=== PATIENT | male | born 1990 | race Caucasian/White ===

== ENCOUNTER 2016-09-02 16:14 | Inpatient (IN) | payer SELFPAY ==
--- NOTE | 2016-09-02 16:48 | C.PDOC ---
Chief Complaint (Nursing): Abdominal Pain
--- NOTE | 2016-09-02 17:11 | C.PDOC ---
History Of Present Illness 26 year old patient with generalized abdominal pain for the past 2 days. Patient also complains of multiple episodes of non-bloody vomiting. He drinks alcohol daily and his last drink was at 0300. The pain initially started as epigastric, but now is to bilateral left quadrants. Patient also feels bloated. Patient denies a history of PUD, prior epigastric pain, or fever. He had a bowel movement this morning. Patient does not have a past surgical history. GEN ABD PAIN X 2 DAYS. +VOMITING, NONBLOODY. PS DRINKS DAILY, LAST DRINK @ 0300. INITIAL EPIG PAIN, NOW B/L LQ. +BLOATING. DENIES HO PUD, PRIOR EPIG PAIN. +BM THIS MORNING. PSH NEG. NO FEVER EXAM MOD DIST MILD TOX HEENT ANICTERIC, MMM ABD +DISTENDED B/L LQ TEND MILD CV RRR SINUS TACH SKIN NO JAUNDICE WARM DRY NEURO INTACT NO FOCAL DEF PSYCH CALM, NO S/S ACUTE INTOX NO S/S WITHDRAWAL Time Seen by Provider: 09/02/16 17:09 Chief Complaint (Nursing): Abdominal Pain History Per: Patient History/Exam Limitations: no limitations Onset/Duration Of Symptoms: Days (2) Current Symptoms Are (Timing): Still Present Context: Other Severity: Moderate Pain Scale Rating Of: 4 Location Of Pain/Discomfort: Epigastric, LUQ, LLQ Radiation Of Pain To:: None Quality Of Discomfort: "Pain" Associated Symptoms: Vomiting Exacerbating Factors: None Alleviating Factors: None Last Bowel Movement: Today Recent travel outside of the [place]: No Past Medical History Reviewed: Historical Data, Nursing Documentation, Vital Signs Vital Signs: Last Vital Signs Temp 96.8 F L 09/02/16 17:26 Pulse 107 H 09/02/16 17:30 Resp 23 09/02/16 17:30 BP 124/61 09/02/16 17:30 Pulse Ox 100 09/02/16 18:04 Family History: States: Unknown Family Hx - Social History Hx Alcohol Use: No Hx Substance Use: No - Immunization History Hx Tetanus Toxoid Vaccination: No Hx Influenza Vaccination: No Hx Pneumococcal Vaccination: No Review Of Systems Except As Marked, All Systems Reviewed And Found Negative. Constitutional: Negative for: Fever Gastrointestinal: Positive for: Vomiting, Abdominal Pain. Negative for: Other Physical Exam - Physical Exam Appears: Toxic (moderate), Other (moderate distress) Skin: Warm, Dry, No Jaundice Head: Atraumatic, Normacephalic Eye(s): bilateral: Other ((+)anicteric) Ear(s): Bilateral: Normal Nose: Normal Oral Mucosa: Moist Throat: Normal Neck: Normal ROM, Supple Chest: Symmetrical Cardiovascular: Rhythm Regular (sinus tachycardic) Respiratory: Normal Breath Sounds, No Rales, No Rhonchi, No Wheezing Gastrointestinal/Abdominal: Tenderness (bilateral LQ; mild), Distention Back: Normal Inspection Extremity: Normal ROM Neurological/Psych: Other (Neuro: intact, no focal deficits; Psych: calm, no signs or symptoms of acute intoxication, no signs or symptoms of withdrawal) ED Course And Treatment - Laboratory Results Result Diagrams: 09/02/16 17:09 09/02/16 17:09 ECG: Interpreted By Mn ECG Rhythm: Sinus Tachycardia ECG Interpretation: Abnormal Rate From EC O2 Sat by Pulse Oximetry: 100 (room air) Pulse Ox Interpretation: Normal - CT Scan/US ABD/PELVIS Other Rad Studies (CT/US): Radiology Report Reviewed (D/W DR BOWSER NEG FREE AIR. +PANCREATITIS) Progress - Re-Evaluation Re-evaluation Note: 09/02/16 17:33 125/70 SINUS TACH 124 CODE SEPSIS ACTIVATED 09/02/16 17:54 D/W SURG RESIDENT AWARE OF ER FINDINGS WILL EVAL IN ER D/W DR FINNEY ICU AWARE OF ER FINDINGS. REQUESTS CALLBACK W CT REPORT BEFORE DISPO CT PENDING 09/02/16 18:24 D/W MAGUE. D/W DR FINNEY AWARE OF CT FINDINGS, ACCEPTS FOR ICU. - Data Reviewed Data Reviewed: Lab, Diagnostic imaging, EKG, Old records - Critical Care Citical Care: Excluding Proc Time Critical Care Time: 90 minutes - Continuity of Care Discussed patient case with:: Patient, On-call PMD-pt unassigned Discussed pt. case with homemaking rehabilitation consultant/specialty: General Surgery Disposition Counseled Patient/Family Regarding: Studies Performed, Diagnosis - Disposition Disposition: HOSPITALIZED Disposition Time: 18:28 Condition: CRITICAL - POA Present On Arrival: None - Clinical Impression Clinical Impression: Pancreatitis, acute, Alcohol withdrawal - Scribe Statement The provider has reviewed the documentation as recorded by the Scribe Jacquie Higuera Provider Attestation: All medical record entries made by the Scribe were at my direction and personally dictated by me. I have reviewed the chart and agree that the record accurately reflects my personal performance of the history, physical exam, medical decision making, and the department course for this patient. I have also personally directed, reviewed, and agree with the discharge instructions and disposition. Decision To Admit - Pt Status Changed To: Hospital Disposition Of: Inpatient - Admit Certification Admit to Inpatient:: After my assessment, the patient will require hospitalization for at least two midnights. This is because of the severity of symptoms shown, intensity of services needed, and/or the medical risk in this patient being treated as an outpatient. - InPatient: Physician Admission Certification:: SEE NOTE - . Bed Request Type: ICU Admitting Physician: Dylan Hawkins Patient Diagnosis: Pancreatitis, acute, Alcohol withdrawal
[2016-09-02 17:12] LABS: BASO # 0.1 K/uL (0.0-0.2); BASO % 0.4 % (0.0-2.0); EOS % 0.2 % (0.0-4.0); LYMPH # 1.6 K/uL (1.0-4.3); LYMPH % 9.4 % (20.0-40.0); MEAN CELL VOLUME 100.1 fL (80.0-94.0); MEAN CORPUSCULAR HEMOGLOBIN 32.5 pg (27.0-31.0); MEAN CORPUSCULAR HGB CONC 32.5 g/dL (33.0-37.0); MEAN PLATELET VOLUME 7.6 fL (7.2-11.7); MONO # 0.6 K/uL (0.0-0.8); MONO % 3.4 % (0.0-10.0); NRBC % 0.1 % (0.0-2.0); PLATELET COUNT 251 K/uL (130-400); RED CELL DISTRIBUTION WIDTH 16.1 % (11.5-14.5); WHITE BLOOD COUNT 16.6 K/uL (4.8-10.8)
[2016-09-02] MEDS ORDERED: Sodium Chloride 0.9% 1,000 ML ONE (17:23)
[2016-09-02 17:24] LABS: BILIRUBIN,TOTAL 4.5 mg/dL (0.2-1.3)
[2016-09-02 17:25] LABS: CALCIUM 6.5 mg/dl (8.6-10.4); TOTAL PROTEIN 8.6 g/dL (6.3-8.3)
[2016-09-02 17:28] LABS: VENOUS BLOOD GAS BASE EXCESS -14.7 mmol/L (0.0-2.0); VENOUS BLOOD GAS PCO2 42 mmHg (40-60); VENOUS BLOOD PH 7.13 (7.32-7.43)
[2016-09-02 17:32] LABS: NEUTROPHIL 84 % (50-75); TOTAL CELLS COUNTED 100
[2016-09-02] MEDS ORDERED: Piperacillin/Tazobact 3.375 gm 100 ML IV STA (17:40)
--- NOTE | 2016-09-02 17:42 | RAD ---
PROCEDURE: CHEST RADIOGRAPH, 1 VIEW. Portable study 17:25. HISTORY: ABD PAIN, TACHYCARDIA R/O FREE AIR COMPARISON: September 02, 2016. Single-view abdomen FINDINGS: LUNGS: Clear. PLEURA: No pneumothorax or pleural fluid seen. CARDIOVASCULAR: Normal. OSSEOUS STRUCTURES: Suspect air under the left hemidiaphragm. Alternatively this could represent distended stomach. VISUALIZED UPPER ABDOMEN: Normal. OTHER FINDINGS: None. IMPRESSION: Free air suspected left hemidiaphragm. Findings discussed with attending physician with recommendation for follow-up CT.
--- NOTE | 2016-09-02 17:43 | RAD ---
HISTORY: ABD PAIN, TACHYCARDIA R/O FREE AIR COMPARISON: September 02, 2016. Single-view chest FINDINGS: BOWEL: Although it is likely the stomach accounting for left upper quadrant air comment a clinical context of this presentation free-air should be considered. BONES: Normal. OTHER FINDINGS: None. IMPRESSION: Possible free-air left hemidiaphragm. Alternatively this represents a normal stomach/gastric bubble. However, there is a clinical suspicion of free air on the CT scan of the abdomen advised
[2016-09-02] MEDS ORDERED: Piperacillin/Tazobact 3.375 gm 100 ML IVPB ONE (17:45)
[2016-09-02 17:46] LABS: ALB/GLOB RATIO 1.5 (1.0-2.1); POTASSIUM 6.3 mmol/L (3.6-5.2)
[2016-09-02 17:49] LABS: ALCOHOL SERUM < 10 mg/dl (0-10)
[2016-09-02 18:02] LABS: INR 1.2
[2016-09-02 18:11] LABS: BILIRUBIN,DIRECT 2.5 mg/dL (0.0-0.4); MAGNESIUM 1.1 mg/dL (1.6-2.3); PHOSPHOROUS 7.3 mg/dL (2.5-4.5)
[2016-09-02] MEDS ORDERED: Calcium Gluconate 4.65 MEQ in Dextrose 5% In Water 100 ML IV STA (18:31)
--- NOTE | 2016-09-02 18:36 | CP.PCM.CON ---
History of Present Illness - History of Present Illness History of Present Illness: 26-year-old male with past medical history of EtOH abuse (drinks 2 packs of beer a day). Present presents with 2 days of generalized abdominal pain. Found to be in severe acute pancreatitis. Review of Systems - Review of Systems All systems: reviewed and no additional remarkable complaints except - Gastrointestinal Gastrointestinal: Abdominal Pain Past Patient History - Infectious Disease Hx of Infectious Diseases: None - Past Social History Smoking Status: Never Smoked - PSYCHIATRIC Hx Substance Use: No Meds Allergies/Adverse Reactions: Allergies Allergy/AdvReac Type Severity Reaction Status Date / Time No Known Allergies Allergy Verified 09/02/16 16:32 - Medications Medications: Current Medications Sodium Chloride (Sodium Chloride 0.9%) 2,100 mls @ 1,000 mls/hr IV .Q2H6M ONE Stop: 09/02/16 19:16 Last Admin: 09/02/16 17:25 Dose: 1,000 mls/hr Sodium Chloride (Sodium Chloride 0.9%) 2,100 mls @ 1,000 mls/hr IV .Q2H6M ONE Stop: 09/02/16 20:35 Physical Exam - Head Exam Head Exam: ATRAUMATIC, NORMAL INSPECTION, NORMOCEPHALIC - Eye Exam Eye Exam: EOMI, Normal appearance, PERRL - ENT Exam ENT Exam: Mucous Membranes Dry - Respiratory Exam Respiratory Exam: Clear to Auscultation Bilateral, NORMAL BREATHING PATTERN - GI/Abdominal Exam GI & Abdominal Exam: Hypoactive Bowel Sounds, Tenderness - Neurological Exam Neurological exam: Alert, CN II-XII Intact, Normal Gait, Oriented x3, Reflexes Normal - Psychiatric Exam Psychiatric exam: Normal Affect Results - Vital Signs Recent Vital Signs: Last Vital Signs Temp 96.8 F L 09/02/16 17:26 Pulse 107 H 09/02/16 17:30 Resp 23 09/02/16 17:30 BP 124/61 09/02/16 17:30 Pulse Ox 100 09/02/16 18:31 - Labs Result Diagrams: 09/02/16 17:09 09/02/16 17:09 Labs: Laboratory Results - last 24 hr 09/02/16 09/02/16 09/02/16 17:09 17:09 17:22 WBC 16.6 H RBC 5.90 Hgb 19.2 H Hct 59.0 H MCV 100.1 H MCH 32.5 H MCHC 32.5 L RDW 16.1 H Plt Count 251 MPV 7.6 Neut % (Auto) 86.6 H Lymph % (Auto) 9.4 L [place] % (Auto) 3.4 Eos % (Auto) 0.2 Baso % (Auto) 0.4 Neut # 14.4 H Lymph # 1.6 [place] # 0.6 Eos # 0.0 Baso # 0.1 Neutrophils % (Manual) 84 H Lymphocytes % (Manual) 14 L Monocytes % (Manual) 2 Platelet Estimate Normal PT INR APTT pO2 VBG pH VBG pCO2 VBG HCO3 VBG Total CO2 VBG O2 Sat (Calc) VBG Base Excess VBG Potassium Glucose Lactate Crit Value Called To Crit Value Called By Crit Value Read Back Blood Gas Notified Time Sodium 126 L Potassium 6.3 H* Chloride 79 L Carbon Dioxide 13 L Anion Gap 40 H BUN 23 H Creatinine 3.1 H Est GFR ( Amer) 29 Est GFR (Non-Af Amer) 24 Random Glucose 191 H Calcium 6.5 L Phosphorus 7.3 H Magnesium 1.1 L Total Bilirubin 4.5 H Direct Bilirubin 2.5 H AST 220 H ALT 58 Alkaline Phosphatase 58 Troponin I 0.2200 H* Total Protein 8.6 H Albumin 5.1 H Globulin 3.5 Albumin/Globulin Ratio 1.5 Lipase 64347 H Venous Blood Potassium Stool Occult Blood Alcohol, Quantitative < 10 09/02/16 09/02/16 09/02/16 17:25 17:39 18:25 WBC RBC Hgb Hct MCV MCH MCHC RDW Plt Count MPV Neut % (Auto) Lymph % (Auto) [place] % (Auto) Eos % (Auto) Baso % (Auto) Neut # Lymph # [place] # Eos # Baso # Neutrophils % (Manual) Lymphocytes % (Manual) Monocytes % (Manual) Platelet Estimate PT 13.6 H INR 1.2 APTT 38 H pO2 27 L VBG pH 7.13 L* VBG pCO2 42 VBG HCO3 11.6 VBG Total CO2 15.3 L VBG O2 Sat (Calc) 45.8 VBG Base Excess -14.7 L VBG Potassium 5.8 H Glucose 174 H Lactate 10.1 H* Crit Value Called To Dr. tipton Crit Value Called By Luciano gomez Crit Value Read Back Y Blood Gas Notified Time 1728 Sodium 130.0 L Potassium Chloride 85.0 L Carbon Dioxide Anion Gap BUN Creatinine Est GFR ( Amer) Est GFR (Non-Af Amer) Random Glucose Calcium Phosphorus Magnesium Total Bilirubin Direct Bilirubin AST ALT Alkaline Phosphatase Troponin I Total Protein Albumin Globulin Albumin/Globulin Ratio Lipase Venous Blood Potassium 5.8 H Stool Occult Blood Negative Alcohol, Quantitative Assessment & Plan (1) Acute pancreatitis Assessment and Plan: 26-year-old male with past medical history of EtOH abuse (drinks 2 packs of beer a day). Present presents with 2 days of generalized abdominal pain. Found to be in severe acute pancreatitis. Neuro: Alert and oriented 3 Pulm: No acute issues, breathing spontaneously on 2 L nasal cannula oxygen. CV: Was mildly hypotensive, but responded to fluid boluses. Hem: Hemoconcentration, indicative of hypovolemic state. Renal: Acute renal failure secondary to prerenal state., Aggressive fluid hydration. Will monitor urine output. Endo: No acute issues GI: Acute pancreatitis, nothing by mouth for now. Depending on severity early feeding may be indicated. Monitor bilirubin. ID: Antibiotics not currently indicated. DVT proph - heparin subcutaneous GI proph - Protonix IV francis for strict I/O's during acute illness Code status - full code Crtical Care Time spent 35 minutes The documented time is cumulative and includes review of patient data/exams/labs /chart review and examination of the patient on rounds and throughout the day; time is exclusive of any procedures or teaching time. Status: Acute
[2016-09-02] MEDS ORDERED: Calcium Gluconate 4.65 mEq/10 ml Inj ONE (18:37)
[2016-09-02] MEDS ORDERED: Sodium Chloride 0.9% 1,000 ML IV SCH (18:45)
[2016-09-02] MEDS ORDERED: Folic Acid 1 MG, Thiamine 100 MG, Multivitamin (MVI) 10 ML in Dextrose 5% In Water 1,00... IV SCH (18:45)
[2016-09-02 18:58] LABS: RBC URINE 40 /hpf (0-3); URINE BACTERIA FEW (<OCC); URINE BILIRUBIN NEGATIVE (NEGATIVE); URINE BLOOD 3+ (NEGATIVE); URINE COLOR Yellow (YELLOW); URINE GLUCOSE (UA) 2+ mg/dL (Normal); URINE KETONE TRACE mg/dL (NEGATIVE); URINE LEUKOCYTE ESTERASE NEG Leu/uL (Negative); URINE PROTEIN 2+ mg/dL (NEGATIVE); URINE UROBILINOGEN NORMAL mg/dL (0.2-1.0); WBC URINE 76 /hpf (0-5)
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
[2016-09-02] MEDS ORDERED: Piperacill/Tazo 2.25gm in Dex 2.25 GM/50 ML BAG IVPB SCH (20:30)
[2016-09-02 20:32] LABS: VENOUS BLOOD GAS BASE EXCESS -12.5 mmol/L (0.0-2.0); VENOUS BLOOD GAS PCO2 41 mmHg (40-60); VENOUS BLOOD PH 7.18 (7.32-7.43)
[2016-09-02] MEDS: Magnesium Sulfate 1 gm in D5W 1 GM/100 ML BAG IVPB SCH ×2 (20:44→20:57)
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
[2016-09-02 20:48] LABS: BASO % 0.3 % (0.0-2.0); EOS % 0.1 % (0.0-4.0); HEMATOCRIT 44.7 % (35.0-51.0); LYMPH # 1.1 K/uL (1.0-4.3); LYMPH % 11.5 % (20.0-40.0); MEAN CELL VOLUME 99.9 fL (80.0-94.0); MEAN CORPUSCULAR HEMOGLOBIN 32.9 pg (27.0-31.0); MEAN CORPUSCULAR HGB CONC 32.9 g/dL (33.0-37.0); MEAN PLATELET VOLUME 7.7 fL (7.2-11.7); MONO # 0.4 K/uL (0.0-0.8); MONO % 4.2 % (0.0-10.0); RED CELL DISTRIBUTION WIDTH 15.3 % (11.5-14.5); WHITE BLOOD COUNT 9.2 K/uL (4.8-10.8)
[2016-09-02 20:53] LABS: CHLORIDE 96 mmol/L (98-107)
[2016-09-02 20:54] LABS: POTASSIUM 5.7 mmol/L (3.6-5.2); SODIUM 127 mmol/L (132-148)
[2016-09-02 20:55] LABS: CHOLESTEROL 100 mg/dL (0-199)
[2016-09-02 20:56] LABS: ALB/GLOB RATIO 1.3 (1.0-2.1); ALKALINE PHOSPHATASE 25 U/L (38-126); ALT/SGPT 40 U/L (21-72); AST/SGOT 131 U/L (17-59); BLOOD UREA NITROGEN 21 mg/dL (9-20); CARBON DIOXIDE 14 mmol/L (22-30); GFR AFRICAN-AMERICAN 55; GLUCOSE,RANDOM 128 mg/dL (75-110)
[2016-09-02 20:57] LABS: PHOSPHOROUS 2.7 mg/dL (2.5-4.5)
[2016-09-02 21:00] LABS: CALCIUM 4.7 mg/dl (8.6-10.4); MAGNESIUM 0.7 mg/dL (1.6-2.3)
--- NOTE | 2016-09-02 21:58 | PCM.SEPTIC ---
Sepsis Progress Note - Reassessment Type Date of Evaluation: 09/02/16 Time of Evaluation: 21:30 Reassessment Type: Non-invasive reassessment - Non Invasive Reassessment Were the most recent vital sign reviewed: Yes Vital Sign (Latest): Temp Pulse Resp BP Pulse Ox 97 F L 110 H 25 H 122/73 98 09/02/16 20:10 09/02/16 21:40 09/02/16 21:40 09/02/16 21:10 09/02/16 21:40 Temp -97 Pulse 109/min RR-22/min BP 122/73mmHg SaO2-98% Cardiovascular: Yes: Tachycardia. No: Chest Non Tender, Edema, Friction Rub Respiratory: Yes: Normal Breath Sounds. No: Accessory Muscle Use, Respiratory Distress Capillary Refill: Normal (Less than 2 sec) Pulses: Normal Radial, Normal Dorsalis Pedis, Normal Posterior Tibialis Skin: Normal Color, Warm
[2016-09-02] MEDS ORDERED: (Novolin R) Insulin Human Regular 100 units/ml vial SC SCH (22:00)
[2016-09-02] MEDS: [UNRECOGNIZED DRUG - OTHER] IV SCH (22:18)
[2016-09-02] MEDS: SODIUM BICARBONATE IV SCH (22:18)
[2016-09-02] MEDS: DEXTROSE IV SCH (22:18)
[2016-09-02] MEDS: Piperacill/Tazo 2.25gm in Dex 2.25 GM/50 ML BAG IVPB SCH (23:58)
[2016-09-03] MEDS: (Novolin R) Insulin Human Regular 100 units/ml vial SC SCH ×4 (00:02→18:38)
[2016-09-03 00:37] LABS: RBC URINE 3 /hpf (0-3); URINE BACTERIA RARE (<OCC); URINE BILIRUBIN NEGATIVE (NEGATIVE); URINE BLOOD 2+ (NEGATIVE); URINE COLOR Yellow (YELLOW); URINE GLUCOSE (UA) 3+ mg/dL (Normal); URINE KETONE NEGATIVE (NEGATIVE); URINE LEUKOCYTE ESTERASE NEG Leu/uL (Negative); URINE PROTEIN NEGATIVE (NEGATIVE); URINE UROBILINOGEN NORMAL mg/dL (0.2-1.0); WBC URINE 4 /hpf (0-5)
[2016-09-03] MEDS: SODIUM BICARBONATE IV SCH (03:36)
[2016-09-03] MEDS: [UNRECOGNIZED DRUG - OTHER] IV SCH (03:36)
[2016-09-03] MEDS: DEXTROSE IV SCH (03:36)
[2016-09-03 04:19] LABS: VENOUS BLOOD GAS BASE EXCESS -4.5 mmol/L (0.0-2.0); VENOUS BLOOD GAS PCO2 36 mmHg (40-60); VENOUS BLOOD PH 7.36 (7.32-7.43)
[2016-09-03 04:22] LABS: BASO % 0.6 % (0.0-2.0); EOS % 0.1 % (0.0-4.0); HEMATOCRIT 43.5 % (35.0-51.0); LYMPH % 13.2 % (20.0-40.0); MEAN CELL VOLUME 98.1 fL (80.0-94.0); MEAN CORPUSCULAR HEMOGLOBIN 33.5 pg (27.0-31.0); MEAN CORPUSCULAR HGB CONC 34.1 g/dL (33.0-37.0); MEAN PLATELET VOLUME 7.7 fL (7.2-11.7); MONO # 0.2 K/uL (0.0-0.8); MONO % 2.2 % (0.0-10.0); RED CELL DISTRIBUTION WIDTH 14.7 % (11.5-14.5); WHITE BLOOD COUNT 7.9 K/uL (4.8-10.8)
[2016-09-03 04:23] LABS: INR 1.2
[2016-09-03 04:30] LABS: CHLORIDE 92 mmol/L (98-107); POTASSIUM 4.1 mmol/L (3.6-5.2); SODIUM 123 mmol/L (132-148)
[2016-09-03 04:32] LABS: ALKALINE PHOSPHATASE 28 U/L (38-126); AST/SGOT 111 U/L (17-59); BILIRUBIN,TOTAL 3.3 mg/dL (0.2-1.3); CARBON DIOXIDE 21 mmol/L (22-30); GFR AFRICAN-AMERICAN > 60; TOTAL PROTEIN 5.4 g/dL (6.3-8.3)
[2016-09-03 04:33] LABS: ALT/SGPT 41 U/L (21-72); BLOOD UREA NITROGEN 18 mg/dL (9-20); GLUCOSE,RANDOM 164 mg/dL (75-110); PHOSPHOROUS 2.2 mg/dL (2.5-4.5)
[2016-09-03 04:34] LABS: MAGNESIUM 1.5 mg/dL (1.6-2.3)
[2016-09-03 05:10] LABS: CALCIUM 5.6 mg/dl (8.6-10.4)
[2016-09-03] MEDS: Piperacill/Tazo 2.25gm in Dex 2.25 GM/50 ML BAG IVPB SCH (06:00)
[2016-09-03] MEDS ORDERED: Sodium Chloride 0.9% 1,000 ML IV ONE ×2 (06:42→06:45)
--- NOTE | 2016-09-03 07:07 | CP.PCM.PN ---
Subjective - Date & Time of Evaluation Date of Evaluation: 09/03/16 Time of Evaluation: 06:52 - Subjective Subjective: Patient was initially given 3 lit fluid bolus in ER the later blood work showed improvement in the hemoconcentration, increased output of diluted urine, reduction in the soudium, some hypercholeremic non ag acidosis, hypomagnesimia, hypocalcemia, hyperkalemia. Fluids at this point changed to Isotonic D50.45NS with 75meq of sodiumbicarb, replaced mag and calcium, repeat urine spgr lower, over night about 3000ml of urination probably diuretic phase of ATN. With above fluids bicarb, potassium, mag, ph improved, ivf, patient currently voiding about 60ml/hr, Urine sodium, potassium, creatinine, osm, analysis, ordered with replacement of mag, ivf changed to NS at 200mls/hr. Objective - Vital Signs/Intake and Output Vital Signs (last 24 hours): Temp Pulse Resp BP Pulse Ox 99.2 F 111 H 16 114/66 97 09/03/16 00:00 09/03/16 02:30 09/03/16 02:30 09/03/16 03:10 09/03/16 02:30 Intake and Output: 09/02/16 09/03/16 18:59 06:59 Intake Total 3000 Output Total 3100 Balance -100 - Medications Medications: Current Medications Sodium Chloride (Sodium Chloride 0.9%) 1,000 mls @ 200 mls/hr IV .Q5H ONE Stop: 09/03/16 11:41 Magnesium Sulfate/Dextrose (Magnesium Sulfate 1 Gm/100 Ml D5w) 1 gm in 100 mls @ 300 mls/hr IVPB Q30M BONNIE Stop: 09/03/16 07:49 Piperacillin Sod/Tazobactam (Sod 3.375 gm/ Sodium Chloride) 100 mls @ 200 mls/ hr IVPB Q6H BONNIE Insulin Human Regular (Novolin R) 0 unit SC Q6 BONNIE PRN Reason: Protocol Last Admin: 09/03/16 06:05 Dose: 2 unit Lorazepam (Ativan) 1 mg IVP Q3H PRN PRN Reason: withdrawal symptoms Ondansetron HCl (Zofran Inj) 4 mg IVP Q6H PRN PRN Reason: Nausea/Vomiting Pantoprazole Sodium (Protonix Inj) 40 mg IVP DAILY BONNIE Pneumococcal Polyvalent Vaccine (Pneumovax 23 Vaccine) 0.5 ml IM .ONCE ONE Stop: 09/05/16 10:01 Thiamine HCl (Vitamin B1 Inj) 100 mg IV DAILY [facility] - Labs Labs: 09/03/16 04:12 09/03/16 04:12 PT 13.8 SECONDS (9.7-12.2) H 09/03/16 04:12 INR 1.2 09/03/16 04:12 APTT 31 SECONDS (21-34) D 09/03/16 04:12
[2016-09-03] MEDS: Magnesium Sulfate 1 gm in D5W 1 GM/100 ML BAG IVPB SCH ×4 (07:25→12:50)
--- NOTE | 2016-09-03 08:09 | CT ---
PROCEDURE: CT Abdomen and Pelvis without intravenous contrast HISTORY: ABD DISTENTION R/O FREE AIR COMPARISON: None. TECHNIQUE: Technique. Contrast Dose: Radiation dose: Total exam DLP = 259 mGy-cm. This CT exam was performed using one or more of the following dose reduction techniques: Automated exposure control, adjustment of the mA and/or kV according to patient size, and/or use of iterative reconstruction technique. FINDINGS: LOWER THORAX: Unremarkable. LIVER: Diffuse fatty infiltration of the liver. GALLBLADDER AND BILE DUCTS: Unremarkable. PANCREAS: Marked diffuse peripancreatic inflammation and fluid stranding consistent with severe acute pancreatitis. No pseudocyst or abscess. SPLEEN: Unremarkable. ADRENALS: Unremarkable. No mass. KIDNEYS AND URETERS: Unremarkable. No hydronephrosis. No solid mass. VASCULATURE: Unremarkable. No aortic aneurysm. BOWEL: Unremarkable. No obstruction. No gross mural thickening. APPENDIX: Unremarkable. Normal appendix. PERITONEUM: Unremarkable. No free fluid. No free air. LYMPH NODES: Unremarkable. No enlarged lymph nodes. BLADDER: Unremarkable. REPRODUCTIVE: Unremarkable. BONES: No acute fracture. OTHER FINDINGS: None. IMPRESSION: Severe acute pancreatitis.
[2016-09-03 08:27] LABS: RBC URINE 1 /hpf (0-3); URINE BILIRUBIN NEGATIVE (NEGATIVE); URINE BLOOD 2+ (NEGATIVE); URINE COLOR Yellow (YELLOW); URINE GLUCOSE (UA) 3+ mg/dL (Normal); URINE KETONE TRACE mg/dL (NEGATIVE); URINE LEUKOCYTE ESTERASE NEG Leu/uL (Negative); URINE PROTEIN 2+ mg/dL (NEGATIVE); URINE UROBILINOGEN NORMAL mg/dL (0.2-1.0); WBC URINE 4 /hpf (0-5)
[2016-09-03 08:29] LABS: URINE BACTERIA RARE (<OCC)
--- NOTE | 2016-09-03 08:48 | RAD ---
HISTORY: evaluate for pleural effusion COMPARISON: No prior. FINDINGS: LUNGS: No active pulmonary disease. PLEURA: No significant pleural effusion identified, no pneumothorax apparent. CARDIOVASCULAR: Normal. OSSEOUS STRUCTURES: No significant abnormalities. VISUALIZED UPPER ABDOMEN: Normal. OTHER FINDINGS: None. IMPRESSION: No active disease.
[2016-09-03 08:57] LABS: CREATININE, RANDOM URINE 93.6 mg/dL
[2016-09-03] MEDS: Thiamine 100 mg/ml Inj IV SCH (10:56)
[2016-09-03] MEDS ORDERED: Piperacillin/Tazobact 3.375 GM in Sodium Chloride 100 ML IVPB SCH (12:00)
[2016-09-03] MEDS: Lactated Ringer's 1,000 ML IV SCH ×4 (12:52→22:49)
--- NOTE | 2016-09-03 13:37 | CP.PCM.PN ---
Subjective - Date & Time of Evaluation Date of Evaluation: 09/03/16 Time of Evaluation: 12:00 - Subjective Subjective: Patient was seen and examined in ICU. Complains of abdominal pain radiating to the back. Objective - Vital Signs/Intake and Output Vital Signs (last 24 hours): Temp Pulse Resp BP Pulse Ox 98.2 F 112 H 35 H 105/66 98 09/03/16 08:00 09/03/16 10:10 09/03/16 10:10 09/03/16 10:10 09/03/16 10:10 Intake and Output: 09/03/16 09/03/16 06:59 18:59 Intake Total 3000 1200 Output Total 3100 280 Balance -100 920 - Medications Medications: Current Medications Hydromorphone HCl (Dilaudid) 1 mg IVP Q4H PRN PRN Reason: Pain, severe (8-10) Lactated Ringer's (Lactated Ringer's) 1,000 mls @ 250 mls/hr IV .Q4H [facility] Last Admin: 09/03/16 12:52 Dose: 250 mls/hr Insulin Human Regular (Novolin R) 0 unit SC Q6 BONNIE PRN Reason: Protocol Last Admin: 09/03/16 12:52 Dose: 2 unit Lorazepam (Ativan) 1 mg IVP Q3H PRN PRN Reason: withdrawal symptoms Ondansetron HCl (Zofran Inj) 4 mg IVP Q6H PRN PRN Reason: Nausea/Vomiting Pantoprazole Sodium (Protonix Inj) 40 mg IVP DAILY [facility] Last Admin: 09/03/16 10:57 Dose: 40 mg Pneumococcal Polyvalent Vaccine (Pneumovax 23 Vaccine) 0.5 ml IM .ONCE ONE Stop: 09/05/16 10:01 Thiamine HCl (Vitamin B1 Inj) 100 mg IV DAILY [facility] Last Admin: 09/03/16 10:56 Dose: 100 mg - Labs Labs: 09/03/16 04:12 09/03/16 04:12 PT 13.8 SECONDS (9.7-12.2) H 09/03/16 04:12 INR 1.2 09/03/16 04:12 APTT 31 SECONDS (21-34) D 09/03/16 04:12 - Head Exam Head Exam: ATRAUMATIC, NORMOCEPHALIC - Eye Exam Eye Exam: Normal appearance - ENT Exam ENT Exam: Mucous Membranes Moist - Neck Exam Neck Exam: Normal Inspection - Respiratory Exam Respiratory Exam: Clear to Ausculation Bilateral. absent: Chest Wall Tenderness - Cardiovascular Exam Cardiovascular Exam: REGULAR RHYTHM, +S1, +S2 - GI/Abdominal Exam GI & Abdominal Exam: Firm, Tenderness - Extremities Exam Extremities Exam: absent: Pedal Edema - Neurological Exam Neurological Exam: Alert, Awake, Oriented x3 Assessment and Plan (1) Acute pancreatitis Assessment & Plan: Patient is nothing by mouth. On IV fluids at 250 mL/h. Patient is also on pain medication as needed. Monitor lites closely and replace as needed. Discussed with outcomes specialist and GI. Status: Acute (2) Hyperkalemia Assessment & Plan: Resolved now. Status: Acute (3) Metabolic acidosis Assessment & Plan: Secondary to alkaline abuse and pancreatitis. Improving now. Status: Acute (4) Hyponatremia Assessment & Plan: Secondary to acute pancreatitis. Continue to monitor. Status: Acute (5) DVT prophylaxis Assessment & Plan: SCDs. Status: Acute
[2016-09-03] MEDS: HYDROmorphone 1 mg/ml ISec IVP PRN (13:39)
--- NOTE | 2016-09-03 13:50 | CP.CCUPN ---
CCU Subjective - Physician Review Subjective (Free Text): 09/03/16 13:48 PGY-1 progress note Pt seen and examined at bedside. Pt reports some abdominal pain still, that is worse with any movement. He also reports some abdominal distention but admits to flatus. Has some nauseousness but denies vomiting. Denies fevers, chills, chest pain, sob. Critical Care Time Spent (in minutes): 35 CCU Objective - Vital Signs / Intake & Output Vital Signs (Last 4 hours): Vital Signs Pulse Resp BP Pulse Ox 09/03/16 10:10 112 H 35 H 105/66 98 Intake and Output (Last 8hrs): Intake & Output 09/02/16 09/03/16 09/03/16 22:59 06:59 14:59 Intake Total 1200 1800 1200 Output Total 2000 1100 280 Balance -800 700 920 Intake: Intake, IV Amount 1200 1800 1200 L antecubital 450 0 Left AC 450 1600 1000 left antecubital 200 right antecubital 300 200 Oral 0 0 0 Output: Urine 1999 1100 280 Urethral (Francis) 1999 1100 280 Other: # Bowel Movements 0 0 0 - Physical Exam Head: Positive for: Atraumatic, Normocephalic Pupils: Positive for: PERRL Mouth: Positive for: Moist Mucous Membranes Respiratory/Chest: Positive for: Clear to Auscultation, Good Air Exchange. Negative for: Respiratory Distress Cardiovascular: Positive for: Normal S1, S2 Abdomen: Positive for: Tenderness, Distention. Negative for: Normal Bowel Sounds Upper Extremity: Positive for: NORMAL PULSES, Neurovascularly Intact Lower Extremity: Positive for: NORMAL PULSES, Neurovascularly Intact Neurological: Positive for: CN II-XII Intact, Speech Normal Skin: Positive for: Warm, Dry Psychiatric: Positive for: Alert, Oriented x 3 - Medications Active Medications: Active Medications Generic Name Dose Route Start Last Admin Trade Name Freq PRN Reason Stop Dose Admin Hydromorphone HCl 1 mg 09/03/16 13:02 09/03/16 13:39 Dilaudid IVP 1 mg Q4H PRN Administration Pain, severe (8-10) Lactated Ringer's 1,000 mls @ 250 mls/hr 09/03/16 12:30 09/03/16 12:52 Lactated Ringer's IV 250 mls/hr .Q4H BONNIE Administration Insulin Human Regular 0 unit 09/03/16 00:00 09/03/16 12:52 Novolin R SC 2 unit Q6 BONNIE Administration Protocol Lorazepam 1 mg 09/02/16 21:39 Ativan IVP Q3H PRN withdrawal symptoms Ondansetron HCl 4 mg 09/02/16 20:01 09/03/16 13:40 Zofran Inj IVP 4 mg Q6H PRN Administration Nausea/Vomiting Pantoprazole Sodium 40 mg 09/03/16 10:00 09/03/16 10:57 Protonix Inj IVP 40 mg DAILY BONNIE Administration Pneumococcal Polyvalent Vaccine 0.5 ml 09/05/16 10:00 Pneumovax 23 Vaccine IM 09/05/16 10:01 .ONCE ONE Thiamine HCl 100 mg 09/03/16 10:00 09/03/16 10:56 Vitamin B1 Inj IV 100 mg DAILY BONNIE Administration - Patient Studies Lab Studies: Lab Studies 09/03/16 09/03/16 09/03/16 Range/Units 11:39 08:15 08:15 WBC (4.8-10.8) K/uL RBC (4.40-5.90) Mil/uL Hgb (12.0-18.0) g/dL Hct (35.0-51.0) % MCV (80.0-94.0) fL MCH (27.0-31.0) pg MCHC (33.0-37.0) g/dL RDW (11.5-14.5) % Plt Count (130-400) K/uL MPV (7.2-11.7) fL Neut % (Auto) (50.0-75.0) % Lymph % (Auto) (20.0-40.0) % [place] % (Auto) (0.0-10.0) % Eos % (Auto) (0.0-4.0) % Baso % (Auto) (0.0-2.0) % Neut # (1.8-7.0) K/uL Lymph # (1.0-4.3) K/uL [place] # (0.0-0.8) K/uL Eos # (0.0-0.7) K/uL Baso # (0.0-0.2) K/uL PT (9.7-12.2) SECONDS INR APTT (21-34) SECONDS pO2 (30-55) mm/Hg VBG pH (7.32-7.43) VBG pCO2 (40-60) mmHg VBG HCO3 mmol/L VBG Total CO2 (22-28) mmol/L VBG O2 Sat (Calc) (40-65) % VBG Base Excess (0.0-2.0) mmol/L VBG Potassium (3.6-5.2) mmol/L Sodium (132-148) mmol/l Chloride (98-107) mmol/L Glucose (75-110) mg/dl Lactate (0.7-2.1) mmol/L Crit Value Called To Crit Value Called By Crit Value Read Back Blood Gas Notified Time Potassium (3.6-5.2) mmol/L Carbon Dioxide (22-30) mmol/L Anion Gap (10-20) BUN (9-20) mg/dL Creatinine (0.8-1.5) MG/DL Est GFR ( Amer) Est GFR (Non-Af Amer) POC Glucose (mg/dL) 169 H (65-110) mg/dL Random Glucose (75-110) mg/dL Calcium (8.6-10.4) mg/dl Phosphorus (2.5-4.5) mg/dL Magnesium (1.6-2.3) mg/dL Total Bilirubin (0.2-1.3) mg/dL AST (17-59) U/L ALT (21-72) U/L Alkaline Phosphatase (38-126) U/L Total Creatine Kinase (55-170) U/L CK-MB (Mass) (0.0-3.38) ng/mL Troponin I, Quant (0.00-0.120) ng/mL Total Protein (6.3-8.3) g/dL Albumin (3.5-5.0) g/dL Globulin (2.2-3.9) gm/dL Albumin/Globulin Ratio (1.0-2.1) Triglycerides (0-149) mg/dL Cholesterol (0-199) mg/dL LDL Cholesterol Direct (0-129) mg/dL HDL Cholesterol (30-70) mg/dL Lipase (23-300) U/L Venous Blood Potassium (3.6-5.2) mmol/L Urine Color Yellow (YELLOW) Urine Clarity Hazy (Clear) Urine pH 5.0 (5.0-8.0) Ur Specific [place] 1.030 (1.003-1.030) Urine Protein 2+ H (NEGATIVE) mg/dL Urine Glucose (UA) 3+ H (Normal) mg/dL Urine Ketones Trace (NEGATIVE) mg/dL Urine Blood 2+ H (NEGATIVE) Urine Nitrate Negative (NEGATIVE) Urine Bilirubin Negative (NEGATIVE) Urine Urobilinogen Normal (0.2-1.0) mg/dL Ur Leukocyte Esterase Neg (Negative) Sharon/uL Urine WBC (Auto) 4 (0-5) /hpf Urine RBC (Auto) 1 (0-3) /hpf Ur Squamous Epith Cells 3 (0-5) /hpf Urine Bacteria Rare (<OCC) Urine Osmolality 734 (300-1000) mosm/kg Ur Random Creatinine 93.6 mg/dL Ur Random Sodium 54 mmol/L Ur Random Potassium 82.5 mmol/L Urine Opiates Screen (NEGATIVE) Urine Methadone Screen (NEGATIVE) Ur Barbiturates Screen (NEGATIVE) Ur Phencyclidine Scrn (NEGATIVE) Ur Amphetamines Screen (NEGATIVE) U Benzodiazepines Scrn (NEGATIVE) U Oth Cocaine Metabols (NEGATIVE) U Cannabinoids Screen (NEGATIVE) 09/03/16 09/03/16 09/03/16 Range/Units 05:58 04:12 04:12 WBC 7.9 (4.8-10.8) K/uL RBC 4.43 (4.40-5.90) Mil/uL Hgb 14.8 (12.0-18.0) g/dL Hct 43.5 (35.0-51.0) % MCV 98.1 H (80.0-94.0) fL MCH 33.5 H (27.0-31.0) pg MCHC 34.1 (33.0-37.0) g/dL RDW 14.7 H (11.5-14.5) % Plt Count 144 (130-400) K/uL MPV 7.7 (7.2-11.7) fL Neut % (Auto) 83.9 H (50.0-75.0) % Lymph % (Auto) 13.2 L (20.0-40.0) % [place] % (Auto) 2.2 (0.0-10.0) % Eos % (Auto) 0.1 (0.0-4.0) % Baso % (Auto) 0.6 (0.0-2.0) % Neut # 6.6 (1.8-7.0) K/uL Lymph # 1.0 (1.0-4.3) K/uL [place] # 0.2 (0.0-0.8) K/uL Eos # 0.0 (0.0-0.7) K/uL Baso # 0.0 (0.0-0.2) K/uL PT (9.7-12.2) SECONDS INR APTT (21-34) SECONDS pO2 (30-55) mm/Hg VBG pH (7.32-7.43) VBG pCO2 (40-60) mmHg VBG HCO3 mmol/L VBG Total CO2 (22-28) mmol/L VBG O2 Sat (Calc) (40-65) % VBG Base Excess (0.0-2.0) mmol/L VBG Potassium (3.6-5.2) mmol/L Sodium 123 L (132-148) mmol/l Chloride 92 L (98-107) mmol/L Glucose (75-110) mg/dl Lactate (0.7-2.1) mmol/L Crit Value Called To Crit Value Called By Crit Value Read Back Blood Gas Notified Time Potassium 4.1 (3.6-5.2) mmol/L Carbon Dioxide 21 L (22-30) mmol/L Anion Gap 14 (10-20) BUN 18 (9-20) mg/dL Creatinine 1.3 (0.8-1.5) MG/DL Est GFR ( Amer) > 60 Est GFR (Non-Af Amer) > 60 POC Glucose (mg/dL) 168 H (65-110) mg/dL Random Glucose 164 H (75-110) mg/dL Calcium 5.6 L* (8.6-10.4) mg/dl Phosphorus 2.2 L (2.5-4.5) mg/dL Magnesium 1.5 L (1.6-2.3) mg/dL Total Bilirubin 3.3 H (0.2-1.3) mg/dL AST 111 H (17-59) U/L ALT 41 (21-72) U/L Alkaline Phosphatase 28 L (38-126) U/L Total Creatine Kinase 1492 H (55-170) U/L CK-MB (Mass) 6.43 H (0.0-3.38) ng/mL Troponin I, Quant 0.0960 (0.00-0.120) ng/mL Total Protein 5.4 L (6.3-8.3) g/dL Albumin 2.7 L (3.5-5.0) g/dL Globulin 2.7 (2.2-3.9) gm/dL Albumin/Globulin Ratio 1.0 (1.0-2.1) Triglycerides (0-149) mg/dL Cholesterol (0-199) mg/dL LDL Cholesterol Direct (0-129) mg/dL HDL Cholesterol (30-70) mg/dL Lipase 2452 H (23-300) U/L Venous Blood Potassium (3.6-5.2) mmol/L Urine Color (YELLOW) Urine Clarity (Clear) Urine pH (5.0-8.0) Ur Specific [place] (1.003-1.030) Urine Protein (NEGATIVE) mg/dL Urine Glucose (UA) (Normal) mg/dL Urine Ketones (NEGATIVE) mg/dL Urine Blood (NEGATIVE) Urine Nitrate (NEGATIVE) Urine Bilirubin (NEGATIVE) Urine Urobilinogen (0.2-1.0) mg/dL Ur Leukocyte Esterase (Negative) [place]/uL Urine WBC (Auto) (0-5) /hpf Urine RBC (Auto) (0-3) /hpf Ur Squamous Epith Cells (0-5) /hpf Urine Bacteria (<OCC) Urine Osmolality (300-1000) mosm/kg Ur Random Creatinine mg/dL Ur Random Sodium mmol/L Ur Random Potassium mmol/L Urine Opiates Screen (NEGATIVE) Urine Methadone Screen (NEGATIVE) Ur Barbiturates Screen (NEGATIVE) Ur Phencyclidine Scrn (NEGATIVE) Ur Amphetamines Screen (NEGATIVE) U Benzodiazepines Scrn (NEGATIVE) U Oth Cocaine Metabols (NEGATIVE) U Cannabinoids Screen (NEGATIVE) 09/03/16 09/03/16 09/03/16 Range/Units 04:12 04:10 00:28 WBC (4.8-10.8) K/uL RBC (4.40-5.90) Mil/uL Hgb (12.0-18.0) g/dL Hct (35.0-51.0) % MCV (80.0-94.0) fL MCH (27.0-31.0) pg MCHC (33.0-37.0) g/dL RDW (11.5-14.5) % Plt Count (130-400) K/uL MPV (7.2-11.7) fL Neut % (Auto) (50.0-75.0) % Lymph % (Auto) (20.0-40.0) % [place] % (Auto) (0.0-10.0) % Eos % (Auto) (0.0-4.0) % Baso % (Auto) (0.0-2.0) % Neut # (1.8-7.0) K/uL Lymph # (1.0-4.3) K/uL [place] # (0.0-0.8) K/uL Eos # (0.0-0.7) K/uL Baso # (0.0-0.2) K/uL PT 13.8 H (9.7-12.2) SECONDS INR 1.2 APTT 31 D (21-34) SECONDS pO2 29 L (30-55) mm/Hg VBG pH 7.36 (7.32-7.43) VBG pCO2 36 L (40-60) mmHg VBG HCO3 20.2 mmol/L VBG Total CO2 21.4 L (22-28) mmol/L VBG O2 Sat (Calc) 56.6 (40-65) % VBG Base Excess -4.5 L (0.0-2.0) mmol/L VBG Potassium 4.4 (3.6-5.2) mmol/L Sodium 127.0 L (132-148) mmol/l Chloride 95.0 L (98-107) mmol/L Glucose 181 H (75-110) mg/dl Lactate 4.3 H* (0.7-2.1) mmol/L Crit Value Called To 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 Crit Value Called By Jair [email or web address] Crit Value Read Back Y Blood Gas Notified Time 420 Potassium (3.6-5.2) mmol/L Carbon Dioxide (22-30) mmol/L Anion Gap (10-20) BUN (9-20) mg/dL Creatinine (0.8-1.5) MG/DL Est GFR ( Amer) Est GFR (Non-Af Amer) POC Glucose (mg/dL) (65-110) mg/dL Random Glucose (75-110) mg/dL Calcium (8.6-10.4) mg/dl Phosphorus (2.5-4.5) mg/dL Magnesium (1.6-2.3) mg/dL Total Bilirubin (0.2-1.3) mg/dL AST (17-59) U/L ALT (21-72) U/L Alkaline Phosphatase (38-126) U/L Total Creatine Kinase (55-170) U/L CK-MB (Mass) (0.0-3.38) ng/mL Troponin I, Quant (0.00-0.120) ng/mL Total Protein (6.3-8.3) g/dL Albumin (3.5-5.0) g/dL Globulin (2.2-3.9) gm/dL Albumin/Globulin Ratio (1.0-2.1) Triglycerides (0-149) mg/dL Cholesterol (0-199) mg/dL LDL Cholesterol Direct (0-129) mg/dL HDL Cholesterol (30-70) mg/dL Lipase (23-300) U/L Venous Blood Potassium 4.4 (3.6-5.2) mmol/L Urine Color Yellow (YELLOW) Urine Clarity Clear (Clear) Urine pH 5.0 (5.0-8.0) Ur Specific [place] 1.008 (1.003-1.030) Urine Protein Negative (NEGATIVE) mg/dL Urine Glucose (UA) 3+ H (Normal) mg/dL Urine Ketones Negative (NEGATIVE) mg/dL Urine Blood 2+ H (NEGATIVE) Urine Nitrate Negative (NEGATIVE) Urine Bilirubin Negative (NEGATIVE) Urine Urobilinogen Normal (0.2-1.0) mg/dL Ur Leukocyte Esterase Neg (Negative) [place]/uL Urine WBC (Auto) 4 (0-5) /hpf Urine RBC (Auto) 3 (0-3) /hpf Ur Squamous Epith Cells 5 (0-5) /hpf Urine Bacteria Rare (<OCC) Urine Osmolality (300-1000) mosm/kg Ur Random Creatinine mg/dL Ur Random Sodium mmol/L Ur Random Potassium mmol/L Urine Opiates Screen (NEGATIVE) Urine Methadone Screen (NEGATIVE) Ur Barbiturates Screen (NEGATIVE) Ur Phencyclidine Scrn (NEGATIVE) Ur Amphetamines Screen (NEGATIVE) U Benzodiazepines Scrn (NEGATIVE) U Oth Cocaine Metabols (NEGATIVE) U Cannabinoids Screen (NEGATIVE) 09/02/16 09/02/16 09/02/16 Range/Units 23:38 20:35 20:35 WBC 9.2 (4.8-10.8) K/uL RBC 4.47 (4.40-5.90) Mil/uL Hgb 14.7 D (12.0-18.0) g/dL Hct 44.7 (35.0-51.0) % MCV 99.9 H (80.0-94.0) fL MCH 32.9 H (27.0-31.0) pg MCHC 32.9 L (33.0-37.0) g/dL RDW 15.3 H (11.5-14.5) % Plt Count 136 D (130-400) K/uL MPV 7.7 (7.2-11.7) fL Neut % (Auto) 83.9 H (50.0-75.0) % Lymph % (Auto) 11.5 L (20.0-40.0) % [place] % (Auto) 4.2 (0.0-10.0) % Eos % (Auto) 0.1 (0.0-4.0) % Baso % (Auto) 0.3 (0.0-2.0) % Neut # 7.7 H (1.8-7.0) K/uL Lymph # 1.1 (1.0-4.3) K/uL [place] # 0.4 (0.0-0.8) K/uL Eos # 0.0 (0.0-0.7) K/uL Baso # 0.0 (0.0-0.2) K/uL PT (9.7-12.2) SECONDS INR APTT (21-34) SECONDS pO2 (30-55) mm/Hg VBG pH (7.32-7.43) VBG pCO2 (40-60) mmHg VBG HCO3 mmol/L VBG Total CO2 (22-28) mmol/L VBG O2 Sat (Calc) (40-65) % VBG Base Excess (0.0-2.0) mmol/L VBG Potassium (3.6-5.2) mmol/L Sodium 127 L (132-148) mmol/l Chloride 96 L D (98-107) mmol/L Glucose (75-110) mg/dl Lactate (0.7-2.1) mmol/L Crit Value Called To Crit Value Called By Crit Value Read Back Blood Gas Notified Time Potassium 5.7 H (3.6-5.2) mmol/L Carbon Dioxide 14 L (22-30) mmol/L Anion Gap 23 H (10-20) BUN 21 H (9-20) mg/dL Creatinine 1.8 H (0.8-1.5) MG/DL Est GFR ( Amer) 55 Est GFR (Non-Af Amer) 45 POC Glucose (mg/dL) 191 H (65-110) mg/dL Random Glucose 128 H (75-110) mg/dL Calcium 4.7 L* D (8.6-10.4) mg/dl Phosphorus 2.7 (2.5-4.5) mg/dL Magnesium 0.7 L* D (1.6-2.3) mg/dL Total Bilirubin 3.0 H (0.2-1.3) mg/dL AST 131 H D (17-59) U/L ALT 40 (21-72) U/L Alkaline Phosphatase 25 L D (38-126) U/L Total Creatine Kinase (55-170) U/L CK-MB (Mass) (0.0-3.38) ng/mL Troponin I, Quant (0.00-0.120) ng/mL Total Protein 5.0 L (6.3-8.3) g/dL Albumin 2.8 L D (3.5-5.0) g/dL Globulin 2.2 (2.2-3.9) gm/dL Albumin/Globulin Ratio 1.3 (1.0-2.1) Triglycerides 438 H (0-149) mg/dL Cholesterol 100 (0-199) mg/dL LDL Cholesterol Direct < 30 (0-129) mg/dL HDL Cholesterol 37 (30-70) mg/dL Lipase (23-300) U/L Venous Blood Potassium (3.6-5.2) mmol/L Urine Color (YELLOW) Urine Clarity (Clear) Urine pH (5.0-8.0) Ur Specific [place] (1.003-1.030) Urine Protein (NEGATIVE) mg/dL Urine Glucose (UA) (Normal) mg/dL Urine Ketones (NEGATIVE) mg/dL Urine Blood (NEGATIVE) Urine Nitrate (NEGATIVE) Urine Bilirubin (NEGATIVE) Urine Urobilinogen (0.2-1.0) mg/dL Ur Leukocyte Esterase (Negative) Sharon/uL Urine WBC (Auto) (0-5) /hpf Urine RBC (Auto) (0-3) /hpf Ur Squamous Epith Cells (0-5) /hpf Urine Bacteria (<OCC) Urine Osmolality (300-1000) mosm/kg Ur Random Creatinine mg/dL Ur Random Sodium mmol/L Ur Random Potassium mmol/L Urine Opiates Screen (NEGATIVE) Urine Methadone Screen (NEGATIVE) Ur Barbiturates Screen (NEGATIVE) Ur Phencyclidine Scrn (NEGATIVE) Ur Amphetamines Screen (NEGATIVE) U Benzodiazepines Scrn (NEGATIVE) U Oth Cocaine Metabols (NEGATIVE) U Cannabinoids Screen (NEGATIVE) 09/02/16 09/02/16 09/02/16 Range/Units 20:20 18:50 18:50 WBC (4.8-10.8) K/uL RBC (4.40-5.90) Mil/uL Hgb (12.0-18.0) g/dL Hct (35.0-51.0) % MCV (80.0-94.0) fL MCH (27.0-31.0) pg MCHC (33.0-37.0) g/dL RDW (11.5-14.5) % Plt Count (130-400) K/uL MPV (7.2-11.7) fL Neut % (Auto) (50.0-75.0) % Lymph % (Auto) (20.0-40.0) % [place] % (Auto) (0.0-10.0) % Eos % (Auto) (0.0-4.0) % Baso % (Auto) (0.0-2.0) % Neut # (1.8-7.0) K/uL Lymph # (1.0-4.3) K/uL [place] # (0.0-0.8) K/uL Eos # (0.0-0.7) K/uL Baso # (0.0-0.2) K/uL PT (9.7-12.2) SECONDS INR APTT (21-34) SECONDS pO2 12 L (30-55) mm/Hg VBG pH 7.18 L* (7.32-7.43) VBG pCO2 41 (40-60) mmHg VBG HCO3 12.7 mmol/L VBG Total CO2 16.6 L (22-28) mmol/L VBG O2 Sat (Calc) 23.2 L (40-65) % VBG Base Excess -12.5 L (0.0-2.0) mmol/L VBG Potassium 5.9 H (3.6-5.2) mmol/L Sodium 132.0 (132-148) mmol/l Chloride 98.0 (98-107) mmol/L Glucose 133 H (75-110) mg/dl Lactate 5.4 H* (0.7-2.1) mmol/L Crit Value Called To Dr chadwick Crit Value Called By Garcia maher Crit Value Read Back Y Blood Gas Notified Time 2034 Potassium (3.6-5.2) mmol/L Carbon Dioxide (22-30) mmol/L Anion Gap (10-20) BUN (9-20) mg/dL Creatinine (0.8-1.5) MG/DL Est GFR ( Amer) Est GFR (Non-Af Amer) POC Glucose (mg/dL) (65-110) mg/dL Random Glucose (75-110) mg/dL Calcium (8.6-10.4) mg/dl Phosphorus (2.5-4.5) mg/dL Magnesium (1.6-2.3) mg/dL Total Bilirubin (0.2-1.3) mg/dL AST (17-59) U/L ALT (21-72) U/L Alkaline Phosphatase (38-126) U/L Total Creatine Kinase (55-170) U/L CK-MB (Mass) (0.0-3.38) ng/mL Troponin I, Quant (0.00-0.120) ng/mL Total Protein (6.3-8.3) g/dL Albumin (3.5-5.0) g/dL Globulin (2.2-3.9) gm/dL Albumin/Globulin Ratio (1.0-2.1) Triglycerides (0-149) mg/dL Cholesterol (0-199) mg/dL LDL Cholesterol Direct (0-129) mg/dL HDL Cholesterol (30-70) mg/dL Lipase (23-300) U/L Venous Blood Potassium 5.9 H (3.6-5.2) mmol/L Urine Color Yellow (YELLOW) Urine Clarity Hazy (Clear) Urine pH 5.0 (5.0-8.0) Ur Specific [place] 1.013 (1.003-1.030) Urine Protein 2+ H (NEGATIVE) mg/dL Urine Glucose (UA) 2+ H (Normal) mg/dL Urine Ketones Trace (NEGATIVE) mg/dL Urine Blood 3+ H (NEGATIVE) Urine Nitrate Negative (NEGATIVE) Urine Bilirubin Negative (NEGATIVE) Urine Urobilinogen Normal (0.2-1.0) mg/dL Ur Leukocyte Esterase Neg (Negative) Sharon/uL Urine WBC (Auto) 76 H (0-5) /hpf Urine RBC (Auto) 40 H (0-3) /hpf Ur Squamous Epith Cells 1 (0-5) /hpf Urine Bacteria Few H (<OCC) Urine Osmolality (300-1000) mosm/kg Ur Random Creatinine mg/dL Ur Random Sodium mmol/L Ur Random Potassium mmol/L Urine Opiates Screen Negative (NEGATIVE) Urine Methadone Screen Negative (NEGATIVE) Ur Barbiturates Screen Negative (NEGATIVE) Ur Phencyclidine Scrn Negative (NEGATIVE) Ur Amphetamines Screen Negative (NEGATIVE) U Benzodiazepines Scrn Negative (NEGATIVE) U Oth Cocaine Metabols Negative (NEGATIVE) U Cannabinoids Screen Negative (NEGATIVE) Laboratory Results - last 24 hr 09/02/16 09/02/16 09/02/16 18:50 18:50 20:20 WBC RBC Hgb Hct MCV MCH MCHC RDW Plt Count MPV Neut % (Auto) Lymph % (Auto) [place] % (Auto) Eos % (Auto) Baso % (Auto) Neut # Lymph # [place] # Eos # Baso # PT INR APTT pO2 12 L VBG pH 7.18 L* VBG pCO2 41 VBG HCO3 12.7 VBG Total CO2 16.6 L VBG O2 Sat (Calc) 23.2 L VBG Base Excess -12.5 L VBG Potassium 5.9 H Sodium 132.0 Chloride 98.0 Glucose 133 H Lactate 5.4 H* Crit Value Called To Dr chadwick Crit Value Called By Garcia maher Crit Value Read Back Y Blood Gas Notified Time 2034 Potassium Carbon Dioxide Anion Gap BUN Creatinine Est GFR ( Amer) Est GFR (Non-Af Amer) POC Glucose (mg/dL) Random Glucose Calcium Phosphorus Magnesium Total Bilirubin AST ALT Alkaline Phosphatase Total Creatine Kinase CK-MB (Mass) Troponin I, Quant Total Protein Albumin Globulin Albumin/Globulin Ratio Triglycerides Cholesterol LDL Cholesterol Direct HDL Cholesterol Lipase Venous Blood Potassium 5.9 H Urine Color Yellow Urine Clarity Hazy Urine pH 5.0 Ur Specific [place] 1.013 Urine Protein 2+ H Urine Glucose (UA) 2+ H Urine Ketones Trace Urine Blood 3+ H Urine Nitrate Negative Urine Bilirubin Negative Urine Urobilinogen Normal Ur Leukocyte Esterase Neg Urine WBC (Auto) 76 H Urine RBC (Auto) 40 H Ur Squamous Epith Cells 1 Urine Bacteria Few H Urine Osmolality Ur Random Creatinine Ur Random Sodium Ur Random Potassium Urine Opiates Screen Negative Urine Methadone Screen Negative Ur Barbiturates Screen Negative Ur Phencyclidine Scrn Negative Ur Amphetamines Screen Negative U Benzodiazepines Scrn Negative U Oth Cocaine Metabols Negative U Cannabinoids Screen Negative 09/02/16 09/02/16 09/02/16 20:35 20:35 23:38 WBC 9.2 RBC 4.47 Hgb 14.7 D Hct 44.7 MCV 99.9 H MCH 32.9 H MCHC 32.9 L RDW 15.3 H Plt Count 136 D MPV 7.7 Neut % (Auto) 83.9 H Lymph % (Auto) 11.5 L [place] % (Auto) 4.2 Eos % (Auto) 0.1 Baso % (Auto) 0.3 Neut # 7.7 H Lymph # 1.1 [place] # 0.4 Eos # 0.0 Baso # 0.0 PT INR APTT pO2 VBG pH VBG pCO2 VBG HCO3 VBG Total CO2 VBG O2 Sat (Calc) VBG Base Excess VBG Potassium Sodium 127 L Chloride 96 L D Glucose Lactate Crit Value Called To Crit Value Called By Crit Value Read Back Blood Gas Notified Time Potassium 5.7 H Carbon Dioxide 14 L Anion Gap 23 H BUN 21 H Creatinine 1.8 H Est GFR ( Amer) 55 Est GFR (Non-Af Amer) 45 POC Glucose (mg/dL) 191 H Random Glucose 128 H Calcium 4.7 L* D Phosphorus 2.7 Magnesium 0.7 L* D Total Bilirubin 3.0 H AST 131 H D ALT 40 Alkaline Phosphatase 25 L D Total Creatine Kinase CK-MB (Mass) Troponin I, Quant Total Protein 5.0 L Albumin 2.8 L D Globulin 2.2 Albumin/Globulin Ratio 1.3 Triglycerides 438 H Cholesterol 100 LDL Cholesterol Direct < 30 HDL Cholesterol 37 Lipase Venous Blood Potassium Urine Color Urine Clarity Urine pH Ur Specific [place] Urine Protein Urine Glucose (UA) Urine Ketones Urine Blood Urine Nitrate Urine Bilirubin Urine Urobilinogen Ur Leukocyte Esterase Urine WBC (Auto) Urine RBC (Auto) Ur Squamous Epith Cells Urine Bacteria Urine Osmolality Ur Random Creatinine Ur Random Sodium Ur Random Potassium Urine Opiates Screen Urine Methadone Screen Ur Barbiturates Screen Ur Phencyclidine Scrn Ur Amphetamines Screen U Benzodiazepines Scrn U Oth Cocaine Metabols U Cannabinoids Screen 09/03/16 09/03/16 09/03/16 00:28 04:10 04:12 WBC RBC Hgb Hct MCV MCH MCHC RDW Plt Count MPV Neut % (Auto) Lymph % (Auto) [place] % (Auto) Eos % (Auto) Baso % (Auto) Neut # Lymph # [place] # Eos # Baso # PT 13.8 H INR 1.2 APTT 31 D pO2 29 L VBG pH 7.36 VBG pCO2 36 L VBG HCO3 20.2 VBG Total CO2 21.4 L VBG O2 Sat (Calc) 56.6 VBG Base Excess -4.5 L VBG Potassium 4.4 Sodium 127.0 L Chloride 95.0 L Glucose 181 H Lactate 4.3 H* Crit Value Called To 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 Crit Value Called By Jair [email or web address] Crit Value Read Back Y Blood Gas Notified Time 420 Potassium Carbon Dioxide Anion Gap BUN Creatinine Est GFR ( Amer) Est GFR (Non-Af Amer) POC Glucose (mg/dL) Random Glucose Calcium Phosphorus Magnesium Total Bilirubin AST ALT Alkaline Phosphatase Total Creatine Kinase CK-MB (Mass) Troponin I, Quant Total Protein Albumin Globulin Albumin/Globulin Ratio Triglycerides Cholesterol LDL Cholesterol Direct HDL Cholesterol Lipase Venous Blood Potassium 4.4 Urine Color Yellow Urine Clarity Clear Urine pH 5.0 Ur Specific [place] 1.008 Urine Protein Negative Urine Glucose (UA) 3+ H Urine Ketones Negative Urine Blood 2+ H Urine Nitrate Negative Urine Bilirubin Negative Urine Urobilinogen Normal Ur Leukocyte Esterase Neg Urine WBC (Auto) 4 Urine RBC (Auto) 3 Ur Squamous Epith Cells 5 Urine Bacteria Rare Urine Osmolality Ur Random Creatinine Ur Random Sodium Ur Random Potassium Urine Opiates Screen Urine Methadone Screen Ur Barbiturates Screen Ur Phencyclidine Scrn Ur Amphetamines Screen U Benzodiazepines Scrn U Oth Cocaine Metabols U Cannabinoids Screen 09/03/16 09/03/16 09/03/16 04:12 04:12 05:58 WBC 7.9 RBC 4.43 Hgb 14.8 Hct 43.5 MCV 98.1 H MCH 33.5 H MCHC 34.1 RDW 14.7 H Plt Count 144 MPV 7.7 Neut % (Auto) 83.9 H Lymph % (Auto) 13.2 L [place] % (Auto) 2.2 Eos % (Auto) 0.1 Baso % (Auto) 0.6 Neut # 6.6 Lymph # 1.0 [place] # 0.2 Eos # 0.0 Baso # 0.0 PT INR APTT pO2 VBG pH VBG pCO2 VBG HCO3 VBG Total CO2 VBG O2 Sat (Calc) VBG Base Excess VBG Potassium Sodium 123 L Chloride 92 L Glucose Lactate Crit Value Called To Crit Value Called By Crit Value Read Back Blood Gas Notified Time Potassium 4.1 Carbon Dioxide 21 L Anion Gap 14 BUN 18 Creatinine 1.3 Est GFR ( Amer) > 60 Est GFR (Non-Af Amer) > 60 POC Glucose (mg/dL) 168 H Random Glucose 164 H Calcium 5.6 L* Phosphorus 2.2 L Magnesium 1.5 L Total Bilirubin 3.3 H AST 111 H ALT 41 Alkaline Phosphatase 28 L Total Creatine Kinase 1492 H CK-MB (Mass) 6.43 H Troponin I, Quant 0.0960 Total Protein 5.4 L Albumin 2.7 L Globulin 2.7 Albumin/Globulin Ratio 1.0 Triglycerides Cholesterol LDL Cholesterol Direct HDL Cholesterol Lipase 2452 H Venous Blood Potassium Urine Color Urine Clarity Urine pH Ur Specific [place] Urine Protein Urine Glucose (UA) Urine Ketones Urine Blood Urine Nitrate Urine Bilirubin Urine Urobilinogen Ur Leukocyte Esterase Urine WBC (Auto) Urine RBC (Auto) Ur Squamous Epith Cells Urine Bacteria Urine Osmolality Ur Random Creatinine Ur Random Sodium Ur Random Potassium Urine Opiates Screen Urine Methadone Screen Ur Barbiturates Screen Ur Phencyclidine Scrn Ur Amphetamines Screen U Benzodiazepines Scrn U Oth Cocaine Metabols U Cannabinoids Screen 09/03/16 09/03/16 09/03/16 08:15 08:15 11:39 WBC RBC Hgb Hct MCV MCH MCHC RDW Plt Count MPV Neut % (Auto) Lymph % (Auto) [place] % (Auto) Eos % (Auto) Baso % (Auto) Neut # Lymph # [place] # Eos # Baso # PT INR APTT pO2 VBG pH VBG pCO2 VBG HCO3 VBG Total CO2 VBG O2 Sat (Calc) VBG Base Excess VBG Potassium Sodium Chloride Glucose Lactate Crit Value Called To Crit Value Called By Crit Value Read Back Blood Gas Notified Time Potassium Carbon Dioxide Anion Gap BUN Creatinine Est GFR ( Amer) Est GFR (Non-Af Amer) POC Glucose (mg/dL) 169 H Random Glucose Calcium Phosphorus Magnesium Total Bilirubin AST ALT Alkaline Phosphatase Total Creatine Kinase CK-MB (Mass) Troponin I, Quant Total Protein Albumin Globulin Albumin/Globulin Ratio Triglycerides Cholesterol LDL Cholesterol Direct HDL Cholesterol Lipase Venous Blood Potassium Urine Color Yellow Urine Clarity Hazy Urine pH 5.0 Ur Specific [place] 1.030 Urine Protein 2+ H Urine Glucose (UA) 3+ H Urine Ketones Trace Urine Blood 2+ H Urine Nitrate Negative Urine Bilirubin Negative Urine Urobilinogen Normal Ur Leukocyte Esterase Neg Urine WBC (Auto) 4 Urine RBC (Auto) 1 Ur Squamous Epith Cells 3 Urine Bacteria Rare Urine Osmolality 734 Ur Random Creatinine 93.6 Ur Random Sodium 54 Ur Random Potassium 82.5 Urine Opiates Screen Urine Methadone Screen Ur Barbiturates Screen Ur Phencyclidine Scrn Ur Amphetamines Screen U Benzodiazepines Scrn U Oth Cocaine Metabols U Cannabinoids Screen Fingerstick Blood Sugar Results: 169 Review of Systems - Review of Systems All systems: reviewed and no additional remarkable complaints except Critical Care Progress Note - Nutrition Nutrition: Nutrition Category Date Time Status NPO Diet [DIET] Diets 09/02/16 Dinner Active Assessment/Plan - Assessment and Plan (Free Text) Assessment: This is a 26 [facility], complicated by prerenal acute renal failure. Plan: Neuro: Alert and oriented 3 Pulm: No acute issues CV: Was mildly hypotensive, but responded to fluid boluses. Hem: Hemoconcentration, indicative of hypovolemic state. Corrected with IVF hydration Renal: Acute renal failure secondary to prerenal state. Aggressive fluid hydration. Will monitor urine output. Endo: No acute issues GI: Acute pancreatitis, nothing by mouth for now. Monitor bilirubin. Pt distended - abd x-ray showed dilated loops of small bowel consistent with ileus. NG tube inserted and set to LIS GI consulted - IVF changed to LR at 250 per GI, who also recommends a repeat CT with IV contrast. Surgery following - no indication for surgery at this time. ID: Antibiotics not currently indicated. DVT proph - heparin subcutaneous GI proph - Protonix IV francis for strict I/O's during acute illness Code status - full code
--- NOTE | 2016-09-03 15:40 | RAD ---
Abdomen single frontal view History: Ileus. Comparison: None available. Findings: Diffuse gaseous distension of small bowel loops throughout the abdomen suggestive for ileus and/or partial small bowel obstruction. Air and stool seen within the right hemicolon. Impression: Diffuse gaseous distension of small bowel loops throughout the abdomen suggestive for ileus and/or partial small bowel obstruction.
[2016-09-03] MEDS ORDERED: Iodixanol 320 MG/ML 100 ML BOTTLE IV ONE (16:07)
--- NOTE | 2016-09-03 17:31 | CP.PCM.CON ---
<Rosetta Fong - Last Filed: 09/03/16 17:28> History of Present Illness - History of Present Illness History of Present Illness: Gastroenterology Fellow/PGY4 Consult Note 26 year old male with no prior medical history presenting with epigastric pain. Patient describes trip to [place] to visit friends leading to intake of 750cc of whiskey. Shortly after, developed severe epigastric pain with radiation to back, pain scale 10/10. Associated nausea. last bowel movement Saturday with normal daily bowel habits prior to hospitalization. Denies vomiting, fever, chills, sweats, bloating, indigestion, heartburn, melena, hematochezia, confusion, leg swelling. No prior similar episodes. At present, pain is worse than on presentation. No prior EGD or colonoscopy. Family- denies colon cancer Social- daily 1-3 pints of whiskey, denies tobacco or illicit drug use Surgery- none Review of Systems - Review of Systems Review of Systems: A 12-point review of systems negative except for as above Past Patient History - Infectious Disease Hx of Infectious Diseases: None - Past Medical History & Family History Past Medical History?: Yes - Past Social History Smoking Status: Never Smoked - CARDIAC Hx Cardiac Disorders: No - PULMONARY Hx Respiratory Disorders: No - NEUROLOGICAL Hx Neurological Disorder: No - HEENT Hx HEENT Problems: No - RENAL Hx Chronic Kidney Disease: No - ENDOCRINE/METABOLIC Hx Endocrine Disorders: No - HEMATOLOGICAL/ONCOLOGICAL Hx Blood Disorders: No - INTEGUMENTARY Hx Dermatological Problems: No - MUSCULOSKELETAL/RHEUMATOLOGICAL Hx Falls: Yes (as a child-while playing) - GASTROINTESTINAL Hx Gastrointestinal Disorders: No - GENITOURINARY/GYNECOLOGICAL Hx Genitourinary Disorders: No - PSYCHIATRIC Hx Substance Use: No - SURGICAL HISTORY Hx Surgeries: No - ANESTHESIA Hx Anesthesia: No Hx Anesthesia Reactions: No Hx Malignant Hyperthermia: No Has any member of the family had a problem w/ anesthesia?: No Meds Allergies/Adverse Reactions: Allergies Allergy/AdvReac Type Severity Reaction Status Date / Time No Known Allergies Allergy Verified 09/02/16 16:32 - Medications Medications: Current Medications Hydromorphone HCl (Dilaudid) 1 mg IVP Q4H PRN PRN Reason: Pain, severe (8-10) Last Admin: 09/03/16 13:39 Dose: 1 mg Lactated Ringer's (Lactated Ringer's) 1,000 mls @ 250 mls/hr IV .Q4H [facility] Last Admin: 09/03/16 12:52 Dose: 250 mls/hr Insulin Human Regular (Novolin R) 0 unit SC Q6 [facility] PRN Reason: Protocol Last Admin: 09/03/16 12:52 Dose: 2 unit Lorazepam (Ativan) 1 mg IVP Q3H PRN PRN Reason: withdrawal symptoms Ondansetron HCl (Zofran Inj) 4 mg IVP Q6H PRN PRN Reason: Nausea/Vomiting Last Admin: 09/03/16 13:40 Dose: 4 mg Pantoprazole Sodium (Protonix Inj) 40 mg IVP DAILY [facility] Last Admin: 09/03/16 10:57 Dose: 40 mg Pneumococcal Polyvalent Vaccine (Pneumovax 23 Vaccine) 0.5 ml IM .ONCE ONE Stop: 09/05/16 10:01 Thiamine HCl (Vitamin B1 Inj) 100 mg IV DAILY [facility] Last Admin: 09/03/16 10:56 Dose: 100 mg Physical Exam - Constitutional Appears: Non-toxic, No Acute Distress - Head Exam Head Exam: ATRAUMATIC, NORMOCEPHALIC - Eye Exam Eye Exam: EOMI, PERRL Pupil Exam: PERRL. absent: Miosis, Mydriatic - ENT Exam ENT Exam: Mucous Membranes Moist, Normal Oropharynx - Neck Exam Neck exam: Positive for: Full Rom, Normal Inspection - Respiratory Exam Respiratory Exam: Clear to Auscultation Bilateral. absent: Rales, Rhonchi, Wheezes - Cardiovascular Exam Cardiovascular Exam: RRR, +S1, +S2. absent: Gallop, Rubs - GI/Abdominal Exam GI & Abdominal Exam: Distended, Firm, Guarding, Hypoactive Bowel Sounds, Tenderness. absent: Normal Bowel Sounds, Organomegaly, Rebound, Rigid, Soft Additional comments: hypertympanic to percussion, diffuse tenderness - Extremities Exam Extremities exam: Positive for: full ROM. Negative for: pedal edema - Neurological Exam Neurological exam: Alert - Psychiatric Exam Psychiatric exam: Normal Affect, Normal Mood - Skin Skin Exam: Dry, Intact, Normal Color, Warm Results - Vital Signs Recent Vital Signs: Last Vital Signs Temp 98.2 F 09/03/16 08:00 Pulse 121 H 09/03/16 17:10 Resp 23 05/08/17 17:10 BP 106/69 09/03/16 17:10 Pulse Ox 95 09/03/16 17:10 - Labs Result Diagrams: 09/03/16 04:12 09/03/16 04:12 Labs: Laboratory Results - last 24 hr 09/02/16 09/02/16 09/02/16 18:50 18:50 20:20 WBC RBC Hgb Hct MCV MCH MCHC RDW Plt Count MPV Neut % (Auto) Lymph % (Auto) [place] % (Auto) Eos % (Auto) Baso % (Auto) Neut # Lymph # [place] # Eos # Baso # PT INR APTT pO2 12 L VBG pH 7.18 L* VBG pCO2 41 VBG HCO3 12.7 VBG Total CO2 16.6 L VBG O2 Sat (Calc) 23.2 L VBG Base Excess -12.5 L VBG Potassium 5.9 H Sodium 132.0 Chloride 98.0 Glucose 133 H Lactate 5.4 H* Crit Value Called To Dr chadwick Crit Value Called By Garcia maher Crit Value Read Back Y Blood Gas Notified Time 2034 Potassium Carbon Dioxide Anion Gap BUN Creatinine Est GFR ( Amer) Est GFR (Non-Af Amer) POC Glucose (mg/dL) Random Glucose Calcium Phosphorus Magnesium Total Bilirubin AST ALT Alkaline Phosphatase Total Creatine Kinase CK-MB (Mass) Troponin I, Quant Total Protein Albumin Globulin Albumin/Globulin Ratio Triglycerides Cholesterol LDL Cholesterol Direct HDL Cholesterol Lipase Venous Blood Potassium 5.9 H Urine Color Yellow Urine Clarity Hazy Urine pH 5.0 Ur Specific [place] 1.013 Urine Protein 2+ H Urine Glucose (UA) 2+ H Urine Ketones Trace Urine Blood 3+ H Urine Nitrate Negative Urine Bilirubin Negative Urine Urobilinogen Normal Ur Leukocyte Esterase Neg Urine WBC (Auto) 76 H Urine RBC (Auto) 40 H Ur Squamous Epith Cells 1 Urine Bacteria Few H Urine Osmolality Ur Random Creatinine Ur Random Sodium Ur Random Potassium Urine Opiates Screen Negative Urine Methadone Screen Negative Ur Barbiturates Screen Negative Ur Phencyclidine Scrn Negative Ur Amphetamines Screen Negative U Benzodiazepines Scrn Negative U Oth Cocaine Metabols Negative U Cannabinoids Screen Negative 09/02/16 09/02/16 09/02/16 20:35 20:35 23:38 WBC 9.2 RBC 4.47 Hgb 14.7 D Hct 44.7 MCV 99.9 H MCH 32.9 H MCHC 32.9 L RDW 15.3 H Plt Count 136 D MPV 7.7 Neut % (Auto) 83.9 H Lymph % (Auto) 11.5 L [place] % (Auto) 4.2 Eos % (Auto) 0.1 Baso % (Auto) 0.3 Neut # 7.7 H Lymph # 1.1 [place] # 0.4 Eos # 0.0 Baso # 0.0 PT INR APTT pO2 VBG pH VBG pCO2 VBG HCO3 VBG Total CO2 VBG O2 Sat (Calc) VBG Base Excess VBG Potassium Sodium 127 L Chloride 96 L D Glucose Lactate Crit Value Called To Crit Value Called By Crit Value Read Back Blood Gas Notified Time Potassium 5.7 H Carbon Dioxide 14 L Anion Gap 23 H BUN 21 H Creatinine 1.8 H Est GFR ( Amer) 55 Est GFR (Non-Af Amer) 45 POC Glucose (mg/dL) 191 H Random Glucose 128 H Calcium 4.7 L* D Phosphorus 2.7 Magnesium 0.7 L* D Total Bilirubin 3.0 H AST 131 H D ALT 40 Alkaline Phosphatase 25 L D Total Creatine Kinase CK-MB (Mass) Troponin I, Quant Total Protein 5.0 L Albumin 2.8 L D Globulin 2.2 Albumin/Globulin Ratio 1.3 Triglycerides 438 H Cholesterol 100 LDL Cholesterol Direct < 30 HDL Cholesterol 37 Lipase Venous Blood Potassium Urine Color Urine Clarity Urine pH Ur Specific [place] Urine Protein Urine Glucose (UA) Urine Ketones Urine Blood Urine Nitrate Urine Bilirubin Urine Urobilinogen Ur Leukocyte Esterase Urine WBC (Auto) Urine RBC (Auto) Ur Squamous Epith Cells Urine Bacteria Urine Osmolality Ur Random Creatinine Ur Random Sodium Ur Random Potassium Urine Opiates Screen Urine Methadone Screen Ur Barbiturates Screen Ur Phencyclidine Scrn Ur Amphetamines Screen U Benzodiazepines Scrn U Oth Cocaine Metabols U Cannabinoids Screen 09/03/16 09/03/16 09/03/16 00:28 04:10 04:12 WBC RBC Hgb Hct MCV MCH MCHC RDW Plt Count MPV Neut % (Auto) Lymph % (Auto) [place] % (Auto) Eos % (Auto) Baso % (Auto) Neut # Lymph # [place] # Eos # Baso # PT 13.8 H INR 1.2 APTT 31 D pO2 29 L VBG pH 7.36 VBG pCO2 36 L VBG HCO3 20.2 VBG Total CO2 21.4 L VBG O2 Sat (Calc) 56.6 VBG Base Excess -4.5 L VBG Potassium 4.4 Sodium 127.0 L Chloride 95.0 L Glucose 181 H Lactate 4.3 H* Crit Value Called To Neetu lee/patternmaker Crit Value Called By Jair [email or web address]/rt Crit Value Read Back Y Blood Gas Notified Time 420 Potassium Carbon Dioxide Anion Gap BUN Creatinine Est GFR ( Amer) Est GFR (Non-Af Amer) POC Glucose (mg/dL) Random Glucose Calcium Phosphorus Magnesium Total Bilirubin AST ALT Alkaline Phosphatase Total Creatine Kinase CK-MB (Mass) Troponin I, Quant Total Protein Albumin Globulin Albumin/Globulin Ratio Triglycerides Cholesterol LDL Cholesterol Direct HDL Cholesterol Lipase Venous Blood Potassium 4.4 Urine Color Yellow Urine Clarity Clear Urine pH 5.0 Ur Specific [place] 1.008 Urine Protein Negative Urine Glucose (UA) 3+ H Urine Ketones Negative Urine Blood 2+ H Urine Nitrate Negative Urine Bilirubin Negative Urine Urobilinogen Normal Ur Leukocyte Esterase Neg Urine WBC (Auto) 4 Urine RBC (Auto) 3 Ur Squamous Epith Cells 5 Urine Bacteria Rare Urine Osmolality Ur Random Creatinine Ur Random Sodium Ur Random Potassium Urine Opiates Screen Urine Methadone Screen Ur Barbiturates Screen Ur Phencyclidine Scrn Ur Amphetamines Screen U Benzodiazepines Scrn U Oth Cocaine Metabols U Cannabinoids Screen 09/03/16 09/03/16 09/03/16 04:12 04:12 05:58 WBC 7.9 RBC 4.43 Hgb 14.8 Hct 43.5 MCV 98.1 H MCH 33.5 H MCHC 34.1 RDW 14.7 H Plt Count 144 MPV 7.7 Neut % (Auto) 83.9 H Lymph % (Auto) 13.2 L [place] % (Auto) 2.2 Eos % (Auto) 0.1 Baso % (Auto) 0.6 Neut # 6.6 Lymph # 1.0 [place] # 0.2 Eos # 0.0 Baso # 0.0 PT INR APTT pO2 VBG pH VBG pCO2 VBG HCO3 VBG Total CO2 VBG O2 Sat (Calc) VBG Base Excess VBG Potassium Sodium 123 L Chloride 92 L Glucose Lactate Crit Value Called To Crit Value Called By Crit Value Read Back Blood Gas Notified Time Potassium 4.1 Carbon Dioxide 21 L Anion Gap 14 BUN 18 Creatinine 1.3 Est GFR ( Amer) > 60 Est GFR (Non-Af Amer) > 60 POC Glucose (mg/dL) 168 H Random Glucose 164 H Calcium 5.6 L* Phosphorus 2.2 L Magnesium 1.5 L Total Bilirubin 3.3 H AST 111 H ALT 41 Alkaline Phosphatase 28 L Total Creatine Kinase 1492 H CK-MB (Mass) 6.43 H Troponin I, Quant 0.0960 Total Protein 5.4 L Albumin 2.7 L Globulin 2.7 Albumin/Globulin Ratio 1.0 Triglycerides Cholesterol LDL Cholesterol Direct HDL Cholesterol Lipase 2452 H Venous Blood Potassium Urine Color Urine Clarity Urine pH Ur Specific [place] Urine Protein Urine Glucose (UA) Urine Ketones Urine Blood Urine Nitrate Urine Bilirubin Urine Urobilinogen Ur Leukocyte Esterase Urine WBC (Auto) Urine RBC (Auto) Ur Squamous Epith Cells Urine Bacteria Urine Osmolality Ur Random Creatinine Ur Random Sodium Ur Random Potassium Urine Opiates Screen Urine Methadone Screen Ur Barbiturates Screen Ur Phencyclidine Scrn Ur Amphetamines Screen U Benzodiazepines Scrn U Oth Cocaine Metabols U Cannabinoids Screen 09/03/16 09/03/16 09/03/16 08:15 08:15 11:39 WBC RBC Hgb Hct MCV MCH MCHC RDW Plt Count MPV Neut % (Auto) Lymph % (Auto) [place] % (Auto) Eos % (Auto) Baso % (Auto) Neut # Lymph # [place] # Eos # Baso # PT INR APTT pO2 VBG pH VBG pCO2 VBG HCO3 VBG Total CO2 VBG O2 Sat (Calc) VBG Base Excess VBG Potassium Sodium Chloride Glucose Lactate Crit Value Called To Crit Value Called By Crit Value Read Back Blood Gas Notified Time Potassium Carbon Dioxide Anion Gap BUN Creatinine Est GFR ( Amer) Est GFR (Non-Af Amer) POC Glucose (mg/dL) 169 H Random Glucose Calcium Phosphorus Magnesium Total Bilirubin AST ALT Alkaline Phosphatase Total Creatine Kinase CK-MB (Mass) Troponin I, Quant Total Protein Albumin Globulin Albumin/Globulin Ratio Triglycerides Cholesterol LDL Cholesterol Direct HDL Cholesterol Lipase Venous Blood Potassium Urine Color Yellow Urine Clarity Hazy Urine pH 5.0 Ur Specific [place] 1.030 Urine Protein 2+ H Urine Glucose (UA) 3+ H Urine Ketones Trace Urine Blood 2+ H Urine Nitrate Negative Urine Bilirubin Negative Urine Urobilinogen Normal Ur Leukocyte Esterase Neg Urine WBC (Auto) 4 Urine RBC (Auto) 1 Ur Squamous Epith Cells 3 Urine Bacteria Rare Urine Osmolality 734 Ur Random Creatinine 93.6 Ur Random Sodium 54 Ur Random Potassium 82.5 Urine Opiates Screen Urine Methadone Screen Ur Barbiturates Screen Ur Phencyclidine Scrn Ur Amphetamines Screen U Benzodiazepines Scrn U Oth Cocaine Metabols U Cannabinoids Screen Assessment & Plan - Assessment and Plan (Free Text) Assessment: 26 year old male with no prior medical history presenting with epigastric pain. CT A/P without contrast showed diffuse inflammation of pancreas. Acute treatment of severe acute pancreatitis, ileus, acute renal failure, and multiple electrolyte derangements. No prior EGD or colonoscopy. Plan: >aggressive medical management >LR 250cc/hr >repeat labs at 1830 >creatinine improving >obtain CT A/P IV contrast to re-evaluate for pancreatic necrosis >provide Dilaudid for pain control >ileus-place NGT to decompress >continue Zosyn >NPO >supportive care: antiemetics, PPI >alcohol cessation counselling provided >critical status, close monitoring >high risk of progression to sepsis and ARDS <Bela Ruiz MD - Last Filed: 09/03/16 21:05> Meds - Medications Medications: Current Medications Hydromorphone HCl (Dilaudid) 1 mg IVP Q4H PRN PRN Reason: Pain, severe (8-10) Last Admin: 09/03/16 13:39 Dose: 1 mg Lactated Ringer's (Lactated Ringer's) 1,000 mls @ 250 mls/hr IV .Q4H [facility] Last Admin: 09/03/16 20:02 Dose: Not Given Insulin Human Regular (Novolin R) 0 unit SC Q6 [facility] PRN Reason: Protocol Last Admin: 09/03/16 18:38 Dose: Not Given Lorazepam (Ativan) 1 mg IVP Q3H PRN PRN Reason: withdrawal symptoms Ondansetron HCl (Zofran Inj) 4 mg IVP Q6H PRN PRN Reason: Nausea/Vomiting Last Admin: 09/03/16 13:40 Dose: 4 mg Pantoprazole Sodium (Protonix Inj) 40 mg IVP DAILY [facility] Last Admin: 09/03/16 10:57 Dose: 40 mg Pneumococcal Polyvalent Vaccine (Pneumovax 23 Vaccine) 0.5 ml IM .ONCE ONE Stop: 09/05/16 10:01 Thiamine HCl (Vitamin B1 Inj) 100 mg IV DAILY [facility] Last Admin: 09/03/16 10:56 Dose: 100 mg Results - Vital Signs Recent Vital Signs: Last Vital Signs Temp 98.3 F 09/03/16 20:00 Pulse 117 H 09/03/16 20:00 Resp 27 H 09/03/16 20:00 BP 115/66 09/03/16 20:10 Pulse Ox 96 09/03/16 20:00 - Labs Result Diagrams: 09/03/16 18:33 09/03/16 18:33 Labs: Laboratory Results - last 24 hr 09/02/16 09/02/16 09/03/16 20:35 23:38 00:28 WBC RBC Hgb Hct MCV MCH MCHC RDW Plt Count MPV Neut % (Auto) Lymph % (Auto) [place] % (Auto) Eos % (Auto) Baso % (Auto) Neut # Lymph # [place] # Eos # Baso # PT INR APTT pO2 VBG pH VBG pCO2 VBG HCO3 VBG Total CO2 VBG O2 Sat (Calc) VBG Base Excess VBG Potassium Sodium Chloride Glucose Lactate Crit Value Called To Crit Value Called By Crit Value Read Back Blood Gas Notified Time Potassium Carbon Dioxide Anion Gap BUN Creatinine Est GFR ( Amer) Est GFR (Non-Af Amer) POC Glucose (mg/dL) 191 H Random Glucose Calcium Phosphorus Magnesium Total Bilirubin AST ALT Alkaline Phosphatase Total Creatine Kinase CK-MB (Mass) Troponin I, Quant Total Protein Albumin Globulin Albumin/Globulin Ratio LDL Cholesterol Direct < 30 Lipase Venous Blood Potassium Urine Color Yellow Urine Clarity Clear Urine pH 5.0 Ur Specific [place] 1.008 Urine Protein Negative Urine Glucose (UA) 3+ H Urine Ketones Negative Urine Blood 2+ H Urine Nitrate Negative Urine Bilirubin Negative Urine Urobilinogen Normal Ur Leukocyte Esterase Neg Urine WBC (Auto) 4 Urine RBC (Auto) 3 Ur Squamous Epith Cells 5 Urine Bacteria Rare Urine Osmolality Ur Random Creatinine Ur Random Sodium Ur Random Potassium 09/03/16 09/03/16 09/03/16 04:10 04:12 04:12 WBC 7.9 RBC 4.43 Hgb 14.8 Hct 43.5 MCV 98.1 H MCH 33.5 H MCHC 34.1 RDW 14.7 H Plt Count 144 MPV 7.7 Neut % (Auto) 83.9 H Lymph % (Auto) 13.2 L [place] % (Auto) 2.2 Eos % (Auto) 0.1 Baso % (Auto) 0.6 Neut # 6.6 Lymph # 1.0 [place] # 0.2 Eos # 0.0 Baso # 0.0 PT 13.8 H INR 1.2 APTT 31 D pO2 29 L VBG pH 7.36 VBG pCO2 36 L VBG HCO3 20.2 VBG Total CO2 21.4 L VBG O2 Sat (Calc) 56.6 VBG Base Excess -4.5 L VBG Potassium 4.4 Sodium 127.0 L Chloride 95.0 L Glucose 181 H Lactate 4.3 H* Crit Value Called To Neetu lee/patternmaker Crit Value Called By Jair mcdaniel/rt Crit Value Read Back Y Blood Gas Notified Time 420 Potassium Carbon Dioxide Anion Gap BUN Creatinine Est GFR ( Amer) Est GFR (Non-Af Amer) POC Glucose (mg/dL) Random Glucose Calcium Phosphorus Magnesium Total Bilirubin AST ALT Alkaline Phosphatase Total Creatine Kinase CK-MB (Mass) Troponin I, Quant Total Protein Albumin Globulin Albumin/Globulin Ratio LDL Cholesterol Direct Lipase Venous Blood Potassium 4.4 Urine Color Urine Clarity Urine pH Ur Specific [place] Urine Protein Urine Glucose (UA) Urine Ketones Urine Blood Urine Nitrate Urine Bilirubin Urine Urobilinogen Ur Leukocyte Esterase Urine WBC (Auto) Urine RBC (Auto) Ur Squamous Epith Cells Urine Bacteria Urine Osmolality Ur Random Creatinine Ur Random Sodium Ur Random Potassium 09/03/16 09/03/16 09/03/16 04:12 05:58 08:15 WBC RBC Hgb Hct MCV MCH MCHC RDW Plt Count MPV Neut % (Auto) Lymph % (Auto) [place] % (Auto) Eos % (Auto) Baso % (Auto) Neut # Lymph # [place] # Eos # Baso # PT INR APTT pO2 VBG pH VBG pCO2 VBG HCO3 VBG Total CO2 VBG O2 Sat (Calc) VBG Base Excess VBG Potassium Sodium 123 L Chloride 92 L Glucose Lactate Crit Value Called To Crit Value Called By Crit Value Read Back Blood Gas Notified Time Potassium 4.1 Carbon Dioxide 21 L Anion Gap 14 BUN 18 Creatinine 1.3 Est GFR ( Amer) > 60 Est GFR (Non-Af Amer) > 60 POC Glucose (mg/dL) 168 H Random Glucose 164 H Calcium 5.6 L* Phosphorus 2.2 L Magnesium 1.5 L Total Bilirubin 3.3 H AST 111 H ALT 41 Alkaline Phosphatase 28 L Total Creatine Kinase 1492 H CK-MB (Mass) 6.43 H Troponin I, Quant 0.0960 Total Protein 5.4 L Albumin 2.7 L Globulin 2.7 Albumin/Globulin Ratio 1.0 LDL Cholesterol Direct Lipase 2452 H Venous Blood Potassium Urine Color Yellow Urine Clarity Hazy Urine pH 5.0 Ur Specific [place] 1.030 Urine Protein 2+ H Urine Glucose (UA) 3+ H Urine Ketones Trace Urine Blood 2+ H Urine Nitrate Negative Urine Bilirubin Negative Urine Urobilinogen Normal Ur Leukocyte Esterase Neg Urine WBC (Auto) 4 Urine RBC (Auto) 1 Ur Squamous Epith Cells 3 Urine Bacteria Rare Urine Osmolality Ur Random Creatinine Ur Random Sodium Ur Random Potassium 09/03/16 09/03/16 09/03/16 08:15 11:39 18:19 WBC RBC Hgb Hct MCV MCH MCHC RDW Plt Count MPV Neut % (Auto) Lymph % (Auto) [place] % (Auto) Eos % (Auto) Baso % (Auto) Neut # Lymph # [place] # Eos # Baso # PT INR APTT pO2 VBG pH VBG pCO2 VBG HCO3 VBG Total CO2 VBG O2 Sat (Calc) VBG Base Excess VBG Potassium Sodium Chloride Glucose Lactate Crit Value Called To Crit Value Called By Crit Value Read Back Blood Gas Notified Time Potassium Carbon Dioxide Anion Gap BUN Creatinine Est GFR ( Amer) Est GFR (Non-Af Amer) POC Glucose (mg/dL) 169 H 143 H Random Glucose Calcium Phosphorus Magnesium Total Bilirubin AST ALT Alkaline Phosphatase Total Creatine Kinase CK-MB (Mass) Troponin I, Quant Total Protein Albumin Globulin Albumin/Globulin Ratio LDL Cholesterol Direct Lipase Venous Blood Potassium Urine Color Urine Clarity Urine pH Ur Specific [place] Urine Protein Urine Glucose (UA) Urine Ketones Urine Blood Urine Nitrate Urine Bilirubin Urine Urobilinogen Ur Leukocyte Esterase Urine WBC (Auto) Urine RBC (Auto) Ur Squamous Epith Cells Urine Bacteria Urine Osmolality 734 Ur Random Creatinine 93.6 Ur Random Sodium 54 Ur Random Potassium 82.5 09/03/16 09/03/16 18:33 18:33 WBC 6.3 RBC 4.31 L Hgb 14.4 Hct 42.0 MCV 97.4 H MCH 33.5 H MCHC 34.4 RDW 15.4 H Plt Count 160 MPV 7.9 Neut % (Auto) 89.6 H Lymph % (Auto) 8.0 L [place] % (Auto) 1.8 Eos % (Auto) 0.2 Baso % (Auto) 0.4 Neut # 5.7 Lymph # 0.5 L [place] # 0.1 Eos # 0.0 Baso # 0.0 PT INR APTT pO2 VBG pH VBG pCO2 VBG HCO3 VBG Total CO2 VBG O2 Sat (Calc) VBG Base Excess VBG Potassium Sodium 123 L Chloride 89 L Glucose Lactate Crit Value Called To Crit Value Called By Crit Value Read Back Blood Gas Notified Time Potassium 4.1 Carbon Dioxide 23 Anion Gap 15 BUN 14 Creatinine 0.9 Est GFR ( Amer) > 60 Est GFR (Non-Af Amer) > 60 POC Glucose (mg/dL) Random Glucose 133 H Calcium 4.7 L* Phosphorus Magnesium Total Bilirubin AST ALT Alkaline Phosphatase Total Creatine Kinase CK-MB (Mass) Troponin I, Quant Total Protein Albumin Globulin Albumin/Globulin Ratio LDL Cholesterol Direct Lipase Venous Blood Potassium Urine Color Urine Clarity Urine pH Ur Specific [place] Urine Protein Urine Glucose (UA) Urine Ketones Urine Blood Urine Nitrate Urine Bilirubin Urine Urobilinogen Ur Leukocyte Esterase Urine WBC (Auto) Urine RBC (Auto) Ur Squamous Epith Cells Urine Bacteria Urine Osmolality Ur Random Creatinine Ur Random Sodium Ur Random Potassium Attending/Attestation - Attestation I have personally seen and examined this patient.: Yes I have fully participated in the care of the patient.: Yes I have reviewed all pertinent clinical information: Yes Notes (Text): 09/03/16 21:02 Patient seen earlier in MICU. This is a 26 year old male with history of alcohol abuse and dependance and daily alcohol intake of half bottle of whiskey for past 7 years admitted with abdominal pain in setting of acute pancreatitis after drinking large amounts on Saturday. His symptoms were associated with nausea. with epigastric pain. CT A/P without contrast showed diffuse inflammation of pancreas. Acute treatment of severe acute pancreatitis, ileus, acute renal failure, and multiple electrolyte derangements. RL at 250 cc/hr with urine output measurement. CTAP with C+ to be done. Place NGT if ileus does not resolve. NPO. Dilaudid for pain control. Alcohol cessation counselling. Close monitoring for dehydration and ARDS
--- NOTE | 2016-09-03 17:34 | CARD ---
APPROVED REPORT EKG Measurement Heart [id number] <Conclusion> Sinus tachycardia Otherwise normal ECG
--- NOTE | 2016-09-03 18:03 | CT ---
PROCEDURE: CT Abdomen and Pelvis with contrast HISTORY: acute pancreatitis COMPARISON: None. TECHNIQUE: Contrast dose: 100 cc of Optiray. Radiation dose: Total exam DLP = 724 mGy-cm. This CT exam was performed using one or more of the following dose reduction techniques: Automated exposure control, adjustment of the mA and/or kV according to patient size, and/or use of iterative reconstruction technique. FINDINGS: LOWER THORAX: Moderate bilateral pleural effusions with compressive atelectasis. NG tube in the stomach. LIVER: Fatty infiltration of the liver. GALLBLADDER AND BILE DUCTS: Unremarkable. PANCREAS: Extensive peripancreatic fluid and infiltration consistent with acute pancreatitis. No evidence of pancreatic necrosis. SPLEEN: Unremarkable. ADRENALS: Unremarkable. No mass. KIDNEYS AND URETERS: Unremarkable. No hydronephrosis. No solid mass. VASCULATURE: Unremarkable. No aortic aneurysm. BOWEL: Unremarkable. No obstruction. No gross mural thickening. APPENDIX: Normal appendix. PERITONEUM: Abundant fluid throughout the abdominal cavity and pelvic cavity. This has worsened since the prior examination. LYMPH NODES: Unremarkable. No enlarged lymph nodes. BLADDER: Wallace catheter in the bladder. REPRODUCTIVE: Unremarkable. BONES: No acute fracture. OTHER FINDINGS: None. IMPRESSION: Re-demonstration of extensive pancreatitis without evidence of pancreatic necrosis or pseudocyst. Increase in abdominal pelvic fluid. Bilateral pleural effusions and compressive atelectasis at the lung bases.
[2016-09-03 18:42] LABS: BASO % 0.4 % (0.0-2.0); EOS % 0.2 % (0.0-4.0); LYMPH # 0.5 K/uL (1.0-4.3); MEAN CORPUSCULAR HEMOGLOBIN 33.5 pg (27.0-31.0); MONO # 0.1 K/uL (0.0-0.8); RED CELL DISTRIBUTION WIDTH 15.4 % (11.5-14.5); WHITE BLOOD COUNT 6.3 K/uL (4.8-10.8)
[2016-09-03 18:44] LABS: CHLORIDE 89 mmol/L (98-107); POTASSIUM 4.1 mmol/L (3.6-5.2); SODIUM 123 mmol/L (132-148)
[2016-09-03 18:47] LABS: BLOOD UREA NITROGEN 14 mg/dL (9-20); CARBON DIOXIDE 23 mmol/L (22-30); GFR AFRICAN-AMERICAN > 60
[2016-09-03 18:48] LABS: GLUCOSE,RANDOM 133 mg/dL (75-110)
[2016-09-03 18:49] LABS: CALCIUM 4.7 mg/dl (8.6-10.4)
[2016-09-03 18:57] LABS: MEAN CELL VOLUME 97.4 fL (80.0-94.0); MEAN CORPUSCULAR HGB CONC 34.4 g/dL (33.0-37.0); MEAN PLATELET VOLUME 7.9 fL (7.2-11.7); MONO % 1.8 % (0.0-10.0); PLATELET COUNT 160 K/uL (130-400)
[2016-09-03 23:09] LABS: CHLORIDE 94 mmol/L (98-107)
[2016-09-03 23:10] LABS: SODIUM 123 mmol/L (132-148)
[2016-09-03 23:12] LABS: ALKALINE PHOSPHATASE 28 U/L (38-126); ALT/SGPT 32 U/L (21-72); AST/SGOT 87 U/L (17-59); BILIRUBIN,TOTAL 2.8 mg/dL (0.2-1.3); BLOOD UREA NITROGEN 12 mg/dL (9-20); CARBON DIOXIDE 19 mmol/L (22-30); GFR AFRICAN-AMERICAN > 60; GLUCOSE,RANDOM 130 mg/dL (75-110); TOTAL PROTEIN 5.4 g/dL (6.3-8.3)
[2016-09-03 23:13] LABS: MAGNESIUM 2.6 mg/dL (1.6-2.3)
[2016-09-03 23:44] LABS: NEUTROPHIL 83 % (50-75); TOTAL CELLS COUNTED 100
[2016-09-03 23:45] LABS: LARGE PLATELETS PRESENT; SMUDGE CELLS PRESENT
[2016-09-04] MEDS: (Novolin R) Insulin Human Regular 100 units/ml vial SC SCH ×4 (00:40→18:12)
[2016-09-04] MEDS: Lactated Ringer's 1,000 ML IV SCH ×8 (00:41→21:30)
--- NOTE | 2016-09-04 01:19 | CP.PCM.CON ---
History of Present Illness - History of Present Illness History of Present Illness: Surgery: Dr. Liu CC: abd pain HPI: 26M w. hx of ETOH abuse presents with diffuse abd pain. Pt states that he recently returned from [facility] to [place] with friends where he drank heavily. On way back, he developed diffuse 10/10 abd pain radiating to the back. Pt states pain is constant w. no alleviating factors. He reports nausea but no vomiting. He has never had this pain before. He denies F/C, no [place]/Blurred vision, no CP/ palpitations, no SOB/cough, no hematuria/dysuria PMH: none PSH: none Meds: MAR reviewed NKDA Social: + ETOH, no tobacco/drugs Fhx: non-contributory Review of Systems - Review of Systems All systems: reviewed and no additional remarkable complaints except (HPI) Past Patient History - Infectious Disease Hx of Infectious Diseases: None - Past Medical History & Family History Past Medical History?: Yes - Past Social History Smoking Status: Never Smoked - CARDIAC Hx Cardiac Disorders: No - PULMONARY Hx Respiratory Disorders: No - NEUROLOGICAL Hx Neurological Disorder: No - HEENT Hx HEENT Problems: No - RENAL Hx Chronic Kidney Disease: No - ENDOCRINE/METABOLIC Hx Endocrine Disorders: No - HEMATOLOGICAL/ONCOLOGICAL Hx Blood Disorders: No - INTEGUMENTARY Hx Dermatological Problems: No - MUSCULOSKELETAL/RHEUMATOLOGICAL Hx Falls: Yes (as a child-while playing) - GASTROINTESTINAL Hx Gastrointestinal Disorders: No - GENITOURINARY/GYNECOLOGICAL Hx Genitourinary Disorders: No - PSYCHIATRIC Hx Substance Use: No - SURGICAL HISTORY Hx Surgeries: No - ANESTHESIA Hx Anesthesia: No Hx Anesthesia Reactions: No Hx Malignant Hyperthermia: No Has any member of the family had a problem w/ anesthesia?: No Meds Allergies/Adverse Reactions: Allergies Allergy/AdvReac Type Severity Reaction Status Date / Time No Known Allergies Allergy Verified 09/02/16 16:32 - Medications Medications: Current Medications Hydromorphone HCl (Dilaudid) 1 mg IVP Q4H PRN PRN Reason: Pain, severe (8-10) Last Admin: 09/03/16 13:39 Dose: 1 mg Lactated Ringer's (Lactated Ringer's) 1,000 mls @ 250 mls/hr IV .Q4H BONNIE Last Admin: 09/04/16 00:41 Dose: Not Given Insulin Human Regular (Novolin R) 0 unit SC Q6 BONNIE PRN Reason: Protocol Last Admin: 09/04/16 00:40 Dose: Not Given Lorazepam (Ativan) 1 mg IVP Q3H PRN PRN Reason: withdrawal symptoms Ondansetron HCl (Zofran Inj) 4 mg IVP Q6H PRN PRN Reason: Nausea/Vomiting Last Admin: 09/03/16 13:40 Dose: 4 mg Pantoprazole Sodium (Protonix Inj) 40 mg IVP DAILY [facility] Last Admin: 09/03/16 10:57 Dose: 40 mg Pneumococcal Polyvalent Vaccine (Pneumovax 23 Vaccine) 0.5 ml IM .ONCE ONE Stop: 09/05/16 10:01 Thiamine HCl (Vitamin B1 Inj) 100 mg IV DAILY [facility] Last Admin: 09/03/16 10:56 Dose: 100 mg Physical Exam - Constitutional Appears: Non-toxic, No Acute Distress - Head Exam Head Exam: ATRAUMATIC, NORMOCEPHALIC - Eye Exam Eye Exam: EOMI. absent: Scleral icterus - ENT Exam ENT Exam: Mucous Membranes Moist, Normal External Ear Exam - Neck Exam Neck exam: Positive for: Full Rom - Respiratory Exam Respiratory Exam: NORMAL BREATHING PATTERN. absent: Accessory Muscle Use, Respiratory Distress - Cardiovascular Exam Cardiovascular Exam: Tachycardia - GI/Abdominal Exam GI & Abdominal Exam: Distended, Firm, Tenderness. absent: Guarding, Rebound, Rigid - Extremities Exam Extremities exam: Negative for: calf tenderness, pedal edema - Neurological Exam Neurological exam: Alert, Oriented x3 - Psychiatric Exam Psychiatric exam: Normal Affect, Normal Mood Results - Vital Signs Recent Vital Signs: Last Vital Signs Temp 98.3 F 09/03/16 20:00 Pulse 117 H 09/03/16 20:00 Resp 27 H 09/03/16 20:00 BP 115/66 09/03/16 20:10 Pulse Ox 96 09/03/16 20:00 - Labs Result Diagrams: 09/03/16 18:33 09/03/16 22:57 Labs: Laboratory Results - last 24 hr 09/03/16 09/03/16 09/03/16 04:10 04:12 04:12 WBC 7.9 RBC 4.43 Hgb 14.8 Hct 43.5 MCV 98.1 H MCH 33.5 H MCHC 34.1 RDW 14.7 H Plt Count 144 MPV 7.7 Neut % (Auto) 83.9 H Lymph % (Auto) 13.2 L [place] % (Auto) 2.2 Eos % (Auto) 0.1 Baso % (Auto) 0.6 Neut # 6.6 Lymph # 1.0 [place] # 0.2 Eos # 0.0 Baso # 0.0 Neutrophils % (Manual) Band Neutrophils % Lymphocytes % (Manual) Monocytes % (Manual) Hypersegmented Polys Smudge Cells Platelet Estimate Large Platelets Polychromasia Poikilocytosis (manual Anisocytosis (manual) Macrocytosis (manual) PT 13.8 H INR 1.2 APTT 31 D pO2 29 L VBG pH 7.36 VBG pCO2 36 L VBG HCO3 20.2 VBG Total CO2 21.4 L VBG O2 Sat (Calc) 56.6 VBG Base Excess -4.5 L VBG Potassium 4.4 Sodium 127.0 L Chloride 95.0 L Glucose 181 H Lactate 4.3 H* Crit Value Called To Neetu lee/project management intern Crit Value Called By Jair [email or web address] Crit Value Read Back Y Blood Gas Notified Time 420 Potassium Carbon Dioxide Anion Gap BUN Creatinine Est GFR ( Amer) Est GFR (Non-Af Amer) POC Glucose (mg/dL) Random Glucose Calcium Phosphorus Magnesium Total Bilirubin AST ALT Alkaline Phosphatase Total Creatine Kinase CK-MB (Mass) Troponin I, Quant Total Protein Albumin Globulin Albumin/Globulin Ratio Lipase Venous Blood Potassium 4.4 Urine Color Urine Clarity Urine pH Ur Specific [place] Urine Protein Urine Glucose (UA) Urine Ketones Urine Blood Urine Nitrate Urine Bilirubin Urine Urobilinogen Ur Leukocyte Esterase Urine WBC (Auto) Urine RBC (Auto) Ur Squamous Epith Cells Urine Bacteria Urine Osmolality Ur Random Creatinine Ur Random Sodium Ur Random Potassium 09/03/16 09/03/16 09/03/16 04:12 05:58 08:15 WBC RBC Hgb Hct MCV MCH MCHC RDW Plt Count MPV Neut % (Auto) Lymph % (Auto) [place] % (Auto) Eos % (Auto) Baso % (Auto) Neut # Lymph # [place] # Eos # Baso # Neutrophils % (Manual) Band Neutrophils % Lymphocytes % (Manual) Monocytes % (Manual) Hypersegmented Polys Smudge Cells Platelet Estimate Large Platelets Polychromasia Poikilocytosis (manual Anisocytosis (manual) Macrocytosis (manual) PT INR APTT pO2 VBG pH VBG pCO2 VBG HCO3 VBG Total CO2 VBG O2 Sat (Calc) VBG Base Excess VBG Potassium Sodium 123 L Chloride 92 L Glucose Lactate Crit Value Called To Crit Value Called By Crit Value Read Back Blood Gas Notified Time Potassium 4.1 Carbon Dioxide 21 L Anion Gap 14 BUN 18 Creatinine 1.3 Est GFR ( Amer) > 60 Est GFR (Non-Af Amer) > 60 POC Glucose (mg/dL) 168 H Random Glucose 164 H Calcium 5.6 L* Phosphorus 2.2 L Magnesium 1.5 L Total Bilirubin 3.3 H AST 111 H ALT 41 Alkaline Phosphatase 28 L Total Creatine Kinase 1492 H CK-MB (Mass) 6.43 H Troponin I, Quant 0.0960 Total Protein 5.4 L Albumin 2.7 L Globulin 2.7 Albumin/Globulin Ratio 1.0 Lipase 2452 H Venous Blood Potassium Urine Color Yellow Urine Clarity Hazy Urine pH 5.0 Ur Specific [place] 1.030 Urine Protein 2+ H Urine Glucose (UA) 3+ H Urine Ketones Trace Urine Blood 2+ H Urine Nitrate Negative Urine Bilirubin Negative Urine Urobilinogen Normal Ur Leukocyte Esterase Neg Urine WBC (Auto) 4 Urine RBC (Auto) 1 Ur Squamous Epith Cells 3 Urine Bacteria Rare Urine Osmolality Ur Random Creatinine Ur Random Sodium Ur Random Potassium 09/03/16 09/03/16 09/03/16 08:15 11:39 18:19 WBC RBC Hgb Hct MCV MCH MCHC RDW Plt Count MPV Neut % (Auto) Lymph % (Auto) [place] % (Auto) Eos % (Auto) Baso % (Auto) Neut # Lymph # [place] # Eos # Baso # Neutrophils % (Manual) Band Neutrophils % Lymphocytes % (Manual) Monocytes % (Manual) Hypersegmented Polys Smudge Cells Platelet Estimate Large Platelets Polychromasia Poikilocytosis (manual Anisocytosis (manual) Macrocytosis (manual) PT INR APTT pO2 VBG pH VBG pCO2 VBG HCO3 VBG Total CO2 VBG O2 Sat (Calc) VBG Base Excess VBG Potassium Sodium Chloride Glucose Lactate Crit Value Called To Crit Value Called By Crit Value Read Back Blood Gas Notified Time Potassium Carbon Dioxide Anion Gap BUN Creatinine Est GFR ( Amer) Est GFR (Non-Af Amer) POC Glucose (mg/dL) 169 H 143 H Random Glucose Calcium Phosphorus Magnesium Total Bilirubin AST ALT Alkaline Phosphatase Total Creatine Kinase CK-MB (Mass) Troponin I, Quant Total Protein Albumin Globulin Albumin/Globulin Ratio Lipase Venous Blood Potassium Urine Color Urine Clarity Urine pH Ur Specific [place] Urine Protein Urine Glucose (UA) Urine Ketones Urine Blood Urine Nitrate Urine Bilirubin Urine Urobilinogen Ur Leukocyte Esterase Urine WBC (Auto) Urine RBC (Auto) Ur Squamous Epith Cells Urine Bacteria Urine Osmolality 734 Ur Random Creatinine 93.6 Ur Random Sodium 54 Ur Random Potassium 82.5 09/03/16 09/03/16 09/03/16 18:33 18:33 22:57 WBC 6.3 RBC 4.31 L Hgb 14.4 Hct 42.0 MCV 97.4 H MCH 33.5 H MCHC 34.4 RDW 15.4 H Plt Count 160 MPV 7.9 Neut % (Auto) 89.6 H Lymph % (Auto) 8.0 L [place] % (Auto) 1.8 Eos % (Auto) 0.2 Baso % (Auto) 0.4 Neut # 5.7 Lymph # 0.5 L [place] # 0.1 Eos # 0.0 Baso # 0.0 Neutrophils % (Manual) 83 H Band Neutrophils % 6 H Lymphocytes % (Manual) 8 L Monocytes % (Manual) 3 Hypersegmented Polys Present Smudge Cells Present Platelet Estimate Normal Large Platelets Present Polychromasia Slight Poikilocytosis (manual Slight Anisocytosis (manual) Slight Macrocytosis (manual) Slight PT INR APTT pO2 VBG pH VBG pCO2 VBG HCO3 VBG Total CO2 VBG O2 Sat (Calc) VBG Base Excess VBG Potassium Sodium 123 L 123 L Chloride 89 L 94 L Glucose Lactate Crit Value Called To Crit Value Called By Crit Value Read Back Blood Gas Notified Time Potassium 4.1 4.0 Carbon Dioxide 23 19 L Anion Gap 15 14 BUN 14 12 Creatinine 0.9 0.8 Est GFR ( Amer) > 60 > 60 Est GFR (Non-Af Amer) > 60 > 60 POC Glucose (mg/dL) Random Glucose 133 H 130 H Calcium 4.7 L* 5.0 L* Phosphorus Magnesium 2.6 H Total Bilirubin 2.8 H AST 87 H D ALT 32 Alkaline Phosphatase 28 L Total Creatine Kinase CK-MB (Mass) Troponin I, Quant Total Protein 5.4 L Albumin 2.7 L Globulin 2.7 Albumin/Globulin Ratio 1.0 Lipase Venous Blood Potassium Urine Color Urine Clarity Urine pH Ur Specific [place] Urine Protein Urine Glucose (UA) Urine Ketones Urine Blood Urine Nitrate Urine Bilirubin Urine Urobilinogen Ur Leukocyte Esterase Urine WBC (Auto) Urine RBC (Auto) Ur Squamous Epith Cells Urine Bacteria Urine Osmolality Ur Random Creatinine Ur Random Sodium Ur Random Potassium 09/03/16 23:47 WBC RBC Hgb Hct MCV MCH MCHC RDW Plt Count MPV Neut % (Auto) Lymph % (Auto) [place] % (Auto) Eos % (Auto) Baso % (Auto) Neut # Lymph # [place] # Eos # Baso # Neutrophils % (Manual) Band Neutrophils % Lymphocytes % (Manual) Monocytes % (Manual) Hypersegmented Polys Smudge Cells Platelet Estimate Large Platelets Polychromasia Poikilocytosis (manual Anisocytosis (manual) Macrocytosis (manual) PT INR APTT pO2 VBG pH VBG pCO2 VBG HCO3 VBG Total CO2 VBG O2 Sat (Calc) VBG Base Excess VBG Potassium Sodium Chloride Glucose Lactate Crit Value Called To Crit Value Called By Crit Value Read Back Blood Gas Notified Time Potassium Carbon Dioxide Anion Gap BUN Creatinine Est GFR ( Amer) Est GFR (Non-Af Amer) POC Glucose (mg/dL) 143 H Random Glucose Calcium Phosphorus Magnesium Total Bilirubin AST ALT Alkaline Phosphatase Total Creatine Kinase CK-MB (Mass) Troponin I, Quant Total Protein Albumin Globulin Albumin/Globulin Ratio Lipase Venous Blood Potassium Urine Color Urine Clarity Urine pH Ur Specific [place] Urine Protein Urine Glucose (UA) Urine Ketones Urine Blood Urine Nitrate Urine Bilirubin Urine Urobilinogen Ur Leukocyte Esterase Urine WBC (Auto) Urine RBC (Auto) Ur Squamous Epith Cells Urine Bacteria Urine Osmolality Ur Random Creatinine Ur Random Sodium Ur Random Potassium - Imaging and Cardiology CT scan - abdomen Status: Image reviewed by me, Report reviewed by me Assessment & Plan - Assessment and Plan (Free Text) Assessment: 26M w. ETOH pancreatitis and ileus -NPO -Strict Is:Os -keep NGT to sution -IVF -pain meds -serial abd exams -will d/w attending Latesha PGY2
[2016-09-04] MEDS: HYDROmorphone 1 mg/ml ISec IVP PRN ×3 (03:53→21:27)
[2016-09-04 06:49] LABS: BASO % 0.3 % (0.0-2.0); EOS % 0.2 % (0.0-4.0); HEMATOCRIT 34.2 % (35.0-51.0); LYMPH # 0.4 K/uL (1.0-4.3); LYMPH % 8.3 % (20.0-40.0); MEAN CELL VOLUME 97.6 fL (80.0-94.0); MEAN CORPUSCULAR HEMOGLOBIN 33.2 pg (27.0-31.0); MEAN PLATELET VOLUME 7.9 fL (7.2-11.7); MONO # 0.1 K/uL (0.0-0.8); MONO % 2.9 % (0.0-10.0); NRBC % 0.1 % (0.0-2.0); PLATELET COUNT 131 K/uL (130-400); WHITE BLOOD COUNT 5.1 K/uL (4.8-10.8)
[2016-09-04 07:07] LABS: CHLORIDE 93 mmol/L (98-107); POTASSIUM 4.4 mmol/L (3.6-5.2); SODIUM 121 mmol/L (132-148)
[2016-09-04 07:09] LABS: ALKALINE PHOSPHATASE 46 U/L (38-126); AST/SGOT 83 U/L (17-59); CARBON DIOXIDE 22 mmol/L (22-30); GFR AFRICAN-AMERICAN > 60; TOTAL PROTEIN 5.4 g/dL (6.3-8.3)
[2016-09-04 07:10] LABS: ALT/SGPT 36 U/L (21-72); BLOOD UREA NITROGEN 12 mg/dL (9-20); GLUCOSE,RANDOM 125 mg/dL (75-110); MAGNESIUM 2.3 mg/dL (1.6-2.3); PHOSPHOROUS 1.9 mg/dL (2.5-4.5)
[2016-09-04 07:15] LABS: ALB/GLOB RATIO 0.9 (1.0-2.1); CALCIUM 5.2 mg/dl (8.6-10.4)
--- NOTE | 2016-09-04 08:32 | CP.PCM.PN ---
<Rosetta Fong - Last Filed: 09/04/16 08:30> Subjective - Date & Time of Evaluation Date of Evaluation: 09/04/16 Time of Evaluation: 08:30 - Subjective Subjective: Gastroenterology Fellow/PGY4 Progress Note Patient notes abdominal pain is slightly improved, pain scale 8/10. Admits to having flatulence but no bowel movement. NGT output of 170cc overnight. A 12- point review of systems negative except for as above. Objective - Vital Signs/Intake and Output Vital Signs (last 24 hours): Temp Pulse Resp BP Pulse Ox 98.8 F 108 H 24 102/60 97 09/04/16 04:00 09/04/16 06:10 09/04/16 06:10 09/04/16 06:10 09/04/16 06:10 Intake and Output: 09/04/16 09/04/16 06:59 18:59 Intake Total 3000 250 Output Total 710 35 Balance 2290 215 - Medications Medications: Current Medications Hydromorphone HCl (Dilaudid) 1 mg IVP Q4H PRN PRN Reason: Pain, severe (8-10) Last Admin: 09/04/16 03:53 Dose: 1 mg Lactated Ringer's (Lactated Ringer's) 1,000 mls @ 250 mls/hr IV .Q4H BONNIE Last Admin: 09/04/16 06:47 Dose: 250 mls/hr Insulin Human Regular (Novolin R) 0 unit SC Q6 BONNIE PRN Reason: Protocol Last Admin: 09/04/16 06:45 Dose: 2 unit Lorazepam (Ativan) 1 mg IVP Q3H PRN PRN Reason: withdrawal symptoms Ondansetron HCl (Zofran Inj) 4 mg IVP Q6H PRN PRN Reason: Nausea/Vomiting Last Admin: 09/03/16 13:40 Dose: 4 mg Pantoprazole Sodium (Protonix Inj) 40 mg IVP DAILY [facility] Last Admin: 09/03/16 10:57 Dose: 40 mg Pneumococcal Polyvalent Vaccine (Pneumovax 23 Vaccine) 0.5 ml IM .ONCE ONE Stop: 09/05/16 10:01 Thiamine HCl (Vitamin B1 Inj) 100 mg IV DAILY [facility] Last Admin: 09/03/16 10:56 Dose: 100 mg - Labs Labs: 09/04/16 06:43 09/04/16 06:43 PT 13.8 SECONDS (9.7-12.2) H 09/03/16 04:12 INR 1.2 09/03/16 04:12 APTT 31 SECONDS (21-34) D 09/03/16 04:12 - Constitutional Appears: No Acute Distress, Other - Head Exam Head Exam: ATRAUMATIC, NORMOCEPHALIC - Eye Exam Eye Exam: EOMI, PERRL Pupil Exam: PERRL. absent: Miosis, Mydriatic - ENT Exam ENT Exam: Mucous Membranes Moist, Normal Oropharynx - Neck Exam Neck Exam: Full ROM, Normal Inspection - Respiratory Exam Respiratory Exam: Clear to Ausculation Bilateral. absent: Rales, Rhonchi, Wheezes - Cardiovascular Exam Cardiovascular Exam: RRR, +S1, +S2. absent: Gallop, Rubs - GI/Abdominal Exam GI & Abdominal Exam: Distended, Firm, Tenderness, Normal Bowel Sounds. absent: Guarding, Rigid, Soft, Organomegaly, Rebound Additional comments: B/L LQ tenderness, distension is slightly improved - Extremities Exam Extremities Exam: Full ROM, Normal Inspection. absent: Pedal Edema - Neurological Exam Neurological Exam: Alert, Awake - Psychiatric Exam Psychiatric exam: Normal Affect, Normal Mood - Skin Skin Exam: Dry, Intact, Normal Color, Warm Assessment and Plan - Assessment and Plan (Free Text) Assessment: 26 year old male with no prior medical history presenting with epigastric pain. CT A/P without contrast showed diffuse inflammation of pancreas. Active treatment of severe alcoholic pancreatitis, ileus, acute renal failure, and multiple electrolyte derangements. No prior EGD or colonoscopy. Plan: >continue aggressive medical management >LR 250cc/hr >NPO >supportive care: Dilaudid, antiemetics, PPI >CT A/P IV contrast-no pancreatic necrosis >surgery managing- removal of NGT- minimal output >electrolyte replacement by ICU team >creatinine improved >alcohol cessation counselling provided >critical status, continued close monitoring, high risk for decompensation <Cristofer Stephenson - Last Filed: 09/04/16 08:44> Objective - Vital Signs/Intake and Output Vital Signs (last 24 hours): Temp Pulse Resp BP Pulse Ox 98.8 F 108 H 24 102/60 97 09/04/16 04:00 09/04/16 06:10 09/04/16 06:10 09/04/16 06:10 09/04/16 06:10 Intake and Output: 09/04/16 09/04/16 06:59 18:59 Intake Total 3000 250 Output Total 710 35 Balance 2290 215 - Medications Medications: Current Medications Hydromorphone HCl (Dilaudid) 1 mg IVP Q4H PRN PRN Reason: Pain, severe (8-10) Last Admin: 09/04/16 03:53 Dose: 1 mg Lactated Ringer's (Lactated Ringer's) 1,000 mls @ 250 mls/hr IV .Q4H BONNIE Last Admin: 09/04/16 06:47 Dose: 250 mls/hr Insulin Human Regular (Novolin R) 0 unit SC Q6 BONNIE PRN Reason: Protocol Last Admin: 09/04/16 06:45 Dose: 2 unit Lorazepam (Ativan) 1 mg IVP Q3H PRN PRN Reason: withdrawal symptoms Ondansetron HCl (Zofran Inj) 4 mg IVP Q6H PRN PRN Reason: Nausea/Vomiting Last Admin: 09/03/16 13:40 Dose: 4 mg Pantoprazole Sodium (Protonix Inj) 40 mg IVP DAILY [facility] Last Admin: 09/03/16 10:57 Dose: 40 mg Pneumococcal Polyvalent Vaccine (Pneumovax 23 Vaccine) 0.5 ml IM .ONCE ONE Stop: 09/05/16 10:01 Thiamine HCl (Vitamin B1 Inj) 100 mg IV DAILY [facility] Last Admin: 09/03/16 10:56 Dose: 100 mg - Labs Labs: 09/04/16 06:43 09/04/16 06:43 PT 13.8 SECONDS (9.7-12.2) H 09/03/16 04:12 INR 1.2 09/03/16 04:12 APTT 31 SECONDS (21-34) D 09/03/16 04:12 Attending/Attestation - Attestation I have personally seen and examined this patient.: Yes I have fully participated in the care of the patient.: Yes I have reviewed all pertinent clinical information, including history, physical exam and plan: Yes Notes (Text): 09/04/16 08:41 I have seen and examined patient with GI fellow. No acute events overnight. He is seen resting in bed comfortably. NGT remains in place with minimal (150 cc) output over past 12 hours. He still endorses ongoing generalized abdominal discomfort and is passing gas. He denies vomiting, fever/chills. Review of vitals from today shows tachycardia. Abdominal pain, ETOH pancreatitis Ileus CT imaging of pancreas reviewed by me, no evidence of necrotizing features - Continue with aggressive IVF hydration therapy - Monitor and replete electrolytes - NGT to be removed as per surgical recommendations - NPO - Will continue to monitor patient clinical course
[2016-09-04 09:25] LABS: EOSINOPHIL 1 % (0-4); NEUTROPHIL 64 % (50-75); TOTAL CELLS COUNTED 100
[2016-09-04] MEDS ORDERED: Sodium Phosphate 15 MMOLE in Sodium Chloride 0.9% 250 ML IVPB ONE (09:34)
[2016-09-04] MEDS: Thiamine 100 mg/ml Inj IV SCH (10:01)
[2016-09-04] MEDS: Piperacillin/Tazobact 3.375 GM in Sodium Chloride 100 ML IVPB SCH ×2 (10:22→17:58)
--- NOTE | 2016-09-04 13:05 | CP.CCUPN ---
<Martin Mercer - Last Filed: 09/04/16 15:28> CCU Subjective - Physician Review Subjective (Free Text): 09/04/16 13:02 PGY-1 progress note Pt seen and examined at bedside. No overnight events. Pt still reports abdominal pain that radiates to his back. He states he is passing gas but feels very bloated. He denies any fevers, chills, chest pain, sob, numbness/tingling, nausea or vomiting. Critical Care Time Spent (in minutes): 35 CCU Objective - Vital Signs / Intake & Output Vital Signs (Last 4 hours): Vital Signs Pulse Resp BP Pulse Ox 09/04/16 10:10 115 H 24 111/63 95 09/04/16 09:10 112 H 25 H 114/68 98 Intake and Output (Last 8hrs): Intake & Output 09/03/16 09/04/16 09/04/16 22:59 06:59 14:59 Intake Total 1999 1999 1025 Output Total 680 445 325 Balance 1320 1555 700 Weight 142 lb 14.4 oz Intake: Intake, IV Amount 1999 1999 1025 Left AC 1999 1999 975 right antecubital 50 Oral 0 0 0 Output: Gastric Amount 120 50 Left Nares 120 50 Urine 560 395 325 Urethral (Francis) 560 395 325 Other: # Bowel Movements 0 0 0 - Physical Exam Head: Positive for: Atraumatic, Normocephalic Pupils: Positive for: PERRL Mouth: Positive for: Moist Mucous Membranes Respiratory/Chest: Positive for: Clear to Auscultation, Good Air Exchange. Negative for: Respiratory Distress Cardiovascular: Positive for: Normal S1, S2 Abdomen: Positive for: Tenderness, Distention. Negative for: Normal Bowel Sounds Upper Extremity: Positive for: NORMAL PULSES, Neurovascularly Intact Lower Extremity: Positive for: NORMAL PULSES, Neurovascularly Intact Neurological: Positive for: CN II-XII Intact, Speech Normal Skin: Positive for: Warm, Dry Psychiatric: Positive for: Alert, Oriented x 3 - Medications Active Medications: Active Medications Generic Name Dose Route Start Last Admin Trade Name Freq PRN Reason Stop Dose Admin Hydromorphone HCl 1 mg 09/03/16 13:02 09/04/16 10:01 Dilaudid IVP 1 mg Q4H PRN Administration Pain, severe (8-10) Lactated Ringer's 1,000 mls @ 250 mls/hr 09/03/16 12:30 09/04/16 12:26 Lactated Ringer's IV 250 mls/hr .Q4H BONNIE Administration Sodium Phosphate 15 mmole/ 255 mls @ 50 mls/hr 09/04/16 09:34 09/04/16 10:23 Sodium Chloride IVPB 09/04/16 14:39 50 mls/hr .Q5H6M ONE Administration Piperacillin Sod/Tazobactam 100 mls @ 200 mls/hr 09/04/16 10:00 09/04/16 10: 22 Sod 3.375 gm/ Sodium Chloride IVPB 200 mls/hr Q8H BONNIE Administration Insulin Human Regular 0 unit 09/04/16 09:35 09/04/16 11:30 Novolin R SC Not Given Q6 [facility] Protocol Lorazepam 1 mg 09/02/16 21:39 Ativan IVP Q3H PRN withdrawal symptoms Ondansetron HCl 4 mg 09/02/16 20:01 09/03/16 13:40 Zofran Inj IVP 4 mg Q6H PRN Administration Nausea/Vomiting Pantoprazole Sodium 40 mg 09/03/16 10:00 09/04/16 10:01 Protonix Inj IVP 40 mg DAILY BONNIE Administration Pneumococcal Polyvalent Vaccine 0.5 ml 09/05/16 10:00 Pneumovax 23 Vaccine IM 09/05/16 10:01 .ONCE ONE Thiamine HCl 100 mg 09/03/16 10:00 09/04/16 10:01 Vitamin B1 Inj IV 100 mg DAILY BONNIE Administration - Patient Studies Lab Studies: Microbiology Studies 09/02/16 20:10 MRSA Culture (Admit) - Final Nose MRSA NOT DETECTED Lab Studies 09/04/16 09/04/16 09/04/16 Range/Units 11:53 06:43 06:43 WBC (4.8-10.8) K/uL RBC (4.40-5.90) Mil/uL Hgb (12.0-18.0) g/dL Hct (35.0-51.0) % MCV (80.0-94.0) fL MCH (27.0-31.0) pg MCHC (33.0-37.0) g/dL RDW (11.5-14.5) % Plt Count (130-400) K/uL MPV (7.2-11.7) fL Neut % (Auto) (50.0-75.0) % Lymph % (Auto) (20.0-40.0) % Ada % (Auto) (0.0-10.0) % Eos % (Auto) (0.0-4.0) % Baso % (Auto) (0.0-2.0) % Neut # (1.8-7.0) K/uL Lymph # (1.0-4.3) K/uL Ada # (0.0-0.8) K/uL Eos # (0.0-0.7) K/uL Baso # (0.0-0.2) K/uL Neutrophils % (Manual) (50-75) % Band Neutrophils % (0-2) % Lymphocytes % (Manual) (20-40) % Monocytes % (Manual) (0-10) % Eosinophils % (Manual) (0-4) % Hypersegmented Polys Smudge Cells Platelet Estimate (NORMAL) Large Platelets Polychromasia Hypochromasia (manual) Poikilocytosis (manual Anisocytosis (manual) Macrocytosis (manual) Sodium 121 L (132-148) mmol/L Potassium 4.4 (3.6-5.2) mmol/L Chloride 93 L (98-107) mmol/L Carbon Dioxide 22 (22-30) mmol/L Anion Gap 10 (10-20) BUN 12 (9-20) mg/dL Creatinine 0.8 (0.8-1.5) MG/DL Est GFR ( Amer) > 60 Est GFR (Non-Af Amer) > 60 POC Glucose (mg/dL) 124 H (65-110) mg/dL Random Glucose 125 H (75-110) mg/dL Calcium 5.2 L* (8.6-10.4) mg/dl Phosphorus 1.9 L (2.5-4.5) mg/dL Magnesium 2.3 (1.6-2.3) mg/dL Total Bilirubin 3.0 H (0.2-1.3) mg/dL AST 83 H (17-59) U/L ALT 36 (21-72) U/L Alkaline Phosphatase 46 (38-126) U/L Total Protein 5.4 L (6.3-8.3) g/dL Albumin 2.5 L (3.5-5.0) g/dL Globulin 2.9 (2.2-3.9) gm/dL Albumin/Globulin Ratio 0.9 L (1.0-2.1) Hepatitis A IgM Ab Negative (NEGATIVE) Hep Bs Antigen Negative (NEGATIVE) Hep B Core IgM Ab Negative (NEGATIVE) Hepatitis C Antibody Negative (NEGATIVE) 09/04/16 09/04/16 09/03/16 Range/Units 06:43 06:28 23:47 WBC 5.1 (4.8-10.8) K/uL RBC 3.50 L (4.40-5.90) Mil/uL Hgb 11.6 L D (12.0-18.0) g/dL Hct 34.2 L (35.0-51.0) % MCV 97.6 H (80.0-94.0) fL MCH 33.2 H (27.0-31.0) pg MCHC 34.0 (33.0-37.0) g/dL RDW 15.0 H (11.5-14.5) % Plt Count 131 (130-400) K/uL MPV 7.9 (7.2-11.7) fL Neut % (Auto) 88.3 H (50.0-75.0) % Lymph % (Auto) 8.3 L (20.0-40.0) % Ada % (Auto) 2.9 (0.0-10.0) % Eos % (Auto) 0.2 (0.0-4.0) % Baso % (Auto) 0.3 (0.0-2.0) % Neut # 4.5 (1.8-7.0) K/uL Lymph # 0.4 L (1.0-4.3) K/uL Ada # 0.1 (0.0-0.8) K/uL Eos # 0.0 (0.0-0.7) K/uL Baso # 0.0 (0.0-0.2) K/uL Neutrophils % (Manual) 64 (50-75) % Band Neutrophils % 21 H* (0-2) % Lymphocytes % (Manual) 12 L (20-40) % Monocytes % (Manual) 2 (0-10) % Eosinophils % (Manual) 1 (0-4) % Hypersegmented Polys Smudge Cells Platelet Estimate Normal (NORMAL) Large Platelets Polychromasia Hypochromasia (manual) Slight Poikilocytosis (manual Anisocytosis (manual) Macrocytosis (manual) Sodium (132-148) mmol/L Potassium (3.6-5.2) mmol/L Chloride (98-107) mmol/L Carbon Dioxide (22-30) mmol/L Anion Gap (10-20) BUN (9-20) mg/dL Creatinine (0.8-1.5) MG/DL Est GFR ( Amer) Est GFR (Non-Af Amer) POC Glucose (mg/dL) 162 H 143 H (65-110) mg/dL Random Glucose (75-110) mg/dL Calcium (8.6-10.4) mg/dl Phosphorus (2.5-4.5) mg/dL Magnesium (1.6-2.3) mg/dL Total Bilirubin (0.2-1.3) mg/dL AST (17-59) U/L ALT (21-72) U/L Alkaline Phosphatase (38-126) U/L Total Protein (6.3-8.3) g/dL Albumin (3.5-5.0) g/dL Globulin (2.2-3.9) gm/dL Albumin/Globulin Ratio (1.0-2.1) Hepatitis A IgM Ab (NEGATIVE) Hep Bs Antigen (NEGATIVE) Hep B Core IgM Ab (NEGATIVE) Hepatitis C Antibody (NEGATIVE) 09/03/16 09/03/16 09/03/16 Range/Units 22:57 18:33 18:33 WBC 6.3 (4.8-10.8) K/uL RBC 4.31 L (4.40-5.90) Mil/uL Hgb 14.4 (12.0-18.0) g/dL Hct 42.0 (35.0-51.0) % MCV 97.4 H (80.0-94.0) fL MCH 33.5 H (27.0-31.0) pg MCHC 34.4 (33.0-37.0) g/dL RDW 15.4 H (11.5-14.5) % Plt Count 160 (130-400) K/uL MPV 7.9 (7.2-11.7) fL Neut % (Auto) 89.6 H (50.0-75.0) % Lymph % (Auto) 8.0 L (20.0-40.0) % Ada % (Auto) 1.8 (0.0-10.0) % Eos % (Auto) 0.2 (0.0-4.0) % Baso % (Auto) 0.4 (0.0-2.0) % Neut # 5.7 (1.8-7.0) K/uL Lymph # 0.5 L (1.0-4.3) K/uL Ada # 0.1 (0.0-0.8) K/uL Eos # 0.0 (0.0-0.7) K/uL Baso # 0.0 (0.0-0.2) K/uL Neutrophils % (Manual) 83 H (50-75) % Band Neutrophils % 6 H (0-2) % Lymphocytes % (Manual) 8 L (20-40) % Monocytes % (Manual) 3 (0-10) % Eosinophils % (Manual) (0-4) % Hypersegmented Polys Present Smudge Cells Present Platelet Estimate Normal (NORMAL) Large Platelets Present Polychromasia Slight Hypochromasia (manual) Poikilocytosis (manual Slight Anisocytosis (manual) Slight Macrocytosis (manual) Slight Sodium 123 L 123 L (132-148) mmol/L Potassium 4.0 4.1 (3.6-5.2) mmol/L Chloride 94 L 89 L (98-107) mmol/L Carbon Dioxide 19 L 23 (22-30) mmol/L Anion Gap 14 15 (10-20) BUN 12 14 (9-20) mg/dL Creatinine 0.8 0.9 (0.8-1.5) MG/DL Est GFR ( Amer) > 60 > 60 Est GFR (Non-Af Amer) > 60 > 60 POC Glucose (mg/dL) (65-110) mg/dL Random Glucose 130 H 133 H (75-110) mg/dL Calcium 5.0 L* 4.7 L* (8.6-10.4) mg/dl Phosphorus (2.5-4.5) mg/dL Magnesium 2.6 H (1.6-2.3) mg/dL Total Bilirubin 2.8 H (0.2-1.3) mg/dL AST 87 H D (17-59) U/L ALT 32 (21-72) U/L Alkaline Phosphatase 28 L (38-126) U/L Total Protein 5.4 L (6.3-8.3) g/dL Albumin 2.7 L (3.5-5.0) g/dL Globulin 2.7 (2.2-3.9) gm/dL Albumin/Globulin Ratio 1.0 (1.0-2.1) Hepatitis A IgM Ab (NEGATIVE) Hep Bs Antigen (NEGATIVE) Hep B Core IgM Ab (NEGATIVE) Hepatitis C Antibody (NEGATIVE) 09/03/16 Range/Units 18:19 WBC (4.8-10.8) K/uL RBC (4.40-5.90) Mil/uL Hgb (12.0-18.0) g/dL Hct (35.0-51.0) % MCV (80.0-94.0) fL MCH (27.0-31.0) pg MCHC (33.0-37.0) g/dL RDW (11.5-14.5) % Plt Count (130-400) K/uL MPV (7.2-11.7) fL Neut % (Auto) (50.0-75.0) % Lymph % (Auto) (20.0-40.0) % Ada % (Auto) (0.0-10.0) % Eos % (Auto) (0.0-4.0) % Baso % (Auto) (0.0-2.0) % Neut # (1.8-7.0) K/uL Lymph # (1.0-4.3) K/uL Ada # (0.0-0.8) K/uL Eos # (0.0-0.7) K/uL Baso # (0.0-0.2) K/uL Neutrophils % (Manual) (50-75) % Band Neutrophils % (0-2) % Lymphocytes % (Manual) (20-40) % Monocytes % (Manual) (0-10) % Eosinophils % (Manual) (0-4) % Hypersegmented Polys Smudge Cells Platelet Estimate (NORMAL) Large Platelets Polychromasia Hypochromasia (manual) Poikilocytosis (manual Anisocytosis (manual) Macrocytosis (manual) Sodium (132-148) mmol/L Potassium (3.6-5.2) mmol/L Chloride (98-107) mmol/L Carbon Dioxide (22-30) mmol/L Anion Gap (10-20) BUN (9-20) mg/dL Creatinine (0.8-1.5) MG/DL Est GFR ( Amer) Est GFR (Non-Af Amer) POC Glucose (mg/dL) 143 H (65-110) mg/dL Random Glucose (75-110) mg/dL Calcium (8.6-10.4) mg/dl Phosphorus (2.5-4.5) mg/dL Magnesium (1.6-2.3) mg/dL Total Bilirubin (0.2-1.3) mg/dL AST (17-59) U/L ALT (21-72) U/L Alkaline Phosphatase (38-126) U/L Total Protein (6.3-8.3) g/dL Albumin (3.5-5.0) g/dL Globulin (2.2-3.9) gm/dL Albumin/Globulin Ratio (1.0-2.1) Hepatitis A IgM Ab (NEGATIVE) Hep Bs Antigen (NEGATIVE) Hep B Core IgM Ab (NEGATIVE) Hepatitis C Antibody (NEGATIVE) Laboratory Results - last 24 hr 09/03/16 09/03/16 09/03/16 18:19 18:33 18:33 WBC 6.3 RBC 4.31 L Hgb 14.4 Hct 42.0 MCV 97.4 H MCH 33.5 H MCHC 34.4 RDW 15.4 H Plt Count 160 MPV 7.9 Neut % (Auto) 89.6 H Lymph % (Auto) 8.0 L Ada % (Auto) 1.8 Eos % (Auto) 0.2 Baso % (Auto) 0.4 Neut # 5.7 Lymph # 0.5 L Ada # 0.1 Eos # 0.0 Baso # 0.0 Neutrophils % (Manual) 83 H Band Neutrophils % 6 H Lymphocytes % (Manual) 8 L Monocytes % (Manual) 3 Eosinophils % (Manual) Hypersegmented Polys Present Smudge Cells Present Platelet Estimate Normal Large Platelets Present Polychromasia Slight Hypochromasia (manual) Poikilocytosis (manual Slight Anisocytosis (manual) Slight Macrocytosis (manual) Slight Sodium 123 L Potassium 4.1 Chloride 89 L Carbon Dioxide 23 Anion Gap 15 BUN 14 Creatinine 0.9 Est GFR ( Amer) > 60 Est GFR (Non-Af Amer) > 60 POC Glucose (mg/dL) 143 H Random Glucose 133 H Calcium 4.7 L* Phosphorus Magnesium Total Bilirubin AST ALT Alkaline Phosphatase Total Protein Albumin Globulin Albumin/Globulin Ratio Hepatitis A IgM Ab Hep Bs Antigen Hep B Core IgM Ab Hepatitis C Antibody 09/03/16 09/03/16 09/04/16 22:57 23:47 06:28 WBC RBC Hgb Hct MCV MCH MCHC RDW Plt Count MPV Neut % (Auto) Lymph % (Auto) Ada % (Auto) Eos % (Auto) Baso % (Auto) Neut # Lymph # Ada # Eos # Baso # Neutrophils % (Manual) Band Neutrophils % Lymphocytes % (Manual) Monocytes % (Manual) Eosinophils % (Manual) Hypersegmented Polys Smudge Cells Platelet Estimate Large Platelets Polychromasia Hypochromasia (manual) Poikilocytosis (manual Anisocytosis (manual) Macrocytosis (manual) Sodium 123 L Potassium 4.0 Chloride 94 L Carbon Dioxide 19 L Anion Gap 14 BUN 12 Creatinine 0.8 Est GFR ( Amer) > 60 Est GFR (Non-Af Amer) > 60 POC Glucose (mg/dL) 143 H 162 H Random Glucose 130 H Calcium 5.0 L* Phosphorus Magnesium 2.6 H Total Bilirubin 2.8 H AST 87 H D ALT 32 Alkaline Phosphatase 28 L Total Protein 5.4 L Albumin 2.7 L Globulin 2.7 Albumin/Globulin Ratio 1.0 Hepatitis A IgM Ab Hep Bs Antigen Hep B Core IgM Ab Hepatitis C Antibody 09/04/16 09/04/16 09/04/16 06:43 06:43 06:43 WBC 5.1 RBC 3.50 L Hgb 11.6 L D Hct 34.2 L MCV 97.6 H MCH 33.2 H MCHC 34.0 RDW 15.0 H Plt Count 131 MPV 7.9 Neut % (Auto) 88.3 H Lymph % (Auto) 8.3 L Ada % (Auto) 2.9 Eos % (Auto) 0.2 Baso % (Auto) 0.3 Neut # 4.5 Lymph # 0.4 L Ada # 0.1 Eos # 0.0 Baso # 0.0 Neutrophils % (Manual) 64 Band Neutrophils % 21 H* Lymphocytes % (Manual) 12 L Monocytes % (Manual) 2 Eosinophils % (Manual) 1 Hypersegmented Polys Smudge Cells Platelet Estimate Normal Large Platelets Polychromasia Hypochromasia (manual) Slight Poikilocytosis (manual Anisocytosis (manual) Macrocytosis (manual) Sodium 121 L Potassium 4.4 Chloride 93 L Carbon Dioxide 22 Anion Gap 10 BUN 12 Creatinine 0.8 Est GFR ( Amer) > 60 Est GFR (Non-Af Amer) > 60 POC Glucose (mg/dL) Random Glucose 125 H Calcium 5.2 L* Phosphorus 1.9 L Magnesium 2.3 Total Bilirubin 3.0 H AST 83 H ALT 36 Alkaline Phosphatase 46 Total Protein 5.4 L Albumin 2.5 L Globulin 2.9 Albumin/Globulin Ratio 0.9 L Hepatitis A IgM Ab Negative Hep Bs Antigen Negative Hep B Core IgM Ab Negative Hepatitis C Antibody Negative 09/04/16 11:53 WBC RBC Hgb Hct MCV MCH MCHC RDW Plt Count MPV Neut % (Auto) Lymph % (Auto) Ada % (Auto) Eos % (Auto) Baso % (Auto) Neut # Lymph # Ada # Eos # Baso # Neutrophils % (Manual) Band Neutrophils % Lymphocytes % (Manual) Monocytes % (Manual) Eosinophils % (Manual) Hypersegmented Polys Smudge Cells Platelet Estimate Large Platelets Polychromasia Hypochromasia (manual) Poikilocytosis (manual Anisocytosis (manual) Macrocytosis (manual) Sodium Potassium Chloride Carbon Dioxide Anion Gap BUN Creatinine Est GFR ( Amer) Est GFR (Non-Af Amer) POC Glucose (mg/dL) 124 H Random Glucose Calcium Phosphorus Magnesium Total Bilirubin AST ALT Alkaline Phosphatase Total Protein Albumin Globulin Albumin/Globulin Ratio Hepatitis A IgM Ab Hep Bs Antigen Hep B Core IgM Ab Hepatitis C Antibody Fingerstick Blood Sugar Results: 124 Review of Systems - Review of Systems All systems: reviewed and no additional remarkable complaints except Critical Care Progress Note - Nutrition Nutrition: Nutrition Category Date Time Status NPO Diet [DIET] Diets 09/02/16 Dinner Active Assessment/Plan - Assessment and Plan (Free Text) Assessment: This is a 26 yo M witih acute pancreatitis, complicated by prerenal acute renal failure and ileus. Plan: Neuro: Alert and oriented 3 Pulm: No acute issues. Repeat CT shows bilateral pleural effusions and compressive atelectasis at the lung bases. CV: Was mildly hypotensive, but responded to fluid boluses. Hem: Hemoconcentration, indicative of hypovolemic state. Corrected with IVF hydration Renal: Acute renal failure secondary to prerenal state. Aggressive fluid hydration with LR. Adequate urine output. Hyponatremic, hypocalcemic and hypophophatemia. Given sodium phosphate. Continue to monitor Ca Endo: No acute issues GI: Acute pancreatitis, nothing by mouth for now. Monitor bilirubin. Pt distended - abd x-ray showed dilated loops of small bowel consistent with ileus. NG tube inserted and set to LIS GI consulted - Maintain IVF at LR at [address] - Re-demonstration of extensive pancreatitis without evidence of pancreatic necrosis or pseudocyst. Increase in abdominal pelvic fluid. Surgery following - no indication for surgery at this time. ID: Afebrile but tachycardic. CBC shows bands, started Zosyn. DVT proph - heparin subcutaneous GI proph - Protonix IV francis for strict I/O's during acute illness Code status - full code <Matt Brewster S - Last Filed: 09/04/16 17:42> CCU Objective - Vital Signs / Intake & Output Vital Signs (Last 4 hours): Vital Signs Pulse Resp BP Pulse Ox 09/04/16 15:10 107 H 23 118/72 98 09/04/16 14:10 107 H 26 H 123/83 97 Intake and Output (Last 8hrs): Intake & Output 09/04/16 09/04/16 09/04/16 06:59 14:59 22:59 Intake Total 1999 2225 250 Output Total 445 600 75 Balance 1555 1625 175 Weight 142 lb 14.4 oz Intake: Intake, IV Amount 1999 2225 250 Left AC 1999 1974 250 right antecubital 250 Oral 0 0 Output: Gastric Amount 50 Left Nares 50 Urine 395 600 75 Urethral (Francis) 395 600 75 Other: # Bowel Movements 0 0 - Medications Active Medications: Active Medications Generic Name Dose Route Start Last Admin Trade Name Freq PRN Reason Stop Dose Admin Enoxaparin Sodium 40 mg 09/05/16 10:00 Lovenox SC DAILY BONNIE Hydromorphone HCl 1 mg 09/03/16 13:02 09/04/16 10:01 Dilaudid IVP 1 mg Q4H PRN Administration Pain, severe (8-10) Lactated Ringer's 1,000 mls @ 250 mls/hr 09/03/16 12:30 09/04/16 12:30 Lactated Ringer's IV Not Given .Q4H BONNIE Piperacillin Sod/Tazobactam 100 mls @ 200 mls/hr 09/04/16 10:00 09/04/16 10: 22 Sod 3.375 gm/ Sodium Chloride IVPB 200 mls/hr Q8H BONNIE Administration Insulin Human Regular 0 unit 09/04/16 09:35 09/04/16 11:30 Novolin R SC Not Given Q6 [facility] Protocol Lorazepam 1 mg 09/02/16 21:39 Ativan IVP Q3H PRN withdrawal symptoms Ondansetron HCl 4 mg 09/02/16 20:01 09/03/16 13:40 Zofran Inj IVP 4 mg Q6H PRN Administration Nausea/Vomiting Pantoprazole Sodium 40 mg 09/03/16 10:00 09/04/16 10:01 Protonix Inj IVP 40 mg DAILY BONNIE Administration Pneumococcal Polyvalent Vaccine 0.5 ml 09/05/16 10:00 Pneumovax 23 Vaccine IM 09/05/16 10:01 .ONCE ONE Thiamine HCl 100 mg 09/03/16 10:00 09/04/16 10:01 Vitamin B1 Inj IV 100 mg DAILY BONNIE Administration - Patient Studies Lab Studies: Microbiology Studies 09/02/16 20:10 MRSA Culture (Admit) - Final Nose MRSA NOT DETECTED Lab Studies 09/04/16 09/04/16 09/04/16 Range/Units Unknown 11:53 06:43 WBC (4.8-10.8) K/uL RBC (4.40-5.90) Mil/uL Hgb (12.0-18.0) g/dL Hct (35.0-51.0) % MCV (80.0-94.0) fL MCH (27.0-31.0) pg MCHC (33.0-37.0) g/dL RDW (11.5-14.5) % Plt Count (130-400) K/uL MPV (7.2-11.7) fL Neut % (Auto) (50.0-75.0) % Lymph % (Auto) (20.0-40.0) % Ada % (Auto) (0.0-10.0) % Eos % (Auto) (0.0-4.0) % Baso % (Auto) (0.0-2.0) % Neut # (1.8-7.0) K/uL Lymph # (1.0-4.3) K/uL Ada # (0.0-0.8) K/uL Eos # (0.0-0.7) K/uL Baso # (0.0-0.2) K/uL Neutrophils % (Manual) (50-75) % Band Neutrophils % (0-2) % Lymphocytes % (Manual) (20-40) % Monocytes % (Manual) (0-10) % Eosinophils % (Manual) (0-4) % Hypersegmented Polys Smudge Cells Platelet Estimate (NORMAL) Large Platelets Polychromasia Hypochromasia (manual) Poikilocytosis (manual Anisocytosis (manual) Macrocytosis (manual) Sodium (132-148) mmol/L Potassium (3.6-5.2) mmol/L Chloride (98-107) mmol/L Carbon Dioxide (22-30) mmol/L Anion Gap (10-20) BUN (9-20) mg/dL Creatinine (0.8-1.5) MG/DL Est GFR ( Amer) Est GFR (Non-Af Amer) POC Glucose (mg/dL) 124 H (65-110) mg/dL Random Glucose (75-110) mg/dL Calcium (8.6-10.4) mg/dl Phosphorus (2.5-4.5) mg/dL Magnesium (1.6-2.3) mg/dL Total Bilirubin (0.2-1.3) mg/dL AST (17-59) U/L ALT (21-72) U/L Alkaline Phosphatase (38-126) U/L Total Protein (6.3-8.3) g/dL Albumin (3.5-5.0) g/dL Globulin (2.2-3.9) gm/dL Albumin/Globulin Ratio (1.0-2.1) Procalcitonin 2.09 H (0.19-0.49) NG/ML Hepatitis A IgM Ab Negative (NEGATIVE) Hep Bs Antigen Negative (NEGATIVE) Hep B Core IgM Ab Negative (NEGATIVE) Hepatitis C Antibody Negative (NEGATIVE) 09/04/16 09/04/16 09/04/16 Range/Units 06:43 06:43 06:28 WBC 5.1 (4.8-10.8) K/uL RBC 3.50 L (4.40-5.90) Mil/uL Hgb 11.6 L D (12.0-18.0) g/dL Hct 34.2 L (35.0-51.0) % MCV 97.6 H (80.0-94.0) fL MCH 33.2 H (27.0-31.0) pg MCHC 34.0 (33.0-37.0) g/dL RDW 15.0 H (11.5-14.5) % Plt Count 131 (130-400) K/uL MPV 7.9 (7.2-11.7) fL Neut % (Auto) 88.3 H (50.0-75.0) % Lymph % (Auto) 8.3 L (20.0-40.0) % Ada % (Auto) 2.9 (0.0-10.0) % Eos % (Auto) 0.2 (0.0-4.0) % Baso % (Auto) 0.3 (0.0-2.0) % Neut # 4.5 (1.8-7.0) K/uL Lymph # 0.4 L (1.0-4.3) K/uL Ada # 0.1 (0.0-0.8) K/uL Eos # 0.0 (0.0-0.7) K/uL Baso # 0.0 (0.0-0.2) K/uL Neutrophils % (Manual) 64 (50-75) % Band Neutrophils % 21 H* (0-2) % Lymphocytes % (Manual) 12 L (20-40) % Monocytes % (Manual) 2 (0-10) % Eosinophils % (Manual) 1 (0-4) % Hypersegmented Polys Smudge Cells Platelet Estimate Normal (NORMAL) Large Platelets Polychromasia Hypochromasia (manual) Slight Poikilocytosis (manual Anisocytosis (manual) Macrocytosis (manual) Sodium 121 L (132-148) mmol/L Potassium 4.4 (3.6-5.2) mmol/L Chloride 93 L (98-107) mmol/L Carbon Dioxide 22 (22-30) mmol/L Anion Gap 10 (10-20) BUN 12 (9-20) mg/dL Creatinine 0.8 (0.8-1.5) MG/DL Est GFR ( Amer) > 60 Est GFR (Non-Af Amer) > 60 POC Glucose (mg/dL) 162 H (65-110) mg/dL Random Glucose 125 H (75-110) mg/dL Calcium 5.2 L* (8.6-10.4) mg/dl Phosphorus 1.9 L (2.5-4.5) mg/dL Magnesium 2.3 (1.6-2.3) mg/dL Total Bilirubin 3.0 H (0.2-1.3) mg/dL AST 83 H (17-59) U/L ALT 36 (21-72) U/L Alkaline Phosphatase 46 (38-126) U/L Total Protein 5.4 L (6.3-8.3) g/dL Albumin 2.5 L (3.5-5.0) g/dL Globulin 2.9 (2.2-3.9) gm/dL Albumin/Globulin Ratio 0.9 L (1.0-2.1) Procalcitonin (0.19-0.49) NG/ML Hepatitis A IgM Ab (NEGATIVE) Hep Bs Antigen (NEGATIVE) Hep B Core IgM Ab (NEGATIVE) Hepatitis C Antibody (NEGATIVE) 09/03/16 09/03/16 09/03/16 Range/Units 23:47 22:57 18:33 WBC (4.8-10.8) K/uL RBC (4.40-5.90) Mil/uL Hgb (12.0-18.0) g/dL Hct (35.0-51.0) % MCV (80.0-94.0) fL MCH (27.0-31.0) pg MCHC (33.0-37.0) g/dL RDW (11.5-14.5) % Plt Count (130-400) K/uL MPV (7.2-11.7) fL Neut % (Auto) (50.0-75.0) % Lymph % (Auto) (20.0-40.0) % Ada % (Auto) (0.0-10.0) % Eos % (Auto) (0.0-4.0) % Baso % (Auto) (0.0-2.0) % Neut # (1.8-7.0) K/uL Lymph # (1.0-4.3) K/uL Ada # (0.0-0.8) K/uL Eos # (0.0-0.7) K/uL Baso # (0.0-0.2) K/uL Neutrophils % (Manual) (50-75) % Band Neutrophils % (0-2) % Lymphocytes % (Manual) (20-40) % Monocytes % (Manual) (0-10) % Eosinophils % (Manual) (0-4) % Hypersegmented Polys Smudge Cells Platelet Estimate (NORMAL) Large Platelets Polychromasia Hypochromasia (manual) Poikilocytosis (manual Anisocytosis (manual) Macrocytosis (manual) Sodium 123 L 123 L (132-148) mmol/L Potassium 4.0 4.1 (3.6-5.2) mmol/L Chloride 94 L 89 L (98-107) mmol/L Carbon Dioxide 19 L 23 (22-30) mmol/L Anion Gap 14 15 (10-20) BUN 12 14 (9-20) mg/dL Creatinine 0.8 0.9 (0.8-1.5) MG/DL Est GFR ( Amer) > 60 > 60 Est GFR (Non-Af Amer) > 60 > 60 POC Glucose (mg/dL) 143 H (65-110) mg/dL Random Glucose 130 H 133 H (75-110) mg/dL Calcium 5.0 L* 4.7 L* (8.6-10.4) mg/dl Phosphorus (2.5-4.5) mg/dL Magnesium 2.6 H (1.6-2.3) mg/dL Total Bilirubin 2.8 H (0.2-1.3) mg/dL AST 87 H D (17-59) U/L ALT 32 (21-72) U/L Alkaline Phosphatase 28 L (38-126) U/L Total Protein 5.4 L (6.3-8.3) g/dL Albumin 2.7 L (3.5-5.0) g/dL Globulin 2.7 (2.2-3.9) gm/dL Albumin/Globulin Ratio 1.0 (1.0-2.1) Procalcitonin (0.19-0.49) NG/ML Hepatitis A IgM Ab (NEGATIVE) Hep Bs Antigen (NEGATIVE) Hep B Core IgM Ab (NEGATIVE) Hepatitis C Antibody (NEGATIVE) 09/03/16 09/03/16 Range/Units 18:33 18:19 WBC 6.3 (4.8-10.8) K/uL RBC 4.31 L (4.40-5.90) Mil/uL Hgb 14.4 (12.0-18.0) g/dL Hct 42.0 (35.0-51.0) % MCV 97.4 H (80.0-94.0) fL MCH 33.5 H (27.0-31.0) pg MCHC 34.4 (33.0-37.0) g/dL RDW 15.4 H (11.5-14.5) % Plt Count 160 (130-400) K/uL MPV 7.9 (7.2-11.7) fL Neut % (Auto) 89.6 H (50.0-75.0) % Lymph % (Auto) 8.0 L (20.0-40.0) % Ada % (Auto) 1.8 (0.0-10.0) % Eos % (Auto) 0.2 (0.0-4.0) % Baso % (Auto) 0.4 (0.0-2.0) % Neut # 5.7 (1.8-7.0) K/uL Lymph # 0.5 L (1.0-4.3) K/uL Ada # 0.1 (0.0-0.8) K/uL Eos # 0.0 (0.0-0.7) K/uL Baso # 0.0 (0.0-0.2) K/uL Neutrophils % (Manual) 83 H (50-75) % Band Neutrophils % 6 H (0-2) % Lymphocytes % (Manual) 8 L (20-40) % Monocytes % (Manual) 3 (0-10) % Eosinophils % (Manual) (0-4) % Hypersegmented Polys Present Smudge Cells Present Platelet Estimate Normal (NORMAL) Large Platelets Present Polychromasia Slight Hypochromasia (manual) Poikilocytosis (manual Slight Anisocytosis (manual) Slight Macrocytosis (manual) Slight Sodium (132-148) mmol/L Potassium (3.6-5.2) mmol/L Chloride (98-107) mmol/L Carbon Dioxide (22-30) mmol/L Anion Gap (10-20) BUN (9-20) mg/dL Creatinine (0.8-1.5) MG/DL Est GFR ( Amer) Est GFR (Non-Af Amer) POC Glucose (mg/dL) 143 H (65-110) mg/dL Random Glucose (75-110) mg/dL Calcium (8.6-10.4) mg/dl Phosphorus (2.5-4.5) mg/dL Magnesium (1.6-2.3) mg/dL Total Bilirubin (0.2-1.3) mg/dL AST (17-59) U/L ALT (21-72) U/L Alkaline Phosphatase (38-126) U/L Total Protein (6.3-8.3) g/dL Albumin (3.5-5.0) g/dL Globulin (2.2-3.9) gm/dL Albumin/Globulin Ratio (1.0-2.1) Procalcitonin (0.19-0.49) NG/ML Hepatitis A IgM Ab (NEGATIVE) Hep Bs Antigen (NEGATIVE) Hep B Core IgM Ab (NEGATIVE) Hepatitis C Antibody (NEGATIVE) Laboratory Results - last 24 hr 09/03/16 09/03/16 09/03/16 18:19 18:33 18:33 WBC 6.3 RBC 4.31 L Hgb 14.4 Hct 42.0 MCV 97.4 H MCH 33.5 H MCHC 34.4 RDW 15.4 H Plt Count 160 MPV 7.9 Neut % (Auto) 89.6 H Lymph % (Auto) 8.0 L Ada % (Auto) 1.8 Eos % (Auto) 0.2 Baso % (Auto) 0.4 Neut # 5.7 Lymph # 0.5 L Ada # 0.1 Eos # 0.0 Baso # 0.0 Neutrophils % (Manual) 83 H Band Neutrophils % 6 H Lymphocytes % (Manual) 8 L Monocytes % (Manual) 3 Eosinophils % (Manual) Hypersegmented Polys Present Smudge Cells Present Platelet Estimate Normal Large Platelets Present Polychromasia Slight Hypochromasia (manual) Poikilocytosis (manual Slight Anisocytosis (manual) Slight Macrocytosis (manual) Slight Sodium 123 L Potassium 4.1 Chloride 89 L Carbon Dioxide 23 Anion Gap 15 BUN 14 Creatinine 0.9 Est GFR ( Amer) > 60 Est GFR (Non-Af Amer) > 60 POC Glucose (mg/dL) 143 H Random Glucose 133 H Calcium 4.7 L* Phosphorus Magnesium Total Bilirubin AST ALT Alkaline Phosphatase Total Protein Albumin Globulin Albumin/Globulin Ratio Procalcitonin Hepatitis A IgM Ab Hep Bs Antigen Hep B Core IgM Ab Hepatitis C Antibody 09/03/16 09/03/16 09/04/16 22:57 23:47 06:28 WBC RBC Hgb Hct MCV MCH MCHC RDW Plt Count MPV Neut % (Auto) Lymph % (Auto) Ada % (Auto) Eos % (Auto) Baso % (Auto) Neut # Lymph # Ada # Eos # Baso # Neutrophils % (Manual) Band Neutrophils % Lymphocytes % (Manual) Monocytes % (Manual) Eosinophils % (Manual) Hypersegmented Polys Smudge Cells Platelet Estimate Large Platelets Polychromasia Hypochromasia (manual) Poikilocytosis (manual Anisocytosis (manual) Macrocytosis (manual) Sodium 123 L Potassium 4.0 Chloride 94 L Carbon Dioxide 19 L Anion Gap 14 BUN 12 Creatinine 0.8 Est GFR ( Amer) > 60 Est GFR (Non-Af Amer) > 60 POC Glucose (mg/dL) 143 H 162 H Random Glucose 130 H Calcium 5.0 L* Phosphorus Magnesium 2.6 H Total Bilirubin 2.8 H AST 87 H D ALT 32 Alkaline Phosphatase 28 L Total Protein 5.4 L Albumin 2.7 L Globulin 2.7 Albumin/Globulin Ratio 1.0 Procalcitonin Hepatitis A IgM Ab Hep Bs Antigen Hep B Core IgM Ab Hepatitis C Antibody 09/04/16 09/04/16 09/04/16 06:43 06:43 06:43 WBC 5.1 RBC 3.50 L Hgb 11.6 L D Hct 34.2 L MCV 97.6 H MCH 33.2 H MCHC 34.0 RDW 15.0 H Plt Count 131 MPV 7.9 Neut % (Auto) 88.3 H Lymph % (Auto) 8.3 L Ada % (Auto) 2.9 Eos % (Auto) 0.2 Baso % (Auto) 0.3 Neut # 4.5 Lymph # 0.4 L Ada # 0.1 Eos # 0.0 Baso # 0.0 Neutrophils % (Manual) 64 Band Neutrophils % 21 H* Lymphocytes % (Manual) 12 L Monocytes % (Manual) 2 Eosinophils % (Manual) 1 Hypersegmented Polys Smudge Cells Platelet Estimate Normal Large Platelets Polychromasia Hypochromasia (manual) Slight Poikilocytosis (manual Anisocytosis (manual) Macrocytosis (manual) Sodium 121 L Potassium 4.4 Chloride 93 L Carbon Dioxide 22 Anion Gap 10 BUN 12 Creatinine 0.8 Est GFR ( Amer) > 60 Est GFR (Non-Af Amer) > 60 POC Glucose (mg/dL) Random Glucose 125 H Calcium 5.2 L* Phosphorus 1.9 L Magnesium 2.3 Total Bilirubin 3.0 H AST 83 H ALT 36 Alkaline Phosphatase 46 Total Protein 5.4 L Albumin 2.5 L Globulin 2.9 Albumin/Globulin Ratio 0.9 L Procalcitonin Hepatitis A IgM Ab Negative Hep Bs Antigen Negative Hep B Core IgM Ab Negative Hepatitis C Antibody Negative 09/04/16 09/04/16 11:53 Unknown WBC RBC Hgb Hct MCV MCH MCHC RDW Plt Count MPV Neut % (Auto) Lymph % (Auto) Ada % (Auto) Eos % (Auto) Baso % (Auto) Neut # Lymph # Ada # Eos # Baso # Neutrophils % (Manual) Band Neutrophils % Lymphocytes % (Manual) Monocytes % (Manual) Eosinophils % (Manual) Hypersegmented Polys Smudge Cells Platelet Estimate Large Platelets Polychromasia Hypochromasia (manual) Poikilocytosis (manual Anisocytosis (manual) Macrocytosis (manual) Sodium Potassium Chloride Carbon Dioxide Anion Gap BUN Creatinine Est GFR ( Amer) Est GFR (Non-Af Amer) POC Glucose (mg/dL) 124 H Random Glucose Calcium Phosphorus Magnesium Total Bilirubin AST ALT Alkaline Phosphatase Total Protein Albumin Globulin Albumin/Globulin Ratio Procalcitonin 2.09 H Hepatitis A IgM Ab Hep Bs Antigen Hep B Core IgM Ab Hepatitis C Antibody Critical Care Progress Note - Nutrition Nutrition: Nutrition Category Date Time Status NPO Diet [DIET] Diets 09/02/16 Dinner Active Attending/Attestation - Attestation I have personally seen and examined this patient.: Yes I have fully participated in the care of the patient.: Yes I have reviewed all pertinent clinical information: Yes Notes (Text): 09/04/16 17:32 Patient seen and examined in the intensive care unit. Case discussed with house staff in the morning rounds. Being treated for acute pancreatitis Started on antibiotics for elevated bands Clinically improving Continue present treatment
--- NOTE | 2016-09-04 15:01 | CP.PCM.PN ---
Subjective - Date & Time of Evaluation Date of Evaluation: 09/04/16 Time of Evaluation: 13:00 - Subjective Subjective: Patient seen and examined in ICU. States that abdominal pain is improving. Objective - Vital Signs/Intake and Output Vital Signs (last 24 hours): Temp Pulse Resp BP Pulse Ox 98 F 111 H 26 H 119/71 97 09/04/16 12:00 09/04/16 13:21 09/04/16 13:21 09/04/16 13:21 09/04/16 13:21 Intake and Output: 09/04/16 09/04/16 06:59 18:59 Intake Total 3000 1925 Output Total 710 325 Balance 2290 1600 - Medications Medications: Current Medications Hydromorphone HCl (Dilaudid) 1 mg IVP Q4H PRN PRN Reason: Pain, severe (8-10) Last Admin: 09/04/16 10:01 Dose: 1 mg Lactated Ringer's (Lactated Ringer's) 1,000 mls @ 250 mls/hr IV .Q4H [facility] Last Admin: 09/04/16 12:26 Dose: 250 mls/hr Piperacillin Sod/Tazobactam (Sod 3.375 gm/ Sodium Chloride) 100 mls @ 200 mls/ hr IVPB Q8H [facility] Last Admin: 09/04/16 10:22 Dose: 200 mls/hr Insulin Human Regular (Novolin R) 0 unit SC Q6 [facility] PRN Reason: Protocol Last Admin: 09/04/16 11:30 Dose: Not Given Lorazepam (Ativan) 1 mg IVP Q3H PRN PRN Reason: withdrawal symptoms Ondansetron HCl (Zofran Inj) 4 mg IVP Q6H PRN PRN Reason: Nausea/Vomiting Last Admin: 09/03/16 13:40 Dose: 4 mg Pantoprazole Sodium (Protonix Inj) 40 mg IVP DAILY [facility] Last Admin: 09/04/16 10:01 Dose: 40 mg Pneumococcal Polyvalent Vaccine (Pneumovax 23 Vaccine) 0.5 ml IM .ONCE ONE Stop: 09/05/16 10:01 Thiamine HCl (Vitamin B1 Inj) 100 mg IV DAILY [facility] Last Admin: 09/04/16 10:01 Dose: 100 mg - Labs Labs: 09/04/16 06:43 09/04/16 06:43 PT 13.8 SECONDS (9.7-12.2) H 09/03/16 04:12 INR 1.2 09/03/16 04:12 APTT 31 SECONDS (21-34) D 09/03/16 04:12 - Head Exam Head Exam: ATRAUMATIC, NORMOCEPHALIC - Eye Exam Eye Exam: EOMI - ENT Exam ENT Exam: Mucous Membranes Moist - Neck Exam Neck Exam: Normal Inspection - Respiratory Exam Respiratory Exam: Clear to Ausculation Bilateral - Cardiovascular Exam Cardiovascular Exam: Tachycardia, REGULAR RHYTHM, +S1, +S2 - GI/Abdominal Exam GI & Abdominal Exam: Soft, Tenderness Additional comments: Mild tenderness present on palpation - Extremities Exam Extremities Exam: absent: Pedal Edema Assessment and Plan (1) Acute pancreatitis Assessment & Plan: Continue to be nothing by mouth. Continue pain management. Continue IV fluids. Replace electrolytes as needed. Status: Acute (2) Hyperkalemia Assessment & Plan: Resolved. Status: Acute (3) Metabolic acidosis Assessment & Plan: Secondary to acute pancreatitis. Resolved. Status: Acute (4) Hyponatremia Assessment & Plan: Secondary to acute pancreatitis. Status: Acute (5) DVT prophylaxis Assessment & Plan: Continue GI prophylaxis and DVT prophylaxis. Status: Acute
[2016-09-05] MEDS: (Novolin R) Insulin Human Regular 100 units/ml vial SC SCH ×4 (00:25→18:41)
[2016-09-05] MEDS: HYDROmorphone 1 mg/ml ISec IVP PRN ×3 (02:20→22:59)
[2016-09-05] MEDS: Piperacillin/Tazobact 3.375 GM in Sodium Chloride 100 ML IVPB SCH ×3 (02:57→18:41)
[2016-09-05] MEDS: Lactated Ringer's 1,000 ML IV SCH ×3 (03:02→19:29)
[2016-09-05 06:15] LABS: BASO % 0.2 % (0.0-2.0); EOS # 0.1 K/uL (0.0-0.7); EOS % 1.5 % (0.0-4.0); HEMATOCRIT 31.4 % (35.0-51.0); LYMPH # 0.7 K/uL (1.0-4.3); LYMPH % 13.1 % (20.0-40.0); MEAN CELL VOLUME 98.8 fL (80.0-94.0); MEAN CORPUSCULAR HEMOGLOBIN 33.6 pg (27.0-31.0); MEAN PLATELET VOLUME 6.9 fL (7.2-11.7); MONO # 0.5 K/uL (0.0-0.8); MONO % 8.6 % (0.0-10.0); NRBC % 0.2 % (0.0-2.0); RED CELL DISTRIBUTION WIDTH 15.5 % (11.5-14.5); WHITE BLOOD COUNT 5.2 K/uL (4.8-10.8)
[2016-09-05 06:53] LABS: CHLORIDE 94 mmol/L (98-107); POTASSIUM 4.3 mmol/L (3.6-5.2); SODIUM 124 mmol/L (132-148)
[2016-09-05 06:55] LABS: ALB/GLOB RATIO 0.8 (1.0-2.1); ALKALINE PHOSPHATASE 62 U/L (38-126); AST/SGOT 62 U/L (17-59); BILIRUBIN,TOTAL 2.8 mg/dL (0.2-1.3); CARBON DIOXIDE 24 mmol/L (22-30); GFR AFRICAN-AMERICAN > 60; TOTAL PROTEIN 5.6 g/dL (6.3-8.3)
[2016-09-05 06:56] LABS: ALT/SGPT 31 U/L (21-72); BLOOD UREA NITROGEN 10 mg/dL (9-20); GLUCOSE,RANDOM 97 mg/dL (75-110); MAGNESIUM 2.2 mg/dL (1.6-2.3)
[2016-09-05 07:05] LABS: CALCIUM 5.7 mg/dl (8.6-10.4)
--- NOTE | 2016-09-05 09:05 | CP.PCM.PN ---
Subjective - Date & Time of Evaluation Date of Evaluation: 09/05/16 Time of Evaluation: 08:10 - Subjective Subjective: Patient seen and examined in ICU. NGT remains in place, minimal output. No reported BM, +flatus. Abdominal pain overall stable, maybe slightly improved. No nausea or vomiting. Wallace with >2L out. ROS otherwise negative in detail Objective - Vital Signs/Intake and Output Vital Signs (last 24 hours): Temp Pulse Resp BP Pulse Ox 97.5 F L 99 H 23 124/80 99 09/05/16 04:00 09/05/16 08:10 09/05/16 08:10 09/05/16 08:10 09/05/16 08:10 Intake and Output: 09/05/16 09/05/16 06:59 18:59 Intake Total 3103 500 Output Total 1200 280 Balance 1903 220 - Medications Medications: Current Medications Enoxaparin Sodium (Lovenox) 40 mg SC DAILY [facility] Hydromorphone HCl (Dilaudid) 1 mg IVP Q4H PRN PRN Reason: Pain, severe (8-10) Last Admin: 09/05/16 02:20 Dose: 1 mg Lactated Ringer's (Lactated Ringer's) 1,000 mls @ 250 mls/hr IV .Q4H [facility] Last Admin: 09/05/16 05:48 Dose: Not Given Piperacillin Sod/Tazobactam (Sod 3.375 gm/ Sodium Chloride) 100 mls @ 200 mls/ hr IVPB Q8H [facility] Last Admin: 09/05/16 02:57 Dose: 200 mls/hr Insulin Human Regular (Novolin R) 0 unit SC Q6 [facility] PRN Reason: Protocol Last Admin: 09/05/16 06:54 Dose: Not Given Lorazepam (Ativan) 1 mg IVP Q3H PRN PRN Reason: withdrawal symptoms Ondansetron HCl (Zofran Inj) 4 mg IVP Q6H PRN PRN Reason: Nausea/Vomiting Last Admin: 09/03/16 13:40 Dose: 4 mg Pantoprazole Sodium (Protonix Inj) 40 mg IVP DAILY [facility] Last Admin: 09/04/16 10:01 Dose: 40 mg Pneumococcal Polyvalent Vaccine (Pneumovax 23 Vaccine) 0.5 ml IM .ONCE ONE Stop: 05/10/17 10:01 Thiamine HCl (Vitamin B1 Inj) 100 mg IV DAILY [facility] Last Admin: 09/04/16 10:01 Dose: 100 mg - Labs Labs: 09/05/16 06:08 09/05/16 06:05 PT 13.8 SECONDS (9.7-12.2) H 09/03/16 04:12 INR 1.2 09/03/16 04:12 APTT 31 SECONDS (21-34) D 09/03/16 04:12 - Constitutional Appears: No Acute Distress - Eye Exam Eye Exam: Scleral icterus - ENT Exam ENT Exam: Mucous Membranes Moist - Respiratory Exam Additional comments: decreased bilateral breath sounds - Cardiovascular Exam Cardiovascular Exam: +S1, +S2 - GI/Abdominal Exam Additional comments: abdomen firm, tenderness diffusely to palpation without rebound/guarding, bowel sounds present, no palpable mass - Extremities Exam Extremities Exam: absent: Pedal Edema - Neurological Exam Neurological Exam: Alert, Oriented x3 - Skin Skin Exam: Dry Assessment and Plan - Assessment and Plan (Free Text) Assessment: 26 year old male with no prior medical history presenting with epigastric pain due to severe ETOH pancreatitis, non necrotizing. He has ileus, acute renal failure, and multiple electrolyte derangements including severe hypocalcemia. Plan: Continue supportive care Pain control as needed, IVF hydration Antiemetic therapy Monitor electrolytes and replete as needed Serial abdominal examinations Obtain repeat abd flat plate Monitor LFTs, T bili downtrending Monitor NGT output, follow up surgery recommendations Consider enteral feeding once ileus improved/resolved Will continue to follow and make recommendations pending clinical course
[2016-09-05] MEDS: Sodium Chloride 0.9% 1,000 ML IV SCH ×3 (09:45→21:43)
[2016-09-05] MEDS ORDERED: Pneumococcal 23-Valent Vaccine IM ONE (10:00)
[2016-09-05] MEDS: Thiamine 100 mg/ml Inj IV SCH (10:00)
[2016-09-05] MEDS ORDERED: Sodium Phosphate 15 MMOLE in Sodium Chloride 0.9% 250 ML IVPB ONE (10:30)
[2016-09-05] MEDS: Enoxaparin 40 mg Syringe SC SCH (10:40)
--- NOTE | 2016-09-05 11:53 | RAD ---
HISTORY: f/u ileus COMPARISON: Comparison made with plain film radiographs and CT scan of the abdomen both dated 09/03/2016 FINDINGS: BOWEL: In situ NGT, tip of which overlies the right parasagittal upper/mid abdomen likely within the distal stomach improved ileus with no evidence to suggest acute mechanical bowel obstruction. Apparent ascites again noted though seen to better advantage on prior CT scan BONES: Normal. OTHER FINDINGS: None. IMPRESSION: In situ NGT. Improved ileus with no evidence to suggest acute mechanical bowel obstruction apparent ascites again noted however seen to better advantage on prior CT scan.
--- NOTE | 2016-09-05 11:55 | CP.CCUPN ---
<Martin Mercer - Last Filed: 09/05/16 11:53> CCU Subjective - Physician Review Subjective (Free Text): 09/05/16 11:53 PGY-1 progress note Pt seen and examined at bedside. Pt still reports some abdominal pain. Had 1 BM this morning and still admits to flatus. Denies nausea, vomiting, fevers, chills , chest pain. No acute events overnight. Critical Care Time Spent (in minutes): 35 CCU Objective - Vital Signs / Intake & Output Vital Signs (Last 4 hours): Vital Signs Pulse Resp BP Pulse Ox 09/05/16 08:10 99 H 23 124/80 99 09/05/16 08:00 107 H 22 97 Intake and Output (Last 8hrs): Intake & Output 09/04/16 09/05/16 09/05/16 22:59 06:59 14:59 Intake Total 1977 2100 500 Output Total 770 800 280 Balance 1208 1300 220 Weight 143 lb Intake: Intake, IV Amount 1974 2100 500 Left AC 1974 2100 500 Oral 3 Output: Gastric Amount 70 Left Nares 70 Drainage 80 NGT 80 Urine 700 800 200 Urethral (Francis) 700 800 200 - Physical Exam Head: Positive for: Atraumatic, Normocephalic Pupils: Positive for: PERRL Mouth: Positive for: Moist Mucous Membranes Respiratory/Chest: Positive for: Clear to Auscultation, Good Air Exchange. Negative for: Respiratory Distress Cardiovascular: Positive for: Normal S1, S2 Abdomen: Positive for: Tenderness, Distention (slightly less distention today. ) . Negative for: Normal Bowel Sounds Upper Extremity: Positive for: NORMAL PULSES, Neurovascularly Intact Lower Extremity: Positive for: NORMAL PULSES, Neurovascularly Intact Neurological: Positive for: CN II-XII Intact, Speech Normal Skin: Positive for: Warm, Dry Psychiatric: Positive for: Alert, Oriented x 3 - Medications Active Medications: Active Medications Generic Name Dose Route Start Last Admin Trade Name Freq PRN Reason Stop Dose Admin Enoxaparin Sodium 40 mg 09/05/16 10:00 09/05/16 10:40 Lovenox SC 40 mg DAILY BONNIE Administration Hydromorphone HCl 1 mg 09/03/16 13:02 09/05/16 02:20 Dilaudid IVP 1 mg Q4H PRN Administration Pain, severe (8-10) Piperacillin Sod/Tazobactam 100 mls @ 200 mls/hr 09/04/16 10:00 09/05/16 10: 39 Sod 3.375 gm/ Sodium Chloride IVPB 200 mls/hr Q8H BONNIE Administration Sodium Chloride 1,000 mls @ 100 mls/hr 09/05/16 09:45 Sodium Chloride 0.9% IV .Q10H BONNIE Sodium Phosphate 15 mmole/ 255 mls @ 50 mls/hr 09/05/16 10:30 09/05/16 10:41 Sodium Chloride IVPB 09/05/16 15:35 50 mls/hr .Q5H6M ONE Administration Insulin Human Regular 0 unit 09/04/16 09:35 09/05/16 06:54 Novolin R SC Not Given Q6 [facility] Protocol Lorazepam 1 mg 09/02/16 21:39 Ativan IVP Q3H PRN withdrawal symptoms Ondansetron HCl 4 mg 09/02/16 20:01 09/03/16 13:40 Zofran Inj IVP 4 mg Q6H PRN Administration Nausea/Vomiting Pantoprazole Sodium 40 mg 09/03/16 10:00 09/05/16 10:40 Protonix Inj IVP 40 mg DAILY BONNIE Administration Thiamine HCl 100 mg 09/03/16 10:00 09/04/16 10:01 Vitamin B1 Inj IV 100 mg DAILY BONNIE Administration - Patient Studies Lab Studies: Microbiology Studies 09/02/16 20:10 MRSA Culture (Admit) - Final Nose MRSA NOT DETECTED Lab Studies 09/05/16 09/05/16 09/05/16 Range/Units 06:25 06:08 06:05 WBC 5.2 (4.8-10.8) K/uL RBC 3.18 L (4.40-5.90) Mil/uL Hgb 10.7 L (12.0-18.0) g/dL Hct 31.4 L (35.0-51.0) % MCV 98.8 H (80.0-94.0) fL MCH 33.6 H (27.0-31.0) pg MCHC 34.0 (33.0-37.0) g/dL RDW 15.5 H (11.5-14.5) % Plt Count 119 L (130-400) K/uL MPV 6.9 L (7.2-11.7) fL Neut % (Auto) 76.6 H (50.0-75.0) % Lymph % (Auto) 13.1 L (20.0-40.0) % Catron % (Auto) 8.6 (0.0-10.0) % Eos % (Auto) 1.5 (0.0-4.0) % Baso % (Auto) 0.2 (0.0-2.0) % Neut # 4.0 (1.8-7.0) K/uL Lymph # 0.7 L (1.0-4.3) K/uL Catron # 0.5 (0.0-0.8) K/uL Eos # 0.1 (0.0-0.7) K/uL Baso # 0.0 (0.0-0.2) K/uL Sodium 124 L (132-148) mmol/L Potassium 4.3 (3.6-5.2) mmol/L Chloride 94 L (98-107) mmol/L Carbon Dioxide 24 (22-30) mmol/L Anion Gap 10 (10-20) BUN 10 (9-20) mg/dL Creatinine 0.8 (0.8-1.5) MG/DL Est GFR ( Amer) > 60 Est GFR (Non-Af Amer) > 60 POC Glucose (mg/dL) 114 H (65-110) mg/dL Random Glucose 97 (75-110) mg/dL Calcium 5.7 L* (8.6-10.4) mg/dl Phosphorus 2.0 L (2.5-4.5) mg/dL Magnesium 2.2 (1.6-2.3) mg/dL Total Bilirubin 2.8 H (0.2-1.3) mg/dL AST 62 H D (17-59) U/L ALT 31 (21-72) U/L Alkaline Phosphatase 62 (38-126) U/L Total Protein 5.6 L (6.3-8.3) g/dL Albumin 2.6 L (3.5-5.0) g/dL Globulin 3.1 (2.2-3.9) gm/dL Albumin/Globulin Ratio 0.8 L (1.0-2.1) Procalcitonin (0.19-0.49) NG/ML 09/05/16 09/04/16 09/04/16 Range/Units 00:02 Unknown 17:49 WBC (4.8-10.8) K/uL RBC (4.40-5.90) Mil/uL Hgb (12.0-18.0) g/dL Hct (35.0-51.0) % MCV (80.0-94.0) fL MCH (27.0-31.0) pg MCHC (33.0-37.0) g/dL RDW (11.5-14.5) % Plt Count (130-400) K/uL MPV (7.2-11.7) fL Neut % (Auto) (50.0-75.0) % Lymph % (Auto) (20.0-40.0) % Catron % (Auto) (0.0-10.0) % Eos % (Auto) (0.0-4.0) % Baso % (Auto) (0.0-2.0) % Neut # (1.8-7.0) K/uL Lymph # (1.0-4.3) K/uL Catron # (0.0-0.8) K/uL Eos # (0.0-0.7) K/uL Baso # (0.0-0.2) K/uL Sodium (132-148) mmol/L Potassium (3.6-5.2) mmol/L Chloride (98-107) mmol/L Carbon Dioxide (22-30) mmol/L Anion Gap (10-20) BUN (9-20) mg/dL Creatinine (0.8-1.5) MG/DL Est GFR ( Amer) Est GFR (Non-Af Amer) POC Glucose (mg/dL) 107 106 (65-110) mg/dL Random Glucose (75-110) mg/dL Calcium (8.6-10.4) mg/dl Phosphorus (2.5-4.5) mg/dL Magnesium (1.6-2.3) mg/dL Total Bilirubin (0.2-1.3) mg/dL AST (17-59) U/L ALT (21-72) U/L Alkaline Phosphatase (38-126) U/L Total Protein (6.3-8.3) g/dL Albumin (3.5-5.0) g/dL Globulin (2.2-3.9) gm/dL Albumin/Globulin Ratio (1.0-2.1) Procalcitonin 2.09 H (0.19-0.49) NG/ML 09/04/16 Range/Units 11:53 WBC (4.8-10.8) K/uL RBC (4.40-5.90) Mil/uL Hgb (12.0-18.0) g/dL Hct (35.0-51.0) % MCV (80.0-94.0) fL MCH (27.0-31.0) pg MCHC (33.0-37.0) g/dL RDW (11.5-14.5) % Plt Count (130-400) K/uL MPV (7.2-11.7) fL Neut % (Auto) (50.0-75.0) % Lymph % (Auto) (20.0-40.0) % Catron % (Auto) (0.0-10.0) % Eos % (Auto) (0.0-4.0) % Baso % (Auto) (0.0-2.0) % Neut # (1.8-7.0) K/uL Lymph # (1.0-4.3) K/uL Catron # (0.0-0.8) K/uL Eos # (0.0-0.7) K/uL Baso # (0.0-0.2) K/uL Sodium (132-148) mmol/L Potassium (3.6-5.2) mmol/L Chloride (98-107) mmol/L Carbon Dioxide (22-30) mmol/L Anion Gap (10-20) BUN (9-20) mg/dL Creatinine (0.8-1.5) MG/DL Est GFR ( Amer) Est GFR (Non-Af Amer) POC Glucose (mg/dL) 124 H (65-110) mg/dL Random Glucose (75-110) mg/dL Calcium (8.6-10.4) mg/dl Phosphorus (2.5-4.5) mg/dL Magnesium (1.6-2.3) mg/dL Total Bilirubin (0.2-1.3) mg/dL AST (17-59) U/L ALT (21-72) U/L Alkaline Phosphatase (38-126) U/L Total Protein (6.3-8.3) g/dL Albumin (3.5-5.0) g/dL Globulin (2.2-3.9) gm/dL Albumin/Globulin Ratio (1.0-2.1) Procalcitonin (0.19-0.49) NG/ML Laboratory Results - last 24 hr 09/04/16 09/04/16 09/04/16 11:53 17:49 Unknown WBC RBC Hgb Hct MCV MCH MCHC RDW Plt Count MPV Neut % (Auto) Lymph % (Auto) Catron % (Auto) Eos % (Auto) Baso % (Auto) Neut # Lymph # Catron # Eos # Baso # Sodium Potassium Chloride Carbon Dioxide Anion Gap BUN Creatinine Est GFR ( Amer) Est GFR (Non-Af Amer) POC Glucose (mg/dL) 124 H 106 Random Glucose Calcium Phosphorus Magnesium Total Bilirubin AST ALT Alkaline Phosphatase Total Protein Albumin Globulin Albumin/Globulin Ratio Procalcitonin 2.09 H 09/05/16 09/05/16 09/05/16 00:02 06:05 06:08 WBC 5.2 RBC 3.18 L Hgb 10.7 L Hct 31.4 L MCV 98.8 H MCH 33.6 H MCHC 34.0 RDW 15.5 H Plt Count 119 L MPV 6.9 L Neut % (Auto) 76.6 H Lymph % (Auto) 13.1 L Catron % (Auto) 8.6 Eos % (Auto) 1.5 Baso % (Auto) 0.2 Neut # 4.0 Lymph # 0.7 L Catron # 0.5 Eos # 0.1 Baso # 0.0 Sodium 124 L Potassium 4.3 Chloride 94 L Carbon Dioxide 24 Anion Gap 10 BUN 10 Creatinine 0.8 Est GFR ( Amer) > 60 Est GFR (Non-Af Amer) > 60 POC Glucose (mg/dL) 107 Random Glucose 97 Calcium 5.7 L* Phosphorus 2.0 L Magnesium 2.2 Total Bilirubin 2.8 H AST 62 H D ALT 31 Alkaline Phosphatase 62 Total Protein 5.6 L Albumin 2.6 L Globulin 3.1 Albumin/Globulin Ratio 0.8 L Procalcitonin 09/05/16 06:25 WBC RBC Hgb Hct MCV MCH MCHC RDW Plt Count MPV Neut % (Auto) Lymph % (Auto) Catron % (Auto) Eos % (Auto) Baso % (Auto) Neut # Lymph # Catron # Eos # Baso # Sodium Potassium Chloride Carbon Dioxide Anion Gap BUN Creatinine Est GFR ( Amer) Est GFR (Non-Af Amer) POC Glucose (mg/dL) 114 H Random Glucose Calcium Phosphorus Magnesium Total Bilirubin AST ALT Alkaline Phosphatase Total Protein Albumin Globulin Albumin/Globulin Ratio Procalcitonin Fingerstick Blood Sugar Results: 106 Review of Systems - Review of Systems All systems: reviewed and no additional remarkable complaints except (where noted in HPI) Critical Care Progress Note - Nutrition Nutrition: Nutrition Category Date Time Status NPO Diet [DIET] Diets 09/02/16 Dinner Active Assessment/Plan - Assessment and Plan (Free Text) Assessment: This is a 26 yo M with acute pancreatitis, complicated by prerenal acute renal failure now resolved and ileus. Plan: Neuro: Alert and oriented 3 Pulm: No acute issues. Repeat CT shows bilateral pleural effusions and compressive atelectasis at the lung bases. CV: Was mildly hypotensive, but responded to fluid boluses. Hem: Hemoconcentration, indicative of hypovolemic state. Corrected with IVF hydration. No acute issues Renal: Acute renal failure secondary to prerenal state now resolved. Urine output >2L and hyponatremic, fluids changed to NS at 75 cc/hr. Hypocalcemic and hypophophatemia. Given sodium phosphate. Continue to monitor Ca. Endo: No acute issues GI: Acute pancreatitis, nothing by mouth for now. Monitor bilirubin, trending down Pt distended - reports one BM. Repeat abdominal x-ray shows ileus resolving. Intrabdominal pressures still elevated, will repeat CT. GI following Surgery following ID: Afebrile but tachycardic. CBC shows bands, started Zosyn. Clinically improving DVT proph - heparin subcutaneous GI proph - Protonix IV francis for strict I/O's during acute illness Code status - full code <Matt Brewster S - Last Filed: 09/05/16 16:25> CCU Objective - Vital Signs / Intake & Output Vital Signs (Last 4 hours): Vital Signs Pulse Resp BP Pulse Ox 09/05/16 15:10 104 H 24 128/86 09/05/16 15:00 103 H 26 H 09/05/16 14:10 107 H 20 127/68 91 L 09/05/16 14:00 122 H 33 H 79 L 09/05/16 13:11 117 H 25 H 180/100 H 09/05/16 13:00 112 H 30 H Intake and Output (Last 8hrs): Intake & Output 09/05/16 09/05/16 09/05/16 06:59 14:59 22:59 Intake Total 2100 1150 Output Total 800 780 Balance 1300 370 Weight 143 lb Intake: Intake, IV Amount 2100 1150 Left AC 2100 1150 Output: Drainage 80 NGT 80 Urine 800 700 Urethral (Francis) 800 700 - Medications Active Medications: Active Medications Generic Name Dose Route Start Last Admin Trade Name Freq PRN Reason Stop Dose Admin Enoxaparin Sodium 40 mg 09/05/16 10:00 09/05/16 10:40 Lovenox SC 40 mg DAILY BONNIE Administration Hydromorphone HCl 1 mg 09/03/16 13:02 09/05/16 16:06 Dilaudid IVP 1 mg Q4H PRN Administration Pain, severe (8-10) Piperacillin Sod/Tazobactam 100 mls @ 200 mls/hr 09/04/16 10:00 09/05/16 10: 39 Sod 3.375 gm/ Sodium Chloride IVPB 200 mls/hr Q8H BONNIE Administration Sodium Chloride 1,000 mls @ 100 mls/hr 09/05/16 09:45 09/05/16 09:45 Sodium Chloride 0.9% IV 100 mls/hr .Q10H BONNIE Administration Insulin Human Regular 0 unit 09/04/16 09:35 09/05/16 12:00 Novolin R SC Not Given Q6 BONNIE Protocol Lorazepam 1 mg 09/02/16 21:39 Ativan IVP Q3H PRN withdrawal symptoms Ondansetron HCl 4 mg 09/02/16 20:01 09/03/16 13:40 Zofran Inj IVP 4 mg Q6H PRN Administration Nausea/Vomiting Pantoprazole Sodium 40 mg 09/03/16 10:00 09/05/16 10:40 Protonix Inj IVP 40 mg DAILY BONNIE Administration Thiamine HCl 100 mg 09/03/16 10:00 09/05/16 10:00 Vitamin B1 Inj IV 100 mg DAILY BONNIE Administration - Patient Studies Lab Studies: Lab Studies 09/05/16 09/05/16 09/05/16 Range/Units 12:10 06:25 06:08 WBC 5.2 (4.8-10.8) K/uL RBC 3.18 L (4.40-5.90) Mil/uL Hgb 10.7 L (12.0-18.0) g/dL Hct 31.4 L (35.0-51.0) % MCV 98.8 H (80.0-94.0) fL MCH 33.6 H (27.0-31.0) pg MCHC 34.0 (33.0-37.0) g/dL RDW 15.5 H (11.5-14.5) % Plt Count 119 L (130-400) K/uL MPV 6.9 L (7.2-11.7) fL Neut % (Auto) 76.6 H (50.0-75.0) % Lymph % (Auto) 13.1 L (20.0-40.0) % Catron % (Auto) 8.6 (0.0-10.0) % Eos % (Auto) 1.5 (0.0-4.0) % Baso % (Auto) 0.2 (0.0-2.0) % Neut # 4.0 (1.8-7.0) K/uL Lymph # 0.7 L (1.0-4.3) K/uL Catron # 0.5 (0.0-0.8) K/uL Eos # 0.1 (0.0-0.7) K/uL Baso # 0.0 (0.0-0.2) K/uL Sodium (132-148) mmol/L Potassium (3.6-5.2) mmol/L Chloride (98-107) mmol/L Carbon Dioxide (22-30) mmol/L Anion Gap (10-20) BUN (9-20) mg/dL Creatinine (0.8-1.5) MG/DL Est GFR ( Amer) Est GFR (Non-Af Amer) POC Glucose (mg/dL) 93 114 H (65-110) mg/dL Random Glucose (75-110) mg/dL Calcium (8.6-10.4) mg/dl Phosphorus (2.5-4.5) mg/dL Magnesium (1.6-2.3) mg/dL Total Bilirubin (0.2-1.3) mg/dL AST (17-59) U/L ALT (21-72) U/L Alkaline Phosphatase (38-126) U/L Total Protein (6.3-8.3) g/dL Albumin (3.5-5.0) g/dL Globulin (2.2-3.9) gm/dL Albumin/Globulin Ratio (1.0-2.1) Amylase (30-110) U/L Lipase (23-300) U/L Procalcitonin (0.19-0.49) NG/ML 09/05/16 09/05/16 09/04/16 Range/Units 06:05 00:02 Unknown WBC (4.8-10.8) K/uL RBC (4.40-5.90) Mil/uL Hgb (12.0-18.0) g/dL Hct (35.0-51.0) % MCV (80.0-94.0) fL MCH (27.0-31.0) pg MCHC (33.0-37.0) g/dL RDW (11.5-14.5) % Plt Count (130-400) K/uL MPV (7.2-11.7) fL Neut % (Auto) (50.0-75.0) % Lymph % (Auto) (20.0-40.0) % Catron % (Auto) (0.0-10.0) % Eos % (Auto) (0.0-4.0) % Baso % (Auto) (0.0-2.0) % Neut # (1.8-7.0) K/uL Lymph # (1.0-4.3) K/uL Catron # (0.0-0.8) K/uL Eos # (0.0-0.7) K/uL Baso # (0.0-0.2) K/uL Sodium 124 L (132-148) mmol/L Potassium 4.3 (3.6-5.2) mmol/L Chloride 94 L (98-107) mmol/L Carbon Dioxide 24 (22-30) mmol/L Anion Gap 10 (10-20) BUN 10 (9-20) mg/dL Creatinine 0.8 (0.8-1.5) MG/DL Est GFR ( Amer) > 60 Est GFR (Non-Af Amer) > 60 POC Glucose (mg/dL) 107 (65-110) mg/dL Random Glucose 97 (75-110) mg/dL Calcium 5.7 L* (8.6-10.4) mg/dl Phosphorus 2.0 L (2.5-4.5) mg/dL Magnesium 2.2 (1.6-2.3) mg/dL Total Bilirubin 2.8 H (0.2-1.3) mg/dL AST 62 H D (17-59) U/L ALT 31 (21-72) U/L Alkaline Phosphatase 62 (38-126) U/L Total Protein 5.6 L (6.3-8.3) g/dL Albumin 2.6 L (3.5-5.0) g/dL Globulin 3.1 (2.2-3.9) gm/dL Albumin/Globulin Ratio 0.8 L (1.0-2.1) Amylase 166 H (30-110) U/L Lipase 879 H (23-300) U/L Procalcitonin 2.09 H (0.19-0.49) NG/ML 09/04/16 Range/Units 17:49 WBC (4.8-10.8) K/uL RBC (4.40-5.90) Mil/uL Hgb (12.0-18.0) g/dL Hct (35.0-51.0) % MCV (80.0-94.0) fL MCH (27.0-31.0) pg MCHC (33.0-37.0) g/dL RDW (11.5-14.5) % Plt Count (130-400) K/uL MPV (7.2-11.7) fL Neut % (Auto) (50.0-75.0) % Lymph % (Auto) (20.0-40.0) % Catron % (Auto) (0.0-10.0) % Eos % (Auto) (0.0-4.0) % Baso % (Auto) (0.0-2.0) % Neut # (1.8-7.0) K/uL Lymph # (1.0-4.3) K/uL Catron # (0.0-0.8) K/uL Eos # (0.0-0.7) K/uL Baso # (0.0-0.2) K/uL Sodium (132-148) mmol/L Potassium (3.6-5.2) mmol/L Chloride (98-107) mmol/L Carbon Dioxide (22-30) mmol/L Anion Gap (10-20) BUN (9-20) mg/dL Creatinine (0.8-1.5) MG/DL Est GFR ( Amer) Est GFR (Non-Af Amer) POC Glucose (mg/dL) 106 (65-110) mg/dL Random Glucose (75-110) mg/dL Calcium (8.6-10.4) mg/dl Phosphorus (2.5-4.5) mg/dL Magnesium (1.6-2.3) mg/dL Total Bilirubin (0.2-1.3) mg/dL AST (17-59) U/L ALT (21-72) U/L Alkaline Phosphatase (38-126) U/L Total Protein (6.3-8.3) g/dL Albumin (3.5-5.0) g/dL Globulin (2.2-3.9) gm/dL Albumin/Globulin Ratio (1.0-2.1) Amylase (30-110) U/L Lipase (23-300) U/L Procalcitonin (0.19-0.49) NG/ML Laboratory Results - last 24 hr 09/04/16 09/04/16 09/05/16 17:49 Unknown 00:02 WBC RBC Hgb Hct MCV MCH MCHC RDW Plt Count MPV Neut % (Auto) Lymph % (Auto) Catron % (Auto) Eos % (Auto) Baso % (Auto) Neut # Lymph # Catron # Eos # Baso # Sodium Potassium Chloride Carbon Dioxide Anion Gap BUN Creatinine Est GFR ( Amer) Est GFR (Non-Af Amer) POC Glucose (mg/dL) 106 107 Random Glucose Calcium Phosphorus Magnesium Total Bilirubin AST ALT Alkaline Phosphatase Total Protein Albumin Globulin Albumin/Globulin Ratio Amylase Lipase Procalcitonin 2.09 H 09/05/16 09/05/16 09/05/16 06:05 06:08 06:25 WBC 5.2 RBC 3.18 L Hgb 10.7 L Hct 31.4 L MCV 98.8 H MCH 33.6 H MCHC 34.0 RDW 15.5 H Plt Count 119 L MPV 6.9 L Neut % (Auto) 76.6 H Lymph % (Auto) 13.1 L Catron % (Auto) 8.6 Eos % (Auto) 1.5 Baso % (Auto) 0.2 Neut # 4.0 Lymph # 0.7 L Catron # 0.5 Eos # 0.1 Baso # 0.0 Sodium 124 L Potassium 4.3 Chloride 94 L Carbon Dioxide 24 Anion Gap 10 BUN 10 Creatinine 0.8 Est GFR ( Amer) > 60 Est GFR (Non-Af Amer) > 60 POC Glucose (mg/dL) 114 H Random Glucose 97 Calcium 5.7 L* Phosphorus 2.0 L Magnesium 2.2 Total Bilirubin 2.8 H AST 62 H D ALT 31 Alkaline Phosphatase 62 Total Protein 5.6 L Albumin 2.6 L Globulin 3.1 Albumin/Globulin Ratio 0.8 L Amylase 166 H Lipase 879 H Procalcitonin 09/05/16 12:10 WBC RBC Hgb Hct MCV MCH MCHC RDW Plt Count MPV Neut % (Auto) Lymph % (Auto) Catron % (Auto) Eos % (Auto) Baso % (Auto) Neut # Lymph # Catron # Eos # Baso # Sodium Potassium Chloride Carbon Dioxide Anion Gap BUN Creatinine Est GFR ( Amer) Est GFR (Non-Af Amer) POC Glucose (mg/dL) 93 Random Glucose Calcium Phosphorus Magnesium Total Bilirubin AST ALT Alkaline Phosphatase Total Protein Albumin Globulin Albumin/Globulin Ratio Amylase Lipase Procalcitonin Critical Care Progress Note - Nutrition Nutrition: Nutrition Category Date Time Status NPO Diet [DIET] Diets 09/02/16 Dinner Active Attending/Attestation - Attestation Notes (Text): 09/05/16 16:25 Patient seen and examined in the intensive care unit. Case discussed with house staff in the morning rounds. Clinically patient improving with less distention of abdomen and had a bowel movement Repeat CAT scan of abdomen Continue antibiotics with elevated pro calcitonin level
[2016-09-05 11:57] LABS: AMYLASE 166 U/L (30-110)
--- NOTE | 2016-09-05 13:39 | CT ---
PROCEDURE: CT Abdomen and pelvis dated 09/05/2016 HISTORY: pancreatitis, follow up COMPARISON: Comparison made with CT scan pelvis 11/2016 TECHNIQUE: Contiguous axial images of the abdomen and pelvis performed without oral or intravenous contrast material. Additional coronal and Sagittal reformats generated. Radiation dose: Total exam DLP = 1033.92 mGy-cm. This CT exam was performed using one or more of the following dose reduction techniques: Automated exposure control, adjustment of the mA and/or kV according to patient size, and/or use of iterative reconstruction technique. FINDINGS: LOWER THORAX: Re- demonstrated are bilateral effusions and bibasilar atelectasis increased slightly in size from prior study. In situ NGT, the tip of which lies within the distal stomach. Heart size within range of normal. [place] LIVER: The liver remains enlarged measuring approximately 20.4 cm in CC dimension. Mild diffuse fatty hepatic infiltration felt to be present. Re- demonstrated are moderate amount of abdominal and pelvic ascites with diffuse infiltration of the mesentery. GALLBLADDER AND BILE DUCTS: Gallbladder is physiologically distended. No evidence of intraluminal gallbladder calculi. PANCREAS: The pancreas remains enlarged and somewhat edematous in appearance with infiltration and on fluid adjacent peripancreatic fat and retroperitoneum consistent with this patient's history of acute pancreatitis. No definitive discrete pancreatic pancreatic pseudocyst or hemorrhagic collections. SPLEEN: Spleen is unremarkable. ADRENALS: No adrenal lesions. KIDNEYS AND URETERS: The kidneys exhibit symmetric size. No evidence of nephrolithiasis or hydronephrosis. BLADDER: In situ unclamped Wallace catheter. The urinary bladder is collapsed about a Wallace catheter which presumably accounts for slight thick-walled appearance. Muscular hypertrophy may contribute however clinical correlation recommended. REPRODUCTIVE: Unremarkable. APPENDIX: Appendix is not seen with complete certainty and the study is somewhat limited due to evaluate for inflammatory changes due to the significant infiltration and abdominal ascites. BOWEL: . Evaluation of the bowel is limited due to the lack of oral contrast material. Mild diffuse bowel wall thickening likely due to ascites. Improved ileus. No evidence of acute mechanical bowel obstruction. PERITONEUM: As above. No definitive free intraperitoneal air. . There is mild diffuse anasarca. Small bilateral inguinal hernias containing ascites fluid with extension of ascites into the scrotal sac LYMPH NODES: Unremarkable. No enlarged lymph nodes. VASCULATURE: Unremarkable. No aortic aneurysm. BONES: No fracture or destructive lesion. OTHER FINDINGS: Minor changes of gynecomastia. IMPRESSION: Findings consistent with acute pancreatitis. Large amount of retroperitoneal fluid and infiltration as well as pelvic ascites and infiltration of the mesentery. No definitive evidence of pancreatic pseudocyst or hemorrhagic collections. . Anasarca. Small bilateral inguinal hernias containing ascites fluid with ascites extending into the scrotal fluid extending into scrotal sac Hepatomegaly. In situ NGT as above. Bilateral effusions and atelectasis slightly increased from prior study. See above discussion for additional findings and details.
--- NOTE | 2016-09-05 15:45 | CP.PCM.PN ---
Subjective - Date & Time of Evaluation Date of Evaluation: 09/05/16 Time of Evaluation: 14:00 - Subjective Subjective: Patient was seen and examined at bedside in ICU. Patient still complains of abdominal pain. He remains nothing by mouth and NG tube in place. Objective - Vital Signs/Intake and Output Vital Signs (last 24 hours): Temp Pulse Resp BP Pulse Ox 97.5 F L 104 H 24 128/86 91 L 09/05/16 04:00 09/05/16 15:10 09/05/16 15:10 09/05/16 15:10 09/05/16 14:10 Intake and Output: 09/05/16 09/05/16 06:59 18:59 Intake Total 3103 1150 Output Total 1200 780 Balance 1903 370 - Medications Medications: Current Medications Enoxaparin Sodium (Lovenox) 40 mg SC DAILY [facility] Last Admin: 09/05/16 10:40 Dose: 40 mg Hydromorphone HCl (Dilaudid) 1 mg IVP Q4H PRN PRN Reason: Pain, severe (8-10) Last Admin: 09/05/16 02:20 Dose: 1 mg Piperacillin Sod/Tazobactam (Sod 3.375 gm/ Sodium Chloride) 100 mls @ 200 mls/ hr IVPB Q8H [facility] Last Admin: 09/05/16 10:39 Dose: 200 mls/hr Sodium Chloride (Sodium Chloride 0.9%) 1,000 mls @ 100 mls/hr IV .Q10H [facility] Insulin Human Regular (Novolin R) 0 unit SC Q6 [facility] PRN Reason: Protocol Last Admin: 09/05/16 06:54 Dose: Not Given Lorazepam (Ativan) 1 mg IVP Q3H PRN PRN Reason: withdrawal symptoms Ondansetron HCl (Zofran Inj) 4 mg IVP Q6H PRN PRN Reason: Nausea/Vomiting Last Admin: 09/03/16 13:40 Dose: 4 mg Pantoprazole Sodium (Protonix Inj) 40 mg IVP DAILY [facility] Last Admin: 09/05/16 10:40 Dose: 40 mg Thiamine HCl (Vitamin B1 Inj) 100 mg IV DAILY [facility] Last Admin: 09/04/16 10:01 Dose: 100 mg - Labs Labs: 09/05/16 06:08 09/05/16 06:05 PT 13.8 SECONDS (9.7-12.2) H 09/03/16 04:12 INR 1.2 09/03/16 04:12 APTT 31 SECONDS (21-34) D 09/03/16 04:12 - Head Exam Head Exam: ATRAUMATIC, NORMOCEPHALIC - Eye Exam Eye Exam: Normal appearance, PERRL - ENT Exam ENT Exam: Mucous Membranes Moist - Respiratory Exam Respiratory Exam: Clear to Ausculation Bilateral - Cardiovascular Exam Cardiovascular Exam: Tachycardia, REGULAR RHYTHM, +S1 - GI/Abdominal Exam GI & Abdominal Exam: Soft, Tenderness - Neurological Exam Neurological Exam: Alert, Oriented x3 Assessment and Plan (1) Acute pancreatitis Status: Acute (2) Hyperkalemia Status: Acute (3) Metabolic acidosis Status: Acute (4) Hyponatremia Status: Acute (5) DVT prophylaxis Status: Acute - Assessment and Plan (Free Text) Plan: Continue current management. Patient remains nothing by mouth. NG tube is in place. Replace electrolytes as needed. GI is on board. Follow up recommendations Discussed the plan of care with the ICU team.
--- NOTE | 2016-09-05 17:15 | CP.PCM.PN ---
Subjective - Date & Time of Evaluation Date of Evaluation: 09/05/16 Time of Evaluation: 17:13 - Subjective Subjective: Surgery: Dr. Liu Pt seen and examined. Still has abd pain. Improved compared to prior days. No N/ V. NGT remains in place. +Flatus/BM. Objective - Vital Signs/Intake and Output Vital Signs (last 24 hours): Temp Pulse Resp BP Pulse Ox 97.5 F L 104 H 24 128/86 91 L 09/05/16 04:00 09/05/16 15:10 09/05/16 15:10 09/05/16 15:10 09/05/16 14:10 Intake and Output: 09/05/16 09/05/16 06:59 18:59 Intake Total 3103 1150 Output Total 1200 780 Balance 1903 370 - Medications Medications: Current Medications Enoxaparin Sodium (Lovenox) 40 mg SC DAILY [facility] Last Admin: 09/05/16 10:40 Dose: 40 mg Hydromorphone HCl (Dilaudid) 1 mg IVP Q4H PRN PRN Reason: Pain, severe (8-10) Last Admin: 09/05/16 16:06 Dose: 1 mg Piperacillin Sod/Tazobactam (Sod 3.375 gm/ Sodium Chloride) 100 mls @ 200 mls/ hr IVPB Q8H [facility] Last Admin: 09/05/16 10:39 Dose: 200 mls/hr Sodium Chloride (Sodium Chloride 0.9%) 1,000 mls @ 100 mls/hr IV .Q10H [facility] Last Admin: 09/05/16 09:45 Dose: 100 mls/hr Insulin Human Regular (Novolin R) 0 unit SC Q6 [facility] PRN Reason: Protocol Last Admin: 09/05/16 12:00 Dose: Not Given Lorazepam (Ativan) 1 mg IVP Q3H PRN PRN Reason: withdrawal symptoms Ondansetron HCl (Zofran Inj) 4 mg IVP Q6H PRN PRN Reason: Nausea/Vomiting Last Admin: 09/03/16 13:40 Dose: 4 mg Pantoprazole Sodium (Protonix Inj) 40 mg IVP DAILY [facility] Last Admin: 09/05/16 10:40 Dose: 40 mg Thiamine HCl (Vitamin B1 Inj) 100 mg IV DAILY [facility] Last Admin: 09/05/16 10:00 Dose: 100 mg - Labs Labs: 09/05/16 06:08 09/05/16 06:05 PT 13.8 SECONDS (9.7-12.2) H 09/03/16 04:12 INR 1.2 09/03/16 04:12 APTT 31 SECONDS (21-34) D 09/03/16 04:12 - Constitutional Appears: Non-toxic, No Acute Distress - Head Exam Head Exam: ATRAUMATIC, NORMOCEPHALIC - Eye Exam Eye Exam: EOMI - ENT Exam ENT Exam: Mucous Membranes Moist - Neck Exam Neck Exam: Full ROM - Respiratory Exam Respiratory Exam: NORMAL BREATHING PATTERN. absent: Accessory Muscle Use, Respiratory Distress - GI/Abdominal Exam GI & Abdominal Exam: Distended, Firm, Tenderness. absent: Guarding, Rigid, Rebound - Extremities Exam Extremities Exam: absent: Calf Tenderness, Pedal Edema - Neurological Exam Neurological Exam: Alert, Awake, Oriented x3 Assessment and Plan - Assessment and Plan (Free Text) Assessment: 26M w. ETOH pancreatitis -CT and AXR reviewed -Pt making adequate urine, decrease rate of IVF -Electorlyte abnormalities being managed by medicine -continue to trend lipase, consider enteral tube feeds -no plans for surgical intervention -surgery will signoff, please re-consult if needed -d/w Dr. Noe Charlton PGY2
[2016-09-06] MEDS: (Novolin R) Insulin Human Regular 100 units/ml vial SC SCH ×4 (00:15→17:47)
[2016-09-06] MEDS: Piperacillin/Tazobact 3.375 GM in Sodium Chloride 100 ML IVPB SCH ×3 (01:18→17:34)
[2016-09-06] MEDS: HYDROmorphone 1 mg/ml ISec IVP PRN ×3 (03:58→20:21)
[2016-09-06] MEDS: Sodium Chloride 0.9% 1,000 ML IV SCH ×2 (05:45→17:36)
[2016-09-06 06:19] LABS: BASO % 0.2 % (0.0-2.0); EOS # 0.1 K/uL (0.0-0.7); EOS % 1.3 % (0.0-4.0); HEMATOCRIT 26.8 % (35.0-51.0); LYMPH # 0.5 K/uL (1.0-4.3); LYMPH % 9.8 % (20.0-40.0); MEAN CELL VOLUME 98.7 fL (80.0-94.0); MEAN CORPUSCULAR HEMOGLOBIN 33.6 pg (27.0-31.0); MEAN PLATELET VOLUME 7.3 fL (7.2-11.7); MONO # 0.5 K/uL (0.0-0.8); NRBC % 0.7 % (0.0-2.0); PLATELET COUNT 146 K/uL (130-400); RED CELL DISTRIBUTION WIDTH 15.6 % (11.5-14.5); WHITE BLOOD COUNT 4.9 K/uL (4.8-10.8)
[2016-09-06 06:43] LABS: CHLORIDE 97 mmol/L (98-107); POTASSIUM 3.3 mmol/L (3.6-5.2); SODIUM 127 mmol/L (132-148)
[2016-09-06 06:45] LABS: GFR AFRICAN-AMERICAN > 60
[2016-09-06 06:46] LABS: ALKALINE PHOSPHATASE 79 U/L (38-126); ALT/SGPT 31 U/L (21-72); AST/SGOT 60 U/L (17-59); BLOOD UREA NITROGEN 8 mg/dL (9-20); CALCIUM 6.7 mg/dl (8.6-10.4); CARBON DIOXIDE 16 mmol/L (22-30); GLUCOSE,RANDOM 87 mg/dL (75-110); MAGNESIUM 2.1 mg/dL (1.6-2.3); PHOSPHOROUS 2.1 mg/dL (2.5-4.5); TOTAL PROTEIN 6.2 g/dL (6.3-8.3)
[2016-09-06 06:51] LABS: ALB/GLOB RATIO 0.9 (1.0-2.1)
[2016-09-06 09:11] LABS: EOSINOPHIL 2 % (0-4); NEUTROPHIL 62 % (50-75); NUCLEATED RED BLOOD CELL 2 % (0-0); TOTAL CELLS COUNTED 50
--- NOTE | 2016-09-06 09:11 | CP.PCM.PN ---
<Rosetta Fong - Last Filed: 09/06/16 09:08> Subjective - Date & Time of Evaluation Date of Evaluation: 09/06/16 Time of Evaluation: 09:08 - Subjective Subjective: Gastroenterology Fellow/PGY4 Progress Note Patient notes mild improvement in abdominal pain, pain scale 7-8/10. Notes three formed bowel movements yesterday and three formed stools this morning. Tolerating ice water. A 12-point review of systems negative except for as above. Objective - Vital Signs/Intake and Output Vital Signs (last 24 hours): Temp Pulse Resp BP Pulse Ox 97.9 F 102 H 20 135/82 96 09/06/16 08:00 09/06/16 08:00 09/06/16 08:00 09/06/16 08:00 09/06/16 08:00 Intake and Output: 09/06/16 09/06/16 06:59 18:59 Intake Total 1700 300 Output Total 1390 110 Balance 310 190 - Medications Medications: Current Medications Enoxaparin Sodium (Lovenox) 40 mg SC DAILY [facility] Last Admin: 09/05/16 10:40 Dose: 40 mg Hydromorphone HCl (Dilaudid) 1 mg IVP Q4H PRN PRN Reason: Pain, severe (8-10) Last Admin: 09/06/16 03:58 Dose: 1 mg Piperacillin Sod/Tazobactam (Sod 3.375 gm/ Sodium Chloride) 100 mls @ 200 mls/ hr IVPB Q8H [facility] Last Admin: 09/06/16 01:18 Dose: 200 mls/hr Sodium Chloride (Sodium Chloride 0.9%) 1,000 mls @ 100 mls/hr IV .Q10H [facility] Last Admin: 09/06/16 05:45 Dose: Not Given Insulin Human Regular (Novolin R) 0 unit SC Q6 [facility] PRN Reason: Protocol Last Admin: 09/06/16 06:45 Dose: Not Given Lorazepam (Ativan) 1 mg IVP Q3H PRN PRN Reason: withdrawal symptoms Ondansetron HCl (Zofran Inj) 4 mg IVP Q6H PRN PRN Reason: Nausea/Vomiting Last Admin: 09/03/16 13:40 Dose: 4 mg Pantoprazole Sodium (Protonix Inj) 40 mg IVP DAILY [facility] Last Admin: 09/05/16 10:40 Dose: 40 mg Thiamine HCl (Vitamin B1 Inj) 100 mg IV DAILY [facility] Last Admin: 09/05/16 10:00 Dose: 100 mg - Labs Labs: 09/06/16 06:03 09/06/16 06:03 PT 13.8 SECONDS (9.7-12.2) H 09/03/16 04:12 INR 1.2 09/03/16 04:12 APTT 31 SECONDS (21-34) D 09/03/16 04:12 - Constitutional Appears: Non-toxic, No Acute Distress - Head Exam Head Exam: ATRAUMATIC, NORMOCEPHALIC - Eye Exam Eye Exam: EOMI, PERRL Pupil Exam: PERRL. absent: Miosis, Mydriatic - ENT Exam ENT Exam: Mucous Membranes Moist, Normal Oropharynx - Neck Exam Neck Exam: Full ROM, Normal Inspection - Respiratory Exam Respiratory Exam: Clear to Ausculation Bilateral. absent: Rales, Rhonchi, Wheezes - Cardiovascular Exam Cardiovascular Exam: RRR, +S1, +S2. absent: Gallop, Rubs - GI/Abdominal Exam GI & Abdominal Exam: Distended, Soft, Tenderness, Normal Bowel Sounds. absent: Firm, Guarding, Rigid, Organomegaly, Rebound Additional comments: B/L LQ tenderness, improving tympany to percussion - Extremities Exam Extremities Exam: Full ROM. absent: Pedal Edema - Neurological Exam Neurological Exam: Alert, Awake - Psychiatric Exam Psychiatric exam: Normal Affect, Normal Mood - Skin Skin Exam: Dry, Intact, Normal Color, Warm Assessment and Plan - Assessment and Plan (Free Text) Assessment: 26 year old male with no prior medical history presenting with epigastric pain. CT A/P without contrast showed diffuse inflammation of pancreas. Active treatment of severe alcoholic pancreatitis, ileus, acute renal failure, and multiple electrolyte derangements. No prior EGD or colonoscopy. Plan: >resolved ileus >NG removed >advance to clear liquid diet >continue LR 250cc/hr >repeat CT A/P- no necrosis >supportive care: Dilaudid, antiemetics, PPI >alcohol cessation counselling >will follow clinical course <Cristofer Stephenson - Last Filed: 09/06/16 11:58> Objective - Vital Signs/Intake and Output Vital Signs (last 24 hours): Temp Pulse Resp BP Pulse Ox 97.9 F 89 18 130/84 99 09/06/16 08:00 09/06/16 11:00 09/06/16 11:00 09/06/16 11:00 09/06/16 11:00 Intake and Output: 09/06/16 09/06/16 06:59 18:59 Intake Total 1700 600 Output Total 1390 110 Balance 310 490 - Medications Medications: Current Medications Albuterol/Ipratropium (Duoneb 3 Mg/0.5 Mg (3 Ml) Ud) 3 ml INH RQ6 [facility] Enoxaparin Sodium (Lovenox) 40 mg SC DAILY [facility] Last Admin: 09/06/16 09:48 Dose: 40 mg Hydromorphone HCl (Dilaudid) 1 mg IVP Q4H PRN PRN Reason: Pain, severe (8-10) Last Admin: 09/06/16 03:58 Dose: 1 mg Piperacillin Sod/Tazobactam (Sod 3.375 gm/ Sodium Chloride) 100 mls @ 200 mls/ hr IVPB Q8H [facility] Last Admin: 09/06/16 09:49 Dose: 200 mls/hr Sodium Chloride (Sodium Chloride 0.9%) 1,000 mls @ 100 mls/hr IV .Q10H [facility] Last Admin: 09/06/16 05:45 Dose: Not Given Potassium Phosphate 45 mmole/ (Sodium Chloride) 265 mls @ 63 mls/hr IV ONCE ONE Stop: 09/06/16 15:27 Insulin Human Regular (Novolin R) 0 unit SC Q6 [facility] PRN Reason: Protocol Last Admin: 09/06/16 06:45 Dose: Not Given Lorazepam (Ativan) 1 mg IVP Q3H PRN PRN Reason: withdrawal symptoms Ondansetron HCl (Zofran Inj) 4 mg IVP Q6H PRN PRN Reason: Nausea/Vomiting Last Admin: 09/03/16 13:40 Dose: 4 mg Pantoprazole Sodium (Protonix Inj) 40 mg IVP DAILY [facility] Last Admin: 09/06/16 09:49 Dose: 40 mg Potassium Chloride (K-Dur 20 Meq Er Tab) 60 meq PO ONCE ONE Stop: 09/06/16 11:30 Thiamine HCl (Vitamin B1 Inj) 100 mg IV DAILY [facility] Last Admin: 09/06/16 09:49 Dose: 100 mg - Labs Labs: 09/06/16 06:03 09/06/16 06:03 PT 13.8 SECONDS (9.7-12.2) H 09/03/16 04:12 INR 1.2 09/03/16 04:12 APTT 31 SECONDS (21-34) D 09/03/16 04:12 Attending/Attestation - Attestation I have personally seen and examined this patient.: Yes I have fully participated in the care of the patient.: Yes I have reviewed all pertinent clinical information, including history, physical exam and plan: Yes Notes (Text): 09/06/16 11:54 I have seen and examined patient with GI fellow. He remains in ICU critical care, continues to endorse diffuse abdominal pain, though improved slightly compared to yesterday. He had 3 bowel movements overnight, NGT has been removed and he is tolerating PO liquids without difficulty. Review of vitals shows tachycardia. ETOH pancreatitis Ileus repeat CT imaging reviewed by me showing abdominal/pelvic ascites, persistent timmy-pancreatic edema without necrotizing features - Liquid diet, advance slowly as tolerated - Continue with aggressive IVF hydration, replete electrolytes - Pain control - Out of bed to chair, continue to monitor patient clinical course
[2016-09-06] MEDS: Enoxaparin 40 mg Syringe SC SCH (09:48)
[2016-09-06] MEDS: Thiamine 100 mg/ml Inj IV SCH (09:49)
[2016-09-06] MEDS ORDERED: Potassium Chloride 20 mEq ER Tab PO ONE (12:15)
[2016-09-06] MEDS: Albuterol-Ipratrop 3 mg / 0.5 (3 ml) UD INH SCH ×2 (13:15→19:28)
[2016-09-06] MEDS ORDERED: POTASSIUM PHOSPHATE IV ONE (13:30)
[2016-09-06] MEDS ORDERED: SODIUM CHLORIDE IV ONE (13:30)
[2016-09-06 15:41] LABS: CHLORIDE 98 mmol/L (98-107); SODIUM 127 mmol/L (132-148)
[2016-09-06 15:42] LABS: POTASSIUM 3.8 mmol/L (3.6-5.2)
[2016-09-06 15:44] LABS: GFR AFRICAN-AMERICAN > 60
[2016-09-06 15:45] LABS: BLOOD UREA NITROGEN 7 mg/dL (9-20); CALCIUM 6.6 mg/dl (8.6-10.4); CARBON DIOXIDE 16 mmol/L (22-30); GLUCOSE,RANDOM 100 mg/dL (75-110)
--- NOTE | 2016-09-06 16:29 | CP.PCM.PN ---
Subjective - Date & Time of Evaluation Date of Evaluation: 09/06/16 Time of Evaluation: 12:00 - Subjective Subjective: Patient was seen and examined at bedside in ICU today Patient states that abdominal pain is improving NG tube has been removed and patient is started on clear liquid diet. Objective - Vital Signs/Intake and Output Vital Signs (last 24 hours): Temp Pulse Resp BP Pulse Ox 98.2 F 101 H 19 127/82 100 09/06/16 12:00 09/06/16 15:00 09/06/16 15:00 09/06/16 15:00 09/06/16 15:00 Intake and Output: 09/06/16 09/06/16 06:59 18:59 Intake Total 1700 887.5 Output Total 1390 610 Balance 310 277.5 - Medications Medications: Current Medications Albuterol/Ipratropium (Duoneb 3 Mg/0.5 Mg (3 Ml) Ud) 3 ml INH RQ6 [facility] Last Admin: 09/06/16 13:15 Dose: 3 ml Enoxaparin Sodium (Lovenox) 40 mg SC DAILY [facility] Last Admin: 09/06/16 09:48 Dose: 40 mg Hydromorphone HCl (Dilaudid) 1 mg IVP Q4H PRN PRN Reason: Pain, severe (8-10) Last Admin: 09/06/16 13:06 Dose: 1 mg Piperacillin Sod/Tazobactam (Sod 3.375 gm/ Sodium Chloride) 100 mls @ 200 mls/ hr IVPB Q8H [facility] Last Admin: 09/06/16 09:49 Dose: 200 mls/hr Sodium Chloride (Sodium Chloride 0.9%) 1,000 mls @ 100 mls/hr IV .Q10H [facility] Last Admin: 09/06/16 05:45 Dose: Not Given Potassium Phosphate 45 mmole/ (Sodium Chloride) 265 mls @ 63 mls/hr IV ONCE ONE Stop: 09/06/16 17:42 Last Admin: 09/06/16 14:44 Dose: 63 mls/hr Insulin Human Regular (Novolin R) 0 unit SC Q6 [facility] PRN Reason: Protocol Last Admin: 09/06/16 13:00 Dose: Not Given Lorazepam (Ativan) 1 mg IVP Q3H PRN PRN Reason: withdrawal symptoms Ondansetron HCl (Zofran Inj) 4 mg IVP Q6H PRN PRN Reason: Nausea/Vomiting Last Admin: 09/03/16 13:40 Dose: 4 mg Pantoprazole Sodium (Protonix Inj) 40 mg IVP DAILY [facility] Last Admin: 09/06/16 09:49 Dose: 40 mg Thiamine HCl (Vitamin B1 Inj) 100 mg IV DAILY [facility] Last Admin: 09/06/16 09:49 Dose: 100 mg - Labs Labs: 09/06/16 06:03 09/06/16 15:31 PT 13.8 SECONDS (9.7-12.2) H 09/03/16 04:12 INR 1.2 09/03/16 04:12 APTT 31 SECONDS (21-34) D 09/03/16 04:12 - Head Exam Head Exam: ATRAUMATIC, NORMOCEPHALIC - Eye Exam Eye Exam: Normal appearance - ENT Exam ENT Exam: Mucous Membranes Moist - Respiratory Exam Respiratory Exam: Clear to Ausculation Bilateral - Cardiovascular Exam Cardiovascular Exam: Tachycardia, REGULAR RHYTHM, +S1, +S2 - GI/Abdominal Exam GI & Abdominal Exam: Soft, Tenderness - Extremities Exam Extremities Exam: absent: Pedal Edema Assessment and Plan (1) Acute pancreatitis Status: Acute (2) Hyperkalemia Status: Acute (3) Metabolic acidosis Status: Acute (4) Hyponatremia Status: Acute (5) DVT prophylaxis Status: Acute - Assessment and Plan (Free Text) Plan: Patient will continue on IV fluids. Replace electrolytes as needed NG tube removed and patient started on clear liquid diet Follow-up recommendations of GI Discussed with the ICU team
--- NOTE | 2016-09-06 17:41 | CP.CCUPN ---
<Lj Braun - Last Filed: 09/06/16 17:30> CCU Subjective - Physician Review Subjective (Free Text): 09/06/16 17:[address] Millard Patient seen and examined at the bedside. No acute distress. No acute events overnight. Nursing staff reports no issues. Patient has complaint of diffuse abdominal pain/distension, improving SOB, and scrotal swelling. The patient is mildly tachypneic. Patient is medically stable and will be transferred to telemetry today. On rounds: The patient's potassium was replaced. A BMP was ordered at 14:00. Repeat BMP was stable. Patient was deemed medically stable for transfer to the med-surg floor. Critical Care Time Spent (in minutes): 60 CCU Objective - Vital Signs / Intake & Output Vital Signs (Last 4 hours): Vital Signs Temp Pulse Resp BP Pulse Ox 09/06/16 17:00 89 20 124/86 98 09/06/16 16:00 98.7 F 99 H 19 133/91 H 99 09/06/16 15:00 101 H 19 127/82 100 09/06/16 14:00 104 H 21 127/82 99 Intake and Output (Last 8hrs): Intake & Output 09/06/16 09/06/16 09/06/16 06:59 14:59 22:59 Intake Total 1250 825.0 125.0 Output Total 705 610 Balance 545 215.0 125.0 Weight 65.408 kg Intake: Intake, IV Amount 800 725.0 125.0 Left AC 800 725.0 125.0 Oral 450 100 0 Output: Urine 705 610 Urethral (Wallace) 705 610 Other: # Bowel Movements 0 - Physical Exam Head: Positive for: Atraumatic, Normocephalic Pupils: Positive for: PERRL Mouth: Positive for: Moist Mucous Membranes Respiratory/Chest: Positive for: Clear to Auscultation, Good Air Exchange. Negative for: Respiratory Distress Cardiovascular: Positive for: Normal S1, S2 Abdomen: Positive for: Tenderness, Distention (slightly less distention today. ) . Negative for: Normal Bowel Sounds Upper Extremity: Positive for: NORMAL PULSES, Neurovascularly Intact Lower Extremity: Positive for: NORMAL PULSES, Neurovascularly Intact Neurological: Positive for: CN II-XII Intact, Speech Normal Skin: Positive for: Warm, Dry Psychiatric: Positive for: Alert, Oriented x 3 - Medications Active Medications: Active Medications Generic Name Dose Route Start Last Admin Trade Name Freq PRN Reason Stop Dose Admin Albuterol/Ipratropium 3 ml 09/06/16 14:00 09/06/16 13:15 Duoneb 3 Mg/0.5 Mg (3 Ml) Ud INH 3 ml RQ6 BONNIE Administration Enoxaparin Sodium 40 mg 09/05/16 10:00 09/06/16 09:48 Lovenox SC 40 mg DAILY BONNIE Administration Hydromorphone HCl 1 mg 09/03/16 13:02 09/06/16 13:06 Dilaudid IVP 1 mg Q4H PRN Administration Pain, severe (8-10) Piperacillin Sod/Tazobactam 100 mls @ 200 mls/hr 09/04/16 10:00 09/06/16 09: 49 Sod 3.375 gm/ Sodium Chloride IVPB 200 mls/hr Q8H BONNIE Administration Sodium Chloride 1,000 mls @ 100 mls/hr 09/05/16 09:45 09/06/16 05:45 Sodium Chloride 0.9% IV Not Given .Q10H BONNIE Potassium Phosphate 45 mmole/ 265 mls @ 63 mls/hr 09/06/16 13:30 09/06/16 14: 44 Sodium Chloride IV 09/06/16 17:42 63 mls/hr ONCE ONE Administration Insulin Human Regular 0 unit 09/04/16 09:35 09/06/16 13:00 Novolin R SC Not Given Q6 [facility] Protocol Lorazepam 1 mg 09/02/16 21:39 Ativan IVP Q3H PRN withdrawal symptoms Ondansetron HCl 4 mg 09/02/16 20:01 09/03/16 13:40 Zofran Inj IVP 4 mg Q6H PRN Administration Nausea/Vomiting Pantoprazole Sodium 40 mg 09/03/16 10:00 09/06/16 09:49 Protonix Inj IVP 40 mg DAILY BONNIE Administration Thiamine HCl 100 mg 09/03/16 10:00 09/06/16 09:49 Vitamin B1 Inj IV 100 mg DAILY BONNIE Administration - Patient Studies Lab Studies: Lab Studies 09/06/16 09/06/16 09/06/16 Range/Units 15:31 11:52 06:45 WBC (4.8-10.8) K/uL RBC (4.40-5.90) Mil/uL Hgb (12.0-18.0) g/dL Hct (35.0-51.0) % MCV (80.0-94.0) fL MCH (27.0-31.0) pg MCHC (33.0-37.0) g/dL RDW (11.5-14.5) % Plt Count (130-400) K/uL MPV (7.2-11.7) fL Neut % (Auto) (50.0-75.0) % Lymph % (Auto) (20.0-40.0) % Wolfe % (Auto) (0.0-10.0) % Eos % (Auto) (0.0-4.0) % Baso % (Auto) (0.0-2.0) % Neut # (1.8-7.0) K/uL Lymph # (1.0-4.3) K/uL Wolfe # (0.0-0.8) K/uL Eos # (0.0-0.7) K/uL Baso # (0.0-0.2) K/uL Neutrophils % (Manual) (50-75) % Band Neutrophils % (0-2) % Lymphocytes % (Manual) (20-40) % Monocytes % (Manual) (0-10) % Eosinophils % (Manual) (0-4) % Nucleated RBC % (0-0) % Platelet Estimate (NORMAL) Hypochromasia (manual) Poikilocytosis (manual Anisocytosis (manual) Sodium 127 L (132-148) mmol/L Potassium 3.8 (3.6-5.2) mmol/L Chloride 98 (98-107) mmol/L Carbon Dioxide 16 L (22-30) mmol/L Anion Gap 17 (10-20) BUN 7 L (9-20) mg/dL Creatinine 0.6 L (0.8-1.5) MG/DL Est GFR ( Amer) > 60 Est GFR (Non-Af Amer) > 60 POC Glucose (mg/dL) 129 H 80 (65-110) mg/dL Random Glucose 100 (75-110) mg/dL Calcium 6.6 L (8.6-10.4) mg/dl Phosphorus (2.5-4.5) mg/dL Magnesium (1.6-2.3) mg/dL Total Bilirubin (0.2-1.3) mg/dL AST (17-59) U/L ALT (21-72) U/L Alkaline Phosphatase (38-126) U/L Total Protein (6.3-8.3) g/dL Albumin (3.5-5.0) g/dL Globulin (2.2-3.9) gm/dL Albumin/Globulin Ratio (1.0-2.1) 09/06/16 09/06/16 09/05/16 Range/Units 06:03 06:03 23:40 WBC 4.9 (4.8-10.8) K/uL RBC 2.71 L (4.40-5.90) Mil/uL Hgb 9.1 L (12.0-18.0) g/dL Hct 26.8 L (35.0-51.0) % MCV 98.7 H (80.0-94.0) fL MCH 33.6 H (27.0-31.0) pg MCHC 34.0 (33.0-37.0) g/dL RDW 15.6 H (11.5-14.5) % Plt Count 146 (130-400) K/uL MPV 7.3 (7.2-11.7) fL Neut % (Auto) 77.7 H (50.0-75.0) % Lymph % (Auto) 9.8 L (20.0-40.0) % Wolfe % (Auto) 11.0 H (0.0-10.0) % Eos % (Auto) 1.3 (0.0-4.0) % Baso % (Auto) 0.2 (0.0-2.0) % Neut # 3.8 (1.8-7.0) K/uL Lymph # 0.5 L (1.0-4.3) K/uL Wolfe # 0.5 (0.0-0.8) K/uL Eos # 0.1 (0.0-0.7) K/uL Baso # 0.0 (0.0-0.2) K/uL Neutrophils % (Manual) 62 (50-75) % Band Neutrophils % 8 H (0-2) % Lymphocytes % (Manual) 20 (20-40) % Monocytes % (Manual) 8 (0-10) % Eosinophils % (Manual) 2 (0-4) % Nucleated RBC % 2 H (0-0) % Platelet Estimate Normal (NORMAL) Hypochromasia (manual) Slight Poikilocytosis (manual Slight Anisocytosis (manual) Slight Sodium 127 L (132-148) mmol/L Potassium 3.3 L (3.6-5.2) mmol/L Chloride 97 L (98-107) mmol/L Carbon Dioxide 16 L (22-30) mmol/L Anion Gap 17 (10-20) BUN 8 L (9-20) mg/dL Creatinine 0.7 L (0.8-1.5) MG/DL Est GFR ( Amer) > 60 Est GFR (Non-Af Amer) > 60 POC Glucose (mg/dL) 96 (65-110) mg/dL Random Glucose 87 (75-110) mg/dL Calcium 6.7 L (8.6-10.4) mg/dl Phosphorus 2.1 L (2.5-4.5) mg/dL Magnesium 2.1 (1.6-2.3) mg/dL Total Bilirubin 2.0 H (0.2-1.3) mg/dL AST 60 H (17-59) U/L ALT 31 (21-72) U/L Alkaline Phosphatase 79 (38-126) U/L Total Protein 6.2 L (6.3-8.3) g/dL Albumin 2.9 L (3.5-5.0) g/dL Globulin 3.4 (2.2-3.9) gm/dL Albumin/Globulin Ratio 0.9 L (1.0-2.1) 09/05/16 Range/Units 17:46 WBC (4.8-10.8) K/uL RBC (4.40-5.90) Mil/uL Hgb (12.0-18.0) g/dL Hct (35.0-51.0) % MCV (80.0-94.0) fL MCH (27.0-31.0) pg MCHC (33.0-37.0) g/dL RDW (11.5-14.5) % Plt Count (130-400) K/uL MPV (7.2-11.7) fL Neut % (Auto) (50.0-75.0) % Lymph % (Auto) (20.0-40.0) % Wolfe % (Auto) (0.0-10.0) % Eos % (Auto) (0.0-4.0) % Baso % (Auto) (0.0-2.0) % Neut # (1.8-7.0) K/uL Lymph # (1.0-4.3) K/uL Wolfe # (0.0-0.8) K/uL Eos # (0.0-0.7) K/uL Baso # (0.0-0.2) K/uL Neutrophils % (Manual) (50-75) % Band Neutrophils % (0-2) % Lymphocytes % (Manual) (20-40) % Monocytes % (Manual) (0-10) % Eosinophils % (Manual) (0-4) % Nucleated RBC % (0-0) % Platelet Estimate (NORMAL) Hypochromasia (manual) Poikilocytosis (manual Anisocytosis (manual) Sodium (132-148) mmol/L Potassium (3.6-5.2) mmol/L Chloride (98-107) mmol/L Carbon Dioxide (22-30) mmol/L Anion Gap (10-20) BUN (9-20) mg/dL Creatinine (0.8-1.5) MG/DL Est GFR ( Amer) Est GFR (Non-Af Amer) POC Glucose (mg/dL) 95 (65-110) mg/dL Random Glucose (75-110) mg/dL Calcium (8.6-10.4) mg/dl Phosphorus (2.5-4.5) mg/dL Magnesium (1.6-2.3) mg/dL Total Bilirubin (0.2-1.3) mg/dL AST (17-59) U/L ALT (21-72) U/L Alkaline Phosphatase (38-126) U/L Total Protein (6.3-8.3) g/dL Albumin (3.5-5.0) g/dL Globulin (2.2-3.9) gm/dL Albumin/Globulin Ratio (1.0-2.1) Laboratory Results - last 24 hr 09/05/16 09/05/16 09/06/16 17:46 23:40 06:03 WBC 4.9 RBC 2.71 L Hgb 9.1 L Hct 26.8 L MCV 98.7 H MCH 33.6 H MCHC 34.0 RDW 15.6 H Plt Count 146 MPV 7.3 Neut % (Auto) 77.7 H Lymph % (Auto) 9.8 L Wolfe % (Auto) 11.0 H Eos % (Auto) 1.3 Baso % (Auto) 0.2 Neut # 3.8 Lymph # 0.5 L Wolfe # 0.5 Eos # 0.1 Baso # 0.0 Neutrophils % (Manual) 62 Band Neutrophils % 8 H Lymphocytes % (Manual) 20 Monocytes % (Manual) 8 Eosinophils % (Manual) 2 Nucleated RBC % 2 H Platelet Estimate Normal Hypochromasia (manual) Slight Poikilocytosis (manual Slight Anisocytosis (manual) Slight Sodium Potassium Chloride Carbon Dioxide Anion Gap BUN Creatinine Est GFR ( Amer) Est GFR (Non-Af Amer) POC Glucose (mg/dL) 95 96 Random Glucose Calcium Phosphorus Magnesium Total Bilirubin AST ALT Alkaline Phosphatase Total Protein Albumin Globulin Albumin/Globulin Ratio 09/06/16 09/06/16 09/06/16 06:03 06:45 11:52 WBC RBC Hgb Hct MCV MCH MCHC RDW Plt Count MPV Neut % (Auto) Lymph % (Auto) Wolfe % (Auto) Eos % (Auto) Baso % (Auto) Neut # Lymph # Wolfe # Eos # Baso # Neutrophils % (Manual) Band Neutrophils % Lymphocytes % (Manual) Monocytes % (Manual) Eosinophils % (Manual) Nucleated RBC % Platelet Estimate Hypochromasia (manual) Poikilocytosis (manual Anisocytosis (manual) Sodium 127 L Potassium 3.3 L Chloride 97 L Carbon Dioxide 16 L Anion Gap 17 BUN 8 L Creatinine 0.7 L Est GFR ( Amer) > 60 Est GFR (Non-Af Amer) > 60 POC Glucose (mg/dL) 80 129 H Random Glucose 87 Calcium 6.7 L Phosphorus 2.1 L Magnesium 2.1 Total Bilirubin 2.0 H AST 60 H ALT 31 Alkaline Phosphatase 79 Total Protein 6.2 L Albumin 2.9 L Globulin 3.4 Albumin/Globulin Ratio 0.9 L 09/06/16 15:31 WBC RBC Hgb Hct MCV MCH MCHC RDW Plt Count MPV Neut % (Auto) Lymph % (Auto) Wolfe % (Auto) Eos % (Auto) Baso % (Auto) Neut # Lymph # Wolfe # Eos # Baso # Neutrophils % (Manual) Band Neutrophils % Lymphocytes % (Manual) Monocytes % (Manual) Eosinophils % (Manual) Nucleated RBC % Platelet Estimate Hypochromasia (manual) Poikilocytosis (manual Anisocytosis (manual) Sodium 127 L Potassium 3.8 Chloride 98 Carbon Dioxide 16 L Anion Gap 17 BUN 7 L Creatinine 0.6 L Est GFR ( Amer) > 60 Est GFR (Non-Af Amer) > 60 POC Glucose (mg/dL) Random Glucose 100 Calcium 6.6 L Phosphorus Magnesium Total Bilirubin AST ALT Alkaline Phosphatase Total Protein Albumin Globulin Albumin/Globulin Ratio Fingerstick Blood Sugar Results: 80 Review of Systems - Review of Systems All systems: reviewed and no additional remarkable complaints except - EENT Eyes: absent: Blurred Vision, Change in Vision Ears: absent: Decreased Hearing, Tinnitus Nose/Mouth/Throat: absent: Facial Pain, Neck Pain - Cardiovascular Cardiovascular: absent: Chest Pain, Orthopnea, Palpitations, Pedal Edema, Syncope - Respiratory Respiratory: absent: Cough, Dyspnea, Dyspnea on Exertion - Gastrointestinal Gastrointestinal: Abdominal Pain, Other (distension). absent: Constipation, Diarrhea, Nausea, Vomiting - Genitourinary Genitourinary: absent: Change in Urinary Stream, Difficulty Urinating - Musculoskeletal Musculoskeletal: absent: Stiffness, Tingling - Integumentary Integumentary: absent: Lesions, Rash, Wounds - Neurological Neurological: absent: Syncope, Tingling, Tremor, Vertigo, Weakness Critical Care Progress Note - Nutrition Nutrition: Nutrition Category Date Time Status Liquid Diet [DIET] Diets 09/05/16 Breakfast Active Assessment/Plan (1) Acute pancreatitis Current Visit: Yes Status: Resolved (2) Hypokalemia Current Visit: Yes Status: Resolved (3) Alcohol abuse Current Visit: Yes Status: Chronic - Assessment and Plan (Free Text) Assessment: This is a 26 yo M with acute pancreatitis, complicated by prerenal acute renal failure now resolved and ileus. Plan: Neuro: AOx3 no acute issues Cardiovascular: Cardiac Stable Pulmonary: Saturating well No respiratory distress Gastrointestinal: Abdominal ascites GI Following 09/05/16 CT A/P- large retroperitoneal fluid and infiltration as well as pelvic ascites and infiltration of the mesentery. Anasarca. Ascites extending into scrotum. 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 Freeman Braun PGY1 - Date & Time Date: 09/06/16 Time: 17:44 <Katlin Otto - Last Filed: 09/08/16 08:04> CCU Objective - Vital Signs / Intake & Output Vital Signs (Last 4 hours): Vital Signs Temp Pulse Resp BP Pulse Ox 09/08/16 07:23 98.3 F 110 H 20 125/83 97 Intake and Output (Last 8hrs): Intake & Output 09/07/16 09/08/16 09/08/16 22:59 06:59 14:59 Intake Total 425 955 Output Total 800 Balance 425 155 Intake: Intake, IV Amount 300 655 Left Antecubital 300 655 Oral 125 300 Output: Urine 800 Urine, Voided 800 Other: # Voids Urine, Voided 4 4 # Bowel Movements 0 1 - Medications Active Medications: Active Medications Generic Name Dose Route Start Last Admin Trade Name Freq PRN Reason Stop Dose Admin Albuterol/Ipratropium 3 ml 09/06/16 14:00 09/08/16 02:01 Duoneb 3 Mg/0.5 Mg (3 Ml) Ud INH Not Given RQ6 BONNIE Enoxaparin Sodium 40 mg 09/05/16 10:00 09/07/16 10:43 Lovenox SC 40 mg DAILY BONNIE Administration Hydromorphone HCl 1 mg 09/08/16 04:45 09/08/16 04:45 Dilaudid IVP 1 mg Q4H PRN Administration Pain, severe (8-10) Piperacillin Sod/Tazobactam 100 mls @ 200 mls/hr 09/04/16 10:00 09/08/16 01: 25 Sod 3.375 gm/ Sodium Chloride IVPB 200 mls/hr Q8H BONNIE Administration Sodium Chloride 1,000 mls @ 75 mls/hr 09/07/16 13:45 09/08/16 03:05 Sodium Chloride 0.9% IV Not Given .[id number] [facility] Insulin Human Regular 0 unit 09/07/16 22:00 09/07/16 23:03 Novolin R SC Not Given ACHS [facility] Protocol Lorazepam 1 mg 09/02/16 21:39 Ativan IVP Q3H PRN withdrawal symptoms Ondansetron HCl 4 mg 09/02/16 20:01 09/07/16 23:08 Zofran Inj IVP 4 mg Q6H PRN Administration Nausea/Vomiting Pantoprazole Sodium 40 mg 09/03/16 10:00 09/07/16 10:42 Protonix Inj IVP 40 mg DAILY BONNIE Administration Thiamine HCl 100 mg 09/03/16 10:00 09/07/16 10:42 Vitamin B1 Inj IV 100 mg DAILY BONNIE Administration - Patient Studies Lab Studies: Lab Studies 09/07/16 09/07/16 09/07/16 Range/Units 22:51 18:11 12:43 WBC (4.8-10.8) K/uL RBC (4.40-5.90) Mil/uL Hgb (12.0-18.0) g/dL Hct (35.0-51.0) % MCV (80.0-94.0) fL MCH (27.0-31.0) pg MCHC (33.0-37.0) g/dL RDW (11.5-14.5) % Plt Count (130-400) K/uL MPV (7.2-11.7) fL Neut % (Auto) (50.0-75.0) % Lymph % (Auto) (20.0-40.0) % Wolfe % (Auto) (0.0-10.0) % Eos % (Auto) (0.0-4.0) % Baso % (Auto) (0.0-2.0) % Neut # (1.8-7.0) K/uL Lymph # (1.0-4.3) K/uL Wolfe # (0.0-0.8) K/uL Eos # (0.0-0.7) K/uL Baso # (0.0-0.2) K/uL Neutrophils % (Manual) (50-75) % Band Neutrophils % (0-2) % Lymphocytes % (Manual) (20-40) % Reactive Lymphs % (0-0) % Monocytes % (Manual) (0-10) % Eosinophils % (Manual) (0-4) % Basophils % (Manual) (0-2) % Platelet Estimate (NORMAL) Hypochromasia (manual) Poikilocytosis (manual Anisocytosis (manual) Sodium (132-148) mmol/L Potassium (3.6-5.2) mmol/L Chloride (98-107) mmol/L Carbon Dioxide (22-30) mmol/L Anion Gap (10-20) BUN (9-20) mg/dL Creatinine (0.8-1.5) MG/DL Est GFR ( Amer) Est GFR (Non-Af Amer) POC Glucose (mg/dL) 96 125 H 96 (65-110) mg/dL Random Glucose (75-110) mg/dL Calcium (8.6-10.4) mg/dl Phosphorus (2.5-4.5) mg/dL Magnesium (1.6-2.3) mg/dL Total Bilirubin (0.2-1.3) mg/dL AST (17-59) U/L ALT (21-72) U/L Alkaline Phosphatase (38-126) U/L Total Protein (6.3-8.3) g/dL Albumin (3.5-5.0) g/dL Globulin (2.2-3.9) gm/dL Albumin/Globulin Ratio (1.0-2.1) 09/07/16 09/07/16 Range/Units 11:06 11:06 WBC 11.9 H D (4.8-10.8) K/uL RBC 2.69 L (4.40-5.90) Mil/uL Hgb 8.9 L (12.0-18.0) g/dL Hct 26.5 L (35.0-51.0) % MCV 98.6 H (80.0-94.0) fL MCH 33.1 H (27.0-31.0) pg MCHC 33.5 (33.0-37.0) g/dL RDW 15.6 H (11.5-14.5) % Plt Count 265 D (130-400) K/uL MPV 7.3 (7.2-11.7) fL Neut % (Auto) 86.6 H (50.0-75.0) % Lymph % (Auto) 4.3 L (20.0-40.0) % Wolfe % (Auto) 8.5 (0.0-10.0) % Eos % (Auto) 0.4 (0.0-4.0) % Baso % (Auto) 0.2 (0.0-2.0) % Neut # 10.3 H (1.8-7.0) K/uL Lymph # 0.5 L (1.0-4.3) K/uL Wolfe # 1.0 H (0.0-0.8) K/uL Eos # 0.0 (0.0-0.7) K/uL Baso # 0.0 (0.0-0.2) K/uL Neutrophils % (Manual) 44 L (50-75) % Band Neutrophils % 39 H* (0-2) % Lymphocytes % (Manual) 4 L (20-40) % Reactive Lymphs % 1 H (0-0) % Monocytes % (Manual) 9 (0-10) % Eosinophils % (Manual) 2 (0-4) % Basophils % (Manual) 1 (0-2) % Platelet Estimate Normal (NORMAL) Hypochromasia (manual) Slight Poikilocytosis (manual Slight Anisocytosis (manual) Slight Sodium 125 L (132-148) mmol/L Potassium 3.7 (3.6-5.2) mmol/L Chloride 97 L (98-107) mmol/L Carbon Dioxide 19 L (22-30) mmol/L Anion Gap 13 (10-20) BUN 6 L (9-20) mg/dL Creatinine 0.5 L (0.8-1.5) MG/DL Est GFR ( Amer) > 60 Est GFR (Non-Af Amer) > 60 POC Glucose (mg/dL) (65-110) mg/dL Random Glucose 96 (75-110) mg/dL Calcium 7.7 L (8.6-10.4) mg/dl Phosphorus 1.5 L (2.5-4.5) mg/dL Magnesium 2.1 (1.6-2.3) mg/dL Total Bilirubin 1.9 H (0.2-1.3) mg/dL AST 61 H (17-59) U/L ALT 23 (21-72) U/L Alkaline Phosphatase 103 (38-126) U/L Total Protein 6.7 (6.3-8.3) g/dL Albumin 3.3 L (3.5-5.0) g/dL Globulin 3.4 (2.2-3.9) gm/dL Albumin/Globulin Ratio 1.0 (1.0-2.1) Laboratory Results - last 24 hr 09/07/16 09/07/16 09/07/16 11:06 11:06 12:43 WBC 11.9 H D RBC 2.69 L Hgb 8.9 L Hct 26.5 L MCV 98.6 H MCH 33.1 H MCHC 33.5 RDW 15.6 H Plt Count 265 D MPV 7.3 Neut % (Auto) 86.6 H Lymph % (Auto) 4.3 L Wolfe % (Auto) 8.5 Eos % (Auto) 0.4 Baso % (Auto) 0.2 Neut # 10.3 H Lymph # 0.5 L Wolfe # 1.0 H Eos # 0.0 Baso # 0.0 Neutrophils % (Manual) 44 L Band Neutrophils % 39 H* Lymphocytes % (Manual) 4 L Reactive Lymphs % 1 H Monocytes % (Manual) 9 Eosinophils % (Manual) 2 Basophils % (Manual) 1 Platelet Estimate Normal Hypochromasia (manual) Slight Poikilocytosis (manual Slight Anisocytosis (manual) Slight Sodium 125 L Potassium 3.7 Chloride 97 L Carbon Dioxide 19 L Anion Gap 13 BUN 6 L Creatinine 0.5 L Est GFR ( Amer) > 60 Est GFR (Non-Af Amer) > 60 POC Glucose (mg/dL) 96 Random Glucose 96 Calcium 7.7 L Phosphorus 1.5 L Magnesium 2.1 Total Bilirubin 1.9 H AST 61 H ALT 23 Alkaline Phosphatase 103 Total Protein 6.7 Albumin 3.3 L Globulin 3.4 Albumin/Globulin Ratio 1.0 09/07/16 09/07/16 18:11 22:51 WBC RBC Hgb Hct MCV MCH MCHC RDW Plt Count MPV Neut % (Auto) Lymph % (Auto) Wolfe % (Auto) Eos % (Auto) Baso % (Auto) Neut # Lymph # Wolfe # Eos # Baso # Neutrophils % (Manual) Band Neutrophils % Lymphocytes % (Manual) Reactive Lymphs % Monocytes % (Manual) Eosinophils % (Manual) Basophils % (Manual) Platelet Estimate Hypochromasia (manual) Poikilocytosis (manual Anisocytosis (manual) Sodium Potassium Chloride Carbon Dioxide Anion Gap BUN Creatinine Est GFR ( Amer) Est GFR (Non-Af Amer) POC Glucose (mg/dL) 125 H 96 Random Glucose Calcium Phosphorus Magnesium Total Bilirubin AST ALT Alkaline Phosphatase Total Protein Albumin Globulin Albumin/Globulin Ratio Critical Care Progress Note - Nutrition Nutrition: Nutrition Category Date Time Status Heart Healthy Diet [DIET] Diets 09/07/16 Lunch Active Attending/Attestation - Attestation I have personally seen and examined this patient.: Yes I have fully participated in the care of the patient.: Yes I have reviewed all pertinent clinical information: Yes Notes (Text): 09/06/16 19:03 Patietn with pncreatitis, stable. Bicarbonate 16, repeated value in the afternoon again 16. Tolerating liquid diet, still moderate abdominal pain on palpation. Repeat electrolytes. Transfer in pm if continues to be stable.
[2016-09-07] MEDS: HYDROmorphone 1 mg/ml ISec IVP PRN ×5 (00:26→19:30)
[2016-09-07] MEDS: Piperacillin/Tazobact 3.375 GM in Sodium Chloride 100 ML IVPB SCH ×3 (01:05→18:12)
[2016-09-07] MEDS: Albuterol-Ipratrop 3 mg / 0.5 (3 ml) UD INH SCH ×3 (01:15→14:23)
[2016-09-07] MEDS: Sodium Chloride 0.9% 1,000 ML IV SCH ×2 (04:19→18:11)
[2016-09-07] MEDS: (Novolin R) Insulin Human Regular 100 units/ml vial SC SCH ×5 (06:26→23:03)
--- NOTE | 2016-09-07 09:07 | CP.PCM.PN ---
Subjective - Date & Time of Evaluation Date of Evaluation: 09/07/16 Time of Evaluation: 09:04 - Subjective Subjective: RFV: Pancreatitis S: Tolerating liquid diet. Complains of some abdominal distention. No vomiting or fever. NO bleeding. Complains of scrotal swelling. Objective - Vital Signs/Intake and Output Vital Signs (last 24 hours): Temp Pulse Resp BP Pulse Ox 99.3 F 95 H 18 146/86 98 09/07/16 00:00 09/07/16 04:00 09/07/16 04:00 09/07/16 06:00 09/07/16 06:00 Intake and Output: 09/07/16 09/07/16 06:59 18:59 Intake Total 240 Output Total 450 Balance -210 - Medications Medications: Current Medications Albuterol/Ipratropium (Duoneb 3 Mg/0.5 Mg (3 Ml) Ud) 3 ml INH RQ6 [facility] Last Admin: 09/07/16 07:30 Dose: 3 ml Enoxaparin Sodium (Lovenox) 40 mg SC DAILY [facility] Last Admin: 09/06/16 09:48 Dose: 40 mg Hydromorphone HCl (Dilaudid) 1 mg IVP Q4H PRN PRN Reason: Pain, severe (8-10) Last Admin: 09/07/16 04:20 Dose: 1 mg Piperacillin Sod/Tazobactam (Sod 3.375 gm/ Sodium Chloride) 100 mls @ 200 mls/ hr IVPB Q8H [facility] Last Admin: 09/07/16 01:05 Dose: 200 mls/hr Sodium Chloride (Sodium Chloride 0.9%) 1,000 mls @ 100 mls/hr IV .Q10H [facility] Last Admin: 09/07/16 04:19 Dose: 100 mls/hr Insulin Human Regular (Novolin R) 0 unit SC Q6 [facility] PRN Reason: Protocol Last Admin: 09/07/16 06:26 Dose: 1 unit Lorazepam (Ativan) 1 mg IVP Q3H PRN PRN Reason: withdrawal symptoms Ondansetron HCl (Zofran Inj) 4 mg IVP Q6H PRN PRN Reason: Nausea/Vomiting Last Admin: 09/03/16 13:40 Dose: 4 mg Pantoprazole Sodium (Protonix Inj) 40 mg IVP DAILY [facility] Last Admin: 09/06/16 09:49 Dose: 40 mg Thiamine HCl (Vitamin B1 Inj) 100 mg IV DAILY [facility] Last Admin: 09/06/16 09:49 Dose: 100 mg - Labs Labs: 09/06/16 06:03 09/06/16 15:31 PT 13.8 SECONDS (9.7-12.2) H 09/03/16 04:12 INR 1.2 09/03/16 04:12 APTT 31 SECONDS (21-34) D 09/03/16 04:12 - Constitutional Appears: No Acute Distress, Chronically Ill - Head Exam Head Exam: ATRAUMATIC, NORMOCEPHALIC - Eye Exam Eye Exam: absent: Scleral icterus - ENT Exam ENT Exam: Mucous Membranes Moist, Normal Oropharynx - Neck Exam Neck Exam: absent: Lymphadenopathy, Thyromegaly - Respiratory Exam Respiratory Exam: NORMAL BREATHING PATTERN. absent: Respiratory Distress, Stridor - Cardiovascular Exam Cardiovascular Exam: +S1, +S2 - GI/Abdominal Exam GI & Abdominal Exam: Distended, Soft. absent: Guarding, Rigid, Tenderness - Extremities Exam Extremities Exam: absent: Pedal Edema - Neurological Exam Neurological Exam: Alert, Oriented x3 - Skin Skin Exam: Dry, Normal Color, Warm Assessment and Plan - Assessment and Plan (Free Text) Assessment: 26 year old male with h/o EtOH abuse admitted with acute pancreatitis. 1. Acute pancreatitis Plan: -advance to low fat diet -can reduce fluids to maintenance rate as needed -pain control as needed -continue PPI -CT scan reviewed, no internvention indicated -continue supportive care
[2016-09-07] MEDS: Thiamine 100 mg/ml Inj IV SCH (10:42)
[2016-09-07] MEDS: Enoxaparin 40 mg Syringe SC SCH (10:43)
[2016-09-07 11:12] LABS: BASO % 0.2 % (0.0-2.0); EOS % 0.4 % (0.0-4.0); HEMATOCRIT 26.5 % (35.0-51.0); LYMPH # 0.5 K/uL (1.0-4.3); LYMPH % 4.3 % (20.0-40.0); MEAN CELL VOLUME 98.6 fL (80.0-94.0); MEAN CORPUSCULAR HEMOGLOBIN 33.1 pg (27.0-31.0); MEAN CORPUSCULAR HGB CONC 33.5 g/dL (33.0-37.0); MEAN PLATELET VOLUME 7.3 fL (7.2-11.7); MONO % 8.5 % (0.0-10.0); NRBC % 0.2 % (0.0-2.0); PLATELET COUNT 265 K/uL (130-400); RED CELL DISTRIBUTION WIDTH 15.6 % (11.5-14.5); WHITE BLOOD COUNT 11.9 K/uL (4.8-10.8)
[2016-09-07 11:24] LABS: CHLORIDE 97 mmol/L (98-107); POTASSIUM 3.7 mmol/L (3.6-5.2); SODIUM 125 mmol/L (132-148)
[2016-09-07 11:26] LABS: ALKALINE PHOSPHATASE 103 U/L (38-126); AST/SGOT 61 U/L (17-59); BILIRUBIN,TOTAL 1.9 mg/dL (0.2-1.3); CARBON DIOXIDE 19 mmol/L (22-30); GFR AFRICAN-AMERICAN > 60; TOTAL PROTEIN 6.7 g/dL (6.3-8.3)
[2016-09-07 11:27] LABS: ALT/SGPT 23 U/L (21-72); BLOOD UREA NITROGEN 6 mg/dL (9-20); CALCIUM 7.7 mg/dl (8.6-10.4); GLUCOSE,RANDOM 96 mg/dL (75-110); MAGNESIUM 2.1 mg/dL (1.6-2.3); PHOSPHOROUS 1.5 mg/dL (2.5-4.5)
[2016-09-07 12:01] LABS: BASOPHIL 1 % (0-2); EOSINOPHIL 2 % (0-4); NEUTROPHIL 44 % (50-75); REACTIVE LYMPHOCYTES 1 % (0-0); TOTAL CELLS COUNTED 100
--- NOTE | 2016-09-07 13:47 | CP.PCM.PN ---
Subjective - Date & Time of Evaluation Date of Evaluation: 09/07/16 Time of Evaluation: 13:00 - Subjective Subjective: Patient was seen and examined at bedside Still complains of abdominal distention and abdominal pain but improving significantly Scrotal swelling is present. Objective - Vital Signs/Intake and Output Vital Signs (last 24 hours): Temp Pulse Resp BP Pulse Ox 99.3 F 95 H 18 146/86 98 09/07/16 00:00 09/07/16 04:00 09/07/16 04:00 09/07/16 06:00 09/07/16 06:00 Intake and Output: 09/07/16 09/07/16 06:59 18:59 Intake Total 240 Output Total 450 Balance -210 - Medications Medications: Current Medications Albuterol/Ipratropium (Duoneb 3 Mg/0.5 Mg (3 Ml) Ud) 3 ml INH RQ6 [facility] Last Admin: 09/07/16 07:30 Dose: 3 ml Enoxaparin Sodium (Lovenox) 40 mg SC DAILY [facility] Last Admin: 09/07/16 10:43 Dose: 40 mg Hydromorphone HCl (Dilaudid) 1 mg IVP Q4H PRN PRN Reason: Pain, severe (8-10) Last Admin: 09/07/16 10:44 Dose: 1 mg Piperacillin Sod/Tazobactam (Sod 3.375 gm/ Sodium Chloride) 100 mls @ 200 mls/ hr IVPB Q8H [facility] Last Admin: 09/07/16 10:42 Dose: 200 mls/hr Sodium Chloride (Sodium Chloride 0.9%) 1,000 mls @ 75 mls/hr IV .[id number] [facility] Insulin Human Regular (Novolin R) 0 unit SC Q6 [facility] PRN Reason: Protocol Last Admin: 09/07/16 06:26 Dose: 1 unit Lorazepam (Ativan) 1 mg IVP Q3H PRN PRN Reason: withdrawal symptoms Ondansetron HCl (Zofran Inj) 4 mg IVP Q6H PRN PRN Reason: Nausea/Vomiting Last Admin: 09/03/16 13:40 Dose: 4 mg Pantoprazole Sodium (Protonix Inj) 40 mg IVP DAILY [facility] Last Admin: 09/07/16 10:42 Dose: 40 mg Thiamine HCl (Vitamin B1 Inj) 100 mg IV DAILY [facility] Last Admin: 09/07/16 10:42 Dose: 100 mg - Labs Labs: 09/07/16 11:06 09/07/16 11:06 PT 13.8 SECONDS (9.7-12.2) H 09/03/16 04:12 INR 1.2 09/03/16 04:12 APTT 31 SECONDS (21-34) D 09/03/16 04:12 - Head Exam Head Exam: ATRAUMATIC, NORMOCEPHALIC - Eye Exam Eye Exam: Normal appearance - ENT Exam ENT Exam: Mucous Membranes Moist - Respiratory Exam Respiratory Exam: Decreased Breath Sounds - GI/Abdominal Exam GI & Abdominal Exam: Distended, Soft, Tenderness - Exam External exam: Swelling - Neurological Exam Neurological Exam: Alert, Oriented x3 Assessment and Plan (1) Acute pancreatitis Status: Resolved (2) Hyperkalemia Status: Acute (3) Metabolic acidosis Status: Acute (4) Hyponatremia Status: Acute (5) DVT prophylaxis Status: Acute - Assessment and Plan (Free Text) Plan: Continue current conservative management for acute pancreatitis Repeat CAT scan in the morning Continue pain management and IV fluids. IV fluids decreased in view of the anasarca.
[2016-09-07] MEDS ORDERED: Sodium Phosphate 15 MMOLE in Sodium Chloride 0.9% 250 ML IVPB ONE (15:15)
[2016-09-08] MEDS: HYDROmorphone 1 mg/ml ISec IVP PRN (00:40)
[2016-09-08] MEDS: Piperacillin/Tazobact 3.375 GM in Sodium Chloride 100 ML IVPB SCH ×3 (01:25→18:09)
[2016-09-08] MEDS: Sodium Chloride 0.9% 1,000 ML IV SCH ×2 (01:25→03:05)
[2016-09-08] MEDS: Albuterol-Ipratrop 3 mg / 0.5 (3 ml) UD INH SCH ×4 (02:01→19:26)
--- NOTE | 2016-09-08 06:33 | CP.PCM.PN ---
<FaheemYaniBrodyRosetta - Last Filed: 09/08/16 10:19> Subjective - Date & Time of Evaluation Date of Evaluation: 09/08/16 Time of Evaluation: 06:30 - Subjective Subjective: Gastroenterology Fellow/PGY4 Progress Note Patient notes worsening abdominal discomfort as scrotum is enlarging with sensation of incomplete urine evacuation. Tolerated liquid diet only as he is not hungry for solid food since it will make his stomach distended. One liquid stool overnight. A 12-point review of systems negative except for as above. Objective - Vital Signs/Intake and Output Vital Signs (last 24 hours): Temp Pulse Resp BP Pulse Ox 98.8 F 115 H 20 142/83 97 09/08/16 00:00 09/08/16 00:00 09/08/16 00:00 09/08/16 00:00 09/08/16 00:00 Intake and Output: 09/07/16 09/08/16 18:59 06:59 Intake Total 1100 425 Output Total 700 Balance 400 425 - Medications Medications: Current Medications Albuterol/Ipratropium (Duoneb 3 Mg/0.5 Mg (3 Ml) Ud) 3 ml INH RQ6 [facility] Last Admin: 09/08/16 02:01 Dose: Not Given Enoxaparin Sodium (Lovenox) 40 mg SC DAILY [facility] Last Admin: 09/07/16 10:43 Dose: 40 mg Hydromorphone HCl (Dilaudid) 1 mg IVP Q4H PRN PRN Reason: Pain, severe (8-10) Last Admin: 09/08/16 04:45 Dose: 1 mg Piperacillin Sod/Tazobactam (Sod 3.375 gm/ Sodium Chloride) 100 mls @ 200 mls/ hr IVPB Q8H [facility] Last Admin: 09/08/16 01:25 Dose: 200 mls/hr Sodium Chloride (Sodium Chloride 0.9%) 1,000 mls @ 75 mls/hr IV .[id number] [facility] Last Admin: 09/08/16 03:05 Dose: Not Given Insulin Human Regular (Novolin R) 0 unit SC ACHS [facility] PRN Reason: Protocol Last Admin: 09/07/16 23:03 Dose: Not Given Lorazepam (Ativan) 1 mg IVP Q3H PRN PRN Reason: withdrawal symptoms Ondansetron HCl (Zofran Inj) 4 mg IVP Q6H PRN PRN Reason: Nausea/Vomiting Last Admin: 09/07/16 23:08 Dose: 4 mg Pantoprazole Sodium (Protonix Inj) 40 mg IVP DAILY [facility] Last Admin: 09/07/16 10:42 Dose: 40 mg Thiamine HCl (Vitamin B1 Inj) 100 mg IV DAILY [facility] Last Admin: 09/07/16 10:42 Dose: 100 mg - Labs Labs: 09/07/16 11:06 09/07/16 11:06 PT 13.8 SECONDS (9.7-12.2) H 09/03/16 04:12 INR 1.2 09/03/16 04:12 APTT 31 SECONDS (21-34) D 09/03/16 04:12 - Constitutional Appears: Non-toxic, No Acute Distress - Head Exam Head Exam: ATRAUMATIC, NORMOCEPHALIC - Eye Exam Eye Exam: EOMI, PERRL Pupil Exam: PERRL. absent: Miosis, Mydriatic - ENT Exam ENT Exam: Mucous Membranes Moist, Normal Oropharynx - Neck Exam Neck Exam: Full ROM, Normal Inspection - Respiratory Exam Respiratory Exam: Clear to Ausculation Bilateral. absent: Rales, Rhonchi, Wheezes - Cardiovascular Exam Cardiovascular Exam: RRR, +S1, +S2. absent: Gallop, Rubs - GI/Abdominal Exam GI & Abdominal Exam: Distended, Soft, Tenderness, Normal Bowel Sounds. absent: Firm, Guarding, Rigid, Organomegaly, Rebound Additional comments: tenderness to palpation diffuse- worse at B/L LQ - Exam Exam: Scrotal Swelling - Extremities Exam Extremities Exam: Full ROM. absent: Pedal Edema - Neurological Exam Neurological Exam: Alert, Awake - Psychiatric Exam Psychiatric exam: Normal Affect, Normal Mood - Skin Skin Exam: Dry, Intact, Normal Color, Warm Assessment and Plan - Assessment and Plan (Free Text) Assessment: 26 year old male with no prior medical history presenting with epigastric pain. CT A/P without contrast showed diffuse inflammation of pancreas. Active treatment of improving severe alcoholic pancreatitis, ileus, with resolved acute renal failure, and multiple electrolyte derangements. No prior EGD or colonoscopy. Plan: >tolerating clear liquids >advance to low fat diet as tolerated >gentle IVFs >strict I&Os >abdominal distension >CT A/P pending >on Zosyn >supportive care: Dilaudid, antiemetics, PPI >alcohol cessation counselling >will follow clinical course <Gabriel Sandoval - Last Filed: 09/08/16 11:24> Objective - Vital Signs/Intake and Output Vital Signs (last 24 hours): Temp Pulse Resp BP Pulse Ox 98.3 F 110 H 20 125/83 97 09/08/16 07:23 09/08/16 07:23 09/08/16 07:23 09/08/16 07:23 09/08/16 07:23 Intake and Output: 09/08/16 09/08/16 06:59 18:59 Intake Total 1380 Output Total 800 Balance 580 - Medications Medications: Current Medications Albuterol/Ipratropium (Duoneb 3 Mg/0.5 Mg (3 Ml) Ud) 3 ml INH RQ6 [facility] Last Admin: 09/08/16 08:12 Dose: Not Given Enoxaparin Sodium (Lovenox) 40 mg SC DAILY [facility] Last Admin: 09/08/16 10:00 Dose: 40 mg Hydromorphone HCl (Dilaudid) 1 mg IVP Q4H PRN PRN Reason: Pain, severe (8-10) Last Admin: 09/08/16 10:28 Dose: 1 mg Piperacillin Sod/Tazobactam (Sod 3.375 gm/ Sodium Chloride) 100 mls @ 200 mls/ hr IVPB Q8H [facility] Last Admin: 09/08/16 10:05 Dose: 200 mls/hr Sodium Chloride (Sodium Chloride 0.9%) 1,000 mls @ 75 mls/hr IV .[id number] [facility] Last Admin: 09/08/16 03:05 Dose: Not Given Insulin Human Regular (Novolin R) 0 unit SC ACHS [facility] PRN Reason: Protocol Last Admin: 09/08/16 07:30 Dose: Not Given Lorazepam (Ativan) 1 mg IVP Q3H PRN PRN Reason: withdrawal symptoms Ondansetron HCl (Zofran Inj) 4 mg IVP Q6H PRN PRN Reason: Nausea/Vomiting Last Admin: 09/07/16 23:08 Dose: 4 mg Pantoprazole Sodium (Protonix Inj) 40 mg IVP DAILY [facility] Last Admin: 09/08/16 10:00 Dose: 40 mg Thiamine HCl (Vitamin B1 Inj) 100 mg IV DAILY [facility] Last Admin: 09/08/16 10:10 Dose: 100 mg - Labs Labs: 09/08/16 08:07 09/08/16 08:07 PT 13.8 SECONDS (9.7-12.2) H 09/03/16 04:12 INR 1.2 09/03/16 04:12 APTT 31 SECONDS (21-34) D 09/03/16 04:12 Attending/Attestation - Attestation I have personally seen and examined this patient.: Yes I have fully participated in the care of the patient.: Yes I have reviewed all pertinent clinical information, including history, physical exam and plan: Yes Notes (Text): 09/08/16 11:23 26 year old male with h/o EtOH abuse admitted with acute pancreatitis. 1. Acute pancreatitis Plan: -advance to low fat diet as tolerated, small frequent meals -pain control as needed -continue PPI -CT scan reviewed, no internvention indicated -continue supportive care
[2016-09-08] MEDS: (Novolin R) Insulin Human Regular 100 units/ml vial SC SCH ×4 (07:30→22:00)
[2016-09-08 08:13] LABS: BASO % 0.3 % (0.0-2.0); EOS % 0.3 % (0.0-4.0); HEMATOCRIT 25.9 % (35.0-51.0); LYMPH # 0.6 K/uL (1.0-4.3); LYMPH % 3.7 % (20.0-40.0); MEAN CELL VOLUME 98.7 fL (80.0-94.0); MEAN CORPUSCULAR HEMOGLOBIN 32.7 pg (27.0-31.0); MEAN CORPUSCULAR HGB CONC 33.1 g/dL (33.0-37.0); MEAN PLATELET VOLUME 7.3 fL (7.2-11.7); MONO # 1.3 K/uL (0.0-0.8); MONO % 7.8 % (0.0-10.0); NRBC % 0.1 % (0.0-2.0); PLATELET COUNT 336 K/uL (130-400); RED CELL DISTRIBUTION WIDTH 15.7 % (11.5-14.5); WHITE BLOOD COUNT 16.2 K/uL (4.8-10.8)
[2016-09-08 08:27] LABS: CHLORIDE 94 mmol/L (98-107); POTASSIUM 3.7 mmol/L (3.6-5.2); SODIUM 126 mmol/L (132-148)
[2016-09-08 08:29] LABS: ALKALINE PHOSPHATASE 83 U/L (38-126); AST/SGOT 49 U/L (17-59); BILIRUBIN,TOTAL 1.6 mg/dL (0.2-1.3); BLOOD UREA NITROGEN 7 mg/dL (9-20); CARBON DIOXIDE 16 mmol/L (22-30); GFR AFRICAN-AMERICAN > 60; TOTAL PROTEIN 6.5 g/dL (6.3-8.3)
[2016-09-08 08:30] LABS: ALT/SGPT 24 U/L (21-72); CALCIUM 7.9 mg/dl (8.6-10.4); GLUCOSE,RANDOM 94 mg/dL (75-110); MAGNESIUM 2.1 mg/dL (1.6-2.3); PHOSPHOROUS 2.1 mg/dL (2.5-4.5)
--- NOTE | 2016-09-08 09:42 | CT ---
PROCEDURE: CT Abdomen and Pelvis without intravenous contrast HISTORY: Acute pancreatitis COMPARISON: Comparison is made to the previous study dated 09/05/2016. TECHNIQUE: Axial and reformatted coronal and sagittal CT images of the abdomen and pelvis were obtained without IV or oral contrast administration.. Contrast Dose: 0 Radiation dose: Total exam DLP = 739.99 mGy-cm. This CT exam was performed using one or more of the following dose reduction techniques: Automated exposure control, adjustment of the mA and/or kV according to patient size, and/or use of iterative reconstruction technique. FINDINGS: LOWER THORAX: Again seen are bilateral pleural effusion. There is interval improvement in the right pleural effusion and right lower lobe atelectasis since the previous exam. LIVER: No significant interval change in the liver. GALLBLADDER AND BILE DUCTS: No evidence of cholecystitis P PANCREAS: Again seen are inflammatory changes surrounding the pancreas consistent with acute pancreatitis. Interval increase in the size of the fluid surrounding the pancreas since the previous exam. Heterogeneous attenuation of the pancreatic body and tail is again noted. SPLEEN: Unremarkable. ADRENALS: Unremarkable. No mass. KIDNEYS AND URETERS: Unremarkable. No hydronephrosis. No solid mass. VASCULATURE: Unremarkable. No aortic aneurysm. BOWEL: Unremarkable. No obstruction. No gross mural thickening. APPENDIX: Unremarkable. Normal appendix. PERITONEUM: Interval increase in the size of the fluid in the abdomen and pelvis since the previous study. Again seen is a fluid around the posterior stomach and gastric greater curvature. Diffuse stranding of the mesentery is seen in the abdomen and pelvis. LYMPH NODES: Mildly enlarged mesenteric lymph nodes are again seen. BLADDER: The urinary bladder is distended. There is a 2 air seen in the bladder likely due to recent Wallace catheter insertion. REPRODUCTIVE: Unremarkable. BONES: No acute fracture. OTHER FINDINGS: Diffuse anasarca is noted worse than previous exam IMPRESSION: Persistent moderate inflammatory changes surrounding the pancreas consistent with acute pancreatitis. Interval increase in the amount of fluid and inflammatory changes in the abdomen since the previous study. Distended urinary bladder. Interval mild decrease in the right pleural effusion since the previous study. Otherwise no significant interval change.
[2016-09-08] MEDS: Enoxaparin 40 mg Syringe SC SCH (10:00)
[2016-09-08] MEDS: Thiamine 100 mg/ml Inj IV SCH (10:10)
[2016-09-08 10:31] LABS: EOSINOPHIL 2 % (0-4); METAMYELOCYTE 3 % (0-0); MYELOCYTE 1 % (0-0); NEUTROPHIL 47 % (50-75); TOTAL CELLS COUNTED 100
[2016-09-08 10:32] LABS: LARGE PLATELETS PRESENT
[2016-09-08 12:12] LABS: URINE BACTERIA RARE (<OCC); URINE BILIRUBIN NEGATIVE (NEGATIVE); URINE BLOOD 2+ (NEGATIVE); URINE COLOR Yellow (YELLOW); URINE GLUCOSE (UA) 3+ mg/dL (Normal); URINE KETONE 2+ mg/dL (NEGATIVE); URINE LEUKOCYTE ESTERASE NEG Leu/uL (Negative); URINE PROTEIN 1+ mg/dL (NEGATIVE); URINE UROBILINOGEN NORMAL mg/dL (0.2-1.0)
[2016-09-08 12:13] LABS: WBC URINE 3 /hpf (0-5)
[2016-09-08 12:14] LABS: RBC URINE 4 /hpf (0-3)
--- NOTE | 2016-09-08 12:54 | CP.PCM.PN ---
<Lj Glaser - Last Filed: 09/08/16 12:57> Subjective - Date & Time of Evaluation Date of Evaluation: 09/08/16 Time of Evaluation: 12:50 - Subjective Subjective: Med progress note. Attending: Dr. Abebe Pt seen and examined at bedside. No acute distress. No events overnight. Feeling better. VS wnl. If pt not urinating, will put in francis. Denies fevers, chills, cp, sob, syncope. Objective - Vital Signs/Intake and Output Vital Signs (last 24 hours): Temp Pulse Resp BP Pulse Ox 98.3 F 110 H 20 125/83 97 09/08/16 07:23 09/08/16 07:23 09/08/16 07:23 09/08/16 07:23 09/08/16 07:23 Intake and Output: 09/08/16 09/08/16 06:59 18:59 Intake Total 1380 Output Total 800 Balance 580 - Medications Medications: Current Medications Albuterol/Ipratropium (Duoneb 3 Mg/0.5 Mg (3 Ml) Ud) 3 ml INH RQ6 [facility] Last Admin: 09/08/16 08:12 Dose: Not Given Enoxaparin Sodium (Lovenox) 40 mg SC DAILY [facility] Last Admin: 09/08/16 10:00 Dose: 40 mg Hydromorphone HCl (Dilaudid) 1 mg IVP Q4H PRN PRN Reason: Pain, severe (8-10) Last Admin: 09/08/16 10:28 Dose: 1 mg Piperacillin Sod/Tazobactam (Sod 3.375 gm/ Sodium Chloride) 100 mls @ 200 mls/ hr IVPB Q8H [facility] Last Admin: 09/08/16 10:05 Dose: 200 mls/hr Sodium Chloride (Sodium Chloride 0.9%) 1,000 mls @ 75 mls/hr IV .[id number] [facility] Last Admin: 09/08/16 03:05 Dose: Not Given Insulin Human Regular (Novolin R) 0 unit SC ACHS [facility] PRN Reason: Protocol Last Admin: 09/08/16 07:30 Dose: Not Given Lorazepam (Ativan) 1 mg IVP Q3H PRN PRN Reason: withdrawal symptoms Ondansetron HCl (Zofran Inj) 4 mg IVP Q6H PRN PRN Reason: Nausea/Vomiting Last Admin: 09/07/16 23:08 Dose: 4 mg Pantoprazole Sodium (Protonix Inj) 40 mg IVP DAILY [facility] Last Admin: 09/08/16 10:00 Dose: 40 mg Thiamine HCl (Vitamin B1 Inj) 100 mg IV DAILY [facility] Last Admin: 09/08/16 10:10 Dose: 100 mg - Labs Labs: 09/08/16 08:07 09/08/16 08:07 PT 13.8 SECONDS (9.7-12.2) H 09/03/16 04:12 INR 1.2 09/03/16 04:12 APTT 31 SECONDS (21-34) D 09/03/16 04:12 - Constitutional Appears: Non-toxic, No Acute Distress - Head Exam Head Exam: ATRAUMATIC, NORMAL INSPECTION, NORMOCEPHALIC - Eye Exam Eye Exam: EOMI - ENT Exam ENT Exam: Mucous Membranes Moist - Neck Exam Neck Exam: Full ROM, Normal Inspection. absent: Lymphadenopathy - Respiratory Exam Respiratory Exam: NORMAL BREATHING PATTERN. absent: Respiratory Distress - Cardiovascular Exam Cardiovascular Exam: REGULAR RHYTHM, +S1, +S2 - GI/Abdominal Exam GI & Abdominal Exam: Tenderness Additional comments: Diffuse mild tenderness all 4 quadrants - Extremities Exam Extremities Exam: Full ROM, Normal Inspection - Back Exam Back Exam: NORMAL INSPECTION - Neurological Exam Neurological Exam: Alert, Awake, Oriented x3 - Psychiatric Exam Psychiatric exam: Normal Affect, Normal Mood - Skin Skin Exam: Dry, Intact, Normal Color, Warm Assessment and Plan - Assessment and Plan (Free Text) Assessment: This is a 26 yo male admitted with 1. Pancreatitis Admit to ICU>>> pt transferred out of ICU CT abd/pelvis: f/u official report (unofficial read shows extensive inflammation of pancreas with fluid) ABXR: Possible free-air left hemidiaphragm. Alternatively this represents a normal stomach/gastric bubble. However, there is a clinical suspicion of free air on the CT scan of the abdomen advised (see full report) CXR: Free air suspected left hemidiaphragm. Findings discussed with attending physician with recommendation for follow-up CT (see full report) Pt now on heart healthy diet NS 75 cc/hr Zofran 4 mg IVP Q6H PRN Zosyn 3.375 mg q 8 Ativan 1 mg IVP q3 for withdrawal Activity dilaudid 1 q 4 for pain 2. Hyperglycemia Accuchecks ISS Monitor 3. Hyperkalemia resolved 4. Hypomagnesemia resolved 5. Prophylactic measures - continue zofran prn -protonix 40 daily -lovenox [address] Abebe <Brennan Abebe - Last Filed: 09/17/16 13:11> Objective - Vital Signs/Intake and Output Vital Signs (last 24 hours): Temp Pulse Resp BP Pulse Ox 99.5 F 105 H 20 115/69 95 09/12/16 15:10 09/12/16 15:10 09/12/16 15:10 09/12/16 18:00 09/12/16 15:10 - Labs Labs: 09/12/16 06:15 09/12/16 06:15 PT 13.8 SECONDS (9.7-12.2) H 09/03/16 04:12 INR 1.2 09/03/16 04:12 APTT 31 SECONDS (21-34) D 09/03/16 04:12 Assessment and Plan (1) Hyperkalemia Status: Acute (2) Metabolic acidosis Status: Acute (3) Hyponatremia Status: Acute (4) DVT prophylaxis Status: Acute Attending/Attestation - Attestation I have personally seen and examined this patient.: Yes I have fully participated in the care of the patient.: Yes I have reviewed all pertinent clinical information, including history, physical exam and plan: Yes Notes (Text): 09/17/16 13:11 Patient was seen and examined at bedside with the resident This is a late computer entry Patient is clinically improving I agree with the above history and physical and assessment/plan with the resident.
[2016-09-08 14:37] LABS: VENOUS BLOOD GAS BASE EXCESS -8.5 mmol/L (0.0-2.0); VENOUS BLOOD GAS PCO2 36 mmHg (40-60); VENOUS BLOOD PH 7.29 (7.32-7.43)
[2016-09-08 15:23] LABS: CREATININE, RANDOM URINE 21.9 mg/dL
[2016-09-08] MEDS: Dextrose 5%/0.9% NS 1,000 ML IV SCH (16:00)
--- NOTE | 2016-09-08 16:12 | US ---
PROCEDURE: Ultrasound of the Bladder HISTORY: Urinary retention, please check post void residual COMPARISON: None available. TECHNIQUE: Sonographic evaluation of the bladder was performed. FINDINGS: Unremarkable without wall thickening or intraluminal debris. No calculus or gross mass lesion. Free fluid seen in the pelvis. Prostate volume 11.2. The ureteral jets are not visualized. Prevoid Volume: 445.7 cc. Post void residual: 106.8 cc. IMPRESSION: Free fluid seen in the pelvis. Postvoid residual volume is 106.8. Prostate volume 11.2
[2016-09-09 01:00] VITALS: RESP 20
[2016-09-09] MEDS: Piperacillin/Tazobact 3.375 GM in Sodium Chloride 100 ML IVPB SCH ×3 (01:05→17:38)
[2016-09-09] MEDS: Albuterol-Ipratrop 3 mg / 0.5 (3 ml) UD INH SCH ×4 (02:32→19:37)
[2016-09-09] MEDS: Dextrose 5%/0.9% NS 1,000 ML IV SCH ×4 (05:20→19:45)
--- NOTE | 2016-09-09 06:04 | CP.PCM.PN ---
<Rosetta Fong - Last Filed: 09/09/16 10:08> Subjective - Date & Time of Evaluation Date of Evaluation: 09/09/16 Time of Evaluation: 06:02 - Subjective Subjective: Gastroenterology Fellow/PGY4 Progress Note Patient notes unchanged abdominal discomfort. Small watery stool yesterday. Tolerating liquids with loss of appetite to solid foods. A 12-point review of systems negative except for as above. Objective - Vital Signs/Intake and Output Vital Signs (last 24 hours): Temp Pulse Resp BP Pulse Ox 98.2 F 118 H 20 135/83 95 09/09/16 00:00 09/09/16 00:00 09/09/16 00:00 09/09/16 00:00 09/09/16 00:00 Intake and Output: 09/08/16 09/09/16 18:59 06:59 Intake Total 1100 Balance 1100 - Medications Medications: Current Medications Albuterol/Ipratropium (Duoneb 3 Mg/0.5 Mg (3 Ml) Ud) 3 ml INH RQ6 [facility] Last Admin: 09/09/16 02:32 Dose: Not Given Enoxaparin Sodium (Lovenox) 40 mg SC DAILY [facility] Last Admin: 09/08/16 10:00 Dose: 40 mg Hydromorphone HCl (Dilaudid) 1 mg IVP Q4H PRN PRN Reason: Pain, severe (8-10) Last Admin: 09/09/16 03:20 Dose: 1 mg Piperacillin Sod/Tazobactam (Sod 3.375 gm/ Sodium Chloride) 100 mls @ 200 mls/ hr IVPB Q8H [facility] Last Admin: 09/09/16 01:05 Dose: 200 mls/hr Dextrose/Sodium Chloride (Dextrose 5%/0.9% Ns 1000 Ml) 1,000 mls @ 75 mls/hr IV .[id number] [facility] Last Admin: 09/09/16 00:00 Dose: 75 mls/hr Insulin Human Regular (Novolin R) 0 unit SC ACHS [facility] PRN Reason: Protocol Last Admin: 09/08/16 22:00 Dose: Not Given Lorazepam (Ativan) 1 mg IVP Q3H PRN PRN Reason: withdrawal symptoms Ondansetron HCl (Zofran Inj) 4 mg IVP Q6H PRN PRN Reason: Nausea/Vomiting Last Admin: 09/07/16 23:08 Dose: 4 mg Pantoprazole Sodium (Protonix Inj) 40 mg IVP DAILY [facility] Last Admin: 09/08/16 10:00 Dose: 40 mg Thiamine HCl (Vitamin B1 Inj) 100 mg IV DAILY [facility] Last Admin: 09/08/16 10:10 Dose: 100 mg - Labs Labs: 09/08/16 08:07 09/08/16 08:07 PT 13.8 SECONDS (9.7-12.2) H 09/03/16 04:12 INR 1.2 09/03/16 04:12 APTT 31 SECONDS (21-34) D 09/03/16 04:12 - Constitutional Appears: Non-toxic, No Acute Distress - Head Exam Head Exam: ATRAUMATIC, NORMOCEPHALIC - Eye Exam Eye Exam: EOMI, PERRL - ENT Exam ENT Exam: Mucous Membranes Moist, Normal Oropharynx - Neck Exam Neck Exam: Full ROM, Normal Inspection - Respiratory Exam Respiratory Exam: Clear to Ausculation Bilateral. absent: Rales, Rhonchi, Wheezes - Cardiovascular Exam Cardiovascular Exam: RRR, +S1, +S2. absent: Gallop, Rubs - GI/Abdominal Exam GI & Abdominal Exam: Distended, Firm, Tenderness, Normal Bowel Sounds. absent: Guarding, Rigid, Organomegaly, Rebound Additional comments: diffuse tenderness to palpation - Extremities Exam Extremities Exam: Full ROM. absent: Pedal Edema - Neurological Exam Neurological Exam: Alert, Awake - Psychiatric Exam Psychiatric exam: Normal Affect, Normal Mood - Skin Skin Exam: Dry, Intact, Normal Color, Warm Assessment and Plan - Assessment and Plan (Free Text) Assessment: 26 year old male with no prior medical history presenting with epigastric pain. CT A/P without contrast showed diffuse inflammation of pancreas. Active treatment of improving severe alcoholic pancreatitis, ileus, with resolved acute renal failure, and multiple electrolyte derangements. CT A/P with perssistent pancreatic inflammatory changes and free abdominopelvic fluid. No prior EGD or colonoscopy. Plan: >low fat diet as tolerated >gentle IVFs >strict I&Os >on Zosyn >supportive care: Dilaudid, antiemetics, PPI >alcohol cessation counselling >will follow clinical course <Gabriel Sandoval - Last Filed: 09/09/16 11:15> Objective - Vital Signs/Intake and Output Vital Signs (last 24 hours): Temp Pulse Resp BP Pulse Ox 98.4 F 100 H 20 139/81 95 09/09/16 08:15 09/09/16 08:15 09/09/16 08:15 09/09/16 08:15 09/09/16 08:15 Intake and Output: 09/09/16 09/09/16 06:59 18:59 Intake Total 2320 Output Total 900 Balance 1420 - Medications Medications: Current Medications Albuterol/Ipratropium (Duoneb 3 Mg/0.5 Mg (3 Ml) Ud) 3 ml INH RQ6 [facility] Last Admin: 09/09/16 08:29 Dose: 3 ml Enoxaparin Sodium (Lovenox) 40 mg SC DAILY [facility] Last Admin: 09/08/16 10:00 Dose: 40 mg Hydromorphone HCl (Dilaudid) 1 mg IVP Q4H PRN PRN Reason: Pain, severe (8-10) Last Admin: 09/09/16 03:20 Dose: 1 mg Piperacillin Sod/Tazobactam (Sod 3.375 gm/ Sodium Chloride) 100 mls @ 200 mls/ hr IVPB Q8H [facility] Last Admin: 09/09/16 01:05 Dose: 200 mls/hr Dextrose/Sodium Chloride (Dextrose 5%/0.9% Ns 1000 Ml) 1,000 mls @ 75 mls/hr IV .[id number] [facility] Last Admin: 09/09/16 05:20 Dose: Not Given Insulin Human Regular (Novolin R) 0 unit SC ACHS [facility] PRN Reason: Protocol Last Admin: 09/08/16 22:00 Dose: Not Given Lorazepam (Ativan) 1 mg IVP Q3H PRN PRN Reason: withdrawal symptoms Ondansetron HCl (Zofran Inj) 4 mg IVP Q6H PRN PRN Reason: Nausea/Vomiting Last Admin: 09/07/16 23:08 Dose: 4 mg Pantoprazole Sodium (Protonix Inj) 40 mg IVP DAILY [facility] Last Admin: 09/08/16 10:00 Dose: 40 mg Thiamine HCl (Vitamin B1 Inj) 100 mg IV DAILY [facility] Last Admin: 09/08/16 10:10 Dose: 100 mg - Labs Labs: 09/09/16 07:01 09/09/16 07:01 PT 13.8 SECONDS (9.7-12.2) H 09/03/16 04:12 INR 1.2 09/03/16 04:12 APTT 31 SECONDS (21-34) D 09/03/16 04:12 Attending/Attestation - Attestation I have personally seen and examined this patient.: Yes I have fully participated in the care of the patient.: Yes I have reviewed all pertinent clinical information, including history, physical exam and plan: Yes Notes (Text): 09/09/16 11:15 26 year old male with h/o EtOH abuse admitted with acute pancreatitis. 1. Acute pancreatitis Plan: -low fat diet as tolerated, small frequent meals -pain control as needed -continue PPI -CT scan reviewed, no internvention indicated -continue supportive care
[2016-09-09 07:10] LABS: BASO % 0.1 % (0.0-2.0); EOS # 0.1 K/uL (0.0-0.7); EOS % 0.3 % (0.0-4.0); HEMATOCRIT 26.2 % (35.0-51.0); LYMPH # 0.7 K/uL (1.0-4.3); MEAN CELL VOLUME 97.1 fL (80.0-94.0); MEAN CORPUSCULAR HEMOGLOBIN 32.9 pg (27.0-31.0); MEAN CORPUSCULAR HGB CONC 33.8 g/dL (33.0-37.0); MONO % 5.9 % (0.0-10.0); NRBC % 0.2 % (0.0-2.0); PLATELET COUNT 394 K/uL (130-400); RED CELL DISTRIBUTION WIDTH 15.7 % (11.5-14.5); WHITE BLOOD COUNT 16.9 K/uL (4.8-10.8)
[2016-09-09 07:24] LABS: CHLORIDE 95 mmol/L (98-107)
[2016-09-09 07:25] LABS: POTASSIUM 3.3 mmol/L (3.6-5.2); SODIUM 128 mmol/L (132-148)
[2016-09-09 07:27] LABS: ALB/GLOB RATIO 0.9 (1.0-2.1); ALKALINE PHOSPHATASE 103 U/L (38-126); AMYLASE 103 U/L (30-110); AST/SGOT 57 U/L (17-59); BILIRUBIN,TOTAL 1.3 mg/dL (0.2-1.3); BLOOD UREA NITROGEN 5 mg/dL (9-20); CARBON DIOXIDE 23 mmol/L (22-30); GFR AFRICAN-AMERICAN > 60; TOTAL PROTEIN 6.7 g/dL (6.3-8.3)
[2016-09-09 07:28] LABS: ALT/SGPT 33 U/L (21-72); CALCIUM 8.2 mg/dl (8.6-10.4); GLUCOSE,RANDOM 139 mg/dL (75-110); PHOSPHOROUS 2.1 mg/dL (2.5-4.5); URIC ACID 2.6 mg/dL (3.5-8.5)
[2016-09-09] MEDS: (Novolin R) Insulin Human Regular 100 units/ml vial SC SCH ×4 (07:30→22:00)
[2016-09-09] MEDS ORDERED: Potassium Chloride 20 mEq ER Tab PO STA (08:33)
[2016-09-09 09:03] LABS: NEUTROPHIL 65 % (50-75); TOTAL CELLS COUNTED 100
[2016-09-09 09:19] LABS: LARGE PLATELETS PRESENT
[2016-09-09] MEDS: Thiamine 100 mg/ml Inj IV SCH (10:00)
[2016-09-09] MEDS: Enoxaparin 40 mg Syringe SC SCH (10:05)
[2016-09-09] MEDS ORDERED: Sodium Phosphate 15 MMOLE in Sodium Chloride 0.9% 250 ML IVPB ONE (12:25)
--- NOTE | 2016-09-09 12:39 | CP.PCM.PN ---
<Lj Glaser - Last Filed: 09/09/16 12:42> Subjective - Date & Time of Evaluation Date of Evaluation: 09/09/16 Time of Evaluation: 12:35 - Subjective Subjective: Med progress note. Attending: Dr. Abebe Pt seen and examined at bedside. Abdomen distended. Nephrology consult pending. Will replete phosphorus. Tolerating diet. Continue fluids. Denies fevers, chills , cp, sob. Objective - Vital Signs/Intake and Output Vital Signs (last 24 hours): Temp Pulse Resp BP Pulse Ox 98.4 F 100 H 20 139/81 95 09/09/16 08:15 09/09/16 08:15 09/09/16 08:15 09/09/16 08:15 09/09/16 08:15 Intake and Output: 09/09/16 09/09/16 06:59 18:59 Intake Total 2320 Output Total 900 Balance 1420 - Medications Medications: Current Medications Albuterol/Ipratropium (Duoneb 3 Mg/0.5 Mg (3 Ml) Ud) 3 ml INH RQ6 [facility] Last Admin: 09/09/16 08:29 Dose: 3 ml Enoxaparin Sodium (Lovenox) 40 mg SC DAILY [facility] Last Admin: 09/09/16 10:05 Dose: 40 mg Hydromorphone HCl (Dilaudid) 1 mg IVP Q4H PRN PRN Reason: Pain, severe (8-10) Last Admin: 09/09/16 08:50 Dose: 1 mg Piperacillin Sod/Tazobactam (Sod 3.375 gm/ Sodium Chloride) 100 mls @ 200 mls/ hr IVPB Q8H [facility] Last Admin: 09/09/16 10:00 Dose: 200 mls/hr Dextrose/Sodium Chloride (Dextrose 5%/0.9% Ns 1000 Ml) 1,000 mls @ 75 mls/hr IV .[id number] [facility] Last Admin: 09/09/16 11:20 Dose: 75 mls/hr Sodium Phosphate 15 mmole/ (Sodium Chloride) 255 mls @ 42.5 mls/hr IVPB ONCE ONE Stop: 09/09/16 18:24 Insulin Human Regular (Novolin R) 0 unit SC ACHS [facility] PRN Reason: Protocol Last Admin: 09/09/16 11:26 Dose: Not Given Lorazepam (Ativan) 1 mg IVP Q3H PRN PRN Reason: withdrawal symptoms Ondansetron HCl (Zofran Inj) 4 mg IVP Q6H PRN PRN Reason: Nausea/Vomiting Last Admin: 09/07/16 23:08 Dose: 4 mg Pantoprazole Sodium (Protonix Inj) 40 mg IVP DAILY [facility] Last Admin: 09/09/16 10:00 Dose: 40 mg Thiamine HCl (Vitamin B1 Inj) 100 mg IV DAILY [facility] Last Admin: 09/09/16 10:00 Dose: 100 mg - Labs Labs: 09/09/16 07:01 09/09/16 07:01 PT 13.8 SECONDS (9.7-12.2) H 09/03/16 04:12 INR 1.2 09/03/16 04:12 APTT 31 SECONDS (21-34) D 09/03/16 04:12 - Constitutional Appears: Non-toxic, No Acute Distress - Head Exam Head Exam: ATRAUMATIC, NORMAL INSPECTION, NORMOCEPHALIC - Eye Exam Eye Exam: EOMI - ENT Exam ENT Exam: Mucous Membranes Moist - Respiratory Exam Respiratory Exam: NORMAL BREATHING PATTERN. absent: Respiratory Distress - Cardiovascular Exam Cardiovascular Exam: +S1, +S2 - GI/Abdominal Exam GI & Abdominal Exam: Distended, Firm, Tenderness - Extremities Exam Extremities Exam: Full ROM, Normal Inspection - Neurological Exam Neurological Exam: Alert, Awake, Oriented x3 - Psychiatric Exam Psychiatric exam: Normal Affect, Normal Mood - Skin Skin Exam: Dry, Intact, Normal Color, Warm Assessment and Plan - Assessment and Plan (Free Text) Assessment: This is a 26 yo male admitted with 1. Pancreatitis Admit to ICU>>> pt transferred out of ICU CT abd/pelvis: f/u official report (unofficial read shows extensive inflammation of pancreas with fluid) ABXR: Possible free-air left hemidiaphragm. Alternatively this represents a normal stomach/gastric bubble. However, there is a clinical suspicion of free air on the CT scan of the abdomen advised (see full report) CXR: Free air suspected left hemidiaphragm. Findings discussed with attending physician with recommendation for follow-up CT (see full report) Pt now on heart healthy diet D5NS 75 cc/hr Zofran 4 mg IVP Q6H PRN Zosyn 3.375 mg q 8 Ativan 1 mg IVP q3 for withdrawal Activity dilaudid 1 q 4 for pain 2. Urinary retention -nephrology consult. recs appreciated. -bladder scan shows post void residual 106.8 3. Hyperglycemia Accuchecks ISS Monitor 4. Hyperkalemia resolved 5. Hypomagnesemia resolved 6. Prophylactic measures - continue zofran prn -protonix 40 daily -lovenox [address] Abebe <Brennan Abebe - Last Filed: 09/17/16 13:06> Objective - Vital Signs/Intake and Output Vital Signs (last 24 hours): Temp Pulse Resp BP Pulse Ox 99.5 F 105 H 20 115/69 95 09/12/16 15:10 09/12/16 15:10 09/12/16 15:10 09/12/16 18:00 09/12/16 15:10 - Labs Labs: 09/12/16 06:15 09/12/16 06:15 PT 13.8 SECONDS (9.7-12.2) H 09/03/16 04:12 INR 1.2 09/03/16 04:12 APTT 31 SECONDS (21-34) D 09/03/16 04:12 Assessment and Plan (1) Hyperkalemia Status: Acute (2) Metabolic acidosis Status: Acute (3) Hyponatremia Status: Acute (4) DVT prophylaxis Status: Acute Attending/Attestation - Attestation I have personally seen and examined this patient.: Yes I have fully participated in the care of the patient.: Yes I have reviewed all pertinent clinical information, including history, physical exam and plan: Yes Notes (Text): 09/17/16 13:06 Patient was seen and examined at bedside with the resident This a late computer entry I discussed the plan of care with the resident. I agree with the history and physical and assessment/plan but the resident.
--- NOTE | 2016-09-09 18:44 | PN ---
DATE: 09/09/2016 NEPHROLOGY FOLLOWUP NOTE HISTORY OF PRESENT ILLNESS: A 26-year-old male with past medical history of alcohol abuse, admitted for severe pancreatitis. Nephrology consulted for anasarca and persistent hyponatremia. The patient reports that he is still having some difficulty urinating, although somewhat improved. St ill with significant scrotal swelling that does not allow him to close his legs together. Some shortn ess of breath being reported as well when off of oxygen. PHYSICAL EXAMINATION: VITAL SIGNS: Blood pressure this morning 139/81, heart rate 100, respirations 20, temperature 98.4, O2 sat 95% on room air. O2 sat checked by me personally was 89% on room air. GENERAL: No distress, conversing coherently in full sentences. HEENT: Moist mucous membranes. Mildly elevated JVD. CHEST: Clear to auscultation bilaterally. No rales, no rhonchi, no wheezes. HEART: S1, S2 normal. No murmurs, no gallops, no rubs. ABDOMEN: Distended, tender in lower quadrants and pelvic area. GENITOURINARY: No overt bladder distention appreciated. EXTREMITIES: Moderately edematous proximal legs extending to lower back and abdominal wall. Good ca pillary refill. PSYCHIATRIC: Normal mood, normal affect. ASSESSMENT: 1. Anasarca in the setting of severe pancreatitis with aggressive volume resuscitation that was much needed. The patient with subsequent third spacing of fluid that may be causing possibly intra-abdom inal hypertension with resulting decrease in venous return and return and, hence, the ensuing a nasarca. No sign of end-organ dysfunction. Cannot actually check intra-abdominal pressure on the [facility] medical floor, but probably not needed at this point anyway as the patient, again, has no end-o rgan dysfunction. Recommend not to discontinue IV fluids completely as patient is third spacing and is at risk of intravascular volume depletion. 2. Severe pancreatitis. Clinically improved as patient is tolerating diet, but again, the need for m aintaining intravascular volume with IV fluids despite anasarca. 3. Hyponatremia. Urine electrolytes showing increased urine osmolality with patient having no signs of volume depletion. This is consistent with syndrome of inappropriate antidiuretic hormone, which is likely being caused by pain and possibly pleural effusions. Syndrome of inappropriate antidiuretic hormone is relatively mild with urine osmolality not that high but actually much improved from 6 day s ago, which likely reflected volume depletion at that time. Recommend to continue IV fluids for now and replenish potassium aggressively as potassium replenishment will also help to correct hyponatrem ia. 4. Metabolic acidosis. Increased anion gap metabolic acidosis resolved after starting dextrose-conta ining fluids in the setting of ketosis and ketonuria. Continue dextrose-containing IV fluids. 5. Glucosuria seen despite patient having been euglycemia, most likely indicative of some degree of tubular dysfunction in the setting of severe pancreatitis and previous volume depletion. Fractional excretion of phosphorus is actually appropriately low. Continue to maintain euvolemic state with IV fluids. 6. Proteinuria. More than 2 mg proteinuria by urine protein/creatinine ratio, but seen in the setti ng of likely tubular dysfunction due to severe illness. Should repeat as outpatient once patient's a cute illness has resolved. Arturo Soriano MD cc: [id number] TT: 09/09/2016 18:44:12 Confirmation # [id number] Dictation # [id number] ln
[2016-09-10] MEDS: Albuterol-Ipratrop 3 mg / 0.5 (3 ml) UD INH SCH ×4 (01:51→20:01)
[2016-09-10] MEDS: Piperacillin/Tazobact 3.375 GM in Sodium Chloride 100 ML IVPB SCH ×4 (02:00→17:53)
[2016-09-10 07:27] LABS: BASO % 0.3 % (0.0-2.0); EOS # 0.1 K/uL (0.0-0.7); EOS % 0.7 % (0.0-4.0); HEMATOCRIT 24.4 % (35.0-51.0); LYMPH # 0.7 K/uL (1.0-4.3); LYMPH % 4.5 % (20.0-40.0); MEAN CELL VOLUME 96.6 fL (80.0-94.0); MEAN CORPUSCULAR HEMOGLOBIN 33.3 pg (27.0-31.0); MEAN CORPUSCULAR HGB CONC 34.5 g/dL (33.0-37.0); MEAN PLATELET VOLUME 6.9 fL (7.2-11.7); MONO % 6.4 % (0.0-10.0); NRBC % 0.2 % (0.0-2.0); PLATELET COUNT 438 K/uL (130-400); RED CELL DISTRIBUTION WIDTH 15.5 % (11.5-14.5); WHITE BLOOD COUNT 16.2 K/uL (4.8-10.8)
[2016-09-10] MEDS: (Novolin R) Insulin Human Regular 100 units/ml vial SC SCH ×4 (07:44→22:04)
[2016-09-10 07:46] LABS: CHLORIDE 95 mmol/L (98-107)
[2016-09-10 07:47] LABS: POTASSIUM 3.2 mmol/L (3.6-5.2); SODIUM 130 mmol/L (132-148)
[2016-09-10 07:49] LABS: ALB/GLOB RATIO 0.9 (1.0-2.1); ALKALINE PHOSPHATASE 110 U/L (38-126); AST/SGOT 69 U/L (17-59); BILIRUBIN,TOTAL 1.4 mg/dL (0.2-1.3); BLOOD UREA NITROGEN 5 mg/dL (9-20); CARBON DIOXIDE 25 mmol/L (22-30); GFR AFRICAN-AMERICAN > 60; GLUCOSE,RANDOM 118 mg/dL (75-110); TOTAL PROTEIN 6.7 g/dL (6.3-8.3)
[2016-09-10 07:50] LABS: ALT/SGPT 37 U/L (21-72); CALCIUM 7.9 mg/dl (8.6-10.4); MAGNESIUM 2.2 mg/dL (1.6-2.3); PHOSPHOROUS 2.3 mg/dL (2.5-4.5)
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
[2016-09-10] MEDS: Enoxaparin 40 mg Syringe SC SCH ×2 (08:50→10:04)
[2016-09-10] MEDS: Dextrose 5%/0.9% NS 1,000 ML IV SCH ×3 (09:02→22:04)
[2016-09-10 09:20] LABS: TOTAL CELLS COUNTED 100
[2016-09-10 09:21] LABS: NEUTROPHIL 71 % (50-75)
[2016-09-10] MEDS ORDERED: Potassium & Sodium Phosphate PO ONE (09:30)
[2016-09-10] MEDS: Thiamine 100 mg/ml Inj IV SCH (10:04)
--- NOTE | 2016-09-10 12:47 | CP.PCM.PN ---
Subjective - Date & Time of Evaluation Date of Evaluation: 09/10/16 Time of Evaluation: 09:00 - Subjective Subjective: Patient seen at bedside this am. No overnight events. Denies nausea, vomiting. Has mild abdominal pain. Tolerating liquid diet Objective - Vital Signs/Intake and Output Vital Signs (last 24 hours): Temp Pulse Resp BP Pulse Ox 98.3 F 115 H 20 126/81 93 L 09/10/16 08:20 09/10/16 08:20 09/10/16 08:20 09/10/16 08:20 09/10/16 08:20 Intake and Output: 09/10/16 09/10/16 06:59 18:59 Intake Total 2040 1100 Output Total 850 Balance 1190 1100 - Medications Medications: Current Medications Albuterol/Ipratropium (Duoneb 3 Mg/0.5 Mg (3 Ml) Ud) 3 ml INH RQ6 [facility] Last Admin: 09/10/16 07:50 Dose: 3 ml Enoxaparin Sodium (Lovenox) 40 mg SC DAILY [facility] Last Admin: 09/10/16 10:04 Dose: Not Given Hydromorphone HCl (Dilaudid) 1 mg IVP Q4H PRN PRN Reason: Pain, severe (8-10) Last Admin: 09/10/16 08:51 Dose: 1 mg Piperacillin Sod/Tazobactam (Sod 3.375 gm/ Sodium Chloride) 100 mls @ 200 mls/ hr IVPB Q8H [facility] Last Admin: 09/10/16 10:03 Dose: Not Given Dextrose/Sodium Chloride (Dextrose 5%/0.9% Ns 1000 Ml) 1,000 mls @ 75 mls/hr IV .[id number] [facility] Last Admin: 09/10/16 09:02 Dose: Not Given Insulin Human Regular (Novolin R) 0 unit SC ACHS [facility] PRN Reason: Protocol Last Admin: 09/10/16 11:39 Dose: 1 unit Lorazepam (Ativan) 1 mg IVP Q3H PRN PRN Reason: withdrawal symptoms Ondansetron HCl (Zofran Inj) 4 mg IVP Q6H PRN PRN Reason: Nausea/Vomiting Last Admin: 09/07/16 23:08 Dose: 4 mg Pantoprazole Sodium (Protonix Inj) 40 mg IVP DAILY [facility] Last Admin: 09/10/16 10:03 Dose: Not Given Potassium Chloride (K-Dur 20 Meq Er Tab) 40 meq PO ONCE ONE Stop: 09/10/16 18:06 Thiamine HCl (Vitamin B1 Inj) 100 mg IV DAILY [facility] Last Admin: 09/10/16 10:04 Dose: 100 mg - Labs Labs: 09/10/16 07:13 09/10/16 07:13 PT 13.8 SECONDS (9.7-12.2) H 09/03/16 04:12 INR 1.2 09/03/16 04:12 APTT 31 SECONDS (21-34) D 09/03/16 04:12 - Constitutional Appears: Well, Non-toxic, No Acute Distress - Head Exam Head Exam: ATRAUMATIC, NORMAL INSPECTION, NORMOCEPHALIC - Eye Exam Eye Exam: EOMI, Normal appearance, PERRL - ENT Exam ENT Exam: Mucous Membranes Moist, Normal Exam - Cardiovascular Exam Cardiovascular Exam: REGULAR RHYTHM, +S1, +S2. absent: Murmur - GI/Abdominal Exam GI & Abdominal Exam: Soft, Normal Bowel Sounds. absent: Tenderness Additional comments: Mild tenderness on deep palpation - Extremities Exam Extremities Exam: Full ROM, Normal Inspection - Neurological Exam Neurological Exam: Alert, Awake, Oriented x3 - Psychiatric Exam Psychiatric exam: Normal Affect, Normal Mood - Skin Skin Exam: Dry, Intact Assessment and Plan - Assessment and Plan (Free Text) Assessment: 26 year old male with h/o EtOH abuse admitted with acute pancreatitis. Multiple electrolyte derangements now resolving. CTAP reviewed with free fluid around pancreas. Tolerating liquid diet. Supplement pottasium Plan: -low fat diet as tolerated, small frequent meals -pain control as needed -continue PPI -CT scan reviewed, no intervention indicated -continue supportive care - Nephrology input appreciated - GI/DVT prophylaxis
[2016-09-10] MEDS ORDERED: Potassium Chloride 20 mEq ER Tab PO ONE (18:05)
--- NOTE | 2016-09-10 18:30 | CP.PCM.PN ---
<Lj Glaser - Last Filed: 09/10/16 18:30> Subjective - Date & Time of Evaluation Date of Evaluation: 09/10/16 Time of Evaluation: 18:30 - Subjective Subjective: Med progress note. Attending: Dr. Mccoy Pt seen and examined at bedside. No acute distress. Does have a lot of scrotal edema with firm abdomen, slight siadh. Tolerating diet, no pain. Denies fevers, chills, vomiting, diarrhea. Objective - Vital Signs/Intake and Output Vital Signs (last 24 hours): Temp Pulse Resp BP Pulse Ox 97.7 F 102 H 20 117/79 93 L 09/10/16 16:00 09/10/16 16:00 09/10/16 16:00 09/10/16 16:00 09/10/16 16:00 Intake and Output: 09/10/16 09/10/16 06:59 18:59 Intake Total 2040 1600 Output Total 850 850 Balance 1190 750 - Medications Medications: Current Medications Albuterol/Ipratropium (Duoneb 3 Mg/0.5 Mg (3 Ml) Ud) 3 ml INH RQ6 [facility] Last Admin: 09/10/16 13:52 Dose: 3 ml Enoxaparin Sodium (Lovenox) 40 mg SC DAILY [facility] Last Admin: 09/10/16 10:04 Dose: Not Given Hydromorphone HCl (Dilaudid) 1 mg IVP Q4H PRN PRN Reason: Pain, severe (8-10) Last Admin: 09/10/16 18:07 Dose: 1 mg Piperacillin Sod/Tazobactam (Sod 3.375 gm/ Sodium Chloride) 100 mls @ 200 mls/ hr IVPB Q8H [facility] Last Admin: 09/10/16 17:53 Dose: 200 mls/hr Dextrose/Sodium Chloride (Dextrose 5%/0.9% Ns 1000 Ml) 1,000 mls @ 75 mls/hr IV .[id number] [facility] Last Admin: 09/10/16 17:59 Dose: 75 mls/hr Insulin Human Regular (Novolin R) 0 unit SC ACHS [facility] PRN Reason: Protocol Last Admin: 09/10/16 18:01 Dose: Not Given Lorazepam (Ativan) 1 mg IVP Q3H PRN PRN Reason: withdrawal symptoms Ondansetron HCl (Zofran Inj) 4 mg IVP Q6H PRN PRN Reason: Nausea/Vomiting Last Admin: 09/07/16 23:08 Dose: 4 mg Pantoprazole Sodium (Protonix Inj) 40 mg IVP DAILY [facility] Last Admin: 09/10/16 10:03 Dose: Not Given Thiamine HCl (Vitamin B1 Inj) 100 mg IV DAILY [facility] Last Admin: 09/10/16 10:04 Dose: 100 mg - Labs Labs: 09/10/16 07:13 09/10/16 07:13 PT 13.8 SECONDS (9.7-12.2) H 09/03/16 04:12 INR 1.2 09/03/16 04:12 APTT 31 SECONDS (21-34) D 09/03/16 04:12 - Constitutional Appears: Non-toxic, No Acute Distress - Head Exam Head Exam: ATRAUMATIC, NORMAL INSPECTION, NORMOCEPHALIC - Eye Exam Eye Exam: EOMI - ENT Exam ENT Exam: Mucous Membranes Moist - Neck Exam Neck Exam: Full ROM, Normal Inspection - Respiratory Exam Respiratory Exam: NORMAL BREATHING PATTERN. absent: Respiratory Distress - Cardiovascular Exam Cardiovascular Exam: +S1, +S2 - GI/Abdominal Exam GI & Abdominal Exam: Distended, Firm. absent: Tenderness - Exam Additional comments: positive scrotal edema - Neurological Exam Neurological Exam: Alert, Awake, Oriented x3 - Psychiatric Exam Psychiatric exam: Normal Affect, Normal Mood - Skin Skin Exam: Dry, Intact, Normal Color, Warm Assessment and Plan - Assessment and Plan (Free Text) Assessment: This is a 26 yo male admitted with 1. Pancreatitis Admit to ICU>>> pt transferred out of ICU CT abd/pelvis: f/u official report (unofficial read shows extensive inflammation of pancreas with fluid) ABXR: Possible free-air left hemidiaphragm. Alternatively this represents a normal stomach/gastric bubble. However, there is a clinical suspicion of free air on the CT scan of the abdomen advised (see full report) CXR: Free air suspected left hemidiaphragm. Findings discussed with attending physician with recommendation for follow-up CT (see full report) Pt now on heart healthy diet D5NS 75 cc/hr Zofran 4 mg IVP Q6H PRN Zosyn 3.375 mg q 8 day 6 Ativan 1 mg IVP q3 for withdrawal Activity dilaudid 1 q 4 for pain -lipase trending down 2. Urinary retention -nephrology consult. recs appreciated. -bladder scan shows post void residual 106.8 3. Hyperglycemia Accuchecks ISS Monitor 4. Hyperkalemia resolved ; hypokalemic today- will replete. 5. Hypomagnesemia resolved 6. Prophylactic measures - continue zofran prn -protonix 40 daily -lovenox 40 daily -encouraged to stop drinking discussed with Dr. Mccoy <John Mccoy H - Last Filed: 09/10/16 19:19> Objective - Vital Signs/Intake and Output Vital Signs (last 24 hours): Temp Pulse Resp BP Pulse Ox 97.7 F 102 H 20 117/79 93 L 09/10/16 16:00 09/10/16 16:00 09/10/16 16:00 09/10/16 16:00 09/10/16 16:00 Intake and Output: 09/10/16 09/11/16 18:59 06:59 Intake Total 1600 Output Total 850 Balance 750 - Medications Medications: Current Medications Albuterol/Ipratropium (Duoneb 3 Mg/0.5 Mg (3 Ml) Ud) 3 ml INH RQ6 [facility] Last Admin: 09/10/16 13:52 Dose: 3 ml Enoxaparin Sodium (Lovenox) 40 mg SC DAILY [facility] Last Admin: 09/10/16 10:04 Dose: Not Given Hydromorphone HCl (Dilaudid) 1 mg IVP Q4H PRN PRN Reason: Pain, severe (8-10) Last Admin: 09/10/16 18:07 Dose: 1 mg Piperacillin Sod/Tazobactam (Sod 3.375 gm/ Sodium Chloride) 100 mls @ 200 mls/ hr IVPB Q8H [facility] Last Admin: 09/10/16 17:53 Dose: 200 mls/hr Dextrose/Sodium Chloride (Dextrose 5%/0.9% Ns 1000 Ml) 1,000 mls @ 75 mls/hr IV .[id number] [facility] Last Admin: 09/10/16 17:59 Dose: 75 mls/hr Insulin Human Regular (Novolin R) 0 unit SC ACHS [facility] PRN Reason: Protocol Last Admin: 09/10/16 18:01 Dose: Not Given Lorazepam (Ativan) 1 mg IVP Q3H PRN PRN Reason: withdrawal symptoms Ondansetron HCl (Zofran Inj) 4 mg IVP Q6H PRN PRN Reason: Nausea/Vomiting Last Admin: 09/07/16 23:08 Dose: 4 mg Pantoprazole Sodium (Protonix Inj) 40 mg IVP DAILY [facility] Last Admin: 09/10/16 10:03 Dose: Not Given Thiamine HCl (Vitamin B1 Inj) 100 mg IV DAILY [facility] Last Admin: 09/10/16 10:04 Dose: 100 mg - Labs Labs: 09/10/16 07:13 09/10/16 07:13 PT 13.8 SECONDS (9.7-12.2) H 09/03/16 04:12 INR 1.2 09/03/16 04:12 APTT 31 SECONDS (21-34) D 09/03/16 04:12 Attending/Attestation - Attestation I have personally seen and examined this patient.: Yes I have fully participated in the care of the patient.: Yes I have reviewed all pertinent clinical information, including history, physical exam and plan: Yes
--- NOTE | 2016-09-10 23:26 | PN ---
DATE: 09/10/2016 NEPHROLOGY FOLLOWUP NOTE HISTORY OF PRESENT ILLNESS: A 26-year-old patient with past medical history of alcohol abuse, admitte d with severe pancreatitis. Nephrology service consulted due to persistent hyponatremia as well as an asarca. The patient reports still having difficulty urinating. Reports that scrotal swelling was improved ov ernight and improves with elevation of it. Denies any shortness of breath currently. PHYSICAL EXAMINATION: VITAL SIGNS: This morning, blood pressure 126/81, heart rate 115, respirations 20, O2 sat 93% on vaishali m air, temperature 98.3. GENERAL: No distress, able to converse coherently in full sentences. HEENT: Moist mucous membranes. No elevated JVD. CHEST: Clear to auscultation bilaterally. HEART: S1, S2 normal. No murmurs, no rubs, no gallops. GASTROINTESTINAL: Abdomen distended, soft. Lower abdominal tenderness. GENITOURINARY: No overt bladder distention. EXTREMITIES: Markedly edematous proximal legs, extending to lower back and abdominal wall. SKIN: Warm. No cyanosis. PSYCHIATRIC: Normal affect, normal mood. LABORATORY DATA: This morning, CBC: WBC 16.2, hemoglobin 8.4, hematocrit 24.4, platelets 438. Chem istry panel: Sodium 130, potassium 3.2, chloride 95, bicarbonate 25, BUN 5, creatinine 0.7, glucose 118, calcium 7.9, albumin 3.2. ASSESSMENT: 1. Anasarca in the setting of severe pancreatitis with aggressive volume replenishment that was much needed. The patient subsequently with elevated intra-abdominal pressure as measured during intensiv e care unit stay, which is likely causing decreased venous return and is the cause of his anasarca. There is no end organ damage. No need for any intervention in this regard and the patient's edema sh ould resolve spontaneously. 2. Severe pancreatitis. Clinically improved as patient is tolerating diet, but again, should maintai n intravascular volume with IV fluids despite anasarca and would continue D5 NS at 75 mL per hour. 3. Hyponatremia. Overall improved with sodium improving from 125 three days ago to 130. May have h ad an element of volume depletion previously as urine osmolality has decreased significantly over the past week from 734 to 263 two days ago. Nevertheless, this is still elevated in the setting of hypo natremia and likely represents some degree of syndrome of inappropriate antidiuretic hormone. Recomme nd to continue isotonic fluids and ensure p.o. fluid restriction to less than 1500 mL per day. 4. Metabolic acidosis. Increased anion gap metabolic acidosis has resolved. Was seen in the setting of ketosis. Resolved with dextrose-containing fluids. Continue D5 NS for now. Arturo Soriano MD cc: [id number] TT: 09/10/2016 23:26:00 Confirmation # [id number] Dictation # [id number] ln
[2016-09-11] MEDS: Piperacillin/Tazobact 3.375 GM in Sodium Chloride 100 ML IVPB SCH ×3 (02:13→17:15)
[2016-09-11] MEDS: Albuterol-Ipratrop 3 mg / 0.5 (3 ml) UD INH SCH ×3 (02:26→13:47)
[2016-09-11 05:12] LABS: CHLORIDE URINE 44 mmol/L (32-290)
[2016-09-11 07:55] LABS: BASO % 0.3 % (0.0-2.0); EOS # 0.1 K/uL (0.0-0.7); EOS % 0.6 % (0.0-4.0); HEMATOCRIT 23.1 % (35.0-51.0); LYMPH # 0.7 K/uL (1.0-4.3); LYMPH % 5.8 % (20.0-40.0); MEAN CELL VOLUME 96.7 fL (80.0-94.0); MEAN CORPUSCULAR HEMOGLOBIN 32.2 pg (27.0-31.0); MEAN CORPUSCULAR HGB CONC 33.3 g/dL (33.0-37.0); MEAN PLATELET VOLUME 7.3 fL (7.2-11.7); MONO # 0.9 K/uL (0.0-0.8); MONO % 7.3 % (0.0-10.0); NRBC % 0.3 % (0.0-2.0); PLATELET COUNT 449 K/uL (130-400); RED CELL DISTRIBUTION WIDTH 15.4 % (11.5-14.5); WHITE BLOOD COUNT 12.8 K/uL (4.8-10.8)
[2016-09-11 07:59] LABS: CHLORIDE 98 mmol/L (98-107); SODIUM 131 mmol/L (132-148)
[2016-09-11 08:00] LABS: POTASSIUM 3.3 mmol/L (3.6-5.2)
[2016-09-11 08:02] LABS: ALB/GLOB RATIO 0.9 (1.0-2.1); ALKALINE PHOSPHATASE 96 U/L (38-126); ALT/SGPT 38 U/L (21-72); AST/SGOT 59 U/L (17-59); BILIRUBIN,TOTAL 1.2 mg/dL (0.2-1.3); BLOOD UREA NITROGEN 4 mg/dL (9-20); CARBON DIOXIDE 23 mmol/L (22-30); GFR AFRICAN-AMERICAN > 60; GLUCOSE,RANDOM 120 mg/dL (75-110); TOTAL PROTEIN 6.2 g/dL (6.3-8.3)
[2016-09-11 08:03] LABS: CALCIUM 7.2 mg/dl (8.6-10.4); MAGNESIUM 2.1 mg/dL (1.6-2.3)
[2016-09-11] MEDS: (Novolin R) Insulin Human Regular 100 units/ml vial SC SCH ×4 (08:24→22:00)
--- NOTE | 2016-09-11 08:27 | CP.PCM.PN ---
Subjective - Date & Time of Evaluation Date of Evaluation: 09/11/16 Time of Evaluation: 08:22 - Subjective Subjective: Patient seen and examined, ambulating in room and appears quite comfortable. No acute events overnight. His abdominal pain has significantly improved, he still endorses ongoing loose bowel movements without presence of blood in stool. He denies nausea, vomiting, fever/chills. Tolerating PO diet without difficulty, he is asking to go home. Review of vitals from today shows low grade temperature and tachycardia. 12 point review of systems performed, negative aside from mentioned above. Objective - Vital Signs/Intake and Output Vital Signs (last 24 hours): Temp Pulse Resp BP Pulse Ox 99.8 F H 108 H 20 128/78 90 L 09/11/16 08:04 09/11/16 08:04 09/11/16 08:04 09/11/16 08:04 09/11/16 08:04 Intake and Output: 09/11/16 09/11/16 06:59 18:59 Intake Total 2250 Output Total 850 Balance 1400 - Medications Medications: Current Medications Albuterol/Ipratropium (Duoneb 3 Mg/0.5 Mg (3 Ml) Ud) 3 ml INH RQ6 [facility] Last Admin: 09/11/16 02:26 Dose: Not Given Enoxaparin Sodium (Lovenox) 40 mg SC DAILY [facility] Last Admin: 09/10/16 10:04 Dose: Not Given Hydromorphone HCl (Dilaudid) 1 mg IVP Q4H PRN PRN Reason: Pain, severe (8-10) Last Admin: 09/11/16 06:03 Dose: 1 mg Piperacillin Sod/Tazobactam (Sod 3.375 gm/ Sodium Chloride) 100 mls @ 200 mls/ hr IVPB Q8H [facility] Last Admin: 09/11/16 02:13 Dose: 200 mls/hr Dextrose/Sodium Chloride (Dextrose 5%/0.9% Ns 1000 Ml) 1,000 mls @ 75 mls/hr IV .[id number] [facility] Last Admin: 09/10/16 22:04 Dose: Not Given Insulin Human Regular (Novolin R) 0 unit SC ACHS [facility] PRN Reason: Protocol Last Admin: 09/10/16 22:04 Dose: Not Given Lorazepam (Ativan) 1 mg IVP Q3H PRN PRN Reason: withdrawal symptoms Ondansetron HCl (Zofran Inj) 4 mg IVP Q6H PRN PRN Reason: Nausea/Vomiting Last Admin: 09/07/16 23:08 Dose: 4 mg Pantoprazole Sodium (Protonix Inj) 40 mg IVP DAILY [facility] Last Admin: 09/10/16 10:03 Dose: Not Given Thiamine HCl (Vitamin B1 Inj) 100 mg IV DAILY [facility] Last Admin: 09/10/16 10:04 Dose: 100 mg - Labs Labs: 09/11/16 08:00 09/11/16 04:00 PT 13.8 SECONDS (9.7-12.2) H 09/03/16 04:12 INR 1.2 09/03/16 04:12 APTT 31 SECONDS (21-34) D 09/03/16 04:12 - Constitutional Appears: Non-toxic, No Acute Distress - Head Exam Head Exam: NORMAL INSPECTION - Eye Exam Eye Exam: EOMI - ENT Exam ENT Exam: Mucous Membranes Moist - Respiratory Exam Respiratory Exam: Clear to Ausculation Bilateral - Cardiovascular Exam Cardiovascular Exam: REGULAR RHYTHM, +S1, +S2 - GI/Abdominal Exam GI & Abdominal Exam: Distended, Soft, Normal Bowel Sounds Additional comments: non tender to palpation in four quadrants - Extremities Exam Extremities Exam: Normal Inspection. absent: Joint Swelling, Pedal Edema - Skin Skin Exam: Dry, Intact, Normal Color, Warm Assessment and Plan - Assessment and Plan (Free Text) Assessment: Abdominal pain - resolved ETOH related pancreatitis Plan: - Diet as tolerated - Continue with supportive care, monitor and replete electrolytes - ETOH cessation counseling - Patient would benefit from outpatient follow up including repeat imaging in 2 months to assess pancreas - Further management as per medical team. No ongoing GI issues, will sign off case. Please reconsult as necessary, thank you.
[2016-09-11 09:23] LABS: NEUTROPHIL 73 % (50-75); REACTIVE LYMPHOCYTES 1 % (0-0); TOTAL CELLS COUNTED 100
[2016-09-11] MEDS ORDERED: Potassium & Sodium Phosphate PO ONE (09:39)
[2016-09-11] MEDS: Dextrose 5%/0.9% NS 1,000 ML IV SCH (10:50)
[2016-09-11] MEDS: Enoxaparin 40 mg Syringe SC SCH (10:51)
[2016-09-11] MEDS: Thiamine 100 mg/ml Inj IV SCH (10:53)
--- NOTE | 2016-09-11 14:43 | CP.PCM.PN ---
Subjective - Date & Time of Evaluation Date of Evaluation: 09/11/16 Time of Evaluation: 14:00 - Subjective Subjective: Med progress note. Attending: Dr. Mccoy Pt seen and examined at bedside. No acute distress. Pt reports some abd pain, tolerating diet. Pt on low fat diet. Blood and urine cultures negative. GI is signing off. Objective - Vital Signs/Intake and Output Vital Signs (last 24 hours): Temp Pulse Resp BP Pulse Ox 99.8 F H 108 H 20 128/78 90 L 09/11/16 08:04 09/11/16 08:04 09/11/16 08:04 09/11/16 08:04 09/11/16 08:04 Intake and Output: 09/11/16 09/11/16 06:59 18:59 Intake Total 2250 Output Total 850 Balance 1400 - Medications Medications: Current Medications Albuterol/Ipratropium (Duoneb 3 Mg/0.5 Mg (3 Ml) Ud) 3 ml INH RQ6 [facility] Last Admin: 09/11/16 13:47 Dose: 3 ml Enoxaparin Sodium (Lovenox) 40 mg SC DAILY [facility] Last Admin: 09/11/16 10:51 Dose: 40 mg Hydromorphone HCl (Dilaudid) 1 mg IVP Q4H PRN PRN Reason: Pain, severe (8-10) Last Admin: 09/11/16 11:03 Dose: 1 mg Piperacillin Sod/Tazobactam (Sod 3.375 gm/ Sodium Chloride) 100 mls @ 200 mls/ hr IVPB Q8H [facility] Last Admin: 09/11/16 11:08 Dose: 200 mls/hr Dextrose/Sodium Chloride (Dextrose 5%/0.9% Ns 1000 Ml) 1,000 mls @ 75 mls/hr IV .[id number] [facility] Last Admin: 09/11/16 10:50 Dose: Not Given Insulin Human Regular (Novolin R) 0 unit SC ACHS [facility] PRN Reason: Protocol Last Admin: 09/11/16 12:00 Dose: 1 unit Lorazepam (Ativan) 1 mg IVP Q3H PRN PRN Reason: withdrawal symptoms Ondansetron HCl (Zofran Inj) 4 mg IVP Q6H PRN PRN Reason: Nausea/Vomiting Last Admin: 05/12/17 23:08 Dose: 4 mg Pantoprazole Sodium (Protonix Inj) 40 mg IVP DAILY [facility] Last Admin: 09/11/16 10:53 Dose: 40 mg Thiamine HCl (Vitamin B1 Inj) 100 mg IV DAILY [facility] Last Admin: 09/11/16 10:53 Dose: 100 mg - Labs Labs: 09/11/16 08:00 09/11/16 04:00 PT 13.8 SECONDS (9.7-12.2) H 09/03/16 04:12 INR 1.2 09/03/16 04:12 APTT 31 SECONDS (21-34) D 09/03/16 04:12 - Constitutional Appears: Non-toxic, No Acute Distress - Head Exam Head Exam: ATRAUMATIC, NORMAL INSPECTION, NORMOCEPHALIC - Eye Exam Eye Exam: EOMI - ENT Exam ENT Exam: Mucous Membranes Moist - Neck Exam Neck Exam: Full ROM, Normal Inspection - Respiratory Exam Respiratory Exam: NORMAL BREATHING PATTERN. absent: Respiratory Distress - Cardiovascular Exam Cardiovascular Exam: +S1, +S2 - GI/Abdominal Exam GI & Abdominal Exam: Distended, Firm - Exam Additional comments: Scrotal edema - Extremities Exam Extremities Exam: Full ROM, Normal Inspection - Neurological Exam Neurological Exam: Alert, Awake, Oriented x3 - Psychiatric Exam Psychiatric exam: Normal Affect, Normal Mood - Skin Skin Exam: Dry, Intact, Normal Color, Warm Assessment and Plan - Assessment and Plan (Free Text) Assessment: This is a 26 yo male admitted with 1. Pancreatitis Admit to ICU>>> pt transferred out of ICU CT abd/pelvis: f/u official report (unofficial read shows extensive inflammation of pancreas with fluid) ABXR: Possible free-air left hemidiaphragm. Alternatively this represents a normal stomach/gastric bubble. However, there is a clinical suspicion of free air on the CT scan of the abdomen advised (see full report) CXR: Free air suspected left hemidiaphragm. Findings discussed with attending physician with recommendation for follow-up CT (see full report) Pt now on heart healthy diet D5NS 75 cc/hr Zofran 4 mg IVP Q6H PRN Zosyn 3.375 mg q 8 day 7 Ativan 1 mg IVP q3 for withdrawal Activity dilaudid 1 q 4 for pain -lipase trending down 2. Urinary retention -nephrology consult. recs appreciated. -bladder scan shows post void residual 106.8 -nephrology notes slight siadh 3. Hyperglycemia Accuchecks ISS Monitor 4. Hyperkalemia resolved 5. Hypomagnesemia resolved 6. Prophylactic measures - continue zofran prn -protonix 40 daily -lovenox 40 daily -encouraged to stop drinking -GI has signed off discussed with Dr. Mccoy
--- NOTE | 2016-09-11 23:58 | CP.PCM.PN ---
Subjective - Date & Time of Evaluation Date of Evaluation: 09/11/16 Time of Evaluation: 22:00 - Subjective Subjective: Reports scrotal pain better; Objective - Vital Signs/Intake and Output Vital Signs (last 24 hours): Temp Pulse Resp BP Pulse Ox 98.9 F 103 H 20 121/79 97 09/11/16 15:00 09/11/16 15:00 09/11/16 15:00 09/11/16 15:00 09/11/16 15:00 Intake and Output: 09/11/16 09/12/16 18:59 06:59 Intake Total 1062.5 Balance 1062.5 - Medications Medications: Current Medications Enoxaparin Sodium (Lovenox) 40 mg SC DAILY [facility] Last Admin: 09/11/16 10:51 Dose: 40 mg Hydromorphone HCl (Dilaudid) 1 mg IVP Q4H PRN PRN Reason: Pain, severe (8-10) Last Admin: 09/11/16 21:36 Dose: 1 mg Piperacillin Sod/Tazobactam (Sod 3.375 gm/ Sodium Chloride) 100 mls @ 200 mls/ hr IVPB Q8H [facility] Last Admin: 09/11/16 17:15 Dose: 200 mls/hr Insulin Human Regular (Novolin R) 0 unit SC ACHS [facility] PRN Reason: Protocol Last Admin: 09/11/16 16:55 Dose: Not Given Lorazepam (Ativan) 1 mg IVP Q3H PRN PRN Reason: withdrawal symptoms Ondansetron HCl (Zofran Inj) 4 mg IVP Q6H PRN PRN Reason: Nausea/Vomiting Last Admin: 09/07/16 23:08 Dose: 4 mg Pantoprazole Sodium (Protonix Inj) 40 mg IVP DAILY [facility] Last Admin: 09/11/16 10:53 Dose: 40 mg Thiamine HCl (Vitamin B1 Inj) 100 mg IV DAILY [facility] Last Admin: 09/11/16 10:53 Dose: 100 mg - Labs Labs: 09/11/16 08:00 09/11/16 04:00 PT 13.8 SECONDS (9.7-12.2) H 09/03/16 04:12 INR 1.2 09/03/16 04:12 APTT 31 SECONDS (21-34) D 09/03/16 04:12 - Constitutional Appears: No Acute Distress Assessment and Plan (1) Anasarca Status: Acute (2) Hyponatremia Status: Acute (3) Metabolic acidosis Status: Acute (4) Pancreatitis Status: Acute
[2016-09-12] MEDS: Piperacillin/Tazobact 3.375 GM in Sodium Chloride 100 ML IVPB SCH ×3 (02:28→17:32)
[2016-09-12 04:36] VITALS: O2SAT 95
[2016-09-12 06:52] LABS: BASO # 0.1 K/uL (0.0-0.2); BASO % 0.6 % (0.0-2.0); EOS # 0.1 K/uL (0.0-0.7); EOS % 0.6 % (0.0-4.0); HEMATOCRIT 22.5 % (35.0-51.0); LYMPH # 0.8 K/uL (1.0-4.3); LYMPH % 6.4 % (20.0-40.0); MEAN CELL VOLUME 96.6 fL (80.0-94.0); MEAN CORPUSCULAR HEMOGLOBIN 32.4 pg (27.0-31.0); MEAN CORPUSCULAR HGB CONC 33.5 g/dL (33.0-37.0); MEAN PLATELET VOLUME 7.2 fL (7.2-11.7); MONO % 7.6 % (0.0-10.0); NRBC % 0.2 % (0.0-2.0); PLATELET COUNT 495 K/uL (130-400); RED CELL DISTRIBUTION WIDTH 15.4 % (11.5-14.5); WHITE BLOOD COUNT 12.9 K/uL (4.8-10.8)
[2016-09-12 07:30] LABS: CHLORIDE 97 mmol/L (98-107); POTASSIUM 3.4 mmol/L (3.6-5.2); SODIUM 132 mmol/L (132-148)
[2016-09-12 07:32] LABS: ALB/GLOB RATIO 0.9 (1.0-2.1); ALKALINE PHOSPHATASE 82 U/L (38-126); AST/SGOT 47 U/L (17-59); BLOOD UREA NITROGEN 4 mg/dL (9-20); CARBON DIOXIDE 25 mmol/L (22-30); GFR AFRICAN-AMERICAN > 60; TOTAL PROTEIN 6.3 g/dL (6.3-8.3)
[2016-09-12 07:33] LABS: ALT/SGPT 31 U/L (21-72); CALCIUM 7.5 mg/dl (8.6-10.4); GLUCOSE,RANDOM 107 mg/dL (75-110); MAGNESIUM 2.2 mg/dL (1.6-2.3); PHOSPHOROUS 2.3 mg/dL (2.5-4.5)
[2016-09-12] MEDS: (Novolin R) Insulin Human Regular 100 units/ml vial SC SCH ×4 (07:43→21:57)
[2016-09-12 08:23] LABS: EOSINOPHIL 1 % (0-4); NUCLEATED RED BLOOD CELL 1 % (0-0); TOTAL CELLS COUNTED 100
[2016-09-12 08:24] LABS: NEUTROPHIL 76 % (50-75)
[2016-09-12 08:27] LABS: GIANT PLATELETS PRESENT; LARGE PLATELETS PRESENT
[2016-09-12] MEDS ORDERED: Potassium Chloride 20 mEq ER Tab PO ONE ×2 (10:00→12:30)
[2016-09-12] MEDS ORDERED: Potassium & Sodium Phosphate PO ONE (10:00)
[2016-09-12] MEDS: Enoxaparin 40 mg Syringe SC SCH (10:31)
[2016-09-12] MEDS: Thiamine 100 mg/ml Inj IV SCH (10:32)
--- NOTE | 2016-09-12 13:07 | CP.PCM.PN ---
<Lj Glaser - Last Filed: 09/12/16 13:07> Subjective - Date & Time of Evaluation Date of Evaluation: 09/12/16 Time of Evaluation: 13:05 - Subjective Subjective: Med progress note. Attending: Dr. Mccoy Pt seen and examined at bedside. No acute distress. Pt still having some diarrhea with minimal pain. No fevers, chills, vomiting, cp, sob. Will start giving lasix and spironolactone. Objective - Vital Signs/Intake and Output Vital Signs (last 24 hours): Temp Pulse Resp BP Pulse Ox 99.0 F 106 H 20 124/78 95 09/12/16 07:31 09/12/16 07:31 09/12/16 07:31 09/12/16 12:37 09/12/16 07:31 Intake and Output: 09/12/16 09/12/16 06:59 18:59 Intake Total 600 Balance 600 - Medications Medications: Current Medications Furosemide (Lasix) 20 mg IVP BID [facility] Hydromorphone HCl (Dilaudid) 1 mg IVP Q4H PRN PRN Reason: Pain, severe (8-10) Last Admin: 09/12/16 10:33 Dose: 1 mg Piperacillin Sod/Tazobactam (Sod 3.375 gm/ Sodium Chloride) 100 mls @ 200 mls/ hr IVPB Q8H [facility] Last Admin: 09/12/16 10:33 Dose: 200 mls/hr Insulin Human Regular (Novolin R) 0 unit SC ACHS [facility] PRN Reason: Protocol Last Admin: 09/12/16 12:09 Dose: Not Given Lorazepam (Ativan) 1 mg IVP Q3H PRN PRN Reason: withdrawal symptoms Ondansetron HCl (Zofran Inj) 4 mg IVP Q6H PRN PRN Reason: Nausea/Vomiting Last Admin: 09/07/16 23:08 Dose: 4 mg Pantoprazole Sodium (Protonix Inj) 40 mg IVP DAILY [facility] Last Admin: 09/12/16 10:31 Dose: 40 mg Spironolactone (Aldactone) 50 mg PO DAILY [facility] Thiamine HCl (Vitamin B1 Inj) 100 mg IV DAILY [facility] Last Admin: 09/12/16 10:32 Dose: 100 mg - Labs Labs: 09/12/16 06:15 09/12/16 06:15 PT 13.8 SECONDS (9.7-12.2) H 09/03/16 04:12 INR 1.2 09/03/16 04:12 APTT 31 SECONDS (21-34) D 09/03/16 04:12 - Constitutional Appears: Non-toxic, No Acute Distress - Head Exam Head Exam: ATRAUMATIC, NORMAL INSPECTION, NORMOCEPHALIC - Eye Exam Eye Exam: EOMI - ENT Exam ENT Exam: Mucous Membranes Moist - Respiratory Exam Respiratory Exam: NORMAL BREATHING PATTERN. absent: Respiratory Distress - Cardiovascular Exam Cardiovascular Exam: +S1, +S2 - GI/Abdominal Exam GI & Abdominal Exam: Distended, Firm. absent: Tenderness - Exam Additional comments: Scrotal edema - Extremities Exam Extremities Exam: Full ROM, Pedal Edema - Neurological Exam Neurological Exam: Alert, Awake, Oriented x3 - Psychiatric Exam Psychiatric exam: Normal Affect, Normal Mood - Skin Skin Exam: Dry, Intact, Normal Color, Warm Assessment and Plan - Assessment and Plan (Free Text) Assessment: This is a 26 yo male admitted with 1. Pancreatitis Admit to ICU>>> pt transferred out of ICU CT abd/pelvis: f/u official report (unofficial read shows extensive inflammation of pancreas with fluid) ABXR: Possible free-air left hemidiaphragm. Alternatively this represents a normal stomach/gastric bubble. However, there is a clinical suspicion of free air on the CT scan of the abdomen advised (see full report) CXR: Free air suspected left hemidiaphragm. Findings discussed with attending physician with recommendation for follow-up CT (see full report) Pt now on heart healthy diet Zofran 4 mg IVP Q6H PRN Zosyn 3.375 mg q 8 day 7 Ativan 1 mg IVP q3 for withdrawal Activity dilaudid 1 q 4 for pain -lipase trending down -will start lasix 20 IV BID -will start spironolactone 50 daily 2. Urinary retention -nephrology consult. recs appreciated. -bladder scan shows post void residual 106.8 -nephrology notes slight siadh 3. Hyperglycemia Accuchecks ISS Monitor 4. Hyperkalemia resolved >> pt hypokalemic today, will replete and monitor 5. Hypomagnesemia resolved 6. Prophylactic measures - continue zofran prn -protonix 40 daily -lovenox 40 daily -thiamine 100 daily -encouraged to stop drinking -GI has signed off discussed with Dr. Mccoy <John Mccoy H - Last Filed: 09/12/16 17:56> Objective - Vital Signs/Intake and Output Vital Signs (last 24 hours): Temp Pulse Resp BP Pulse Ox 99.0 F 106 H 20 115/61 95 09/12/16 07:31 09/12/16 07:31 09/12/16 07:31 09/12/16 17:29 09/12/16 07:31 Intake and Output: 09/12/16 09/12/16 06:59 18:59 Intake Total 600 850 Output Total 3200 Balance 600 -2350 - Medications Medications: Current Medications Furosemide (Lasix) 20 mg IVP BID [facility] Hydromorphone HCl (Dilaudid) 1 mg IVP Q4H PRN PRN Reason: Pain, severe (8-10) Last Admin: 09/12/16 10:33 Dose: 1 mg Piperacillin Sod/Tazobactam (Sod 3.375 gm/ Sodium Chloride) 100 mls @ 200 mls/ hr IVPB Q8H [facility] Last Admin: 09/12/16 17:32 Dose: 200 mls/hr Insulin Human Regular (Novolin R) 0 unit SC ACHS [facility] PRN Reason: Protocol Last Admin: 09/12/16 17:28 Dose: Not Given Lorazepam (Ativan) 1 mg IVP Q3H PRN PRN Reason: withdrawal symptoms Ondansetron HCl (Zofran Inj) 4 mg IVP Q6H PRN PRN Reason: Nausea/Vomiting Last Admin: 09/07/16 23:08 Dose: 4 mg Pantoprazole Sodium (Protonix Inj) 40 mg IVP DAILY [facility] Last Admin: 09/12/16 10:31 Dose: 40 mg Spironolactone (Aldactone) 50 mg PO DAILY [facility] Last Admin: 09/12/16 14:17 Dose: 50 mg Thiamine HCl (Vitamin B1 Inj) 100 mg IV DAILY [facility] Last Admin: 09/12/16 10:32 Dose: 100 mg - Labs Labs: 09/12/16 06:15 09/12/16 06:15 PT 13.8 SECONDS (9.7-12.2) H 09/03/16 04:12 INR 1.2 09/03/16 04:12 APTT 31 SECONDS (21-34) D 09/03/16 04:12 Attending/Attestation - Attestation I have personally seen and examined this patient.: Yes I have fully participated in the care of the patient.: Yes I have reviewed all pertinent clinical information, including history, physical exam and plan: Yes Notes (Text): 09/12/16 17:50 Medical Attending: Patient was seen and examined by me. Agree with the above note by the medical biller/coder. Today I had a very long and mary conversation with the patient. He will likey be discharged soon. I emphasized to the patient that he is a very fourtunate 26 year old man - he is vinicio to have made it this far with the extensive drinking he has done. He says he won't drink but I was not convinced that he understood the gravity of the situation and made it clear to him that the next time he does this he will almost surely . Considering his jennifer critera score I think he's high risk of in the furture if he drinks. The patient still has some edema in the lower extremities as well around his scrotum. He asked why does he have that, and I frankly tell him that he has caused this to himself with poor nutrion and also liver damage (low protein albumin) We are giving lasix low dose, also aldactone. thank you John Mccoy
[2016-09-12 18:00] VITALS: PULSE 105; TEMP 99.5
[2016-09-12 21:55] VITALS: BP 115/69
--- NOTE | 2016-09-12 23:04 | CP.PCM.PN ---
Subjective - Date & Time of Evaluation Date of Evaluation: 09/12/16 Time of Evaluation: 22:00 - Subjective Subjective: Reports scrotal pain better; Objective - Vital Signs/Intake and Output Vital Signs (last 24 hours): Temp Pulse Resp BP Pulse Ox 99.5 F 105 H 20 115/69 95 09/12/16 15:10 09/12/16 15:10 09/12/16 15:10 09/12/16 18:00 09/12/16 15:10 Intake and Output: 09/12/16 09/13/16 18:59 06:59 Intake Total 850 Output Total 3200 Balance -2350 - Medications Medications: Current Medications Furosemide (Lasix) 20 mg IVP BID [facility] Last Admin: 09/12/16 18:00 Dose: 20 mg Hydromorphone HCl (Dilaudid) 1 mg IVP Q4H PRN PRN Reason: Pain, severe (8-10) Last Admin: 09/12/16 22:00 Dose: 1 mg Piperacillin Sod/Tazobactam (Sod 3.375 gm/ Sodium Chloride) 100 mls @ 200 mls/ hr IVPB Q8H [facility] Last Admin: 09/12/16 17:32 Dose: 200 mls/hr Insulin Human Regular (Novolin R) 0 unit SC ACHS [facility] PRN Reason: Protocol Last Admin: 09/12/16 21:57 Dose: Not Given Lorazepam (Ativan) 1 mg IVP Q3H PRN PRN Reason: withdrawal symptoms Ondansetron HCl (Zofran Inj) 4 mg IVP Q6H PRN PRN Reason: Nausea/Vomiting Last Admin: 09/07/16 23:08 Dose: 4 mg Pantoprazole Sodium (Protonix Inj) 40 mg IVP DAILY [facility] Last Admin: 09/12/16 10:31 Dose: 40 mg Spironolactone (Aldactone) 50 mg PO DAILY [facility] Last Admin: 09/12/16 14:17 Dose: 50 mg Thiamine HCl (Vitamin B1 Inj) 100 mg IV DAILY [facility] Last Admin: 09/12/16 10:32 Dose: 100 mg - Labs Labs: 09/12/16 06:15 09/12/16 06:15 PT 13.8 SECONDS (9.7-12.2) H 09/03/16 04:12 INR 1.2 09/03/16 04:12 APTT 31 SECONDS (21-34) D 09/03/16 04:12 - Constitutional Appears: No Acute Distress Assessment and Plan (1) Anasarca Status: Acute (2) Hyponatremia Status: Acute (3) Metabolic acidosis Status: Acute (4) Pancreatitis Status: Acute
== END 2016-09-13 09:30 | disposition home or self-care (01) | DRG 439 ==
LOC: C.ER 16:14 → C.9I 18:33 → C.3T 09-07 18:48
PROVIDERS: ADMIT Internal Medicine; ATTEND Internal Medicine
DX: K85.20 Alcohol induced acute pancreatitis without necrosis or infection (principal); J90 Pleural effusion, not elsewhere classified; N17.9 Acute kidney failure, unspecified; E22.2 Syndrome of inappropriate secretion of antidiuretic hormone; R18.8 Other ascites; K56.7 Ileus, unspecified; E83.42 Hypomagnesemia; F10.230 Alcohol dependence with withdrawal, uncomplicated; E83.51 Hypocalcemia; Y90.0 Blood alcohol level of less than 20 mg/100 ml; R73.9 Hyperglycemia, unspecified; E86.1 Hypovolemia; D64.89 Other specified anemias; N50.89 Other specified disorders of the male genital organs

== ENCOUNTER 2016-09-15 02:24 | Observation (INO) | payer SELFPAY ==
[2016-09-15] MEDS ORDERED: Sodium Chloride 0.9% 1,000 ML IV STA (02:42)
[2016-09-15 03:19] LABS: BASO # 0.1 K/uL (0.0-0.2); BASO % 0.8 % (0.0-2.0); EOS # 0.1 K/uL (0.0-0.7); EOS % 0.8 % (0.0-4.0); HEMATOCRIT 21.9 % (35.0-51.0); LYMPH # 1.4 K/uL (1.0-4.3); LYMPH % 14.7 % (20.0-40.0); MEAN CELL VOLUME 95.1 fL (80.0-94.0); MEAN CORPUSCULAR HEMOGLOBIN 32.6 pg (27.0-31.0); MEAN CORPUSCULAR HGB CONC 34.2 g/dL (33.0-37.0); MEAN PLATELET VOLUME 7.1 fL (7.2-11.7); MONO # 0.8 K/uL (0.0-0.8); MONO % 8.7 % (0.0-10.0); NRBC % 0.2 % (0.0-2.0); RED CELL DISTRIBUTION WIDTH 15.6 % (11.5-14.5); WHITE BLOOD COUNT 9.5 K/uL (4.8-10.8)
[2016-09-15] MEDS ORDERED: Sodium Chloride 0.9% 1,000 ML ONE (03:21)
[2016-09-15 03:25] LABS: CHLORIDE 96 mmol/L (98-107)
[2016-09-15 03:26] LABS: POTASSIUM 3.3 mmol/L (3.6-5.2); SODIUM 134 mmol/L (132-148)
[2016-09-15 03:29] LABS: ALB/GLOB RATIO 0.9 (1.0-2.1); ALKALINE PHOSPHATASE 62 U/L (38-126); AMYLASE 112 U/L (30-110); AST/SGOT 52 U/L (17-59); BILIRUBIN,TOTAL 0.8 mg/dL (0.2-1.3); BLOOD UREA NITROGEN 5 mg/dL (9-20); CARBON DIOXIDE 27 mmol/L (22-30); GFR AFRICAN-AMERICAN > 60; GLUCOSE,RANDOM 134 mg/dL (75-110); TOTAL PROTEIN 6.8 g/dL (6.3-8.3)
[2016-09-15 03:30] LABS: ALCOHOL SERUM < 10 mg/dl (0-10); ALT/SGPT 37 U/L (21-72)
[2016-09-15 03:59] LABS: RBC URINE < 1 /hpf (0-3); URINE BILIRUBIN NEGATIVE (NEGATIVE); URINE BLOOD NEGATIVE (NEGATIVE); URINE COLOR Yellow (YELLOW); URINE GLUCOSE (UA) 3+ mg/dL (Normal); URINE KETONE NEGATIVE (NEGATIVE); URINE LEUKOCYTE ESTERASE NEG Leu/uL (Negative); URINE PROTEIN NEGATIVE (NEGATIVE); URINE UROBILINOGEN NORMAL mg/dL (0.2-1.0); WBC URINE 1 /hpf (0-5)
[2016-09-15 04:08] LABS: VENOUS BLOOD GAS BASE EXCESS 5.1 mmol/L (0.0-2.0); VENOUS BLOOD GAS PCO2 34 mmHg (40-60); VENOUS BLOOD PH 7.52 (7.32-7.43)
--- NOTE | 2016-09-15 05:33 | C.PDOC ---
History Of Present Illness Patient is a 26 year old male who presents to the ER with a complaint of abdominal pain that began at 00:00. Patient was discharged a few days ago for acute ETOH pancreatitis. Denies fever, chills, nausea, and vomiting. Chief Complaint (Nursing): Abdominal Pain History Per: Patient History/Exam Limitations: no limitations Onset/Duration Of Symptoms: Hrs Current Symptoms Are (Timing): Still Present Location Of Pain/Discomfort: Diffuse Radiation Of Pain To:: None Quality Of Discomfort: Unable To Describe Associated Symptoms: denies: Fever, Chills, Nausea, Vomiting Exacerbating Factors: None Alleviating Factors: None Recent travel outside of the [place]: No Past Medical History Reviewed: Historical Data, Nursing Documentation, Vital Signs Vital Signs: Last Vital Signs Temp 99 F 09/15/16 02:34 Pulse 91 H 09/15/16 02:34 Resp 18 09/15/16 02:34 BP 105/68 09/15/16 02:34 Pulse Ox 99 09/15/16 05:33 - Medical History PMH: Pancreatitis Surgical History: No Surg Hx Family History: States: Unknown Family Hx - Social History Hx Alcohol Use: Yes (drinks daily) Hx Substance Use: No - Immunization History Hx Tetanus Toxoid Vaccination: No Hx Influenza Vaccination: No Hx Pneumococcal Vaccination: No Review Of Systems Constitutional: Negative for: Fever, Chills Gastrointestinal: Positive for: Abdominal Pain. Negative for: Nausea, Vomiting Physical Exam - Physical Exam Appears: Non-toxic Skin: Warm, Dry, Pale (anemic) Head: Atraumatic, Normacephalic Eye(s): bilateral: Conjunctiva Pale Oral Mucosa: Moist Chest: Symmetrical, No Tenderness Cardiovascular: Rhythm Regular, No Murmur Respiratory: Normal Breath Sounds, No Rales, No Rhonchi, No Wheezing Gastrointestinal/Abdominal: Soft, Tenderness (upper abdomen), Distention (upper abdomen), Guarding (upper abdomen) Extremity: Left: Atraumatic Neurological/Psych: Oriented x3, Normal Speech, Normal Cognition ED Course And Treatment - Laboratory Results Result Diagrams: 09/15/16 03:15 09/15/16 03:15 O2 Sat by Pulse Oximetry: 99 (Room air) Pulse Ox Interpretation: Normal Progress Note: Blood work ordered, results show presence of anemia. Pepcid IVP, protonix IVP, and IV fluids administered. Discussed patient with Dr. Hawkins, hospitalist on-call, who accepted patient to the medical floor for observation. Disposition - Disposition Referrals: Non [facility] Provider, [Primary Care Provider] - Disposition: HOSPITALIZED Disposition Time: 05:32 Condition: FAIR - Clinical Impression Clinical Impression: Abdominal pain, Pancreatitis, Anemia - Scribe Statement The provider has reviewed the documentation as recorded by the Scribrandi Pedroza All medical record entries made by the Scribe were at my direction and personally dictated by me. I have reviewed the chart and agree that the record accurately reflects my personal performance of the history, physical exam, medical decision making, and the department course for this patient. I have also personally directed, reviewed, and agree with the discharge instructions and disposition.
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
[2016-09-15 08:14] VITALS: RESP 20
[2016-09-15] MEDS ORDERED: Potassium Chloride 20 mEq ER Tab PO ONE (08:54)
[2016-09-16 08:00] LABS: CHLORIDE 101 mmol/L (98-107); SODIUM 137 mmol/L (132-148)
[2016-09-16 08:01] LABS: POTASSIUM 3.8 mmol/L (3.6-5.2)
[2016-09-16 08:03] LABS: ALB/GLOB RATIO 0.9 (1.0-2.1); ALKALINE PHOSPHATASE 60 U/L (38-126); ALT/SGPT 23 U/L (21-72); AST/SGOT 39 U/L (17-59); BILIRUBIN,TOTAL 0.9 mg/dL (0.2-1.3); BLOOD UREA NITROGEN 7 mg/dL (9-20); CALCIUM 8.4 mg/dl (8.6-10.4); CARBON DIOXIDE 26 mmol/L (22-30); GFR AFRICAN-AMERICAN > 60; GLUCOSE,RANDOM 89 mg/dL (75-110); TOTAL PROTEIN 6.9 g/dL (6.3-8.3)
[2016-09-16 08:08] LABS: BASO # 0.1 K/uL (0.0-0.2); BASO % 0.8 % (0.0-2.0); EOS # 0.1 K/uL (0.0-0.7); EOS % 1.1 % (0.0-4.0); HEMATOCRIT 24.7 % (35.0-51.0); LYMPH # 1.4 K/uL (1.0-4.3); LYMPH % 16.1 % (20.0-40.0); MEAN CELL VOLUME 96.3 fL (80.0-94.0); MEAN CORPUSCULAR HEMOGLOBIN 31.1 pg (27.0-31.0); MEAN CORPUSCULAR HGB CONC 32.3 g/dL (33.0-37.0); MEAN PLATELET VOLUME 7.1 fL (7.2-11.7); MONO # 0.7 K/uL (0.0-0.8); MONO % 7.7 % (0.0-10.0); NRBC % 0.2 % (0.0-2.0); RED CELL DISTRIBUTION WIDTH 15.8 % (11.5-14.5); WHITE BLOOD COUNT 8.8 K/uL (4.8-10.8)
--- NOTE | 2016-09-16 10:47 | CP.PCM.PN ---
Subjective - Date & Time of Evaluation Date of Evaluation: 09/16/16 Time of Evaluation: 10:00 - Subjective Subjective: This is a 26 year old male with a history of extremely heavy drinking and was recently discharged after he was found to have severe pancreatitis. He came back two days later and was found to have a very distended bladder and had to be straigh cath. After that he reported less abdominal pain. Today he is voiding on his own. He is also walking around in the hallway without any shortness of breath, denied chest pain, denied palpitations. We are going to give him a full liquid diet today. He previously had a lot of lower extremity edema and testicular swelling - this is resolved now. On lasix, aldactone I spoke with family - sister yesterday and explained and updated them. Patient was awake and alert. He looks very well at this time. Hopefully will DC tommorow. Objective - Vital Signs/Intake and Output Vital Signs (last 24 hours): Temp Pulse Resp BP Pulse Ox 98.4 F 82 20 113/72 97 09/16/16 08:29 09/16/16 08:29 09/16/16 08:29 09/16/16 08:29 09/16/16 08:29 Intake and Output: 09/16/16 09/16/16 06:59 18:59 Intake Total 0 Balance 0 - Medications Medications: Current Medications Heparin Sodium (Porcine) (Heparin) 5,000 units SC Q8 [facility] Last Admin: 09/16/16 06:51 Dose: 5,000 units Sodium Chloride (Sodium Chloride 0.9%) 1,000 mls @ 120 mls/hr IV .Q8H20M [facility] Morphine Sulfate (Morphine) 2 mg IVP Q4H PRN PRN Reason: Pain, moderate (4-7) Last Admin: 09/16/16 06:52 Dose: 2 mg Ondansetron HCl (Zofran Inj) 4 mg IVP Q6 PRN PRN Reason: Nausea/Vomiting Pantoprazole Sodium (Protonix Inj) 40 mg IVP Q12H [facility] Last Admin: 09/16/16 02:21 Dose: 40 mg - Labs Labs: 09/16/16 07:45 09/16/16 07:45 - Constitutional Appears: Well, Chronically Ill - Head Exam Head Exam: NORMAL INSPECTION, NORMOCEPHALIC - Eye Exam Eye Exam: EOMI, Normal appearance - ENT Exam ENT Exam: Mucous Membranes Moist - Respiratory Exam Respiratory Exam: Clear to Ausculation Bilateral, NORMAL BREATHING PATTERN - Cardiovascular Exam Cardiovascular Exam: REGULAR RHYTHM - GI/Abdominal Exam GI & Abdominal Exam: Distended, Soft, Normal Bowel Sounds Additional comments: Distended - this is NOT changed from before - Neurological Exam Neurological Exam: Alert, Awake, CN II-XII Intact, Normal Gait, Oriented x3 Neuro motor strength exam: Left Upper Extremity: 5, Right Upper Extremity: 5, Left Lower Extremity: 5, Right Lower Extremity: 5 - Psychiatric Exam Psychiatric exam: Normal Affect, Normal Mood - Skin Skin Exam: Normal Color, Warm Assessment and Plan - Assessment and Plan (Free Text) Assessment: Abdominal pain - recent severe pancreatic vs urinary retention 09/16: He is walking very well in the hallways. No pain and not short of breath and not the testicular and lower extremity swelling is resolved. When he came in was found to have distended bladder - and had to be straight cath. Since then he reports urinating ok on his own. Will try on full liquid diet today electrolyte imbalance * initial potassium 3.3 * replenish as needed ppx: * scd's contraindicated * zofran for nausea * protonix
[2016-09-16] MEDS: Sodium Chloride 0.9% 1,000 ML IV SCH ×2 (11:00→21:49)
[2016-09-17] MEDS: Sodium Chloride 0.9% 1,000 ML IV SCH (04:14)
[2016-09-17 07:34] LABS: BASO # 0.1 K/uL (0.0-0.2); BASO % 1.1 % (0.0-2.0); EOS # 0.1 K/uL (0.0-0.7); EOS % 1.1 % (0.0-4.0); HEMATOCRIT 23.4 % (35.0-51.0); LYMPH # 1.4 K/uL (1.0-4.3); LYMPH % 19.8 % (20.0-40.0); MEAN CELL VOLUME 96.5 fL (80.0-94.0); MEAN CORPUSCULAR HEMOGLOBIN 32.7 pg (27.0-31.0); MEAN CORPUSCULAR HGB CONC 33.9 g/dL (33.0-37.0); MEAN PLATELET VOLUME 6.9 fL (7.2-11.7); MONO # 0.5 K/uL (0.0-0.8); MONO % 6.7 % (0.0-10.0); NRBC % 0.1 % (0.0-2.0)
[2016-09-17 07:44] LABS: CHLORIDE 101 mmol/L (98-107)
[2016-09-17 07:45] LABS: SODIUM 136 mmol/L (132-148)
[2016-09-17 07:47] LABS: BILIRUBIN,TOTAL 0.8 mg/dL (0.2-1.3); CARBON DIOXIDE 25 mmol/L (22-30); GFR AFRICAN-AMERICAN > 60
[2016-09-17 07:48] LABS: ALB/GLOB RATIO 0.9 (1.0-2.1); ALKALINE PHOSPHATASE 63 U/L (38-126); ALT/SGPT 20 U/L (21-72); AST/SGOT 35 U/L (17-59); BLOOD UREA NITROGEN 5 mg/dL (9-20); CALCIUM 8.2 mg/dl (8.6-10.4); GLUCOSE,RANDOM 86 mg/dL (75-110); TOTAL PROTEIN 6.7 g/dL (6.3-8.3)
[2016-09-17 08:29] VITALS: BP 108/71; PULSE 89; TEMP 98.7; O2SAT 99
--- NOTE | 2016-09-17 11:36 | CP.PCM.DIS ---
<Lj Glaser - Last Filed: 09/17/16 11:40> Provider - Provider Date of Admission: 09/15/16 05:31 Attending physician: Dylan Hawkins MD Primary care physician: Non [facility] Provider Consults: None Time Spent in preparation of Discharge (in minutes): 45 Hospital Course - Lab Results Lab Results: Most Recent Lab Values WBC 7.0 K/uL (4.8-10.8) 09/17/16 07: RBC 2.43 Mil/uL (4.40-5.90) L 09/17/16 07:22 Hgb 7.9 g/dL (12.0-18.0) L 09/17/16 07:22 Hct 23.4 % (35.0-51.0) L 09/17/16 07:22 MCV 96.5 fL (80.0-94.0) H 09/17/16 07:22 MCH 32.7 pg (27.0-31.0) H 09/17/16 07:22 MCHC 33.9 g/dL (33.0-37.0) 09/17/16 07:22 RDW 16.0 % (11.5-14.5) H 09/17/16 07:22 Plt Count 503 K/uL (130-400) H 09/17/16 07:22 MPV 6.9 fL (7.2-11.7) L 09/17/16 07:22 Neut % (Auto) 71.3 % (50.0-75.0) 09/17/16 07: Lymph % (Auto) 19.8 % (20.0-40.0) L 09/17/16 07:22 [place] % (Auto) 6.7 % (0.0-10.0) 09/17/16 07:22 Eos % (Auto) 1.1 % (0.0-4.0) 09/17/16 07:22 Baso % (Auto) 1.1 % (0.0-2.0) 09/17/16 07:22 Neut # 5.0 K/uL (1.8-7.0) 09/17/16 07:22 Lymph # 1.4 K/uL (1.0-4.3) 09/17/16 07:22 [place] # 0.5 K/uL (0.0-0.8) 09/17/16 07:22 Eos # 0.1 K/uL (0.0-0.7) 09/17/16 07:22 Baso # 0.1 K/uL (0.0-0.2) 09/17/16 07:22 pO2 30 mm/Hg (30-55) 09/15/16 03:47 VBG pH 7.52 (7.32-7.43) H 09/15/16 03:47 VBG pCO2 34 mmHg (40-60) L 09/15/16 03:47 VBG HCO3 28.1 mmol/L 09/15/16 03:47 VBG Total CO2 28.8 mmol/L (22-28) H 09/15/16 03:47 VBG O2 Sat (Calc) 59.9 % (40-65) 09/15/16 03:47 VBG Base Excess 5.1 mmol/L (0.0-2.0) H 09/15/16 03:47 VBG Potassium 3.1 mmol/L (3.6-5.2) L 09/15/16 03:47 Sodium 137.0 mmol/l (132-148) 09/15/16 03:47 Chloride 105.0 mmol/L (98-107) 09/15/16 03:47 Glucose 126 mg/dl (75-110) H 09/15/16 03:47 Lactate 1.0 mmol/L (0.7-2.1) 09/15/16 03:47 Crit Value Called To Dr chung 09/15/16 03:47 Crit Value Called By Cynthia mariscal rt 09/15/16 03:47 Crit Value Read Back Y 09/15/16 03:47 Blood Gas Notified Time 409 09/15/16 03:47 Sodium 136 mmol/L (132-148) 09/17/16 07:22 Potassium 4.0 mmol/L (3.6-5.2) 09/17/16 07:22 Chloride 101 mmol/L (98-107) 09/17/16 07:22 Carbon Dioxide 25 mmol/L (22-30) 09/17/16 07:22 Anion Gap 14 (10-20) 09/17/16 07:22 BUN 5 mg/dL (9-20) L 09/17/16 07:22 Creatinine 0.7 MG/DL (0.8-1.5) L 09/17/16 07:22 Est GFR ( Amer) > 60 09/17/16 07:22 Est GFR (Non-Af Amer) > 60 09/17/16 07:22 Random Glucose 86 mg/dL (75-110) 09/17/16 07:22 Calcium 8.2 mg/dl (8.6-10.4) L 09/17/16 07:22 Total Bilirubin 0.8 mg/dL (0.2-1.3) 09/17/16 07:22 AST 35 U/L (17-59) 09/17/16 07:22 ALT 20 U/L (21-72) L 09/17/16 07:22 Alkaline Phosphatase 63 U/L (38-126) 09/17/16 07:22 Total Protein 6.7 g/dL (6.3-8.3) 09/17/16 07:22 Albumin 3.2 g/dL (3.5-5.0) L 09/17/16 07:22 Globulin 3.5 gm/dL (2.2-3.9) 09/17/16 07:22 Albumin/Globulin Ratio 0.9 (1.0-2.1) L 09/17/16 07:22 Amylase 112 U/L (30-110) H 09/15/16 03:15 Lipase 1093 U/L (23-300) H 09/15/16 03:15 Venous Blood Potassium 3.1 mmol/L (3.6-5.2) L 09/15/16 03:47 Urine Color Yellow (YELLOW) 09/15/16 03:53 Urine Clarity Clear (Clear) 09/15/16 03:53 Urine pH 9.0 (5.0-8.0) 09/15/16 03:53 Ur Specific [place] 1.003 (1.003-1.030) 09/15/16 03:53 Urine Protein Negative mg/dL (NEGATIVE) 09/15/16 03:53 Urine Glucose (UA) 3+ mg/dL (Normal) H 09/15/16 03:53 Urine Ketones Negative mg/dL (NEGATIVE) 09/15/16 03:53 Urine Blood Negative (NEGATIVE) 09/15/16 03:53 Urine Nitrate Negative (NEGATIVE) 09/15/16 03:53 Urine Bilirubin Negative (NEGATIVE) 09/15/16 03:53 Urine Urobilinogen Normal mg/dL (0.2-1.0) 09/15/16 03:53 Ur Leukocyte Esterase Neg [place]/uL (Negative) 09/15/16 03:53 Urine WBC (Auto) 1 /hpf (0-5) 09/15/16 03:53 Urine RBC (Auto) < 1 /hpf (0-3) 09/15/16 03:53 Urine Opiates Screen Negative (NEGATIVE) 09/15/16 03:53 Urine Methadone Screen Negative (NEGATIVE) 09/15/16 03:53 Ur Barbiturates Screen Negative (NEGATIVE) 09/15/16 03:53 Ur Phencyclidine Scrn Negative (NEGATIVE) 09/15/16 03:53 Ur Amphetamines Screen Negative (NEGATIVE) 09/15/16 03:53 U Benzodiazepines Scrn Negative (NEGATIVE) 09/15/16 03:53 U Oth Cocaine Metabols Negative (NEGATIVE) 09/15/16 03:53 U Cannabinoids Screen Negative (NEGATIVE) 09/15/16 03:53 Alcohol, Quantitative < 10 mg/dl (0-10) 09/15/16 03:15 Blood Type O POSITIVE 09/15/16 15:04 Antibody Screen Negative 09/15/16 15:04 - Hospital Course Hospital Course: Attending: Dr. Mccoy Admit date: 09/15/16 DC date: 09/17/16 Consults: none Discharge dx: 1. Distended bladder/urinary retention 2. Abd pain 3. Hypokalemia 4. Alcohol abuse Procedures- none No complications Stable for discharge HPI: see h/p Lab data: see lab sections Hospital course 26 M with past medical hx of alcohol abuse presents to [facility] ER with abdominal pain. He states he was laying in bed and suddenly developed lower abdominal pain. He described it as a sharp stabbing pain just above the groin and on his sides. He denies any nausea, or vomiting but did pass gas and watery stool in the evening. He denies any difficulty defecating and no blood or strange colors. He says that his stomach is more distended than before. He reports only eating a banana, apple and milk last night. He had not been eating greasy foods or meat or drinking alcoholic beverages. He reports being able to void without pain or bleeding. He denies any fevers, chills, chest pain, SOB, headache, or weakness. Urine drug screen was negative. Alcohol level was less than 10. Pt was straight catheterized and urine drained. He was placed on IV fluids and morphine for pain. K was repleted. He was given heparin for DVT ppx as well as zofran and protonix for GI ppx. Pt's leg edema has significantly improved as well as his scrotal edema. On day of discharge pt was able to walk around, no trouble breathing, labs were improved, and pt feeling well. Discharge meds 1. Lasix 20 mg PO daily 2. spironolactone 50 mg PO daily 3. Protonix 40 mg PO daily 4. Thiamine 100 mg PO daily Discharge instructions 1. Pt medically stable for discharge. Please return if condition worsens. Pt to follow up in [facility] downstairs in basement in 1 week. - Date & Time of H&P Date of H&P: 09/15/16 Time of H&P: 06:25 Discharge Exam - Head Exam Head Exam: NORMAL INSPECTION, NORMOCEPHALIC - Eye Exam Eye Exam: EOMI - ENT Exam ENT Exam: Mucous Membranes Moist - Neck Exam Neck exam: Full Rom, Normal Inspection - Respiratory Exam Respiratory Exam: NORMAL BREATHING PATTERN, UNREMARKABLE - Cardiovascular Exam Cardiovascular Exam: +S1, +S2 - GI/Abdominal Exam GI & Abdominal Exam: Distended, Firm Additional comments: Positive scrotal edema - Extremities Exam Extremities exam: full ROM, normal inspection - Neurological Exam Neurological exam: Alert, Normal Gait, Oriented x3 - Psychiatric Exam Psychiatric exam: Normal Affect, Normal Mood - Skin Skin Exam: Dry, Intact, Normal Color, Warm Discharge Plan - Discharge Medications Prescriptions: Furosemide [Lasix] 20 mg PO DAILY #30 tablet Pantoprazole [Protonix] 40 mg PO DAILY #30 ect Spironolactone 50 mg PO DAILY #30 tablet Thiamine [Vitamin B1 Tab] 100 mg PO DAILY #30 tab - Follow Up Plan Condition: STABLE Disposition: HOME/ ROUTINE Instructions: Spironolactone (By mouth), Furosemide (By mouth), Thiamine ( Vitamin B-1) (By mouth), Pantoprazole (By mouth), Pancreatitis (DC), Acute Abdominal Pain (DC), Anemia (DC) Additional Instructions: Pt is medically stable for discharge. Pt to follow up in [facility] downstairs in basement within 1 week. Please return if condition worsens. Referrals: Non [facility] Provider, [Primary Care Provider] - Preeti Pulido MD [Staff Provider] - <John Mccoy - Last Filed: 09/17/16 17:21> Provider - Provider Date of Admission: 09/15/16 05:31 Attending physician: Dylan Hawkins MD Primary care physician: Non [facility] Provider Hospital Course - Lab Results Lab Results: Most Recent Lab Values WBC 7.0 K/uL (4.8-10.8) 09/17/16 07: RBC 2.43 Mil/uL (4.40-5.90) L 09/17/16 07:22 Hgb 7.9 g/dL (12.0-18.0) L 09/17/16 07:22 Hct 23.4 % (35.0-51.0) L 09/17/16 07:22 MCV 96.5 fL (80.0-94.0) H 09/17/16 07:22 MCH 32.7 pg (27.0-31.0) H 09/17/16 07:22 MCHC 33.9 g/dL (33.0-37.0) 09/17/16 07:22 RDW 16.0 % (11.5-14.5) H 09/17/16 07:22 Plt Count 503 K/uL (130-400) H 09/17/16 07:22 MPV 6.9 fL (7.2-11.7) L 09/17/16 07:22 Neut % (Auto) 71.3 % (50.0-75.0) 09/17/16 07:22 Lymph % (Auto) 19.8 % (20.0-40.0) L 09/17/16 07:22 [place] % (Auto) 6.7 % (0.0-10.0) 09/17/16 07:22 Eos % (Auto) 1.1 % (0.0-4.0) 09/17/16 07:22 Baso % (Auto) 1.1 % (0.0-2.0) 09/17/16 07:22 Neut # 5.0 K/uL (1.8-7.0) 09/17/16 07:22 Lymph # 1.4 K/uL (1.0-4.3) 09/17/16 07:22 [place] # 0.5 K/uL (0.0-0.8) 09/17/16 07:22 Eos # 0.1 K/uL (0.0-0.7) 09/17/16 07:22 Baso # 0.1 K/uL (0.0-0.2) 09/17/16 07:22 pO2 30 mm/Hg (30-55) 09/15/16 03:47 VBG pH 7.52 (7.32-7.43) H 09/15/16 03:47 VBG pCO2 34 mmHg (40-60) L 09/15/16 03:47 VBG HCO3 28.1 mmol/L 09/15/16 03:47 VBG Total CO2 28.8 mmol/L (22-28) H 09/15/16 03:47 VBG O2 Sat (Calc) 59.9 % (40-65) 09/15/16 03:47 VBG Base Excess 5.1 mmol/L (0.0-2.0) H 09/15/16 03:47 VBG Potassium 3.1 mmol/L (3.6-5.2) L 09/15/16 03:47 Sodium 137.0 mmol/l (132-148) 09/15/16 03:47 Chloride 105.0 mmol/L (98-107) 09/15/16 03:47 Glucose 126 mg/dl (75-110) H 09/15/16 03:47 Lactate 1.0 mmol/L (0.7-2.1) 09/15/16 03:47 Crit Value Called To Dr chung 09/15/16 03:47 Crit Value Called By Cynthia mariscal rt 09/15/16 03:47 Crit Value Read Back Y 09/15/16 03:47 Blood Gas Notified Time 409 09/15/16 03:47 Sodium 136 mmol/L (132-148) 09/17/16 07:22 Potassium 4.0 mmol/L (3.6-5.2) 09/17/16 07:22 Chloride 101 mmol/L (98-107) 09/17/16 07:22 Carbon Dioxide 25 mmol/L (22-30) 09/17/16 07:22 Anion Gap 14 (10-20) 09/17/16 07:22 BUN 5 mg/dL (9-20) L 09/17/16 07:22 Creatinine 0.7 MG/DL (0.8-1.5) L 09/17/16 07:22 Est GFR ( Amer) > 60 09/17/16 07:22 Est GFR (Non-Af Amer) > 60 09/17/16 07:22 Random Glucose 86 mg/dL (75-110) 09/17/16 07:22 Calcium 8.2 mg/dl (8.6-10.4) L 09/17/16 07:22 Total Bilirubin 0.8 mg/dL (0.2-1.3) 09/17/16 07:22 AST 35 U/L (17-59) 09/17/16 07:22 ALT 20 U/L (21-72) L 09/17/16 07:22 Alkaline Phosphatase 63 U/L (38-126) 09/17/16 07:22 Total Protein 6.7 g/dL (6.3-8.3) 09/17/16 07:22 Albumin 3.2 g/dL (3.5-5.0) L 09/17/16 07:22 Globulin 3.5 gm/dL (2.2-3.9) 09/17/16 07:22 Albumin/Globulin Ratio 0.9 (1.0-2.1) L 09/17/16 07:22 Amylase 112 U/L (30-110) H 09/15/16 03:15 Lipase 1093 U/L (23-300) H 09/15/16 03:15 Venous Blood Potassium 3.1 mmol/L (3.6-5.2) L 09/15/16 03:47 Urine Color Yellow (YELLOW) 09/15/16 03:53 Urine Clarity Clear (Clear) 09/15/16 03:53 Urine pH 9.0 (5.0-8.0) 09/15/16 03:53 Ur Specific [place] 1.003 (1.003-1.030) 09/15/16 03:53 Urine Protein Negative mg/dL (NEGATIVE) 09/15/16 03:53 Urine Glucose (UA) 3+ mg/dL (Normal) H 09/15/16 03:53 Urine Ketones Negative mg/dL (NEGATIVE) 09/15/16 03:53 Urine Blood Negative (NEGATIVE) 09/15/16 03:53 Urine Nitrate Negative (NEGATIVE) 09/15/16 03:53 Urine Bilirubin Negative (NEGATIVE) 09/15/16 03:53 Urine Urobilinogen Normal mg/dL (0.2-1.0) 09/15/16 03:53 Ur Leukocyte Esterase Neg [place]/uL (Negative) 09/15/16 03:53 Urine WBC (Auto) 1 /hpf (0-5) 09/15/16 03:53 Urine RBC (Auto) < 1 /hpf (0-3) 09/15/16 03:53 Urine Opiates Screen Negative (NEGATIVE) 09/15/16 03:53 Urine Methadone Screen Negative (NEGATIVE) 09/15/16 03:53 Ur Barbiturates Screen Negative (NEGATIVE) 09/15/16 03:53 Ur Phencyclidine Scrn Negative (NEGATIVE) 09/15/16 03:53 Ur Amphetamines Screen Negative (NEGATIVE) 09/15/16 03:53 U Benzodiazepines Scrn Negative (NEGATIVE) 09/15/16 03:53 U Oth Cocaine Metabols Negative (NEGATIVE) 09/15/16 03:53 U Cannabinoids Screen Negative (NEGATIVE) 09/15/16 03:53 Alcohol, Quantitative < 10 mg/dl (0-10) 09/15/16 03:15 Blood Type O POSITIVE 09/15/16 15:04 Antibody Screen Negative 09/15/16 15:04 Attending/Attestation - Attestation I have personally seen and examined this patient.: Yes I have fully participated in the care of the patient.: Yes I have reviewed all pertinent clinical information, including history, physical exam and plan: Yes Notes (Text): 09/17/16 17:19 Medical Attending: Patient was seen and examined by me. Agree with the above note by the resident. Yesterday I had him walk around with us and we did the same thing again this morning. He did not have chest pain or shortness of breath or palpitations as he walked with us. He tolerated diet. He also reported bathroom was ok - we asked him reptedly if he was emptying his bladder and he said yes. He is aware he has to stop drinking alcohol. He is young and hopefully has a long life aheaded of him if he can stop I spoke with the patient's family and sister yesterday for a long time as well. They need to stop him from leaving the house to drink with his friends. He needs to be on lasix and aldactone John Mccoy
== END 2016-09-17 13:40 | disposition home or self-care (01) ==
LOC: C.ER 02:24 → SUPCPDRO 02:24 → C.3T 05:31
PROVIDERS: ADMIT Internal Medicine; ATTEND Internal Medicine
DX: R33.9 Retention of urine, unspecified (principal); N32.89 Other specified disorders of bladder; E87.6 Hypokalemia
CPT/HCPCS: 36415; 80053; 81001; 82150; 82803; 83690; 85025; 86850; 86900; 96361; 96372; 96374; 96375; 96376; 99285; C9113; G0378; G0480; J1644; J2270; J7040

== ENCOUNTER 2018-04-07 20:06 | Inpatient (IN) | payer MEDICAID, OTHER ==
[2018-04-07] MEDS ORDERED: Sodium Chloride 0.9% 1,000 ML IV ONE (20:36)
--- NOTE | 2018-04-07 20:36 | C.PDOC ---
History Of Present Illness 28 year old male presents to the ER with a complaint of epigastric pain that began today. Patient reports the pain is localized and constant. He has a Hx of prior pancreatitis but states the current pain is "not as bad as that". Last ETOH use was 2 days ago. Pain is associated with nausea and vomiting. No hematemesis, fever, or other associated symptoms. EPIG PAIN SINCE TODAY. LOCALIZED CONSTANT. HO PRIOR PANCREATITIS BUT STATES CURRENT PAIN "NOT BAD THAT". LAST ETOH 2 DAYS AGO. +NV, NO BLOOD. NO OTHER ASSOC SX. NO FEVER EXAM MILD DIST NONTOXIC HEENT ANICERTIC MMM ABD +MILD EPIG TEND SOFT NO R/G REMAINDER NEG Time Seen by Provider: 04/07/18 20:23 Chief Complaint (Nursing): Abdominal Pain History Per: Patient History/Exam Limitations: no limitations Onset/Duration Of Symptoms: Hrs Current Symptoms Are (Timing): Still Present Location Of Pain/Discomfort: Epigastric Quality Of Discomfort: Unable To Describe Associated Symptoms: Nausea, Vomiting. denies: Fever, Other (Hematemesis) Exacerbating Factors: None Alleviating Factors: None Recent travel outside of the [place]: No Past Medical History Reviewed: Historical Data, Nursing Documentation, Vital Signs Vital Signs: Last Vital Signs Temp 98.3 F 04/07/18 20:13 Pulse 82 04/07/18 20:13 Resp 14 04/07/18 20:13 BP 148/97 H 04/07/18 20:13 Pulse Ox 100 04/07/18 20:13 - Medical History PMH: Pancreatitis Denies: Chronic Kidney Disease Family History: States: Unknown Family Hx - Social History Hx Alcohol Use: Yes Hx Substance Use: No - Immunization History Hx Tetanus Toxoid Vaccination: No Hx Influenza Vaccination: No Hx Pneumococcal Vaccination: No Review Of Systems Except As Marked, All Systems Reviewed And Found Negative. Constitutional: Negative for: Fever Gastrointestinal: Positive for: Nausea, Vomiting, Abdominal Pain. Negative for: Hematemesis Physical Exam - Physical Exam Appears: Non-toxic, Other (Mild distress) Skin: Normal Color, Warm, Dry Head: Atraumatic, Normacephalic Eye(s): bilateral: Normal Inspection (Anicteric) Oral Mucosa: Moist Neck: Normal, Supple Chest: Symmetrical, No Tenderness Cardiovascular: Rhythm Regular Respiratory: Normal Breath Sounds, No Rales, No Rhonchi, No Wheezing Gastrointestinal/Abdominal: Soft, Tenderness (Mild epigastric), No Guarding, No Rebound Back: No CVA Tenderness Neurological/Psych: Oriented x3, Normal Speech ED Course And Treatment - Laboratory Results Result Diagrams: 04/07/18 21:01 04/07/18 21:01 O2 Sat by Pulse Oximetry: 100 (Room air) Pulse Ox Interpretation: Normal Progress - Re-Evaluation Re-evaluation Note: 04/07/18 23:01 D/W DR FLYNN WILL ADMIT - Data Reviewed Data Reviewed: Lab, Diagnostic imaging, Old records Medical Decision Making Medical Decision Making: Plan: * CT abd/pel * Blood work * Urinalysis * IV fluids * Morphine * Pepcid * Protonix * Zofran Disposition Counseled Patient/Family Regarding: Studies Performed, Diagnosis - Disposition Disposition: HOSPITALIZED Disposition Time: 23:01 Condition: SERIOUS Forms: [facility] (Korean) - POA Present On Arrival: None - Clinical Impression Clinical Impression: Pancreatitis - Scribe Statement The provider has reviewed the documentation as recorded by the Scribrandi Pedroza All medical record entries made by the Joseibrandi were at my direction and personally dictated by me. I have reviewed the chart and agree that the record accurately reflects my personal performance of the history, physical exam, medical decision making, and the department course for this patient. I have also personally directed, reviewed, and agree with the discharge instructions and disposition.
[2018-04-07] MEDS ORDERED: Sodium Chloride 0.9% 1,000 ML ONE (21:06)
[2018-04-07 21:13] LABS: BASO % 0.3 % (0.0-2.0); EOS % 0.4 % (0.0-4.0); LYMPH # 1.5 K/uL (1.0-4.3); LYMPH % 12.3 % (20.0-40.0); MEAN CORPUSCULAR HEMOGLOBIN 30.2 pg (27.0-31.0); MEAN CORPUSCULAR HGB CONC 33.7 g/dL (33.0-37.0); MONO # 0.7 K/uL (0.0-0.8); MONO % 5.6 % (0.0-10.0); NEUT % 81.4 % (50.0-75.0); NRBC % 0.1 % (0.0-2.0); RBC 5.53 Mil/uL (4.40-5.90); RED CELL DISTRIBUTION WIDTH 13.7 % (11.5-14.5)
[2018-04-07 21:20] LABS: HEMOGLOBIN 16.7 g/dL (12.0-18.0); MEAN CELL VOLUME 89.6 fL (80.0-94.0); WHITE BLOOD COUNT 12.3 K/uL (4.8-10.8)
[2018-04-07 21:23] LABS: ALB/GLOB RATIO 1.6 (1.0-2.1); ALT/SGPT 51 U/L (21-72); AST/SGOT 58 U/L (17-59); BLOOD UREA NITROGEN 11 mg/dL (9-20); CALCIUM 9.5 mg/dl (8.6-10.4); GFR NON-AFRICAN AMERICAN > 60; LIPASE 737 U/L (23-300)
[2018-04-07 21:34] LABS: SQUAMOUS EPITHIAL < 1 /hpf (0-5); URINE BACTERIA RARE (<OCC); URINE BILIRUBIN NEGATIVE (NEGATIVE); URINE BLOOD 1+ (NEGATIVE); URINE CLARITY Clear (Clear); URINE COLOR Yellow (YELLOW); URINE GLUCOSE (UA) 1+ mg/dL (Normal); URINE LEUKOCYTE ESTERASE NEG Leu/uL (Negative); URINE PROTEIN 1+ mg/dL (NEGATIVE); URINE UROBILINOGEN NORMAL mg/dL (0.2-1.0)
[2018-04-07] MEDS ORDERED: Iodixanol 320 MG/ML 100 ML BOTTLE IV ONE (22:02)
[2018-04-07] MEDS ORDERED: Morphine 4 MG/ML VIAL IV ONE (23:13)
[2018-04-07] MEDS ORDERED: Morphine 4 MG/ML VIAL ONE (23:22)
[2018-04-08 00:56] VITALS: RESP 20
--- NOTE | 2018-04-08 02:27 | CP.PCM.HP ---
<Nick Barrera - Last Filed: 04/08/18 06:28> History of Present Illness - History of Present Illness History of Present Illness: PGY-1 H&P note for Dr Amaro cc: epigastric pain HPI: patient is a 28 year old male with no significant past medical history that came to ED for upper abdominal pain that started @ 1pm the day before. Patient admits to having this pain, but located on the lower abdominal area, about a year ago and being admitted to the hospital. Patient states the pa in feels like a sharp pain, 8/10, localized to the epigastric area, non radiating to the back or shoulders. Pain gets worse with movement or when patient sneezes or coughs. Patient took one tylenol at home for pain but had no relief. Patient admits having drink 1 pint of vodka and Henessy last weekend from Saturday until Saturday. Denies pain with eating food. Patient denies fevers, chills, chest pain, shortness of breath, n/v/d/c, urinary symptoms, or blood in the stools or urine. PMD: none All: denies Pmhx: None Shx: none Fmhx: non contributory Sochx: admits to drinking 1 pint of vodka and Henessy on Saturday, saturday and saturday every weekend. Patient admits to smoking one cigarette a day. Denies illicit drug use. 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 Lives with family Present on Admission - Present on Admission Any Indicators Present on Admission: No Review of Systems - Review of Systems All systems: reviewed and no additional remarkable complaints except Review of Systems: as mentioned in HPI Past Patient History - Infectious Disease Hx of Infectious Diseases: None - Past Medical History & Family History Past Medical History?: Yes - Past Social History Smoking Status: Never Smoked - CARDIAC Hx Cardiac Disorders: No - PULMONARY Hx Respiratory Disorders: No - NEUROLOGICAL Hx Neurological Disorder: No - HEENT Hx HEENT Problems: No - RENAL Hx Chronic Kidney Disease: No - ENDOCRINE/METABOLIC Hx Endocrine Disorders: No - HEMATOLOGICAL/ONCOLOGICAL Hx Blood Disorders: No - INTEGUMENTARY Hx Dermatological Problems: No - MUSCULOSKELETAL/RHEUMATOLOGICAL Hx Falls: Yes (as a child-while playing) - GASTROINTESTINAL Hx Pancreatitis: Yes - GENITOURINARY/GYNECOLOGICAL Hx Genitourinary Disorders: No - PSYCHIATRIC Hx Substance Use: No - SURGICAL HISTORY Hx Surgeries: No - ANESTHESIA Hx Anesthesia: No Hx Anesthesia Reactions: No Hx Malignant Hyperthermia: No Meds Allergies/Adverse Reactions: Allergies Allergy/AdvReac Type Severity Reaction Status Date / Time No Known Allergies Allergy Verified 09/15/16 02:33 Physical Exam - Constitutional Appears: Well, Non-toxic, No Acute Distress - Head Exam Head Exam: ATRAUMATIC, NORMAL INSPECTION, NORMOCEPHALIC - Eye Exam Eye Exam: EOMI, Normal appearance, PERRL Pupil Exam: NORMAL ACCOMODATION, PERRL - ENT Exam ENT Exam: Mucous Membranes Moist, Normal Exam - Neck Exam Neck exam: Positive for: Normal Inspection - Respiratory Exam Respiratory Exam: Clear to Auscultation Bilateral, NORMAL BREATHING PATTERN. absent: Rales, Rhonchi, Wheezes - Cardiovascular Exam Cardiovascular Exam: REGULAR RHYTHM, +S1, +S2 - GI/Abdominal Exam GI & Abdominal Exam: Normal Bowel Sounds, Tenderness. absent: Guarding, Rebound Additional comments: RUQ tenderness to superficial palpation diffuse tenderness on deep palpation - Extremities Exam Extremities exam: Positive for: normal inspection. Negative for: calf tenderness, full ROM, pedal edema, tenderness - Back Exam Back exam: NORMAL INSPECTION. absent: CVA tenderness (L), CVA tenderness (R), paraspinal tenderness, tenderness - Neurological Exam Neurological exam: Alert, CN II-XII Intact, Oriented x3 - Psychiatric Exam Psychiatric exam: Normal Affect, Normal Mood - Skin Skin Exam: Dry, Intact, Normal Color, Warm Additional comments: healed cuts in both dorsal and lateral side right and left hand Results - Vital Signs Recent Vital Signs: Last Vital Signs Temp 98.9 F 04/08/18 00:35 Pulse 93 H 04/08/18 00:35 Resp 20 04/08/18 00:35 BP 138/90 04/08/18 00:35 Pulse Ox 99 04/08/18 00:35 - Labs Result Diagrams: 04/07/18 21:01 04/07/18 21:01 Labs: Laboratory Results - last 24 hr 04/07/18 04/07/18 04/07/18 21:01 21:01 21:01 WBC 12.3 H D RBC 5.53 Hgb 16.7 D Hct 49.6 MCV 89.6 D MCH 30.2 MCHC 33.7 RDW 13.7 Plt Count 294 D MPV 7.0 L Neut % (Auto) 81.4 H Lymph % (Auto) 12.3 L [place] % (Auto) 5.6 Eos % (Auto) 0.4 Baso % (Auto) 0.3 Neut # (Auto) 10.0 H Lymph # (Auto) 1.5 [place] # (Auto) 0.7 Eos # (Auto) 0.0 Baso # (Auto) 0.0 Sodium 135 Potassium 3.7 Chloride 93 L Carbon Dioxide 26 Anion Gap 19 BUN 11 Creatinine 0.7 L Est GFR ( Amer) > 60 Est GFR (Non-Af Amer) > 60 Random Glucose 101 Calcium 9.5 Total Bilirubin 1.0 AST 58 ALT 51 Alkaline Phosphatase 65 Total Protein 8.3 Albumin 5.0 D Globulin 3.2 Albumin/Globulin Ratio 1.6 Lipase 737 H Urine Color Yellow Urine Clarity Clear Urine pH 5.0 Ur Specific [place] 1.027 Urine Protein 1+ H Urine Glucose (UA) 1+ H Urine Ketones Negative Urine Blood 1+ H Urine Nitrate Negative Urine Bilirubin Negative Urine Urobilinogen Normal Ur Leukocyte Esterase Neg Urine WBC (Auto) 1 Urine RBC (Auto) 1 Ur Squamous Epith Cells < 1 Urine Bacteria Rare Alcohol, Quantitative 04/07/18 21:01 WBC RBC Hgb Hct MCV MCH MCHC RDW Plt Count MPV Neut % (Auto) Lymph % (Auto) [place] % (Auto) Eos % (Auto) Baso % (Auto) Neut # (Auto) Lymph # (Auto) [place] # (Auto) Eos # (Auto) Baso # (Auto) Sodium Potassium Chloride Carbon Dioxide Anion Gap BUN Creatinine Est GFR ( Amer) Est GFR (Non-Af Amer) Random Glucose Calcium Total Bilirubin AST ALT Alkaline Phosphatase Total Protein Albumin Globulin Albumin/Globulin Ratio Lipase Urine Color Urine Clarity Urine pH Ur Specific [place] Urine Protein Urine Glucose (UA) Urine Ketones Urine Blood Urine Nitrate Urine Bilirubin Urine Urobilinogen Ur Leukocyte Esterase Urine WBC (Auto) Urine RBC (Auto) Ur Squamous Epith Cells Urine Bacteria Alcohol, Quantitative < 10 Assessment & Plan - Assessment and Plan (Free Text) Plan: Pancreatitis 2/2 alcohol abuse - CT: there is either inflammatory changes surrouding the head of pancreas or motion artifact - Lipase 732 - WBC: 12.3 - GI consult: Dr Stephenson - help is appreciated - IVF @ 200cc/mls - NPO - Famotidine 20mg BID - Zofran 40mg IVP QD PRN for nausea - Morphine Q4hr PRN for pain - Am labs hx of alcohol abuse - UDS- f/u - Psych consult - Dr Hernadez, help is appreciated Prophylaxis - DVT: SCDs - NPO diet Plan discussed with Dr Sondra Barrera, PGY-1 - Date & Time Date: 04/08/18 Time: 02:00 <Alf Amaro - Last Filed: 04/08/18 19:10> Results - Vital Signs Recent Vital Signs: Last Vital Signs Temp 98 F 04/08/18 15:37 Pulse 68 04/08/18 15:37 Resp 20 04/08/18 15:37 BP 130/88 04/08/18 15:37 Pulse Ox 95 04/08/18 15:37 - Labs Result Diagrams: 04/08/18 06:18 04/08/18 06:18 Labs: Laboratory Results - last 24 hr 04/07/18 04/07/18 04/07/18 21:01 21:01 21:01 WBC 12.3 H D RBC 5.53 Hgb 16.7 D Hct 49.6 MCV 89.6 D MCH 30.2 MCHC 33.7 RDW 13.7 Plt Count 294 D MPV 7.0 L Neut % (Auto) 81.4 H Lymph % (Auto) 12.3 L [place] % (Auto) 5.6 Eos % (Auto) 0.4 Baso % (Auto) 0.3 Neut # (Auto) 10.0 H Lymph # (Auto) 1.5 [place] # (Auto) 0.7 Eos # (Auto) 0.0 Baso # (Auto) 0.0 Sodium 135 Potassium 3.7 Chloride 93 L Carbon Dioxide 26 Anion Gap 19 BUN 11 Creatinine 0.7 L Est GFR ( Amer) > 60 Est GFR (Non-Af Amer) > 60 Random Glucose 101 Calcium 9.5 Phosphorus Magnesium Total Bilirubin 1.0 AST 58 ALT 51 Alkaline Phosphatase 65 Total Protein 8.3 Albumin 5.0 D Globulin 3.2 Albumin/Globulin Ratio 1.6 Lipase 737 H Urine Color Yellow Urine Clarity Clear Urine pH 5.0 Ur Specific [place] 1.027 Urine Protein 1+ H Urine Glucose (UA) 1+ H Urine Ketones Negative Urine Blood 1+ H Urine Nitrate Negative Urine Bilirubin Negative Urine Urobilinogen Normal Ur Leukocyte Esterase Neg Urine WBC (Auto) 1 Urine RBC (Auto) 1 Ur Squamous Epith Cells < 1 Urine Bacteria Rare Urine Opiates Screen Urine Methadone Screen Ur Barbiturates Screen Ur Phencyclidine Scrn Ur Amphetamines Screen U Benzodiazepines Scrn U Oth Cocaine Metabols U Cannabinoids Screen Alcohol, Quantitative 04/07/18 04/08/18 04/08/18 21:01 06:18 06:18 WBC 10.6 RBC 5.18 Hgb 16.1 Hct 47.1 MCV 90.9 MCH 31.1 H MCHC 34.2 RDW 13.5 Plt Count 224 MPV 7.3 Neut % (Auto) 83.8 H Lymph % (Auto) 10.2 L [place] % (Auto) 5.3 Eos % (Auto) 0.5 Baso % (Auto) 0.2 Neut # (Auto) 8.8 H Lymph # (Auto) 1.1 [place] # (Auto) 0.6 Eos # (Auto) 0.0 Baso # (Auto) 0.0 Sodium 134 Potassium 3.9 Chloride 99 Carbon Dioxide 24 Anion Gap 15 BUN 8 L Creatinine 0.6 L Est GFR ( Amer) > 60 Est GFR (Non-Af Amer) > 60 Random Glucose 134 H Calcium 8.2 L Phosphorus 2.6 Magnesium 1.6 Total Bilirubin 1.5 H AST 36 ALT 41 Alkaline Phosphatase 56 Total Protein 6.5 Albumin 4.0 Globulin 2.6 Albumin/Globulin Ratio 1.6 Lipase Urine Color Urine Clarity Urine pH Ur Specific [place] Urine Protein Urine Glucose (UA) Urine Ketones Urine Blood Urine Nitrate Urine Bilirubin Urine Urobilinogen Ur Leukocyte Esterase Urine WBC (Auto) Urine RBC (Auto) Ur Squamous Epith Cells Urine Bacteria Urine Opiates Screen Urine Methadone Screen Ur Barbiturates Screen Ur Phencyclidine Scrn Ur Amphetamines Screen U Benzodiazepines Scrn U Oth Cocaine Metabols U Cannabinoids Screen Alcohol, Quantitative < 10 04/08/18 06:35 WBC RBC Hgb Hct MCV MCH MCHC RDW Plt Count MPV Neut % (Auto) Lymph % (Auto) [place] % (Auto) Eos % (Auto) Baso % (Auto) Neut # (Auto) Lymph # (Auto) [place] # (Auto) Eos # (Auto) Baso # (Auto) Sodium Potassium Chloride Carbon Dioxide Anion Gap BUN Creatinine Est GFR ( Amer) Est GFR (Non-Af Amer) Random Glucose Calcium Phosphorus Magnesium Total Bilirubin AST ALT Alkaline Phosphatase Total Protein Albumin Globulin Albumin/Globulin Ratio Lipase Urine Color Urine Clarity Urine pH Ur Specific [place] Urine Protein Urine Glucose (UA) Urine Ketones Urine Blood Urine Nitrate Urine Bilirubin Urine Urobilinogen Ur Leukocyte Esterase Urine WBC (Auto) Urine RBC (Auto) Ur Squamous Epith Cells Urine Bacteria Urine Opiates Screen Positive H Urine Methadone Screen Negative Ur Barbiturates Screen Negative Ur Phencyclidine Scrn Negative Ur Amphetamines Screen Negative U Benzodiazepines Scrn Negative U Oth Cocaine Metabols Negative U Cannabinoids Screen Negative Alcohol, Quantitative Assessment & Plan - Date & Time Date: 04/08/18 (I have seen and examined the patient. I agree with the findings and plan of care as documented by Dr. Barrera. Patient with acute pancreatitis associated with alcohol abuse. [facility] protocol. NPO. Symptomatic treatment. IVF. Consult to psych for alcohol abuse. Monitor for acute changes.) Time: 19:08 Attending/Attestation - Attestation I have personally seen and examined this patient.: Yes I have fully participated in the care of the patient.: Yes I have reviewed all pertinent clinical information: Yes
[2018-04-08] MEDS: Sodium Chloride 0.9% 1,000 ML IV SCH ×2 (02:40→08:01)
[2018-04-08 06:26] LABS: BASO % 0.2 % (0.0-2.0); EOS % 0.5 % (0.0-4.0); HEMOGLOBIN 16.1 g/dL (12.0-18.0); LYMPH # 1.1 K/uL (1.0-4.3); LYMPH % 10.2 % (20.0-40.0); MEAN CELL VOLUME 90.9 fL (80.0-94.0); MEAN CORPUSCULAR HEMOGLOBIN 31.1 pg (27.0-31.0); MEAN CORPUSCULAR HGB CONC 34.2 g/dL (33.0-37.0); MEAN PLATELET VOLUME 7.3 fL (7.2-11.7); MONO # 0.6 K/uL (0.0-0.8); MONO % 5.3 % (0.0-10.0); NEUT # 8.8 K/uL (1.8-7.0); NEUT % 83.8 % (50.0-75.0); NRBC % 0.1 % (0.0-2.0); RBC 5.18 Mil/uL (4.40-5.90); RED CELL DISTRIBUTION WIDTH 13.5 % (11.5-14.5); WHITE BLOOD COUNT 10.6 K/uL (4.8-10.8)
[2018-04-08 06:55] LABS: BARBITURATES, UR NEGATIVE (NEGATIVE); BENZODIAZEPINES, UR NEGATIVE (NEGATIVE); OPIATES, UR POSITIVE (NEGATIVE); PHENCYCLIDINE, UR NEGATIVE (NEGATIVE)
--- NOTE | 2018-04-08 07:15 | CP.PCM.PN ---
<CalhounCourtneyconnie Zelaya - Last Filed: 04/08/18 15:46> Subjective - Date & Time of Evaluation Date of Evaluation: 04/08/18 Time of Evaluation: 07:40 - Subjective Subjective: PGY 1 Medicine Progress Note for Hospitalist Dr. Mccoy. Patient seen and examined at bedside. No overnight events reported. Patient states he still has some abdominal pain, 5/10 primarily located in epigastric region. Patient additionally states his stomach is more distended than normal. Patient denies nausea vomiting, chest pain, passage of flatulence/bowel movement since yesterday noon time. Patient denies headaches, vision changes. Objective - Vital Signs/Intake and Output Vital Signs (last 24 hours): Temp Pulse Resp BP Pulse Ox 98.9 F 80 20 138/90 99 04/08/18 00:35 04/08/18 02:00 04/08/18 02:00 04/08/18 00:35 04/08/18 02:00 - Medications Medications: Current Medications Famotidine (Pepcid) 20 mg IVP Q12 BONNIE Sodium Chloride (Sodium Chloride 0.9%) 1,000 mls @ 200 mls/hr IV .Q5H BONNIE Last Admin: 04/08/18 02:40 Dose: 200 mls/hr Influenza Virus Vaccine (Fluzone Quad [id number]) 60 mcg IM .ONCE ONE Stop: 04/09/18 10:01 Morphine Sulfate (Morphine) 1 mg IVP Q4H PRN PRN Reason: Pain, severe (8-10) Last Admin: 04/08/18 04:01 Dose: 1 mg Ondansetron HCl (Zofran Inj) 4 mg IVP Q8H PRN PRN Reason: Nausea/Vomiting Pneumococcal Polyvalent Vaccine (Pneumovax 23 Vaccine) 0.5 ml IM .ONCE ONE Stop: 04/09/18 10:01 - Labs Labs: 04/08/18 06:18 04/07/18 21:01 - Constitutional Appears: Non-toxic, No Acute Distress - Head Exam Head Exam: NORMAL INSPECTION - Eye Exam Eye Exam: Normal appearance - ENT Exam ENT Exam: Mucous Membranes Moist - Respiratory Exam Respiratory Exam: Clear to Ausculation Bilateral, NORMAL BREATHING PATTERN. absent: Rales, Rhonchi, Wheezes - Cardiovascular Exam Cardiovascular Exam: +S1, +S2. absent: Murmur - GI/Abdominal Exam GI & Abdominal Exam: Distended, Tenderness, Normal Bowel Sounds. absent: Rebound - Extremities Exam Extremities Exam: Full ROM, Normal Inspection. absent: Calf Tenderness, Pedal Edema - Back Exam Back Exam: absent: CVA tenderness (L), CVA tenderness (R) - Neurological Exam Neurological Exam: Alert, Awake, Oriented x3 - Psychiatric Exam Psychiatric exam: Normal Affect, Normal Mood - Skin Skin Exam: Dry, Intact, Normal Color, Warm Assessment and Plan - Assessment and Plan (Free Text) Assessment: Pancreatitis Secondary alcohol abuse - CT abdomen/pelvis: there is either inflammatory changes surrounding the head of pancreas or motion artifact; see report for full details - Lipase 732, WBC 14 on admission - GI consult: Dr Stephenson - help is appreciated - LR @ 200 ml/hr - NPO, advance tonight if pain controlled - Famotidine 20mg BID - Zofran 40mg IVP QD prn for nausea - toradol 15mg IVP Q6H prn for moderate pain - toradol 30mg IVP Q6H prn for severe pain Alcohol abuse - Last drink reported on Saturday - UDS-opiate positive (obtained following morphine given in the ED) - ETOH < 10 on admission - Seizure, aspiration precautions, CIWA protocol - Ativan 1mg Q6 PRN for seizures - Psych consult - Dr Hernadez, help is appreciated Prophylaxis - DVT: SCDs - NPO diet, pt reports pain as of 350pm, will continue keep NPO <Mccoy,Peter H - Last Filed: 04/08/18 15:56> Objective - Vital Signs/Intake and Output Vital Signs (last 24 hours): Temp Pulse Resp BP Pulse Ox 98 F 68 20 130/88 95 04/08/18 15:37 04/08/18 15:37 04/08/18 15:37 04/08/18 15:37 04/08/18 15:37 Intake and Output: 04/08/18 04/08/18 06:59 18:59 Intake Total 2400 Balance 2400 - Medications Medications: Current Medications Famotidine (Pepcid) 20 mg IVP Q12 [facility] Last Admin: 04/08/18 09:27 Dose: 20 mg Lactated Ringer's (Lactated Ringer's) 1,000 mls @ 200 mls/hr IV .Q5H [facility] Last Admin: 04/08/18 11:11 Dose: 200 mls/hr Influenza Virus Vaccine (Fluzone Quad [id number]) 60 mcg IM .ONCE ONE Stop: 04/09/18 10:01 Ketorolac Tromethamine (Toradol) 15 mg IVP Q6 PRN PRN Reason: Pain, moderate (4-7) Ketorolac Tromethamine (Toradol) 30 mg IVP Q6 PRN PRN Reason: Pain, severe (8-10) Lorazepam (Ativan) 1 mg IVP Q6H PRN PRN Reason: Seizure activity Ondansetron HCl (Zofran Inj) 4 mg IVP Q8H PRN PRN Reason: Nausea/Vomiting Pneumococcal Polyvalent Vaccine (Pneumovax 23 Vaccine) 0.5 ml IM .ONCE ONE Stop: 04/09/18 10:01 Spironolactone (Aldactone) 50 mg PO DAILY [facility] Last Admin: 04/08/18 14:14 Dose: 50 mg - Labs Labs: 04/08/18 06:18 04/08/18 06:18 Attending/Attestation - Attestation I have personally seen and examined this patient.: Yes I have fully participated in the care of the patient.: Yes I have reviewed all pertinent clinical information, including history, physical exam and plan: Yes Notes (Text): 04/08/18 15:56 Medical attending: Patient was seen and examined by me, the patient was seen with the clinical laboratory medical director and I reviewed the above note by the clinical laboratory medical director. He was not haveing active tremors when I came and saw him He still has some abdominal tenderness There is also of note on physical exam some minimal distention of abdomen - he says he has been hospitalized from pancreatitis from drinking alcohol before but this has never happened. He very likley has developed some ascities from liver damage. We would consider giving some lasix once he has less pain from the pacreatitis as we are still giving IVF as well as NPO. We had a mary discussion with yasmani to his alcohol use John Mccoy
[2018-04-08 07:31] LABS: ALB/GLOB RATIO 1.6 (1.0-2.1); ALT/SGPT 41 U/L (21-72); AST/SGOT 36 U/L (17-59); BLOOD UREA NITROGEN 8 mg/dL (9-20); CALCIUM 8.2 mg/dl (8.6-10.4); GFR NON-AFRICAN AMERICAN > 60
--- NOTE | 2018-04-08 09:41 | CT ---
Date of service: 2018-04-07 22:13:38 PROCEDURE: CT Abdomen and Pelvis with Oral contrast. HISTORY: abd pain COMPARISON: Prior CT scan of the abdomen and pelvis dated 09/08/2016. TECHNIQUE: Contiguous axial images of the abdomen and pelvis. Oral contrast was administered. No IV contrast given. Coronal and Sagittal reformats generated. Radiation dose: Total exam DLP = 242.79 mGy-cm. This CT exam was performed using one or more of the following dose reduction techniques: Automated exposure control, adjustment of the mA and/or kV according to patient size, and/or use of iterative reconstruction technique. FINDINGS: LOWER THORAX: Lung bases clear. No infiltrate effusion or basilar pneumothorax.. LIVER: Liver is enlarged measuring over 21 cm in CC dimension. Mild diffuse fatty hepatic infiltration. No obvious hepatic mass collection or calcification. Portal and splenic veins opacified GALLBLADDER AND BILE DUCTS: Gallbladder physiologically distended. No evidence of intraluminal gallbladder calculi. PANCREAS: Marked improvement previously noted extensive and severe acute pancreatitis changes seen on prior exam. Persistent mild peripancreatic fluid and infiltration changes however are noted.. No evidence of a discrete loculated pancreatic fluid collections or pseudocyst formation are identified SPLEEN: Spleen exhibits normal size and attenuation pattern without masses collections or calcifications.. ADRENALS: No adrenal lesions.. KIDNEYS AND URETERS: Kidneys demonstrate symmetric nephrograms. No evidence of nephrolithiasis or hydronephrosis.. BLADDER: The urinary bladder incompletely distended which in part accounts for thick-walled appearance. Muscular hypertrophy may contribute. Possibility of a cystitis not excluded. REPRODUCTIVE: The prostate gland unremarkable.. APPENDIX: Normal appendix.. BOWEL: Evaluation of the bowel is somewhat limited due to the lack of oral contrast material. The stomach is distended with air. There are multiple of air-filled loops of small bowel some of which exhibit minimal distention consistent with an ileus. The remaining visualized loops of small bowel exhibit normal contour and caliber. No evidence of acute mechanical small bowel obstruction. There is mild wall thickening of a short segment of the distal descending colon with persistent residual infiltration that could be related to prior pancreatitis however the possibility of a mild nonspecific localize colitis cannot be excluded. PERITONEUM: As above. No evidence of gross free intraperitoneal air.. LYMPH NODES: Unremarkable. No enlarged lymph nodes. VASCULATURE: Unremarkable. No aortic aneurysm. No aortic atherosclerotic calcification or mural plaque present. BONES: Visualized vertebral bodies exhibit normal stature with no acute or chronic compression fractures. The. Slight straightening of the normal lumbar lordosis which could be due to patient positioning on.. OTHER FINDINGS: None. IMPRESSION: Previously noted severe and extensive acute pancreatitis changes markedly improved however there is persistent mild peripancreatic infiltration and fluid. Hepatomegaly with mild fatty hepatic infiltration. Mild wall thickening short segment distal descending colon with a small amount of infiltration changes in the surrounding mesentery. These findings could be due to a combination of incomplete distention, peristalsis and unopacified adherent stool and some residual infiltration from previously noted pancreatic inflammatory changes however possibility of a mild colitis cannot be excluded. The findings suggest mild ileus pattern.
--- NOTE | 2018-04-08 10:38 | CP.PCM.CON ---
<Yohannes De La O - Last Filed: 04/08/18 10:33> History of Present Illness - History of Present Illness History of Present Illness: PGY-4 GI Fellow Initial Consult Note Pt is a 28 yo M with h/o EtOH-inudced pancreatitis presenting with abd pain. He states starting 04/07 he began to notice, sharp, non-radiating, epigatric pain associated with NB/NB emesis. He cannot identify and precipitating or alleviating factors, though he states this feels somewhat similar to prior pancreatitis but not as severe. He does admit to recent EtOH with a pint of liquor consumed Saturday night with additional EtOH consumption the nights prior. He denied and fevers/chills, CP, SOB or change in bowel habits/signs of bleeding. No prior endoscopic evaluations before. 12 point ROS negative other than stated above MHx: See above SurgHx: None Meds: None FamHx: Denied GI problems SocHx: EtOH as above, reports some intermittent Tob abuse, denied illicits. All: NKDA Past Patient History - Infectious Disease Hx of Infectious Diseases: None - Past Medical History & Family History Past Medical History?: Yes - Past Social History Smoking Status: Never Smoked - CARDIAC Hx Cardiac Disorders: No - PULMONARY Hx Respiratory Disorders: No - NEUROLOGICAL Hx Neurological Disorder: No - HEENT Hx HEENT Problems: No - RENAL Hx Chronic Kidney Disease: No - ENDOCRINE/METABOLIC Hx Endocrine Disorders: No - HEMATOLOGICAL/ONCOLOGICAL Hx Blood Disorders: No - INTEGUMENTARY Hx Dermatological Problems: No - MUSCULOSKELETAL/RHEUMATOLOGICAL Hx Falls: Yes (as a child-while playing) - GASTROINTESTINAL Hx Pancreatitis: Yes - GENITOURINARY/GYNECOLOGICAL Hx Genitourinary Disorders: No - PSYCHIATRIC Hx Substance Use: No - SURGICAL HISTORY Hx Surgeries: No - ANESTHESIA Hx Anesthesia: No Hx Anesthesia Reactions: No Hx Malignant Hyperthermia: No Meds Allergies/Adverse Reactions: Allergies Allergy/AdvReac Type Severity Reaction Status Date / Time No Known Allergies Allergy Verified 09/15/16 02:33 - Medications Medications: Current Medications Famotidine (Pepcid) 20 mg IVP Q12 [facility] Last Admin: 04/08/18 09:27 Dose: 20 mg Sodium Chloride (Sodium Chloride 0.9%) 1,000 mls @ 200 mls/hr IV .Q5H [facility] Last Admin: 04/08/18 08:01 Dose: 200 mls/hr Influenza Virus Vaccine (Fluzone Quad [id number]) 60 mcg IM .ONCE ONE Stop: 04/09/18 10:01 Morphine Sulfate (Morphine) 1 mg IVP Q4H PRN PRN Reason: Pain, severe (8-10) Last Admin: 04/08/18 08:01 Dose: 1 mg Ondansetron HCl (Zofran Inj) 4 mg IVP Q8H PRN PRN Reason: Nausea/Vomiting Pneumococcal Polyvalent Vaccine (Pneumovax 23 Vaccine) 0.5 ml IM .ONCE ONE Stop: 04/09/18 10:01 Physical Exam - Constitutional Appears: Well, No Acute Distress - Head Exam Head Exam: ATRAUMATIC, NORMAL INSPECTION - Eye Exam Eye Exam: EOMI. absent: Scleral icterus - ENT Exam ENT Exam: Mucous Membranes Dry. absent: Mucous Membranes Moist - Respiratory Exam Respiratory Exam: Clear to Auscultation Bilateral, NORMAL BREATHING PATTERN. absent: Accessory Muscle Use - Cardiovascular Exam Cardiovascular Exam: REGULAR RHYTHM, RRR. absent: Bradycardia, Tachycardia - GI/Abdominal Exam GI & Abdominal Exam: Distended (mildly), Normal Bowel Sounds, Soft, Tenderness (ttp in epigastrum w/o guarding). absent: Bruit, Diminished Bowel Sounds, Firm, Guarding, Hernia, Organomegaly, Pulsatile Mass, Rebound, Rigid - Rectal Exam Rectal Exam: Deferred - Extremities Exam Extremities exam: Positive for: normal inspection. Negative for: pedal edema - Neurological Exam Neurological exam: Alert, CN II-XII Intact - Psychiatric Exam Psychiatric exam: Normal Affect, Normal Mood - Skin Skin Exam: Dry, Intact Results - Vital Signs Recent Vital Signs: Last Vital Signs Temp 98.4 F 04/08/18 07:44 Pulse 65 04/08/18 07:44 Resp 20 04/08/18 07:44 BP 156/91 H 04/08/18 07:44 Pulse Ox 97 04/08/18 07:44 - Labs Result Diagrams: 04/08/18 06:18 04/08/18 06:18 Labs: Laboratory Results - last 24 hr 04/07/18 04/07/18 04/07/18 21:01 21:01 21:01 WBC 12.3 H D RBC 5.53 Hgb 16.7 D Hct 49.6 MCV 89.6 D MCH 30.2 MCHC 33.7 RDW 13.7 Plt Count 294 D MPV 7.0 L Neut % (Auto) 81.4 H Lymph % (Auto) 12.3 L [place] % (Auto) 5.6 Eos % (Auto) 0.4 Baso % (Auto) 0.3 Neut # (Auto) 10.0 H Lymph # (Auto) 1.5 [place] # (Auto) 0.7 Eos # (Auto) 0.0 Baso # (Auto) 0.0 Sodium 135 Potassium 3.7 Chloride 93 L Carbon Dioxide 26 Anion Gap 19 BUN 11 Creatinine 0.7 L Est GFR ( Amer) > 60 Est GFR (Non-Af Amer) > 60 Random Glucose 101 Calcium 9.5 Phosphorus Magnesium Total Bilirubin 1.0 AST 58 ALT 51 Alkaline Phosphatase 65 Total Protein 8.3 Albumin 5.0 D Globulin 3.2 Albumin/Globulin Ratio 1.6 Lipase 737 H Urine Color Yellow Urine Clarity Clear Urine pH 5.0 Ur Specific [place] 1.027 Urine Protein 1+ H Urine Glucose (UA) 1+ H Urine Ketones Negative Urine Blood 1+ H Urine Nitrate Negative Urine Bilirubin Negative Urine Urobilinogen Normal Ur Leukocyte Esterase Neg Urine WBC (Auto) 1 Urine RBC (Auto) 1 Ur Squamous Epith Cells < 1 Urine Bacteria Rare Urine Opiates Screen Urine Methadone Screen Ur Barbiturates Screen Ur Phencyclidine Scrn Ur Amphetamines Screen U Benzodiazepines Scrn U Oth Cocaine Metabols U Cannabinoids Screen Alcohol, Quantitative 04/07/18 04/08/18 04/08/18 21:01 06:18 06:18 WBC 10.6 RBC 5.18 Hgb 16.1 Hct 47.1 MCV 90.9 MCH 31.1 H MCHC 34.2 RDW 13.5 Plt Count 224 MPV 7.3 Neut % (Auto) 83.8 H Lymph % (Auto) 10.2 L [place] % (Auto) 5.3 Eos % (Auto) 0.5 Baso % (Auto) 0.2 Neut # (Auto) 8.8 H Lymph # (Auto) 1.1 [place] # (Auto) 0.6 Eos # (Auto) 0.0 Baso # (Auto) 0.0 Sodium 134 Potassium 3.9 Chloride 99 Carbon Dioxide 24 Anion Gap 15 BUN 8 L Creatinine 0.6 L Est GFR ( Amer) > 60 Est GFR (Non-Af Amer) > 60 Random Glucose 134 H Calcium 8.2 L Phosphorus 2.6 Magnesium 1.6 Total Bilirubin 1.5 H AST 36 ALT 41 Alkaline Phosphatase 56 Total Protein 6.5 Albumin 4.0 Globulin 2.6 Albumin/Globulin Ratio 1.6 Lipase Urine Color Urine Clarity Urine pH Ur Specific [place] Urine Protein Urine Glucose (UA) Urine Ketones Urine Blood Urine Nitrate Urine Bilirubin Urine Urobilinogen Ur Leukocyte Esterase Urine WBC (Auto) Urine RBC (Auto) Ur Squamous Epith Cells Urine Bacteria Urine Opiates Screen Urine Methadone Screen Ur Barbiturates Screen Ur Phencyclidine Scrn Ur Amphetamines Screen U Benzodiazepines Scrn U Oth Cocaine Metabols U Cannabinoids Screen Alcohol, Quantitative < 10 04/08/18 06:35 WBC RBC Hgb Hct MCV MCH MCHC RDW Plt Count MPV Neut % (Auto) Lymph % (Auto) [place] % (Auto) Eos % (Auto) Baso % (Auto) Neut # (Auto) Lymph # (Auto) [place] # (Auto) Eos # (Auto) Baso # (Auto) Sodium Potassium Chloride Carbon Dioxide Anion Gap BUN Creatinine Est GFR ( Amer) Est GFR (Non-Af Amer) Random Glucose Calcium Phosphorus Magnesium Total Bilirubin AST ALT Alkaline Phosphatase Total Protein Albumin Globulin Albumin/Globulin Ratio Lipase Urine Color Urine Clarity Urine pH Ur Specific [place] Urine Protein Urine Glucose (UA) Urine Ketones Urine Blood Urine Nitrate Urine Bilirubin Urine Urobilinogen Ur Leukocyte Esterase Urine WBC (Auto) Urine RBC (Auto) Ur Squamous Epith Cells Urine Bacteria Urine Opiates Screen Positive H Urine Methadone Screen Negative Ur Barbiturates Screen Negative Ur Phencyclidine Scrn Negative Ur Amphetamines Screen Negative U Benzodiazepines Scrn Negative U Oth Cocaine Metabols Negative U Cannabinoids Screen Negative Alcohol, Quantitative Assessment & Plan - Assessment and Plan (Free Text) Assessment: 28 yo M with h/o EtOH induced pancreatitis presenting with abd pain. # Abd Pain: Due to EtOH induced pancreatitis. 2/3 criteria with typical symptoms and radiographic signs, lipase not 3x ULN. CT without fluid collection nor necrosis. Non obstructive liver tests and Triglycerides 438 on 09/02/16. # Ileus: Likely reactive due to above # EtOH Abuse: At least 1 pint liquor consumed on 04/06/18 Plan: - NPO - IVF switched to LR - Pain control per primary - Can trial Liquid Diet for dinner if stoling and abd pain improved - Counseled on EtOH and Tobacco cessation Thank you for the consult; will cont to follow. Pt seen and examined with Dr. Stephenson; please see attestation for further details/changes. Yohannes De La O, PGY-4 <Cristofer Stephenson - Last Filed: 04/08/18 12:19> Meds - Medications Medications: Current Medications Famotidine (Pepcid) 20 mg IVP Q12 [facility] Last Admin: 04/08/18 09:27 Dose: 20 mg Lactated Ringer's (Lactated Ringer's) 1,000 mls @ 200 mls/hr IV .Q5H [facility] Last Admin: 04/08/18 11:11 Dose: 200 mls/hr Influenza Virus Vaccine (Fluzone Quad [id number]) 60 mcg IM .ONCE ONE Stop: 04/09/18 10:01 Morphine Sulfate (Morphine) 1 mg IVP Q4H PRN PRN Reason: Pain, severe (8-10) Last Admin: 04/08/18 08:01 Dose: 1 mg Ondansetron HCl (Zofran Inj) 4 mg IVP Q8H PRN PRN Reason: Nausea/Vomiting Pneumococcal Polyvalent Vaccine (Pneumovax 23 Vaccine) 0.5 ml IM .ONCE ONE Stop: 04/09/18 10:01 Spironolactone (Aldactone) 50 mg PO DAILY [facility] Results - Vital Signs Recent Vital Signs: Last Vital Signs Temp 98.4 F 04/08/18 07:44 Pulse 65 04/08/18 07:44 Resp 20 04/08/18 07:44 BP 156/91 H 04/08/18 07:44 Pulse Ox 97 04/08/18 07:44 - Labs Result Diagrams: 04/08/18 06:18 04/08/18 06:18 Labs: Laboratory Results - last 24 hr 04/07/18 04/07/18 04/07/18 21:01 21:01 21:01 WBC 12.3 H D RBC 5.53 Hgb 16.7 D Hct 49.6 MCV 89.6 D MCH 30.2 MCHC 33.7 RDW 13.7 Plt Count 294 D MPV 7.0 L Neut % (Auto) 81.4 H Lymph % (Auto) 12.3 L [place] % (Auto) 5.6 Eos % (Auto) 0.4 Baso % (Auto) 0.3 Neut # (Auto) 10.0 H Lymph # (Auto) 1.5 [place] # (Auto) 0.7 Eos # (Auto) 0.0 Baso # (Auto) 0.0 Sodium 135 Potassium 3.7 Chloride 93 L Carbon Dioxide 26 Anion Gap 19 BUN 11 Creatinine 0.7 L Est GFR ( Amer) > 60 Est GFR (Non-Af Amer) > 60 Random Glucose 101 Calcium 9.5 Phosphorus Magnesium Total Bilirubin 1.0 AST 58 ALT 51 Alkaline Phosphatase 65 Total Protein 8.3 Albumin 5.0 D Globulin 3.2 Albumin/Globulin Ratio 1.6 Lipase 737 H Urine Color Yellow Urine Clarity Clear Urine pH 5.0 Ur Specific [place] 1.027 Urine Protein 1+ H Urine Glucose (UA) 1+ H Urine Ketones Negative Urine Blood 1+ H Urine Nitrate Negative Urine Bilirubin Negative Urine Urobilinogen Normal Ur Leukocyte Esterase Neg Urine WBC (Auto) 1 Urine RBC (Auto) 1 Ur Squamous Epith Cells < 1 Urine Bacteria Rare Urine Opiates Screen Urine Methadone Screen Ur Barbiturates Screen Ur Phencyclidine Scrn Ur Amphetamines Screen U Benzodiazepines Scrn U Oth Cocaine Metabols U Cannabinoids Screen Alcohol, Quantitative 04/07/18 04/08/18 04/08/18 21:01 06:18 06:18 WBC 10.6 RBC 5.18 Hgb 16.1 Hct 47.1 MCV 90.9 MCH 31.1 H MCHC 34.2 RDW 13.5 Plt Count 224 MPV 7.3 Neut % (Auto) 83.8 H Lymph % (Auto) 10.2 L [place] % (Auto) 5.3 Eos % (Auto) 0.5 Baso % (Auto) 0.2 Neut # (Auto) 8.8 H Lymph # (Auto) 1.1 [place] # (Auto) 0.6 Eos # (Auto) 0.0 Baso # (Auto) 0.0 Sodium 134 Potassium 3.9 Chloride 99 Carbon Dioxide 24 Anion Gap 15 BUN 8 L Creatinine 0.6 L Est GFR ( Amer) > 60 Est GFR (Non-Af Amer) > 60 Random Glucose 134 H Calcium 8.2 L Phosphorus 2.6 Magnesium 1.6 Total Bilirubin 1.5 H AST 36 ALT 41 Alkaline Phosphatase 56 Total Protein 6.5 Albumin 4.0 Globulin 2.6 Albumin/Globulin Ratio 1.6 Lipase Urine Color Urine Clarity Urine pH Ur Specific [place] Urine Protein Urine Glucose (UA) Urine Ketones Urine Blood Urine Nitrate Urine Bilirubin Urine Urobilinogen Ur Leukocyte Esterase Urine WBC (Auto) Urine RBC (Auto) Ur Squamous Epith Cells Urine Bacteria Urine Opiates Screen Urine Methadone Screen Ur Barbiturates Screen Ur Phencyclidine Scrn Ur Amphetamines Screen U Benzodiazepines Scrn U Oth Cocaine Metabols U Cannabinoids Screen Alcohol, Quantitative < 10 04/08/18 06:35 WBC RBC Hgb Hct MCV MCH MCHC RDW Plt Count MPV Neut % (Auto) Lymph % (Auto) [place] % (Auto) Eos % (Auto) Baso % (Auto) Neut # (Auto) Lymph # (Auto) [place] # (Auto) Eos # (Auto) Baso # (Auto) Sodium Potassium Chloride Carbon Dioxide Anion Gap BUN Creatinine Est GFR ( Amer) Est GFR (Non-Af Amer) Random Glucose Calcium Phosphorus Magnesium Total Bilirubin AST ALT Alkaline Phosphatase Total Protein Albumin Globulin Albumin/Globulin Ratio Lipase Urine Color Urine Clarity Urine pH Ur Specific [place] Urine Protein Urine Glucose (UA) Urine Ketones Urine Blood Urine Nitrate Urine Bilirubin Urine Urobilinogen Ur Leukocyte Esterase Urine WBC (Auto) Urine RBC (Auto) Ur Squamous Epith Cells Urine Bacteria Urine Opiates Screen Positive H Urine Methadone Screen Negative Ur Barbiturates Screen Negative Ur Phencyclidine Scrn Negative Ur Amphetamines Screen Negative U Benzodiazepines Scrn Negative U Oth Cocaine Metabols Negative U Cannabinoids Screen Negative Alcohol, Quantitative Attending/Attestation - Attestation I have personally seen and examined this patient.: Yes I have fully participated in the care of the patient.: Yes I have reviewed all pertinent clinical information: Yes Notes (Text): 04/08/18 12:16 I have seen and examined patient with GI fellow. Agree with above documentation with the following additions. In brief, this is a 28 year old male with history of pancreatitis who presents to hospital with complaint of abdominal pain which began yesterday. He describes a sharp, 10/10 intensity epigastric abdominal pain that was associated with nausea and non-bloody emesis. He admits to ongoing ETOH abuse, last consumed 1 pint of liquor 3 days ago. He otherwise denies fever/chills, weight loss, rectal bleeding, or change in bowel habits. No prior endoscopic evaluation. Abdominal pain Acute ETOH induced pancreatitis CT imaging reviewed by me showing timmy-pancreatic edema - NPO - Continue with IVF hydration, supportive care - ETOH cessation counseling - Pain control - Consider advancing to clear liquid diet for dinner if pain symptoms remain under control - Will continue to monitor patient clinical course
[2018-04-08] MEDS: Lactated Ringer's 1,000 ML IV SCH ×3 (11:11→21:39)
[2018-04-08] MEDS ORDERED: POLYETHYLENE GLYCOL 3350 17 GM/Dose PACKET PO ONE (16:15)
[2018-04-09] MEDS: Lactated Ringer's 1,000 ML IV SCH ×4 (02:34→23:06)
[2018-04-09 06:14] LABS: BASO % 0.4 % (0.0-2.0); EOS % 0.5 % (0.0-4.0); HEMOGLOBIN 15.8 g/dL (12.0-18.0); LYMPH # 0.8 K/uL (1.0-4.3); LYMPH % 9.6 % (20.0-40.0); MEAN CELL VOLUME 88.9 fL (80.0-94.0); MEAN CORPUSCULAR HEMOGLOBIN 30.2 pg (27.0-31.0); MEAN PLATELET VOLUME 7.4 fL (7.2-11.7); MONO # 0.4 K/uL (0.0-0.8); MONO % 5.1 % (0.0-10.0); NEUT # 6.8 K/uL (1.8-7.0); NEUT % 84.4 % (50.0-75.0); PLATELET COUNT 169 K/uL (130-400); RBC 5.22 Mil/uL (4.40-5.90); RED CELL DISTRIBUTION WIDTH 13.3 % (11.5-14.5); WHITE BLOOD COUNT 8.1 K/uL (4.8-10.8)
[2018-04-09 07:12] LABS: ALB/GLOB RATIO 1.3 (1.0-2.1); ALBUMIN 3.2 g/dL (3.5-5.0); ALT/SGPT 33 U/L (21-72); AST/SGOT 30 U/L (17-59); BLOOD UREA NITROGEN 6 mg/dL (9-20); CALCIUM 8.2 mg/dl (8.6-10.4); GFR NON-AFRICAN AMERICAN > 60
--- NOTE | 2018-04-09 07:18 | CP.PCM.PN ---
<Ishan Calhoun - Last Filed: 04/09/18 12:48> Subjective - Date & Time of Evaluation Date of Evaluation: 04/09/18 Time of Evaluation: 08:10 - Subjective Subjective: PGY1 Medicine Progress Note for Hospitalist Dr. Mccoy. Patient seen and examined at bedside. No overnight events reported. Patient tolerating clear liquid diet this AM with pain approximately 3/10. Patient did receive tramadol 30 @ approx 5am. patient denies nausea, vomiting, chest pain, hand tremors, headaches, vision changes. Patient still has abdominal distension. Objective - Vital Signs/Intake and Output Vital Signs (last 24 hours): Temp Pulse Resp BP Pulse Ox 99.3 F 85 20 120/79 96 04/09/18 00:00 04/09/18 00:00 04/09/18 00:00 04/09/18 00:00 04/09/18 00:00 Intake and Output: 04/09/18 04/09/18 06:59 18:59 Intake Total 3580 Balance 3580 - Medications Medications: Current Medications Famotidine (Pepcid) 20 mg IVP Q12 [facility] Last Admin: 04/08/18 22:22 Dose: 20 mg Lactated Ringer's (Lactated Ringer's) 1,000 mls @ 200 mls/hr IV .Q5H [facility] Last Admin: 04/09/18 07:17 Dose: 200 mls/hr Influenza Virus Vaccine (Fluzone Quad [id number]) 60 mcg IM .ONCE ONE Stop: 04/09/18 10:01 Ketorolac Tromethamine (Toradol) 15 mg IVP Q6 PRN PRN Reason: Pain, moderate (4-7) Last Admin: 04/08/18 22:20 Dose: 15 mg Ketorolac Tromethamine (Toradol) 30 mg IVP Q6 PRN PRN Reason: Pain, severe (8-10) Last Admin: 04/09/18 05:11 Dose: 30 mg Lorazepam (Ativan) 1 mg IVP Q6H PRN PRN Reason: Seizure activity Ondansetron HCl (Zofran Inj) 4 mg IVP Q8H PRN PRN Reason: Nausea/Vomiting Pneumococcal Polyvalent Vaccine (Pneumovax 23 Vaccine) 0.5 ml IM .ONCE ONE Stop: 04/09/18 10:01 Spironolactone (Aldactone) 50 mg PO DAILY [facility] Last Admin: 04/08/18 14:14 Dose: 50 mg - Labs Labs: 04/09/18 06:05 04/09/18 06:05 - Constitutional Appears: Non-toxic, No Acute Distress - Head Exam Head Exam: NORMAL INSPECTION - Eye Exam Eye Exam: Normal appearance - ENT Exam ENT Exam: Mucous Membranes Moist - Respiratory Exam Respiratory Exam: Clear to Ausculation Bilateral, NORMAL BREATHING PATTERN. absent: Rales, Rhonchi, Wheezes - Cardiovascular Exam Cardiovascular Exam: +S1, +S2 - GI/Abdominal Exam GI & Abdominal Exam: Distended, Soft, Tenderness, Normal Bowel Sounds - Extremities Exam Extremities Exam: absent: Calf Tenderness, Pedal Edema - Back Exam Back Exam: absent: CVA tenderness (L), CVA tenderness (R) - Neurological Exam Neurological Exam: Alert, Awake, Oriented x3 - Psychiatric Exam Psychiatric exam: Normal Affect, Normal Mood - Skin Skin Exam: Dry, Intact, Normal Color Assessment and Plan - Assessment and Plan (Free Text) Assessment: 28 M w/ hx of binge ETOH use presented w/ abdominal pain, found to have acute pancreatitis, tolerating clears, has abdominal distention likely secondary to etoh abuse: Pancreatitis Secondary alcohol abuse - CT abdomen/pelvis: there is either inflammatory changes surrounding the head of pancreas or motion artifact; see report for full details - Lipase 732, WBC 14 on admission - GI consult: Dr Stephenson - help is appreciated - advance diet as tolerated, - LR @ 100 ml/hr - Famotidine 20mg BID - Zofran 40mg IVP QD prn for nausea - toradol 15mg IVP Q6H prn for moderate pain - toradol 30mg IVP Q6H prn for severe pain Abdominal distention - likely secondary to fluid shift due to alcohol abuse - aldactone 50 PO daily - consider lasix tomorrow Hyponatremia - Na 130 in AM - likely due to high rate of fluids - asymptomatic - pt is tolerating CLD, reduce fluid to 100ml/hr Alcohol abuse - Last drink reported on Saturday - UDS-opiate positive (obtained following morphine given in the ED) - ETOH < 10 on admission - Seizure, aspiration precautions, CIWA protocol - Ativan 1mg Q6 PRN for seizures - Psych consult - Dr Hernadez, help is appreciated Prophylaxis - DVT: SCDs - CLD, will consider advancement of diet pending on pain <John Mccoy H - Last Filed: 04/09/18 13:42> Objective - Vital Signs/Intake and Output Vital Signs (last 24 hours): Temp Pulse Resp BP Pulse Ox 98.1 F 86 20 128/85 97 04/09/18 07:51 04/09/18 07:51 04/09/18 07:51 04/09/18 07:51 04/09/18 07:51 Intake and Output: 04/09/18 04/09/18 06:59 18:59 Intake Total 3580 Balance 3580 - Medications Medications: Current Medications Famotidine (Pepcid) 20 mg IVP Q12 [facility] Last Admin: 04/09/18 09:45 Dose: 20 mg Lactated Ringer's (Lactated Ringer's) 1,000 mls @ 100 mls/hr IV .Q10H [facility] Ketorolac Tromethamine (Toradol) 15 mg IVP Q6 PRN PRN Reason: Pain, moderate (4-7) Last Admin: 04/08/18 22:20 Dose: 15 mg Ketorolac Tromethamine (Toradol) 30 mg IVP Q6 PRN PRN Reason: Pain, severe (8-10) Last Admin: 04/09/18 05:11 Dose: 30 mg Lorazepam (Ativan) 1 mg IVP Q6H PRN PRN Reason: Seizure activity Ondansetron HCl (Zofran Inj) 4 mg IVP Q8H PRN PRN Reason: Nausea/Vomiting Polyethylene Glycol (Miralax) 17 gm PO DAILY [facility] Last Admin: 04/09/18 09:45 Dose: 17 gm Spironolactone (Aldactone) 50 mg PO DAILY [facility] Last Admin: 04/09/18 09:48 Dose: 50 mg - Labs Labs: 04/09/18 06:05 04/09/18 06:05 Attending/Attestation - Attestation I have personally seen and examined this patient.: Yes I have fully participated in the care of the patient.: Yes I have reviewed all pertinent clinical information, including history, physical exam and plan: Yes Notes (Text): 04/09/18 13:35 Medical attending: Patient was seen and examined by me. Agree with the above note by the resident The patient was seen and examined by me with the medical residents. The patient reported less abdominal pain today. He is ambulating and also tolerated the advancement of his diet There was no signs of tremors or alcohol withdrawl and he denied having alcohol withdrawl symptoms when we asked The patient if he has no pain tommorow we will consider discharge home with small dose of lasix as he has a small amount of ascities noted. Again we had a conversation with alexxs to his alcohol intake. John Mccoy
[2018-04-09 08:12] LABS: BANDS 5 % (0-2); LYMPHOCYTE 6 % (20-40); TOTAL CELLS COUNTED 100
[2018-04-09 08:13] LABS: MONOCYTE 3 % (0-10); NEUTROPHIL 86 % (50-75); PLATELET ESTIMATE NORMAL (NORMAL)
[2018-04-09] MEDS: POLYETHYLENE GLYCOL 3350 17 GM/Dose PACKET PO SCH (09:45)
[2018-04-09] MEDS ORDERED: Pneumococcal 23-Valent Vaccine IM ONE (10:00)
[2018-04-09] MEDS ORDERED: Influenza Vaccine 60 MCG/0.5 ML SYR (3 yr & up) IM ONE (10:00)
--- NOTE | 2018-04-09 10:07 | CP.PCM.PN ---
<Yohannes De La O - Last Filed: 04/09/18 10:03> Subjective - Date & Time of Evaluation Date of Evaluation: 04/09/18 Time of Evaluation: 07:05 - Subjective Subjective: PGY-4 GI Fellow Prog Note Pt lying in bed when seen this AM. States tolerating clear liq diet with minimal to no pain. Only experience some minor pain with movement. Reports flatus but denied BM. Asking for more miralax and diet to be advanced. 5 point ROS negative other than stated above Objective - Vital Signs/Intake and Output Vital Signs (last 24 hours): Temp Pulse Resp BP Pulse Ox 98.1 F 86 20 128/85 97 04/09/18 07:51 04/09/18 07:51 04/09/18 07:51 04/09/18 07:51 04/09/18 07:51 Intake and Output: 04/09/18 04/09/18 06:59 18:59 Intake Total 3580 Balance 3580 - Medications Medications: Current Medications Famotidine (Pepcid) 20 mg IVP Q12 COUNTS INCLUDE 234 BEDS AT THE [facility] Last Admin: 04/09/18 09:45 Dose: 20 mg Lactated Ringer's (Lactated Ringer's) 1,000 mls @ 100 mls/hr IV .Q10H COUNTS INCLUDE 234 BEDS AT THE [facility] Ketorolac Tromethamine (Toradol) 15 mg IVP Q6 PRN PRN Reason: Pain, moderate (4-7) Last Admin: 04/08/18 22:20 Dose: 15 mg Ketorolac Tromethamine (Toradol) 30 mg IVP Q6 PRN PRN Reason: Pain, severe (8-10) Last Admin: 04/09/18 05:11 Dose: 30 mg Lorazepam (Ativan) 1 mg IVP Q6H PRN PRN Reason: Seizure activity Ondansetron HCl (Zofran Inj) 4 mg IVP Q8H PRN PRN Reason: Nausea/Vomiting Polyethylene Glycol (Miralax) 17 gm PO DAILY COUNTS INCLUDE 234 BEDS AT THE [facility] Last Admin: 04/09/18 09:45 Dose: 17 gm Spironolactone (Aldactone) 50 mg PO DAILY COUNTS INCLUDE 234 BEDS AT THE [facility] Last Admin: 04/09/18 09:48 Dose: 50 mg - Labs Labs: 04/09/18 06:05 04/09/18 06:05 - Constitutional Appears: Well, No Acute Distress - Head Exam Head Exam: ATRAUMATIC, NORMAL INSPECTION - Eye Exam Eye Exam: EOMI. absent: Scleral icterus - ENT Exam ENT Exam: Mucous Membranes Moist. absent: Mucous Membranes Dry - GI/Abdominal Exam GI & Abdominal Exam: Distended (mildly though improved from prior), Soft, Normal Bowel Sounds. absent: Bruit, Firm, Guarding, Rigid, Tenderness, Mass, Organomegaly, Pulsatile Mass Assessment and Plan - Assessment and Plan (Free Text) Assessment: 28 yo M with h/o EtOH induced pancreatitis presenting with abd pain. # Abd Pain: Due to EtOH induced pancreatitis. 2/3 criteria with typical symptoms and radiographic signs, lipase not 3x ULN. CT without fluid collection nor necrosis. Non obstructive liver tests and Triglycerides 438 on 09/02/16. # Ileus: Likely reactive due to above. Passing flatus, no BM yet. # EtOH Abuse: At least 1 pint liquor consumed on 04/06/18 Plan: - Clear Liq Diet - Daily Miralax - If BM and feeling better this PM, can advance to low fat diet later - IVF with LR until taking good PO - Pain control per primary - Counseled on EtOH and Tobacco cessation Thank you for the consult; will cont to follow. Pt seen and examined with Dr. Stephenson; please see attestation for further details/changes. Yohannes De La O, PGY-4 <Cristofer Stephenson - Last Filed: 04/09/18 11:28> Objective - Vital Signs/Intake and Output Vital Signs (last 24 hours): Temp Pulse Resp BP Pulse Ox 98.1 F 86 20 128/85 97 04/09/18 07:51 04/09/18 07:51 04/09/18 07:51 04/09/18 07:51 04/09/18 07:51 Intake and Output: 04/09/18 04/09/18 06:59 18:59 Intake Total 3580 Balance 3580 - Medications Medications: Current Medications Famotidine (Pepcid) 20 mg IVP Q12 [facility] Last Admin: 04/09/18 09:45 Dose: 20 mg Lactated Ringer's (Lactated Ringer's) 1,000 mls @ 100 mls/hr IV .Q10H [facility] Ketorolac Tromethamine (Toradol) 15 mg IVP Q6 PRN PRN Reason: Pain, moderate (4-7) Last Admin: 04/08/18 22:20 Dose: 15 mg Ketorolac Tromethamine (Toradol) 30 mg IVP Q6 PRN PRN Reason: Pain, severe (8-10) Last Admin: 04/09/18 05:11 Dose: 30 mg Lorazepam (Ativan) 1 mg IVP Q6H PRN PRN Reason: Seizure activity Ondansetron HCl (Zofran Inj) 4 mg IVP Q8H PRN PRN Reason: Nausea/Vomiting Polyethylene Glycol (Miralax) 17 gm PO DAILY COUNTS INCLUDE 234 BEDS AT THE [facility] Last Admin: 04/09/18 09:45 Dose: 17 gm Spironolactone (Aldactone) 50 mg PO DAILY COUNTS INCLUDE 234 BEDS AT THE [facility] Last Admin: 04/09/18 09:48 Dose: 50 mg - Labs Labs: 04/09/18 06:05 04/09/18 06:05 Attending/Attestation - Attestation I have personally seen and examined this patient.: Yes I have fully participated in the care of the patient.: Yes I have reviewed all pertinent clinical information, including history, physical exam and plan: Yes Notes (Text): 04/09/18 11:26 I have seen and examined patient with GI fellow. No acute events overnight, he is seen sitting in bed watching television, appears comfortable. His abdominal pain has resolved and he denies nausea, vomiting, fever/chills. Tolerating PO liquids without difficulty. No bowel movements thus far. Review of vitals from today are normal. Abdominal pain Acute ETOH induced pancreatitis - Advance diet as tolerated - Continue with IVF hydration, supportive care - Maintain bowel regimen for treatment of ileus - If patient tolerating PO diet, from GI perspective ok to discharge home with additional outpatient follow up. Requires ETOH cessation counseling. - No further planned intervention, will sign off case. Please reconsult as necessary, thank you.
[2018-04-10] MEDS: Lactated Ringer's 1,000 ML IV SCH ×2 (05:45→10:00)
[2018-04-10 07:36] VITALS: BP 111/72; PULSE 78; TEMP 98.3; O2SAT 95
[2018-04-10 07:49] LABS: BASO % 0.4 % (0.0-2.0); EOS # 0.1 K/uL (0.0-0.7); EOS % 2.4 % (0.0-4.0); HEMOGLOBIN 14.1 g/dL (12.0-18.0); LYMPH # 0.9 K/uL (1.0-4.3); LYMPH % 19.1 % (20.0-40.0); MEAN CORPUSCULAR HEMOGLOBIN 31.1 pg (27.0-31.0); MEAN CORPUSCULAR HGB CONC 34.1 g/dL (33.0-37.0); MEAN PLATELET VOLUME 7.4 fL (7.2-11.7); MONO # 0.3 K/uL (0.0-0.8); MONO % 6.7 % (0.0-10.0); NEUT # 3.5 K/uL (1.8-7.0); NEUT % 71.4 % (50.0-75.0); RBC 4.54 Mil/uL (4.40-5.90); RED CELL DISTRIBUTION WIDTH 13.2 % (11.5-14.5)
[2018-04-10 07:52] LABS: MEAN CELL VOLUME 91.3 fL (80.0-94.0)
[2018-04-10 08:09] LABS: ALB/GLOB RATIO 1.2 (1.0-2.1); ALBUMIN 3.3 g/dL (3.5-5.0); ALT/SGPT 24 U/L (21-72); AST/SGOT 19 U/L (17-59); BLOOD UREA NITROGEN 6 mg/dL (9-20); CALCIUM 8.2 mg/dl (8.6-10.4); GFR NON-AFRICAN AMERICAN > 60
[2018-04-10] MEDS: POLYETHYLENE GLYCOL 3350 17 GM/Dose PACKET PO SCH (11:00)
--- NOTE | 2018-04-10 12:39 | CP.PCM.DIS ---
<Genesis Garcia - Last Filed: 04/10/18 12:59> Provider - Provider Date of Admission: 04/07/18 23:01 Attending physician: John Mccoy DO Consults: 04/08/18 02:18 Psychiatry Consult Routine Comment: Consulting Provider: Hamilton Hernadez Consulting Physician: Hamilton Hernadez Reason for Consult: alcoholism Time Spent in preparation of Discharge (in minutes): 29 Diagnosis - Discharge Diagnosis (1) Pancreatitis Status: Acute Comment: secondary to alcohol abuse (2) Alcohol abuse Status: Chronic Comment: Patient educated on consequences of alcohol abuse and encouraged to get help maintaining abstinence upon discharge Hospital Course - Lab Results Lab Results: Most Recent Lab Values WBC 5.0 K/uL (4.8-10.8) 04/10/18 07:34 RBC 4.54 Mil/uL (4.40-5.90) 04/10/18 07:34 Hgb 14.1 g/dL (12.0-18.0) 04/10/18 07:34 Hct 41.5 % (35.0-51.0) 04/10/18 07:34 MCV 91.3 fL (80.0-94.0) D 04/10/18 07:34 MCH 31.1 pg (27.0-31.0) H 04/10/18 07:34 MCHC 34.1 g/dL (33.0-37.0) 04/10/18 07:34 RDW 13.2 % (11.5-14.5) 04/10/18 07:34 Plt Count 152 K/uL (130-400) 04/10/18 07:34 MPV 7.4 fL (7.2-11.7) 04/10/18 07:34 Neut % (Auto) 71.4 % (50.0-75.0) 04/10/18 07:34 Lymph % (Auto) 19.1 % (20.0-40.0) L 04/10/18 07:34 Ralls % (Auto) 6.7 % (0.0-10.0) 04/10/18 07:34 Eos % (Auto) 2.4 % (0.0-4.0) 04/10/18 07:34 Baso % (Auto) 0.4 % (0.0-2.0) 04/10/18 07:34 Neut # (Auto) 3.5 K/uL (1.8-7.0) 04/10/18 07:34 Lymph # (Auto) 0.9 K/uL (1.0-4.3) L 04/10/18 07:34 Ralls # (Auto) 0.3 K/uL (0.0-0.8) 04/10/18 07:34 Eos # (Auto) 0.1 K/uL (0.0-0.7) 04/10/18 07:34 Baso # (Auto) 0.0 K/uL (0.0-0.2) 04/10/18 07:34 Neutrophils % (Manual) 86 % (50-75) H 04/09/18 06:05 Band Neutrophils % 5 % (0-2) H 04/09/18 06:05 Lymphocytes % (Manual) 6 % (20-40) L 04/09/18 06:05 Monocytes % (Manual) 3 % (0-10) 04/09/18 06:05 Platelet Estimate Normal (NORMAL) 04/09/18 06:05 RBC Morphology Normal 04/09/18 06:05 Sodium 134 mmol/L (132-148) 04/10/18 07:34 Potassium 3.5 mmol/L (3.6-5.2) L 04/10/18 07:34 Chloride 96 mmol/L (98-107) L 04/10/18 07:34 Carbon Dioxide 28 mmol/L (22-30) 04/10/18 07:34 Anion Gap 13 (10-20) 04/10/18 07:34 BUN 6 mg/dL (9-20) L 04/10/18 07:34 Creatinine 0.7 mg/dL (0.8-1.5) L 04/10/18 07:34 Est GFR ( Amer) > 60 04/10/18 07:34 Est GFR (Non-Af Amer) > 60 04/10/18 07:34 Random Glucose 93 mg/dL (75-110) 04/10/18 07:34 Calcium 8.2 mg/dl (8.6-10.4) L 04/10/18 07:34 Phosphorus 2.6 mg/dL (2.5-4.5) 04/08/18 06:18 Magnesium 1.6 mg/dL (1.6-2.3) 04/08/18 06:18 Total Bilirubin 1.8 mg/dL (0.2-1.3) H 04/10/18 07:34 AST 19 U/L (17-59) 04/10/18 07:34 ALT 24 U/L (21-72) 04/10/18 07:34 Alkaline Phosphatase 43 U/L (38-126) 04/10/18 07:34 Total Protein 6.0 g/dL (6.3-8.3) L 04/10/18 07:34 Albumin 3.3 g/dL (3.5-5.0) L 04/10/18 07:34 Globulin 2.7 gm/dL (2.2-3.9) 04/10/18 07:34 Albumin/Globulin Ratio 1.2 (1.0-2.1) 04/10/18 07:34 Lipase 737 U/L (23-300) H 04/07/18 21:01 Urine Color Yellow (YELLOW) 04/07/18 21:01 Urine Clarity Clear (Clear) 04/07/18 21:01 Urine pH 5.0 (5.0-8.0) 04/07/18 21:01 Ur Specific [place] 1.027 (1.003-1.030) 04/07/18 21:01 Urine Protein 1+ mg/dL (NEGATIVE) H 04/07/18 21:01 Urine Glucose (UA) 1+ mg/dL (Normal) H 04/07/18 21:01 Urine Ketones Negative mg/dL (NEGATIVE) 04/07/18 21: Urine Blood 1+ (NEGATIVE) H 04/07/18 21:01 Urine Nitrate Negative (NEGATIVE) 04/07/18 21: Urine Bilirubin Negative (NEGATIVE) 04/07/18 21: Urine Urobilinogen Normal mg/dL (0.2-1.0) 04/07/18 21: Ur Leukocyte Esterase Neg Sharon/uL (Negative) 04/07/18 21:01 Urine WBC (Auto) 1 /hpf (0-5) 04/07/18 21:01 Urine RBC (Auto) 1 /hpf (0-3) 04/07/18 21:01 Ur Squamous Epith Cells < 1 /hpf (0-5) 04/07/18 21:01 Urine Bacteria Rare (<OCC) 04/07/18 21:01 Urine Opiates Screen Positive (NEGATIVE) H 04/08/18 06:35 Urine Methadone Screen Negative (NEGATIVE) 04/08/18 06:35 Ur Barbiturates Screen Negative (NEGATIVE) 04/08/18 06:35 Ur Phencyclidine Scrn Negative (NEGATIVE) 04/08/18 06:35 Ur Amphetamines Screen Negative (NEGATIVE) 04/08/18 06:35 U Benzodiazepines Scrn Negative (NEGATIVE) 04/08/18 06:35 U Oth Cocaine Metabols Negative (NEGATIVE) 04/08/18 06:35 U Cannabinoids Screen Negative (NEGATIVE) 04/08/18 06:35 Alcohol, Quantitative < 10 mg/dl (0-10) 04/07/18 21:01 - Hospital Course Hospital Course: Patient presented to the Emergency Department with complaints of abdominal pain. Evaluation of labwork found mild leukocytosis, lipase elevated at 737. Pt has a history of alcohol induced pancreatitis. CT abdomen/pelvis noted findings consistent with acute pancreatitis. GI, Dr. Stephenson was consulted. Pt was kept NPO, put on IVF, pain meds prn, anti nausea medication, and diuresis. Patient was gradually introduced a diet and was able to tolerate it. Pt reports flatus, BM, no nausea or vomiting, can ambulate freely at time of discharge. Alcohol cessation discussion with patient was had throughout stay. Patient stable for discharge home. HPI on admission: patient is a 28 year old male with no significant past medical history that came to ED for upper abdominal pain that started @ 1pm the day before. Patient admits to having this pain, but located on the lower abdominal area, about a year ago and being admitted to the hospital. Patient states the pain feels like a sharp pain, 8/10, localized to the epigastric area, non radiating to the back or shoulders. Pain gets worse with movement or when patient sneezes or coughs. Patient took one tylenol at home for pain but had no relief. Patient admits having drink 1 pint of vodka and Heness[place] last weekend from Saturday until Saturday. Denies pain with eating food. Patient denies fevers, chills, chest pain, shortness of breath, n/v/d/c, urinary symptoms, or blood in the stools or urine. For detailed course, refer to EMR Discharge Exam - Head Exam Head Exam: NORMAL INSPECTION - Eye Exam Eye Exam: EOMI, Normal appearance - ENT Exam ENT Exam: Mucous Membranes Moist - Neck Exam Neck exam: Normal Inspection - Respiratory Exam Respiratory Exam: Clear to PA & Lateral, NORMAL BREATHING PATTERN, UNREMARKABLE - Cardiovascular Exam Cardiovascular Exam: REGULAR RHYTHM, +S1, +S2. absent: Tachycardia - GI/Abdominal Exam GI & Abdominal Exam: Distended, Normal Bowel Sounds, Soft, Tenderness - Extremities Exam Extremities exam: normal capillary refill, normal inspection, pedal pulses present - Neurological Exam Neurological exam: Alert, Normal Gait, Oriented x3 - Psychiatric Exam Psychiatric exam: Normal Affect, Normal Mood - Skin Skin Exam: Dry, Intact, Normal Color, Warm Discharge Plan - Discharge Medications Prescriptions: RX: Furosemide [Lasix] 20 mg PO DAILY #30 tablet RX: Pantoprazole [Protonix EC Tab] 40 mg PO DAILY #30 ect RX: Spironolactone 50 mg PO DAILY #30 tablet RX: Thiamine [Vitamin B1 Tab] 100 mg PO DAILY #30 tab - Follow Up Plan Condition: SERIOUS Disposition: HOME/ ROUTINE Instructions: Alcohol Abuse and Alcoholism (DC), Furosemide, Spironolactone, Thiamine, Pancreatitis (DC) Additional Instructions: Patient is stable for discharge home. Patient treated for pancreatitis secondary to alcohol abuse. Patient is being given prescriptions for home medications lasix, spironolactone, protonix, and thiamine to be taken as instructed. Patient is instructed to follow up in clinic for continued medical care within 2 weeks of discharge. Patient advised to stop drinking alcohol, and encouraged to seek support and counseling, begin AA programs. Patient is advised to return to the Emergency Department with any worsening of symptoms. Referrals: Preeti Pulido MD [Staff Provider] - Cristofer Stephenson MD [Staff Provider] - <John Mccoy - Last Filed: 04/10/18 16:47> Provider - Provider Date of Admission: 04/07/18 23:01 Attending physician: John Mccoy DO Consults: 04/08/18 02:18 Psychiatry Consult Routine Comment: Consulting Provider: Hamilton Hernadez Consulting Physician: Hamilton Hernadez Reason for Consult: alcoholism Hospital Course - Lab Results Lab Results: Most Recent Lab Values WBC 5.0 K/uL (4.8-10.8) 04/10/18 07:34 RBC 4.54 Mil/uL (4.40-5.90) 04/10/18 07:34 Hgb 14.1 g/dL (12.0-18.0) 04/10/18 07:34 Hct 41.5 % (35.0-51.0) 04/10/18 07:34 MCV 91.3 fL (80.0-94.0) D 04/10/18 07:34 MCH 31.1 pg (27.0-31.0) H 04/10/18 07:34 MCHC 34.1 g/dL (33.0-37.0) 04/10/18 07:34 RDW 13.2 % (11.5-14.5) 04/10/18 07:34 Plt Count 152 K/uL (130-400) 04/10/18 07:34 MPV 7.4 fL (7.2-11.7) 04/10/18 07:34 Neut % (Auto) 71.4 % (50.0-75.0) 04/10/18 07:34 Lymph % (Auto) 19.1 % (20.0-40.0) L 04/10/18 07:34 Ralls % (Auto) 6.7 % (0.0-10.0) 04/10/18 07:34 Eos % (Auto) 2.4 % (0.0-4.0) 04/10/18 07:34 Baso % (Auto) 0.4 % (0.0-2.0) 04/10/18 07:34 Neut # (Auto) 3.5 K/uL (1.8-7.0) 04/10/18 07:34 Lymph # (Auto) 0.9 K/uL (1.0-4.3) L 04/10/18 07:34 Ralls # (Auto) 0.3 K/uL (0.0-0.8) 04/10/18 07:34 Eos # (Auto) 0.1 K/uL (0.0-0.7) 04/10/18 07:34 Baso # (Auto) 0.0 K/uL (0.0-0.2) 04/10/18 07:34 Neutrophils % (Manual) 86 % (50-75) H 04/09/18 06:05 Band Neutrophils % 5 % (0-2) H 04/09/18 06:05 Lymphocytes % (Manual) 6 % (20-40) L 04/09/18 06:05 Monocytes % (Manual) 3 % (0-10) 04/09/18 06:05 Platelet Estimate Normal (NORMAL) 04/09/18 06:05 RBC Morphology Normal 04/09/18 06:05 Sodium 134 mmol/L (132-148) 04/10/18 07:34 Potassium 3.5 mmol/L (3.6-5.2) L 04/10/18 07:34 Chloride 96 mmol/L (98-107) L 04/10/18 07:34 Carbon Dioxide 28 mmol/L (22-30) 04/10/18 07:34 Anion Gap 13 (10-20) 04/10/18 07:34 BUN 6 mg/dL (9-20) L 04/10/18 07:34 Creatinine 0.7 mg/dL (0.8-1.5) L 04/10/18 07:34 Est GFR ( Amer) > 60 04/10/18 07:34 Est GFR (Non-Af Amer) > 60 04/10/18 07:34 Random Glucose 93 mg/dL (75-110) 04/10/18 07:34 Calcium 8.2 mg/dl (8.6-10.4) L 04/10/18 07:34 Phosphorus 2.6 mg/dL (2.5-4.5) 04/08/18 06:18 Magnesium 1.6 mg/dL (1.6-2.3) 04/08/18 06:18 Total Bilirubin 1.8 mg/dL (0.2-1.3) H 04/10/18 07:34 AST 19 U/L (17-59) 04/10/18 07:34 ALT 24 U/L (21-72) 04/10/18 07:34 Alkaline Phosphatase 43 U/L (38-126) 04/10/18 07:34 Total Protein 6.0 g/dL (6.3-8.3) L 04/10/18 07:34 Albumin 3.3 g/dL (3.5-5.0) L 04/10/18 07:34 Globulin 2.7 gm/dL (2.2-3.9) 04/10/18 07:34 Albumin/Globulin Ratio 1.2 (1.0-2.1) 04/10/18 07:34 Lipase 737 U/L (23-300) H 04/07/18 21:01 Urine Color Yellow (YELLOW) 04/07/18 21:01 Urine Clarity Clear (Clear) 04/07/18 21:01 Urine pH 5.0 (5.0-8.0) 04/07/18 21:01 Ur Specific [place] 1.027 (1.003-1.030) 04/07/18 21:01 Urine Protein 1+ mg/dL (NEGATIVE) H 04/07/18 21:01 Urine Glucose (UA) 1+ mg/dL (Normal) H 04/07/18 21:01 Urine Ketones Negative mg/dL (NEGATIVE) 04/07/18 21:01 Urine Blood 1+ (NEGATIVE) H 04/07/18 21:01 Urine Nitrate Negative (NEGATIVE) 04/07/18 21: Urine Bilirubin Negative (NEGATIVE) 04/07/18 21:01 Urine Urobilinogen Normal mg/dL (0.2-1.0) 04/07/18 21:01 Ur Leukocyte Esterase Neg Sharon/uL (Negative) 04/07/18 21:01 Urine WBC (Auto) 1 /hpf (0-5) 04/07/18 21:01 Urine RBC (Auto) 1 /hpf (0-3) 04/07/18 21:01 Ur Squamous Epith Cells < 1 /hpf (0-5) 04/07/18 21:01 Urine Bacteria Rare (<OCC) 04/07/18 21:01 Urine Opiates Screen Positive (NEGATIVE) H 04/08/18 06:35 Urine Methadone Screen Negative (NEGATIVE) 04/08/18 06:35 Ur Barbiturates Screen Negative (NEGATIVE) 04/08/18 06:35 Ur Phencyclidine Scrn Negative (NEGATIVE) 04/08/18 06:35 Ur Amphetamines Screen Negative (NEGATIVE) 04/08/18 06:35 U Benzodiazepines Scrn Negative (NEGATIVE) 04/08/18 06:35 U Oth Cocaine Metabols Negative (NEGATIVE) 04/08/18 06:35 U Cannabinoids Screen Negative (NEGATIVE) 04/08/18 06:35 Alcohol, Quantitative < 10 mg/dl (0-10) 04/07/18 21:01 Attending/Attestation - Attestation I have personally seen and examined this patient.: Yes I have fully participated in the care of the patient.: Yes I have reviewed all pertinent clinical information, including history, physical exam and plan: Yes Notes (Text): 04/10/18 16:42 Medical attending: Patient was seen and examined by me. Reviewed the above note by the resident and agree with the above note The patient was not having any shaking or tremors. He was tolerating a regular diet as well We again had a discussion with regards to the use of alcohol. The patient will be discharged today. He will need to take low dose lasix as well as aldactone. I explained to the patient that if he wants to he can follow up at the [facility] and he responded by saying the last time he was admitted for similar situation after drinking but felt well enough after DC so he did not. He said he'll think about it John Mccoy
== END 2018-04-10 14:31 | disposition home or self-care (01) | DRG 282 ==
LOC: C.ER 20:06 → C.9E 23:01 → C.3T 23:23
PROVIDERS: ADMIT Hospitalist; ATTEND Hospitalist
DX: K85.20 Alcohol induced acute pancreatitis without necrosis or infection (principal); R18.8 Other ascites; R56.9 Unspecified convulsions; K56.7 Ileus, unspecified; E87.1 Hypo-osmolality and hyponatremia; K76.9 Liver disease, unspecified; F17.210 Nicotine dependence, cigarettes, uncomplicated; Y90.0 Blood alcohol level of less than 20 mg/100 ml; K86.89 Other specified diseases of pancreas